=== PATIENT | female | born 1955 | race Caucasian/White ===

== ENCOUNTER 2016-08-25 10:47 | Emergency (ER) | payer BC ==
[~2016-08-25] VITALS: Ht 165.1 cm; Wt 76.9 kg
[~2016-08-25 10:47] MED LIST: /IPRA3SP NEB; /PANT40TA OR; /WARF25TA PO; ALBU17IN2 INH; ALBU2TA NEB; AMBI10TA OR; ASPI325T PO; ATEN25TA OR; AZIT500T2 PO; B COCAP5 OR; BACIDCA PO; BISA10SU PR; BISAC5TA PO; BUSP10TA PO; BUSP15TA PO; BYST10TA2 PO; BYST2.5T PO; CALC600T31 PO; CEFD1CAP8 PO; CELE40TA OR; COUM2.5T17 PO; CRAN400T3 PO; CYCL10TA3 PO; CYCL5TA PO; ESTR0.5T PO; F; FEMHRT; FIBE625T27 PO; FLEXERIL OR; FLUC10TA PO; HYDR-3713 PO; IRON TABS OR; LEVO50TA4 PO; LEVO50TA45 PO; MAGN1TAB25 PO; MAGNESIUM HYDROXIDE; MAGNESIUM HYDROXIDE PO; MOM30SS PO; MULTCAP PO; MULTIVIT OR; MULTLIQ PO; PERCOCET PO; POLYETHYLENE GLYCOL PO; PRED20TAB PO; PROT1TAB2 PO; RANI150C OR; SENN8.6T21 PO; TRAM50TA2 OR; TRAV04OPD OU; TRAZ-136 PO; TRAZ100T PO; TUMS500C PO; TYLE325T5 PO; VICO5TAB PO; VIT D 2000 OR; VITA500046 PO; VITAD1000T PO; VITMTA PO; XANA0.5T OR; ZOLO100T OR; ZOLO100T PO; ZYRT10CA PO; ZYRT10TA2 PO; ZYRT10TA6 OR; [UNRECOGNIZED DRUG - OTHER]; femhrt OR
[2016-08-25] MEDS ORDERED: BUSP10TA PO (11:07)
[2016-08-25] MEDS ORDERED: GABA-279 PO (11:10)
[2016-08-25] MEDS ORDERED: METO1TAB7 PO (11:10)
[2016-08-25] MEDS ORDERED: LATA5OPD OU (11:10)
--- NOTE | 2016-08-25 12:42 | REP ---
Clinical: Trauma. Technique: AP, lateral, bilateral oblique and sunrise views of the right knee. Findings: Osteopenia and moderate tricompartmental osteoarthritic degenerative changes are appreciated. No obvious acute fracture dislocation. Prepatellar soft tissue swelling noted. No definite effusion. Impression: Osteopenia and moderate tricompartmental degenerative changes. Prepatellar swelling. No obvious acute fracture or dislocation. Signed by Yovanny Riojas MD 08/25/2016 12:33 P
--- NOTE | 2016-08-25 12:43 | REP ---
Clinical: Trauma. Technique: Frontal view of the chest with multiple views of the right hemithorax. Findings: Frontal view of the chest demonstrates no acute cardiopulmonary process. Multiple views of the right hemithorax demonstrates no obvious acute rib fracture or pathology. Impression: No definite acute right rib fracture or pathology noted. Signed by Yovanny Riojas MD 08/25/2016 12:34 P
--- NOTE | 2016-08-25 12:44 | REP ---
Clinical: Trauma. Technique: AP and lateral views of the right tibia / fibula. Findings: Age-related osteopenia and degenerative changes at the knee and ankle joint noted. No obvious acute fracture or dislocation. No subcutaneous emphysema or radiodense foreign body. Impression: Osteopenia and degenerative changes. No obvious acute fracture or dislocation. Signed by Yovanny Riojas MD 08/25/2016 12:35 P
[2016-08-25 13:31] VITALS: BP 169/78
== END 2016-08-25 13:33 | disposition home or self-care (01) ==
LOC: M ED 10:47
DX: R29.6 Repeated falls (principal); M25.561 Pain in right knee; M17.11 Unilateral primary osteoarthritis, right knee; M85.861 Other specified disorders of bone density and structure, right lower leg; M25.461 Effusion, right knee; R07.89 Other chest pain; I48.91 Unspecified atrial fibrillation; I10 Essential (primary) hypertension; E03.9 Hypothyroidism, unspecified; M54.9 Dorsalgia, unspecified; F41.9 Anxiety disorder, unspecified; F32.9 Major depressive disorder, single episode, unspecified; Z79.899 Other long term (current) drug therapy; Z91.013 Allergy to seafood; Z88.8 Allergy status to other drugs, medicaments and biological substances

== ENCOUNTER → 2016-09-09 | Outpatient (CLI) | payer BC ==
[~2016-09-09] MED LIST changes: +CALCTAB68 PO; +GABA-279 PO; +K-TA10TA2 PO; +LATA5OPD OU; +METO1TAB7 PO; +METO50TA7 PO; +NORE1TAB13 PO; +VITA200016 PO; +XARE20TA PO
[2016-09-15 14:15] LABS: BENZODIAZEPINES, URINE SCREEN Negative ng/mL (Cutoff=200); METHADONE, URINE SCREEN Negative ng/mL (Cutoff=300); OPIATES, URINE Positive ng/mL (Cutoff=300); pH, URINE 5.5 (4.5-8.9)
== END ==
LOC: M WUC 15:31
PROVIDERS: ATTEND Physical Medicine & Rehabilitation
DX: M47.816 Spondylosis without myelopathy or radiculopathy, lumbar region (principal)

== ENCOUNTER → 2016-11-15 | Outpatient (REF) | payer BC ==
[2016-11-15 16:21] LABS: ANION GAP 9 MEQ/L (8-16); BLOOD UREA NITROGEN 7 MG/DL (7-18); CALCIUM LEVEL 9.1 MG/DL (8.8-10.2); CARBON DIOXIDE LEVEL 28 MEQ/L (21-32); CHLORIDE LEVEL 94 MEQ/L (98-107); CREATININE FOR GFR 0.67 MG/DL (0.55-1.02); GLOMERULAR FILTRATION RATE > 60.0 (>45); GLUCOSE, FASTING 85 MG/DL (80-110); POTASSIUM SERUM 4.7 MEQ/L (3.5-5.1); SODIUM LEVEL 131 MEQ/L (136-145)
[2016-11-15 16:47] LABS: BASO # 0.1 K/mm3 (0.0-0.2); BASO % 1.2 % (0.0-1.0); EOS # 0.2 K/mm3 (0.0-0.50); EOS % 3.2 % (0.0-3.0); MEAN CORPUSCULAR HEMOGLOBIN 33.9 pg (27.0-33.0); MEAN CORPUSCULAR HGB CONC 33.3 g/dl (32.0-36.5); MEAN CORPUSCULAR VOLUME 101.9 fl (80.0-96.0); MONO # 0.4 K/mm3 (0.0-0.8); MONO % 7.2 % (0.0-5.0); NEUTROPHILS # 2.4 K/mm3 (1.8-7.7); NEUTROPHILS % 48.6 % (36.0-66.0); RED CELL DISTRIBUTION WIDTH 12.9 % (11.5-14.5)
== END ==
LOC: M LABDRAW1 14:24
PROVIDERS: ATTEND Internal Medicine Cardiovascular Disease
DX: I48.91 Unspecified atrial fibrillation (principal)

== ENCOUNTER 2016-12-12 09:20 | Inpatient (IN) | payer BC ==
[~2016-12-12] VITALS: Ht 170.2 cm; Wt 77.8 kg
[~2016-12-12 09:20] MED LIST changes: -CALCTAB68 PO; -K-TA10TA2 PO; -METO50TA7 PO; -NORE1TAB13 PO; -VITA200016 PO; -XARE20TA PO
[2016-12-12] MEDS ORDERED: XARE20TA PO (09:40)
[2016-12-12] MEDS ORDERED: NORE1TAB13 PO (09:40)
[2016-12-12] MEDS ORDERED: VITA200016 PO (09:40)
[2016-12-12] MEDS ORDERED: ONDANSETRON 4MG/2ML VIAL (J2405) IV ONE ×2 (10:45→14:00)
[2016-12-12] MEDS ORDERED: NS 1,000 ML IV ONE (11:15)
[2016-12-12 11:48] LABS: BASO % 0.3 % (0.0-1.0); IMMATURE GRANULOCYTE % 0.3 % (0-0); LYMPH % 14.6 % (24.0-44.0); MEAN CORPUSCULAR HEMOGLOBIN 33.4 pg (27.0-33.0); MEAN CORPUSCULAR HGB CONC 35.5 g/dl (32.0-36.5); MONO # 0.5 10^3/uL (0.0-0.8); MONO % 7.4 % (0.0-5.0); NEUTROPHILS # 5.3 10^3/uL (1.8-7.7); NEUTROPHILS % 77.4 % (36.0-66.0); PLATELET COUNT, AUTOMATED 361 10^3/uL (150-450); RED CELL DISTRIBUTION WIDTH 11.3 % (11.5-14.5); WHITE BLOOD COUNT 6.8 10^3/uL (4.0-10.0)
[2016-12-12 11:59] LABS: ANION GAP 8 MEQ/L (8-16); BLOOD UREA NITROGEN 8 MG/DL (7-18); CALCIUM LEVEL 9.7 MG/DL (8.8-10.2); CARBON DIOXIDE LEVEL 30 MEQ/L (21-32); CHLORIDE LEVEL 85 MEQ/L (98-107); CREATININE FOR GFR 0.86 MG/DL (0.55-1.02); GLOMERULAR FILTRATION RATE > 60.0 (>45); GLUCOSE, FASTING 115 MG/DL (80-110); POTASSIUM SERUM 2.9 MEQ/L (3.5-5.1); SODIUM LEVEL 123 MEQ/L (136-145)
[2016-12-12] MEDS ORDERED: METOPROLOL SUCC (TopROL XL) 50MG **XL** TAB PO ONE (12:45)
[2016-12-12 12:58] LABS: FREE T4 1.54 NG/DL (0.76-1.46); MAGNESIUM LEVEL 1.5 MG/DL (1.8-2.4)
[2016-12-12] MEDS ORDERED: POTASSIUM CHLORIDE 10 MEQ SR TABLET PO ONE (13:45)
[2016-12-12] MEDS ORDERED: CALCTAB68 PO (14:49)
[2016-12-12] MEDS ORDERED: METO50TA7 PO (14:49)
[2016-12-12] MEDS ORDERED: ACETAMINOPHEN TAB 650MG DOSE (2X325MG) PO PRN (15:00)
[2016-12-12] MEDS ORDERED: ONDANSETRON 4MG/2ML VIAL (J2405) IV PRN (15:00)
[2016-12-12] MEDS ORDERED: MAG SULF 1GM/100ML (MAG RUN) 1 GM in APPROPRIATE DILUENT 1 EA IV ONE (15:00)
[2016-12-12] MEDS ORDERED: METOCLOPRAMIDE INJ 10MG/2ML VIAL (J2765) IV PRN (15:00)
--- NOTE | 2016-12-12 15:23 | HPEPDOC ---
General Date of Admission Dec 12, 2016 at 14:57 Chief Complaint The patient is a 60-year-old female Presented to the ER with complaints of nausea and vomiting since Monday. History of Present Illness Patient is a 60 year old female with a PMHx of Atrial fibrillation (s/ p Ablation 10/2016, on Xarelto), HTN, Hypothyroidism, Chronic hyponatremia (133s) , Seasonal allergies, Depression and GERD who presented to the ER with complaints of nausea and vomiting since Monday. She noted that on Monday she began to experience N&V associated with diarrhea. She described the diarrhea as watery without any blood and had about 3 episodes. She had taken Imodium on Monday and had resolution of her diarrhea. He nausea and vomiting failed to resolve and she has had 2 episodes of vomiting , described as yellowish without any blood. She denies any fevers or chills at home. She does report epigastric discomfort initially, and described it as a burning sensation. She has taken Protonix for this at home and has full resolution of her pain. She denies any chest pain, shortness of breath, palpitations, or dysuria. She denies any sick contacts or people with similar symptoms. She denies any recent antibiotic use. Home Medications Scheduled (Norethindrone Acetate/Eth 1-5 mg-Mcg) 1 Tab Tab, 1 TAB PO DAILY, (Reported) Buspirone HCl (Buspirone HCl) 10 Mg Tab, 10 MG PO BID, (Reported) Calcium/Vitamin D (Calcium 600 + D 600-400 mg-Unit) 1 Tab Tab, 1 TAB PO DAILY, ( Reported) Cetirizine HCl (Zyrtec Allergy) 10 Mg Tab, 10 MG PO DAILY, (Reported) Latanoprost (Latanoprost) 50 Drop/2.5 Ml Soln, 1 DROP OU QHS, (Reported) Levothyroxine Sodium (Levoxyl) 50 Mcg Tab, 50 MCG PO DAILY, (Reported) Metoprolol Tartrate (Metoprolol Tartrate) 50 Mg Tab, 50 MG PO BID, (Reported) Pantoprazole Sodium Sesquihydr (Protonix) 40 Mg Tab, 40 MG PO DAILY, (Reported) Rivaroxaban (Xarelto) 20 Mg Tab, 20 MG PO DAILY, (Reported) Sertraline Hcl (Zoloft) 100 Mg Tab, 100 MG PO DAILY, (Reported) Trazodone HCl (Trazodone HCl) 100 Mg Tab, 100 MG PO QHS, (Reported) Scheduled PRN Acetaminophen/Hydrocodone (Hydrocodone/Acetaminophen 5-325 mg) 1 Tab Tab, 1 TAB PO DAILY PRN for PAIN, (Reported) Allergies Coded Allergies: Iodine (Verified Allergy, Unknown, 05/29/12) Povidone (Verified Allergy, Unknown, 05/29/12) SEAFOOD (Verified Allergy, Unknown, 01/15/10) Past Medical History Medical History Atrial fibrillation (s/p Ablation 10/2016, on Xarelto), HTN, Hypothyroidism, Chronic hyponatremia (133s), Seasonal allergies, Depression and GERD Surgical History Cystoscopy (10- years prior) Gastric bypass (1995) Tonsillectomy (age 4) Left hip replacement (2013) Cataract removal (2012) Family History - Non-contributory given advanced age Social History - Denies the use of tobacco or illicit drugs; Social alcohol luse - Denies recent travel or sick contacts - Lives alone - Occupation; Retired from guy Review of Symptoms Other systems Negative otherwise stated in HPI Vital Signs - Vitals: BP 185/108, HR 84, RR 18, Sat 92%RA, Temp 97.7F - General: Lying in bed, No acute distress, Speaking in full sentences, AAOx3 - HEENT: NC, AT, PERRLA, EOMI - CVS: Irregularly irregular, +S1S2, - Lungs: Fair air entry bilaterally, No appreciable wheezing / rales / rhonchi - Abdomen: Soft, Non-distended, Non-tender - Extremities: No lower extremity edema, No calf tenderness - Neuro: No focal motor or sensory deficit - Skin: No visible rashes Laboratory Data Labs 24H Laboratory Tests 2 12/12/16 11:20: Immature Granulocyte % (Auto) 0.3H, White Blood Count 6.8, Red Blood Count 4.82 , Hemoglobin 16.1H, Hematocrit 45.3, Mean Corpuscular Volume 94.0, Mean Corpuscular Hemoglobin 33.4H, Mean Corpuscular Hemoglobin Concent 35.5, Red Cell Distribution Width 11.3L, Platelet Count 361, Neutrophils (%) (Auto) 77.4H , Lymphocytes (%) (Auto) 14.6L, Monocytes (%) (Auto) 7.4H, Eosinophils (%) (Auto ) 0.0, Basophils (%) (Auto) 0.3, Neutrophils # (Auto) 5.3, Lymphocytes # (Auto) 1.0L, Monocytes # (Auto) 0.5, Eosinophils # (Auto) 0.0, Basophils # (Auto) 0.0, Immature Granulocyte # (Auto) 0.0, Nucleated Red Blood Cells % (auto) 0.0, Anion Gap 8, Glomerular Filtration Rate > 60.0, Osmolality 259L, Blood Urea Nitrogen 8, Creatinine 0.86, Sodium Level 123L, Potassium Level 2.9*L, Chloride Level 85L, Carbon Dioxide Level 30, Calcium Level 9.7, Magnesium Level 1.5L, Thyroid Stimulating Hormone (TSH) 2.620, Free Thyroxine 1.54H 12/12/16 13:09: Urine Random Osmolality 360L, Urine Random Creatinine 149.0, Urine Random Sodium 43 CBC/BMP Laboratory Tests 12/12/16 11:20 Red Blood Count 4.82, Mean Corpuscular Volume 94.0, Mean Corpuscular Hemoglobin 33.4 H, Mean Corpuscular Hemoglobin Concent 35.5, Red Cell Distribution Width 11.3 L, Neutrophils (%) (Auto) 77.4 H, Lymphocytes (%) (Auto) 14.6 L, Monocytes (%) (Auto) 7.4 H, Eosinophils (%) (Auto) 0.0, Basophils (%) (Auto) 0.3, Neutrophils # (Auto) 5.3, Lymphocytes # (Auto) 1.0 L, Monocytes # (Auto) 0.5, Eosinophils # (Auto) 0.0, Basophils # (Auto) 0.0, Calcium Level 9.7 Plan / VTE VTE Prophylaxis Ordered?: Yes Plan Plan Intractable nausea and vomiting with electrolyte changes - possibly 2/2 acute gastroenteritis (viral) - Symptoms started Monday; associated with diarrhea that has resolved - Physical unrevealing, remains afebrile - Labs indicate several electrolyte abnormalities - Will c/w symptomatic control with Zofran and Metoclopramide (QTc of 431; f/u with AM EKG) Acute on chronic hyponatremia - likely 2/2 hypovolemic hypotonic etiology - currently at 123; prior record of 133s in past - FENa of 0.2% - s/p 1 liter of NS in ER - Will repeat lab work at 6PM - Will adjust fluids based on that Hypokalemia - s/p supplementation Hypomagnesemia - s/p supplementation Atrial fibrillation - s/p Ablation 10/2016, on Xarelto - EKG with atrial fbirllation at 116 - c/w Metoprolol and Xarelto HTN - BP moderately elevated - c/w metoprolol tartrate - If remains elevated will add additional agents Hypothyroidism - c/w Levothyroxine Seasonal allergies - hold anti-histamine Depression - c/w home medications GERD - c/w Protonix (will change to IV) DVT prophylaxis - on full anticoagulation with Xarelto LAURENT BURROWS MD Dec 12, 2016 15:23
[2016-12-12] MEDS: SERTRALINE 100 MG TAB PO SCH (16:02)
[2016-12-12] MEDS: NORCO, ANEXSIA 5/325MG TABLET (HYDROcodone/ACETAMINOPHEN) PO PRN ×2 (16:05→23:05)
[2016-12-12] MEDS: RIVAROXABAN 20 MG TAB (XARELTO) PO SCH (17:50)
[2016-12-12 18:00] VITALS: BP 158/89
[2016-12-12 18:37] LABS: ANION GAP 5 MEQ/L (8-16); BLOOD UREA NITROGEN 8 MG/DL (7-18); CALCIUM LEVEL 9.2 MG/DL (8.8-10.2); CARBON DIOXIDE LEVEL 31 MEQ/L (21-32); CHLORIDE LEVEL 89 MEQ/L (98-107); CREATININE FOR GFR 0.88 MG/DL (0.55-1.02); GLOMERULAR FILTRATION RATE > 60.0 (>45); GLUCOSE, FASTING 124 MG/DL (80-110); MAGNESIUM LEVEL 1.9 MG/DL (1.8-2.4); PHOSPHORUS LEVEL 3.2 MG/DL (2.5-4.9); SODIUM LEVEL 125 MEQ/L (136-145)
--- NOTE | 2016-12-12 18:54 | ECGEPIP ---
Stationary ECG Study [facility] - ED Test Date: 2016-12-12 Pat Name: PRO REY Department: Room: - Gender: F Rewards Consultant: reese : 1955 Requested By: Savannah Cardenas PA-C Order Number: [id number] Reading MD: Ravi Chowdhury Measurements Intervals [place] Rate: 116 P: 66 [place]: 151 QRS: -2 QRSD: 102 T: 27 QT: 362 QTc: 504 Interpretive Statements SINUS TACHYCARDIA WITH OCCASIONAL SUPRAVENTRICULAR PREMATURE COMPLEXES NONSPECIFIC T-WAVE ABNORMALITY SIMILAR TO 05/02/15 Electronically Signed On 12-12-2016 18:54:22 EDT by Ravi Chowdhury
[2016-12-12 19:07] LABS: POTASSIUM SERUM 4.4 MEQ/L (3.5-5.1)
[2016-12-12] MEDS: LEVOTHYROXINE 50MCG TABLET (0.05MG) PO SCH (19:44)
[2016-12-12 20:00] VITALS: BP 149/82
[2016-12-12] MEDS ORDERED: NS 1,000 ML IV SCH (20:15)
[2016-12-12] MEDS: LATANOPROST 0.005% OPHTH SOLN 2.5 ML OU SCH (20:18)
[2016-12-12] MEDS: busPIRone 10 MG TAB PO SCH (20:19)
[2016-12-12] MEDS: METOPROLOL TART 50 MG TAB PO SCH (20:19)
[2016-12-12] MEDS: traZODone 100 MG TAB PO SCH (20:19)
[2016-12-13] VITALS (7 sets, daily range): BP systolic 121–144; BP diastolic 71–88
[2016-12-13 04:34] LABS: BASO # 0.1 10^3/uL (0.0-0.2); BASO % 0.9 % (0.0-1.0); EOS # 0.2 10^3/uL (0.0-0.50); EOS % 2.8 % (0.0-3.0); IMMATURE GRANULOCYTE % 0.3 % (0-0); LYMPH # 2.6 10^3/uL (1.5-4.5); LYMPH % 45.2 % (24.0-44.0); MEAN CORPUSCULAR HEMOGLOBIN 33.9 pg (27.0-33.0); MEAN CORPUSCULAR HGB CONC 35.7 g/dl (32.0-36.5); MEAN CORPUSCULAR VOLUME 95.1 fl (80.0-96.0); MONO # 0.6 10^3/uL (0.0-0.8); NEUTROPHILS # 2.4 10^3/uL (1.8-7.7); NEUTROPHILS % 40.8 % (36.0-66.0); RED CELL DISTRIBUTION WIDTH 11.1 % (11.5-14.5); WHITE BLOOD COUNT 5.8 10^3/uL (4.0-10.0)
[2016-12-13 04:41] LABS: PLATELET COUNT, AUTOMATED 260 10^3/uL (150-450)
[2016-12-13 04:55] LABS: ALBUMIN 2.9 GM/DL (3.2-5.2); ALKALINE PHOSPHATASE 51 U/L (45-117); ALT/SGPT 19 U/L (12-78); ANION GAP 6 MEQ/L (8-16); AST/SGOT 27 U/L (15-37); BILIRUBIN,TOTAL 1.1 MG/DL (0.2-1.0); BLOOD UREA NITROGEN 6 MG/DL (7-18); CALCIUM LEVEL 7.8 MG/DL (8.8-10.2); CARBON DIOXIDE LEVEL 28 MEQ/L (21-32); CHLORIDE LEVEL 90 MEQ/L (98-107); CREATININE FOR GFR 0.74 MG/DL (0.55-1.02); GLOMERULAR FILTRATION RATE > 60.0 (>45); GLUCOSE, FASTING 87 MG/DL (80-110); MAGNESIUM LEVEL 1.6 MG/DL (1.8-2.4); POTASSIUM SERUM 3.4 MEQ/L (3.5-5.1); SODIUM LEVEL 124 MEQ/L (136-145); TOTAL PROTEIN 5.8 GM/DL (6.4-8.2)
[2016-12-13] MEDS: LEVOTHYROXINE 50MCG TABLET (0.05MG) PO SCH (06:10)
[2016-12-13] MEDS: NORCO, ANEXSIA 5/325MG TABLET (HYDROcodone/ACETAMINOPHEN) PO PRN ×3 (06:13→20:03)
[2016-12-13] MEDS: MAG SULF 1GM/100ML (MAG RUN) 1 GM in APPROPRIATE DILUENT 1 EA IV SCH ×2 (06:51→08:07)
[2016-12-13] MEDS: METOPROLOL TART 50 MG TAB PO SCH ×2 (08:08→20:02)
[2016-12-13] MEDS: busPIRone 10 MG TAB PO SCH ×2 (08:08→20:02)
[2016-12-13] MEDS: SERTRALINE 100 MG TAB PO SCH (08:08)
[2016-12-13] MEDS: POTASSIUM CHLORIDE 10 MEQ SR TABLET PO SCH ×2 (08:09→20:01)
[2016-12-13] MEDS ORDERED: PANTOPRAZOLE 40MG INJ (PROTONIX) (C9113) IV SCH (09:00)
--- NOTE | 2016-12-13 16:08 | IPNPDOC ---
Text Note Date of Service The patient was seen on 12/13/16. NOTE Subjective: Patient denies any nausea or vomiting today. feeling hungry . No fever or chills, no abdominal pain , or diarrhea. no chest pain or sob , no cough or phlegm. Physical Exam:- General: Lying in bed, No acute distress, Speaking in full sentences, AAOx3 HEENT: NC, AT, PERRLA, EOMI CVS: Irregularly irregular, +S1S2, Lungs: Fair air entry bilaterally, No appreciable wheezing / rales / rhonchi Abdomen: Soft, Non-distended, Non-tender Extremities: No lower extremity edema, No calf tenderness Neuro: No focal motor or sensory deficit Skin: No visible rashes Labs and radiology : As below. Assessment and Plan: 60 year old female with a PMHx of Atrial fibrillation (s/p Ablation 10/2016, on Xarelto), HTN, Hypothyroidism, Chronic hyponatremia (133s), Seasonal allergies, Depression and GERD who presented to the ER with complaints of nausea and vomiting since Monday and admitted for viral gastroenteritis and multiple electrolyte abnormalities. Intractable nausea and vomiting with electrolyte changes - possibly 2/2 acute gastroenteritis (viral) - Symptoms started Monday; associated with diarrhea that has resolved - Physical unrevealing, remains afebrile - Labs indicate several electrolyte abnormalities - Will c/w symptomatic control with Zofran and Metoclopramide (QTc of 431; f/u with AM EKG) Acute on chronic hyponatremia -Patient has a history of psychogenic polydipsia now more hyponatremic possibly due to excessive SIADH from intractable nausea and being on SSRI.. At this point does not look hypovolemic and nausea has resolved. -will dc ivf and start fluid restriction. Hypokalemia - s/p supplementation Hypomagnesemia - s/p supplementation Atrial fibrillation - s/p Ablation 10/2016, on Xarelto - EKG with atrial fbirllation at 116 - c/w Metoprolol and Xarelto HTN - BP moderately elevated - c/w metoprolol tartrate - If remains elevated will add additional agents Hypothyroidism - c/w Levothyroxine Seasonal allergies - hold anti-histamine Depression - c/w home medications GERD - c/w Protonix DVT prophylaxis - on full anticoagulation with Xarelto VS,Fishbone, I+O VS, Fishbone, I+O Laboratory Tests 12/12/16 17:55 Calcium Level 9.2 12/13/16 04:08 Calcium Level 7.8 #L, Red Blood Count 3.86 L, Mean Corpuscular Volume 95.1, Mean Corpuscular Hemoglobin 33.9 H, Mean Corpuscular Hemoglobin Concent 35.7, Red Cell Distribution Width 11.1 L, Neutrophils (%) (Auto) 40.8, Lymphocytes (% ) (Auto) 45.2 H, Monocytes (%) (Auto) 10.0 H, Eosinophils (%) (Auto) 2.8, Basophils (%) (Auto) 0.9, Neutrophils # (Auto) 2.4, Lymphocytes # (Auto) 2.6, Monocytes # (Auto) 0.6, Eosinophils # (Auto) 0.2, Basophils # (Auto) 0.1, Aspartate Amino Transf (AST/SGOT) 27, Alanine Aminotransferase (ALT/SGPT) 19, Alkaline Phosphatase 51, Total Bilirubin 1.1 H, Total Protein 5.8 L, Albumin 2.9 L Vital Signs Date Time Temp Pulse Resp B/P (MAP) Pulse Ox O2 Delivery O2 Flow Rate FiO2 12/13/16 14:00 98.5 85 18 139/76 (97) 98 Room Air I&O- Last 24 Hours up to 6 AM 12/14/16 06:00 Intake Total 1180 ml Output Total 425 ml Balance 755 ml SANGITA GONZALEZ MD Dec 13, 2016 16:08
[2016-12-13] MEDS: RIVAROXABAN 20 MG TAB (XARELTO) PO SCH (17:47)
[2016-12-13 18:42] LABS: ANION GAP 6 MEQ/L (8-16); BLOOD UREA NITROGEN 12 MG/DL (7-18); CALCIUM LEVEL 8.8 MG/DL (8.8-10.2); CARBON DIOXIDE LEVEL 28 MEQ/L (21-32); CHLORIDE LEVEL 91 MEQ/L (98-107); CREATININE FOR GFR 0.78 MG/DL (0.55-1.02); GLOMERULAR FILTRATION RATE > 60.0 (>45); GLUCOSE, FASTING 82 MG/DL (80-110); MAGNESIUM LEVEL 2.2 MG/DL (1.8-2.4); POTASSIUM SERUM 4.6 MEQ/L (3.5-5.1); SODIUM LEVEL 125 MEQ/L (136-145)
[2016-12-13] MEDS: LATANOPROST 0.005% OPHTH SOLN 2.5 ML OU SCH (20:01)
[2016-12-13] MEDS: traZODone 100 MG TAB PO SCH (20:02)
[2016-12-14] VITALS: BP 145/88
[2016-12-14 04:00] VITALS: BP 152/94
[2016-12-14] MEDS: NORCO, ANEXSIA 5/325MG TABLET (HYDROcodone/ACETAMINOPHEN) PO PRN ×2 (04:19→11:36)
[2016-12-14] MEDS: LEVOTHYROXINE 50MCG TABLET (0.05MG) PO SCH (06:02)
[2016-12-14 07:16] LABS: BASO # 0.1 10^3/uL (0.0-0.2); BASO % 1.9 % (0.0-1.0); EOS # 0.2 10^3/uL (0.0-0.50); EOS % 3.5 % (0.0-3.0); IMMATURE GRANULOCYTE % 0.4 % (0-0); LYMPH # 1.7 10^3/uL (1.5-4.5); LYMPH % 35.5 % (24.0-44.0); MEAN CORPUSCULAR HEMOGLOBIN 33.3 pg (27.0-33.0); MEAN CORPUSCULAR HGB CONC 34.5 g/dl (32.0-36.5); MEAN CORPUSCULAR VOLUME 96.7 fl (80.0-96.0); MONO # 0.5 10^3/uL (0.0-0.8); MONO % 10.1 % (0.0-5.0); NEUTROPHILS # 2.4 10^3/uL (1.8-7.7); NEUTROPHILS % 48.6 % (36.0-66.0); PLATELET COUNT, AUTOMATED 255 10^3/uL (150-450); RED CELL DISTRIBUTION WIDTH 11.1 % (11.5-14.5); WHITE BLOOD COUNT 4.9 10^3/uL (4.0-10.0)
[2016-12-14 07:35] LABS: ALBUMIN 3.2 GM/DL (3.2-5.2); ALBUMIN/GLOBULIN RATIO 1.14 (1.00-1.93); ALKALINE PHOSPHATASE 56 U/L (45-117); ALT/SGPT 17 U/L (12-78); ANION GAP 5 MEQ/L (8-16); AST/SGOT 17 U/L (15-37); BILIRUBIN,TOTAL 0.8 MG/DL (0.2-1.0); BLOOD UREA NITROGEN 13 MG/DL (7-18); CALCIUM LEVEL 8.6 MG/DL (8.8-10.2); CARBON DIOXIDE LEVEL 29 MEQ/L (21-32); CHLORIDE LEVEL 96 MEQ/L (98-107); CREATININE FOR GFR 0.77 MG/DL (0.55-1.02); GLOMERULAR FILTRATION RATE > 60.0 (>45); GLUCOSE, FASTING 78 MG/DL (80-110); POTASSIUM SERUM 4.5 MEQ/L (3.5-5.1); SODIUM LEVEL 130 MEQ/L (136-145)
[2016-12-14 08:00] VITALS: BP 155/83
[2016-12-14] MEDS ORDERED: PANTOPRAZOLE 40MG TAB (PROTONIX) PO SCH (09:00)
[2016-12-14 09:18] VITALS: BP 155/83
[2016-12-14] MEDS: SERTRALINE 100 MG TAB PO SCH (09:18)
[2016-12-14] MEDS: busPIRone 10 MG TAB PO SCH (09:18)
[2016-12-14] MEDS: METOPROLOL TART 50 MG TAB PO SCH (09:18)
[2016-12-14] MEDS: POTASSIUM CHLORIDE 10 MEQ SR TABLET PO SCH (09:18)
[2016-12-14 12:00] VITALS: BP 145/85
[2016-12-14] MEDS ORDERED: K-TA10TA2 PO (12:14)
--- NOTE | 2016-12-14 16:07 | ECGEPIP ---
Stationary ECG Study [facility] Test Date: 2016-12-13 Pat Name: PRO REY Department: Room: [place] [address] Gender: F Regional Manager: PAM : 1955 Requested By: LAURENT BURROWS Order Number: [id number] Reading MD: Zach Coyle Measurements Intervals [place] Rate: 80 P: -3 HI: 181 QRS: 2 QRSD: 101 T: 24 QT: 386 QTc: 447 Interpretive Statements SINUS RHYTHM, Within normal limits. Decreased heart rate and no PVCs and improved repolarization compared with 12/12/2016. Electronically Signed On 12-14-2016 16:07:00 EDT by Zach Coyle
--- NOTE | 2016-12-16 21:49 | DSES ---
DATE OF ADMISSION: 12/12/2016 DATE OF DISCHARGE: 12/14/2016 PRIMARY CARE PROVIDER: Zhang Ruiz DO DISCHARGE DIAGNOSES: 1. Acute gastroenteritis causing intractable nausea and vomiting. 2. Multiple electrolyte abnormalities including acute on chronic hyponatremia. 3. Hypokalemia. 4. Hypomagnesemia. 5. Possible history of psychogenic polydipsia. 6. Atrial fibrillation, status post ablation and on Xarelto. 7. Hypertension. 8. Hypothyroidism. 9. Depression. 10. Gastroesophageal reflux disease (GERD). 11. Seasonal allergies. DISCHARGE MEDICATIONS: - potassium chloride 10 mEq by mouth daily - acetaminophen/hydrocodone one tablet by mouth daily as needed for pain - buspirone 10 mg by mouth twice a day - calcium with vitamin D one tablet by mouth daily - cetirizine 10 mg by mouth daily - latanoprost one drop both eyes at bedtime - Synthroid 50 mcg by mouth daily - metoprolol 50 mg by mouth twice a day - pantoprazole 40 mg by mouth daily - Xarelto 20 mg by mouth daily - sertraline 100 mg by mouth daily - trazodone 100 mg by mouth at bedtime HOSPITAL COURSE: This is a 60-year-old female who presented to the hospital with three days history of intractable nausea and vomiting and inability to keep anything down by mouth. Patient was found to have severe electrolyte abnormalities with hyponatremia, hypomagnesemia, and hypokalemia. Patient's nausea and vomiting resolved with bowel rest, IV fluids, and antiemetic medications. Her nausea and vomiting was felt to be related to acute gastroenteritis. Patient's electrolytes were replaced. Her hyponatremia was previously worked up. At that time it was felt that she may have a component of psychogenic polydipsia as well as inappropriately high levels of antidiuretic hormone (ADH). During this admission, she does have normal morning cortisol level and TSH level, from before this admission, was shown that her uric acid level was low during prior admissions. During this admission, we repeated her urine sodium and osmolality, however that was done after patient received IV fluid. Her osmolality was 360 and a urine sodium of 43 suggestive of more of syndrome of inappropriate secretion of antidiuretic hormone (SIADH). At this point, patient has not been able to tolerate anything by mouth so had not been drinking for 2-3 days. Patient's electrolytes were corrected and patient was subsequently started on fluid restriction with improvement in her sodium level. On the day of discharge, patient did not have any complaints. Patient had already taken normal diet for more than 24 hours without any issues. Patient's vital signs were stable and she was functioning at her baseline. PHYSICAL EXAMINATION: VITAL SIGNS: Temperature 97.6, pulse 79, respiratory rate 18, blood pressure 145/85, pulse oximetry 99% in room air. GENERAL: Patient awake, alert, oriented times three, sitting up in bed in no acute distress. HEENT: Normocephalic, atraumatic. Moist mucous membranes. Anicteric eyes. CHEST: Clear to auscultation. CARDIOVASCULAR: S1, S2, regular. No rub, murmur, or gallop. ABDOMEN: Soft, nontender. Bowel sounds present. EXTREMITIES: No edema. LABORATORY DATA: WBC 4.9, hemoglobin 13.1, platelets 255. Sodium 130, potassium 4.5, chloride 96, bicarbonate 29, BUN 13, creatinine 0.7, glucose 78, calcium 8.6, magnesium 2, liver function tests are normal. DISPOSITION: Patient is discharged home in a stable condition. DISCHARGE INSTRUCTIONS: Patient to followup with primary care provider in 1-2 weeks. Diet as tolerated. Activity as tolerated.
== END 2016-12-14 13:47 | disposition home or self-care (01) | DRG 249 ==
LOC: M ED 09:20 → M ED INP 14:57 → M ICU 17:20 → M MS4PR 12-13 08:52
PROVIDERS: ADMIT Internal Medicine; ATTEND Internal Medicine Nephrology
DX: A08.4 Viral intestinal infection, unspecified (principal); E87.1 Hypo-osmolality and hyponatremia; I10 Essential (primary) hypertension; I48.91 Unspecified atrial fibrillation; E83.42 Hypomagnesemia; R11.2 Nausea with vomiting, unspecified; E03.9 Hypothyroidism, unspecified; E87.6 Hypokalemia; J30.2 Other seasonal allergic rhinitis; F32.9 Major depressive disorder, single episode, unspecified; K21.9 Gastro-esophageal reflux disease without esophagitis; Z79.01 Long term (current) use of anticoagulants; Z79.899 Other long term (current) drug therapy; Z88.8 Allergy status to other drugs, medicaments and biological substances; Z91.013 Allergy to seafood; Z91.048 Other nonmedicinal substance allergy status; Z98.84 Bariatric surgery status; Z96.642 Presence of left artificial hip joint; Z98.49 Cataract extraction status, unspecified eye

== ENCOUNTER → 2017-01-30 | Outpatient (CLI) | payer BC ==
[~2017-01-30] MED LIST changes: +CALCTAB68 PO; +K-TA10TA2 PO; +METO50TA7 PO; +NORE1TAB13 PO; +VITA200016 PO; +XARE20TA PO
== END ==
LOC: M PAIN 11:00
PROVIDERS: ATTEND Nurse Practitioner Family
DX: M54.17 Radiculopathy, lumbosacral region (principal); G89.29 Other chronic pain; I10 Essential (primary) hypertension; E03.9 Hypothyroidism, unspecified; F32.9 Major depressive disorder, single episode, unspecified; F41.9 Anxiety disorder, unspecified; I48.91 Unspecified atrial fibrillation; K21.9 Gastro-esophageal reflux disease without esophagitis; Z79.891 Long term (current) use of opiate analgesic; Z79.899 Other long term (current) drug therapy; Z88.8 Allergy status to other drugs, medicaments and biological substances; Z98.84 Bariatric surgery status; Z95.818 Presence of other cardiac implants and grafts

== ENCOUNTER → 2017-03-07 | Outpatient (REF) | LOC: M SMT 11:10 | DX: M54.5 Low back pain (principal) ==

== ENCOUNTER → 2017-03-24 | Outpatient (CLI) | payer BC | LOC: M PAIN 11:15 | DX: G89.29 Other chronic pain (principal); M54.17 Radiculopathy, lumbosacral region; I10 Essential (primary) hypertension; E03.9 Hypothyroidism, unspecified; M19.90 Unspecified osteoarthritis, unspecified site; F41.9 Anxiety disorder, unspecified; F32.9 Major depressive disorder, single episode, unspecified; K21.9 Gastro-esophageal reflux disease without esophagitis; I48.91 Unspecified atrial fibrillation; Z88.1 Allergy status to other antibiotic agents; Z88.8 Allergy status to other drugs, medicaments and biological substances; Z91.013 Allergy to seafood; Z91.041 Radiographic dye allergy status; Z79.01 Long term (current) use of anticoagulants; Z79.899 Other long term (current) drug therapy; Z95.818 Presence of other cardiac implants and grafts | CPT/HCPCS: G0463 ==

== ENCOUNTER → 2017-04-21 | Outpatient (CLI) | payer BC | LOC: M PAIN 13:00 | DX: M54.5 Low back pain (principal); I10 Essential (primary) hypertension; E03.9 Hypothyroidism, unspecified; F41.9 Anxiety disorder, unspecified; K21.9 Gastro-esophageal reflux disease without esophagitis; I48.91 Unspecified atrial fibrillation; F32.9 Major depressive disorder, single episode, unspecified; Z79.891 Long term (current) use of opiate analgesic; Z79.899 Other long term (current) drug therapy; Z79.01 Long term (current) use of anticoagulants; Z88.8 Allergy status to other drugs, medicaments and biological substances | CPT/HCPCS: G0463 ==

== ENCOUNTER → 2017-10-09 | Outpatient (CLI) | payer BC | LOC: M PAIN 13:30 | DX: M54.5 Low back pain (principal); M54.2 Cervicalgia; I10 Essential (primary) hypertension; E03.9 Hypothyroidism, unspecified; F41.9 Anxiety disorder, unspecified; F32.9 Major depressive disorder, single episode, unspecified; K21.9 Gastro-esophageal reflux disease without esophagitis; I48.91 Unspecified atrial fibrillation; Z96.642 Presence of left artificial hip joint; Z98.84 Bariatric surgery status; Z79.01 Long term (current) use of anticoagulants; Z79.891 Long term (current) use of opiate analgesic; Z79.899 Other long term (current) drug therapy; Z88.8 Allergy status to other drugs, medicaments and biological substances | CPT/HCPCS: G0463 ==

== ENCOUNTER 2017-11-22 13:58 | Emergency (ER) | payer BC ==
[2017-11-22] MEDS: ONDANSETRON 4MG/2ML VIAL (J2405) IV ×2 (15:39→20:13)
[2017-11-22] MEDS: METOPROLOL TART 50 MG TAB PO (15:39)
[2017-11-22 15:46] LABS: BEDSIDE GLUCOSE 118 MG/DL (80-115)
[2017-11-22 15:47] LABS: BASO % 0.5 % (0.0-1.0); EOS % 0.2 % (0.0-3.0); HEMATOCRIT 41.3 % (36.0-47.0); HEMOGLOBIN 14.3 g/dl (12.0-15.5); IMMATURE GRANULOCYTE % 0.3 % (0-3.0); LYMPH # 0.7 10^3/uL (1.5-4.5); LYMPH % 11.3 % (24.0-44.0); MEAN CORPUSCULAR HEMOGLOBIN 33.6 pg (27.0-33.0); MEAN CORPUSCULAR HGB CONC 34.6 g/dl (32.0-36.5); MEAN CORPUSCULAR VOLUME 97.2 fl (80.0-96.0); MONO # 0.2 10^3/uL (0.0-0.8); MONO % 3.5 % (0.0-5.0); NEUTROPHILS # 5.5 10^3/uL (1.8-7.7); NEUTROPHILS % 84.2 % (36.0-66.0); PLATELET COUNT, AUTOMATED 407 10^3/uL (150-450); RED BLOOD COUNT 4.25 10^6/uL (4.00-5.40); RED CELL DISTRIBUTION WIDTH 11.8 % (11.5-14.5); WHITE BLOOD COUNT 6.6 10^3/uL (4.0-10.0)
[2017-11-22] MEDS: METOCLOPRAMIDE INJ 10MG/2ML VIAL (J2765) IV (16:02)
[2017-11-22 16:03] LABS: ALBUMIN 4.2 GM/DL (3.2-5.2); ALBUMIN/GLOBULIN RATIO 1.24 (1.00-1.93); ALKALINE PHOSPHATASE 57 U/L (45-117); ALT/SGPT 12 U/L (12-78); ANION GAP 14 MEQ/L (8-16); AST/SGOT 14 U/L (7-37); BILIRUBIN,DIRECT 0.2 MG/DL (0.0-0.2); BILIRUBIN,TOTAL 0.5 MG/DL (0.2-1.0); BLOOD UREA NITROGEN 5 MG/DL (7-18); CARBON DIOXIDE LEVEL 22 MEQ/L (21-32); CHLORIDE LEVEL 93 MEQ/L (98-107); CPK CREATINE PHOSPHOKINASE 165 U/L (26-192); CREATININE FOR GFR 0.69 MG/DL (0.55-1.30); GLOMERULAR FILTRATION RATE > 60.0 (>45); GLUCOSE, FASTING 123 MG/DL (70-100); LIPASE 57 U/L (73-393); MB/CK RELATIVE INDEX 3.64 (< OR =4); POTASSIUM SERUM 3.7 MEQ/L (3.5-5.1); SODIUM LEVEL 129 MEQ/L (136-145); TOTAL PROTEIN 7.6 GM/DL (6.4-8.2); TROPONIN I 0.02 NG/ML (< 0.10)
[2017-11-22] MEDS: NS 1,000 ML IV (17:08)
[2017-11-22] MEDS ORDERED: PROMETHAZINE INJ 25 MG/ML VIAL (J2550) IM (17:30)
[2017-11-22] MEDS: PROMETHAZINE INJ 25 MG/ML VIAL (J2550) IV (17:32)
[2017-11-22] MEDS: MORPHINE 2 MG/ML 1ML SYRINGE (J2270) IV ×2 (17:59→22:12)
[2017-11-22 18:13] LABS: CPK CREATINE PHOSPHOKINASE 154 U/L (26-192); MB/CK RELATIVE INDEX 3.31 (< OR =4); TROPONIN I 0.02 NG/ML (< 0.10)
[2017-11-22] MEDS: READI-CAT 2 PO (20:12)
[2017-11-22] MEDS ORDERED: MORPHINE 2 MG/ML 1ML SYRINGE (J2270) IV (22:15)
[2017-11-22] MEDS: ONDANSETRON 4 MG ORAL DISINTEGRATING TAB (Q0162 PER 1MG) PO (23:03)
== END 2017-11-22 23:25 | disposition home or self-care (01) ==
LOC: M ED 13:58
DX: R10.9 Unspecified abdominal pain (principal); K21.9 Gastro-esophageal reflux disease without esophagitis; F32.9 Major depressive disorder, single episode, unspecified; G89.29 Other chronic pain; I48.91 Unspecified atrial fibrillation; Z98.84 Bariatric surgery status; Z98.890 Other specified postprocedural states; Z88.8 Allergy status to other drugs, medicaments and biological substances; Z91.013 Allergy to seafood; Z88.3 Allergy status to other anti-infective agents; Z79.899 Other long term (current) drug therapy; Z79.891 Long term (current) use of opiate analgesic
CPT/HCPCS: J2405

== ENCOUNTER → 2017-12-19 | Outpatient (CLI) | payer BC | LOC: M PAIN 14:30 | DX: M54.5 Low back pain (principal); I10 Essential (primary) hypertension; E03.9 Hypothyroidism, unspecified; M19.90 Unspecified osteoarthritis, unspecified site; F41.9 Anxiety disorder, unspecified; F32.9 Major depressive disorder, single episode, unspecified; K21.9 Gastro-esophageal reflux disease without esophagitis; Z79.899 Other long term (current) drug therapy; Z88.1 Allergy status to other antibiotic agents; Z88.8 Allergy status to other drugs, medicaments and biological substances; Z96.642 Presence of left artificial hip joint; Z98.84 Bariatric surgery status; Z86.79 Personal history of other diseases of the circulatory system | CPT/HCPCS: G0463 ==

== ENCOUNTER → 2017-12-25 | Outpatient (CLI) | payer BC | LOC: M RAD 06:54 | DX: R10.11 Right upper quadrant pain (principal) | CPT/HCPCS: 76705 ==

== ENCOUNTER → 2018-06-20 | Outpatient (CLI) | payer BC ==
[~2018-06-20] MED LIST changes: -/IPRA3SP NEB; -/PANT40TA OR; -/WARF25TA PO; +ATRO1SOL13 NEB; +COUM1TAB18 PO; -CYCL5TA PO; +CYCL5TAB5 PO; +GABA-1171 PO; -GABA-279 PO; +LATA0.0013 OU; -LATA5OPD OU; -MAGN1TAB25 PO; +MAGN1TAB26 PO; +OXYC-141 PO; +OXYC1TAB23 PO; -PERCOCET PO; +PROT1TAB2 OR; -TRAZ-136 PO; +TRAZ-163 PO; +ZYRT10CA5 PO; -ZYRT10TA2 PO
--- NOTE | 2018-07-06 00:42 | ECWPNPC ---
PATIENT NAME: PRO REY : 1955 GENDER: FEMALE VISIT DATE: 06/20/2018 DISCHARGE DATE: 06/20/18 1537 VISIT LOCKED DATE TIME: PHYSICIAN: VIRGIL BURCIAGA RESOURCE: VIRGIL BURCIAGA REASON FOR APPOINTMENT 1. BACK HISTORY OF PRESENT ILLNESS HISTORY OF PRESENT ILLNESS: HERE FOR F/U OF CHRONIC LOW BACK PAIN.RATING PAIN VAS 6/10.DESCRIBES PAIN CONTINUOUS AND ACHING.FINDS BUTRANS PATCH STARTED AT LAST VISIT IS HELPFUL.DISCUSSED TREATMENT OPTIONS.RATING PAIN VAS 6/10. PAIN THE PATIENT DESCRIBES THE PAIN... FALL RISK SCREENING: SCREENING :NO FALLS REPORTED IN THE LAST YEAR CURRENT MEDICATIONS TAKING CALCIUM 600/VITAMIN D 600-400 MG-UNIT TABLET 1 TABLET WITH A MEAL ORALLY ONCE A DAY TAKING LEVOTHYROXINE SODIUM 50 MCG TABLET 1 TABLET ORALLY ONCE A DAY TAKING BUSPIRONE HCL 10 MG TABLET 1 TABLET ORALLY TWICE A DAY TAKING ZYRTEC 10 MG TABLET 1 TABLET NEEDED ORALLY ONCE A DAY, NOTES: TAKES DAILY TAKING ZOLOFT 100 MG TABLET 1 TABLET ORALLY ONCE A DAY TAKING TRAZODONE HCL 100 MG TABLET 1 TABLET AT BEDTIME ORALLY ONCE A DAY TAKING POTASSIUM CHLORIDE CR 10 MEQ TABLET ORALLY DAILY TAKING FEMHRT 1/5 1-5 MG - MCG TABS ORALLY DAILY TAKING PROTONIX 40 MG TABLET DELAYED RELEASE 1 TAB ORALLY ONCE A DAY TAKING METOPROLOL SUCCINATE ER 200 MG TABLET EXTENDED RELEASE 24 HOUR 1 TABLET ORALLY ONCE A DAY TAKING ROBAXIN-750 750 MG TABLET 1/2 TABLET ORALLY AT NIGHT NEEDED TAKING OXYCODONE HCL 5 MG TABLET 1 TABLET NEEDED ORALLY EVERY 6 HRS PRN MDD4 TAKING BUTRANS 10 MCG/HR PATCH WEEKLY 1 PATCH TO SKIN TRANSDERMAL 1 PATCH Q7DAYS =MDD NOT-TAKING VICODIN 5/325 TABLET 1 TABLET NEEDED ORALLY EVERY 4 HRS NOT-TAKING BYSTOLIC 10 MG TABLET 1 TABLET ORALLY ONCE A DAY NOT-TAKING CYCLOBENZAPRINE HCL 5 MG TABLET 1 TABLET ORALLY THREE TIMES A DAY NOT-TAKING NITROFURANTOIN MONOHYD MACRO 100 MG CAPSULE 1 CAPSULE WITH FOOD ORALLY EVERY 12 HRS NOT-TAKING BACTRIM DS 800-160 MG TABLET 1 TABLET ORALLY ONCE A DAY MEDICATION LIST REVIEWED AND RECONCILED WITH THE PATIENT PAST MEDICAL HISTORY HTN HYPOTHYROIDISM ARTHRITIS CHRONIC NECK AND BACK PAIN ANXIETY/DEPRESSION HEART LOOP MONITER TO LEFT CHEST GERD A FIB ALLERGIES IODINE: HIVES - ALLERGY TIZANIDINE HCL: CONFUSION - SIDE EFFECTS SURGICAL HISTORY LEFT HIP REPLACEMENT 04/2014 REMOVE JOSE ENRIQUE AND PINS 11/2013 BROKEN LEFT LEG REPAIR 10/2012 GASTRIC BYPASS 2004 CATARACT REMOVED 2012 ABLATION FOR AFIB 2016 HEART LOOP MONITER PLACED 2016 HEART ABLATION NOV 13, 2017 CYST REMOVED FROM BACK OF HEAD 05/2018 FAMILY HISTORY PT. ADOPTED NO KNOWN FAMILY HISTORY. SOCIAL HISTORY GENERAL: TOBACCO USE ARE YOU A:NONSMOKER LATEX QUESTIONNAIRE LATEX ALLERGY : HAVE YOU EVER DEVELOPED ANY TYPE OF REACTION AFTER HANDLING LATEX PRODUCTS SUCH RUBBER GLOVES, CONDOMS, DIAPHRAGMS, BALLOONS, SOCKS, OR UNDERWEAR?NO LATEX ALLERGY : HAVE YOU EVER DEVELOPED ANY TYPE OF REACTION DURING OR AFTER DENTAL APPOINTMENT, VAGINAL/RECTAL EXAMINATION, SURGICAL PROCEDURE, OR ANY OTHER EXPOSURE?NO LATEX RISK : HAVE YOU EVER HAD ANY DIFFICULTY BREATHING OR HIVES AFTER EATING OR HANDLING ANY FRUITS, OR VEGETABLES; SUCH KIWI, BANANAS, STONE FRUITS, OR CHESTNUTSNO LATEX RISK : DO YOU HAVE A PREVIOUS PERSONAL HISTORY OF MORE THAN NINE SURGERIES, SPINA BIFIDA, OR REPEATED CATHERTIZATIONS? NO LATEX RISK : ARE YOU FREQUENTLY EXPOSED TO LATEX PRODUCTS IN YOUR OCCUPATION?NO DATE ASKED : 06/20/2018 ALCOHOL SCREENING DID YOU HAVE A DRINK CONTAINING ALCOHOL IN THE PAST YEAR?YES HOW OFTEN DID YOU HAVE A DRINK CONTAINING ALCOHOL IN THE PAST YEAR?MONTHLY OR LESS (1 POINT) POINTS1 INTERPRETATIONNEGATIVE CAFFEINE CAFFEINE USE?YES HOW OFTEN AND HOW MUCH? 1 CUP COFFEE PER DAY IN THE AM HOLINESS [id number] BUDDHIST NO ZOROASTRIAN BELIEFS THAT WOULD IMPACT HEALTH CARE. LANGUAGE LANGUAGES SPOKEN:ROMANIAN LEARNING BARRIERS / SPECIAL NEEDS BARRIERS TO LEARNING?NO VISION IMPAIRED?YES :CORRECTIVE LENSES READING GLASSES ONLY READINESS TO LEARN?YES LEARNING PREFERENCES?NO LEARNING CAPABILITIES PRESENT?YES EMOTIONAL BARRIERS?NO SPECIAL DEVICES?NO DIET: GASTRIC BYPASS DIET SEVERAL SMALL MEALS (5-6 TIMES) PER DAY. PAIN CLINIC PFS, CLERGY, PUBLIC HEALTH REFERRALS PFS REFERRAL NEEDED?NO CLERGY REFERRAL NEEDED?NO PUBLIC HEALTH REFERRAL NEEDED?NO WAS THE PROVIDER NOTIFIED OF ANY PERTINENT INFO?YES HAS THE PATIENT BEEN EDUCATED REGARDING HIS/HER PLAN OF CARE?YES HAS THE PATIENT BEEN EDUCATED REGARDING PAIN, THE RISK FOR PAIN, THE IMPORTANCE OF EFFECTIVE PAIN MANAGEMENT, AND THE PAIN ASSESSMENT PROCESS?YES ADVANCE DIRECTIVE ADVANCE DIRECTIVE DISCUSSED WITH PATIENT:YES HCP REVIEWED WITH PT 12/19/17 5057 BV. HOSPITALIZATION/MAJOR DIAGNOSTIC PROCEDURE SURGICALY RELATED REVIEW OF SYSTEMS REVIEWED BY: PROVIDER: VIRGIL ESCOBAR . CONSTITUTIONAL: ANY CHANGE IN YOUR MEDICAL CONDITION? NO . CHILLS NO . FEVER NO . INFECTION: DO YOU HAVE NEW INFECTIONS? NO . DO YOU HAVE HISTORY OF MRSA? NO . MUSCULOSKELETAL: ANY NEW PATTERNS OF PAIN OR NUMBNESS? NO . GASTROENTEROLOGY: ANY NEW CHANGE IN BOWEL CONTROL? NO . GENITOURINARY: ANY NEW CHANGE IN BLADDER CONTROL? NO . IS THERE A CHANCE YOU COULD BE ? NO . HEMATOLOGY/LYMPH: DO YOU TAKE ANY BLOOD THINNERS? (FOR EXAMPLE- COUMADIN, PLAVIX, AGGRENOX, PLATEL, PRADAXA, OR XARELTO) XARELTO . WHEN WAS YOUR LAST DOSE? DATE: TIME: . NEUROLOGY: HAVE YOU FALLEN IN THE PAST 12 MONTHS? NO . ANY NEW EXTREMITY NUMBNESS OR WEAKNESS? YES, METHOCARBIMOL . CARDIOLOGY: DO YOU HAVE A PACEMAKER OR DEFIBRILLATOR? NO . RESPIRATORY: HAVE YOU BEEN SICK IN THE PAST WEEK? NO . FEVER NO . FLU LIKE SYMPTOMS? NO . COUGH NO . INTEGUMENTARY: DO YOU HAVE ANY RASHES OR OPEN SORES? NO . ALLERGIC/IMMUNO: ARE YOU ALLERGIC TO IV DYE? YES, IODINE . ANY NEW ALLERGIES? NO . PSYCHIATRIC: DO YOU HAVE THOUGHTS OF HURTING YOURSELF OR SOMEONE ELSE? NO . ARE YOU ABUSED, NEGLECTED, OR IN AN UNSAFE ENVIRONMENT? NO . ENDOCRINOLOGY: ARE YOU DIABETIC? NO . OTHER: DO YOU NEED ANY PRESCRIPTIONS? YES, METHOCARBIMOL . IF YES, PLEASE LIST: ____ . ANY NEW PROBLEMS WITH YOUR MEDICATIONS? NO . WHEN DID YOU LAST EAT? ____ . WHEN DID YOU LAST DRINK? ____ . WHAT DID YOU LAST DRINK? ____ . NAME OF PERSON DRIVING YOU HOME? ____ . DO YOU HAVE ANY OTHER QUESTIONS OR CONCERNS NO . VITAL SIGNS WT 149.2 LBS, HT 66 IN, BMI 24.08 INDEX, BP 128/81 MM HG, HR 97 /MIN, RR 16 /MIN, TEMP 98.1 F, OXYGEN SAT % 97%, SAFE IN ENV? (Y/N) Y, NA INITIALS AW 1456, REVIEWED BY: ZACH. EXAMINATION GENERAL EXAMINATION: GENERAL APPEARANCE:AWAKE,ALERT ,PLEAASANT . PSYCHAFFECT NORMAL . LUNGS:LUNG BLOOM ARE CLEAR TO AUSCULTATION BILATERALLY. GOOD MOVEMENT OF AIR . HEART:S1, S2 IN A REGULAR RATE AND RHYTHM. NO SIGNIFICANT MURMURS, RUBS OR GALLOPS NOTED . ASSESSMENTS LOW BACK PAIN AT MULTIPLE SITES - M54.5 (PRIMARY) TREATMENT LOW BACK PAIN AT MULTIPLE SITES DECREASE OXYCODONE HCL TABLET, 5 MG, 1 TABLET NEEDED, ORALLY, Q6-8H PRN MDD2, 30 DAY(S), 60, REFILLS 0 INCREASE BUTRANS PATCH WEEKLY, 20 MCG/HR, 1 PATCH TO SKIN, TRANSDERMAL, 1 PATCH Q7DAYS =MDD, 30 DAY(S), 4, REFILLS 2 REFILL ROBAXIN-750 TABLET, 750 MG, 1/2 TABLET, ORALLY, AT NIGHT NEEDED, 30 DAYS, 30, REFILLS 2 NOTES: ISTOP REGISTRY REVIEWED AND DEMONSTRATES COMPLLIANCE. BRINGS IN MEDICATIONS WHICH IS APPROPRIATE FOR WHAT WAS DISPENSED. RECENT URINE TOXICOLOGY REVIEWED. NO UNAUTHORIZED MEDICATIONS. NO ILLICIT SUBSTANCES AND PRESCRIBED MEDICATIONS WERE PRESENT. , RISKS AND BENEFITS OF NARCOTIC/OPIOD MEDICATIONS WERE REVIEWED WITH PATIENT - THIS INCLUDES BUT IS NOT LIMITED TO RISK OF DEPENDANCE/DEVELOPMENT OF ADDICTION, MOOD DISTURBANCE AND DEPRESSION, OSTEOPOROSIS, HORMONAL AND LABIDAL CHANGES, RESPIRATORY DEPRESSION AND . PATIENT IS ADVISED NOT TO DRIVE OR DRINK ALCOHOL WHILE ON THESE MEDICATIONS. PROCEDURE CODES FA211 ESTABILISHED PATIENT [facility] CHARGE DISPOSITION & COMMUNICATION FOLLOW UP 2 MONTHS ELECTRONICALLY SIGNED BY LUZ ARANDA ON 07/04/2018 AT 04:35 PM EDT DISCLAIMER : THIS IS A VISIT SUMMARY EXTRACTED FROM THE [employer] CHART. IT IS NOT A COPY OF THE [employer] PROGRESS NOTE. L[place]
== END ==
LOC: M PAIN 14:45
PROVIDERS: ATTEND Nurse Practitioner Family
DX: M54.5 Low back pain (principal); G89.29 Other chronic pain; I10 Essential (primary) hypertension; E03.9 Hypothyroidism, unspecified; M19.90 Unspecified osteoarthritis, unspecified site; Z86.59 Personal history of other mental and behavioral disorders; K21.9 Gastro-esophageal reflux disease without esophagitis; I48.91 Unspecified atrial fibrillation; Z95.818 Presence of other cardiac implants and grafts; Z98.84 Bariatric surgery status; Z88.4 Allergy status to anesthetic agent; Z88.8 Allergy status to other drugs, medicaments and biological substances; Z79.899 Other long term (current) drug therapy

== ENCOUNTER → 2018-08-20 | Outpatient (CLI) | payer BC ==
--- NOTE | 2018-08-21 01:28 | ECWPNPC ---
PATIENT NAME: PRO REY : 1955 GENDER: FEMALE VISIT DATE: 08/20/2018 DISCHARGE DATE: 08/20/18 1447 VISIT LOCKED DATE TIME: PHYSICIAN: VIRGIL BURCIAGA RESOURCE: VIRGIL BURCIAGA REASON FOR APPOINTMENT 1. BACK HISTORY OF PRESENT ILLNESS HISTORY OF PRESENT ILLNESS: HERE FOR F/U OF CHRONIC LOW BACK PAIN.RATING PAIN VAS 6.5/10.DESCRIBES PAIN CONTINUOUS AND ACHING.FEELS BUTRANS PATCH INCREASE AT LAST VISIT IS CAUSING ISSUES WITH NAUSEA.RECENTLY HAD FULL GI WORKUP FOR NAUSEA AND WEIGHT LOSS AND NO PATHOLOGY FOUND.DISCUSSED TREATMENT OPTIONS. PAIN THE PATIENT DESCRIBES THE PAIN... THE PATIENT DESCRIBES THE PAIN... FALL RISK SCREENING: SCREENING :NO FALLS REPORTED IN THE LAST YEAR CURRENT MEDICATIONS TAKING CALCIUM 600/VITAMIN D 600-400 MG-UNIT TABLET 1 TABLET WITH A MEAL ORALLY ONCE A DAY TAKING LEVOTHYROXINE SODIUM 50 MCG TABLET 1 TABLET ORALLY ONCE A DAY TAKING BUSPIRONE HCL 10 MG TABLET 1 TABLET ORALLY TWICE A DAY TAKING ZYRTEC 10 MG TABLET 1 TABLET NEEDED ORALLY ONCE A DAY, NOTES: TAKES DAILY TAKING ZOLOFT 100 MG TABLET 1 TABLET ORALLY ONCE A DAY TAKING TRAZODONE HCL 100 MG TABLET 1 TABLET AT BEDTIME ORALLY ONCE A DAY TAKING FEMHRT 1/5 1-5 MG - MCG TABS ORALLY DAILY TAKING PROTONIX 40 MG TABLET DELAYED RELEASE 1 TAB ORALLY ONCE A DAY TAKING METOPROLOL SUCCINATE ER 200 MG TABLET EXTENDED RELEASE 24 HOUR 1 TABLET ORALLY ONCE A DAY TAKING BUTRANS 20 MCG/HR PATCH WEEKLY 1 PATCH TO SKIN TRANSDERMAL 1 PATCH Q7DAYS =MDD TAKING ROBAXIN-750 750 MG TABLET 1/2 TABLET ORALLY AT NIGHT NEEDED TAKING OXYCODONE HCL 5 MG TABLET 1 TABLET NEEDED ORALLY Q6-8H PRN MDD2 TAKING XARELTO 20 MG TABLET 1 TABLET WITH FOOD ORALLY ONCE A DAY NOT-TAKING POTASSIUM CHLORIDE CR 10 MEQ TABLET ORALLY DAILY NOT-TAKING VICODIN 5/325 TABLET 1 TABLET NEEDED ORALLY EVERY 4 HRS NOT-TAKING BYSTOLIC 10 MG TABLET 1 TABLET ORALLY ONCE A DAY NOT-TAKING CYCLOBENZAPRINE HCL 5 MG TABLET 1 TABLET ORALLY THREE TIMES A DAY NOT-TAKING NITROFURANTOIN MONOHYD MACRO 100 MG CAPSULE 1 CAPSULE WITH FOOD ORALLY EVERY 12 HRS NOT-TAKING BACTRIM DS 800-160 MG TABLET 1 TABLET ORALLY ONCE A DAY MEDICATION LIST REVIEWED AND RECONCILED WITH THE PATIENT PAST MEDICAL HISTORY HTN HYPOTHYROIDISM ARTHRITIS CHRONIC NECK AND BACK PAIN ANXIETY/DEPRESSION HEART LOOP MONITER TO LEFT CHEST GERD A FIB RECURRENT UTI ALLERGIES IODINE: HIVES - ALLERGY TIZANIDINE HCL: CONFUSION - SIDE EFFECTS SURGICAL HISTORY LEFT HIP REPLACEMENT 04/2014 REMOVE JOSE ENRIQUE AND PINS 11/2013 BROKEN LEFT LEG REPAIR 10/2012 GASTRIC BYPASS 2004 CATARACT REMOVED 2012 ABLATION FOR AFIB 2016 HEART LOOP MONITER PLACED 2016 HEART ABLATION NOV 13, 2017 CYST REMOVED FROM BACK OF HEAD 05/2018 EGD 2018 FAMILY HISTORY PT. ADOPTED NO KNOWN FAMILY HISTORY. SOCIAL HISTORY GENERAL: TOBACCO USE ARE YOU A:NONSMOKER PAIN CLINIC PFS, CLERGY, PUBLIC HEALTH REFERRALS PFS REFERRAL NEEDED?NO CLERGY REFERRAL NEEDED?NO PUBLIC HEALTH REFERRAL NEEDED?NO WAS THE PROVIDER NOTIFIED OF ANY PERTINENT INFO?YES HAS THE PATIENT BEEN EDUCATED REGARDING HIS/HER PLAN OF CARE?YES HAS THE PATIENT BEEN EDUCATED REGARDING PAIN, THE RISK FOR PAIN, THE IMPORTANCE OF EFFECTIVE PAIN MANAGEMENT, AND THE PAIN ASSESSMENT PROCESS?YES LATEX QUESTIONNAIRE LATEX ALLERGY : HAVE YOU EVER DEVELOPED ANY TYPE OF REACTION AFTER HANDLING LATEX PRODUCTS SUCH RUBBER GLOVES, CONDOMS, DIAPHRAGMS, BALLOONS, SOCKS, OR UNDERWEAR?NO LATEX ALLERGY : HAVE YOU EVER DEVELOPED ANY TYPE OF REACTION DURING OR AFTER DENTAL APPOINTMENT, VAGINAL/RECTAL EXAMINATION, SURGICAL PROCEDURE, OR ANY OTHER EXPOSURE?NO LATEX RISK : HAVE YOU EVER HAD ANY DIFFICULTY BREATHING OR HIVES AFTER EATING OR HANDLING ANY FRUITS, OR VEGETABLES; SUCH KIWI, BANANAS, STONE FRUITS, OR CHESTNUTSNO LATEX RISK : DO YOU HAVE A PREVIOUS PERSONAL HISTORY OF MORE THAN NINE SURGERIES, SPINA BIFIDA, OR REPEATED CATHERTIZATIONS? NO LATEX RISK : ARE YOU FREQUENTLY EXPOSED TO LATEX PRODUCTS IN YOUR OCCUPATION?NO DATE ASKED : 06/20/2018 CAFFEINE CAFFEINE USE?YES HOW OFTEN AND HOW MUCH? 1 CUP COFFEE PER DAY IN THE AM ADVANCE DIRECTIVE ADVANCE DIRECTIVE DISCUSSED WITH PATIENT:YES HCP - SAM KAUR [phone] DIET: GASTRIC BYPASS DIET SEVERAL SMALL MEALS (5-6 TIMES) PER DAY. TEMPLE [id number] RESTORATION NO CHEONDOISM BELIEFS THAT WOULD IMPACT HEALTH CARE. LANGUAGE LANGUAGES SPOKEN:MARSHALL[place] ALCOHOL SCREENING DID YOU HAVE A DRINK CONTAINING ALCOHOL IN THE PAST YEAR?YES HOW OFTEN DID YOU HAVE A DRINK CONTAINING ALCOHOL IN THE PAST YEAR?MONTHLY OR LESS (1 POINT) POINTS1 INTERPRETATIONNEGATIVE RECREATIONAL DRUG USE DRUG USE?NO LEARNING BARRIERS / SPECIAL NEEDS BARRIERS TO LEARNING?NO VISION IMPAIRED?YES :CORRECTIVE LENSES READING GLASSES ONLY READINESS TO LEARN?YES LEARNING PREFERENCES?NO LEARNING CAPABILITIES PRESENT?YES EMOTIONAL BARRIERS?NO SPECIAL DEVICES?NO REVIEWED WITH PT 12/19/17 1450 BVREVIEWED WITH PATIENT 08/20/18 1403 JS. HOSPITALIZATION/MAJOR DIAGNOSTIC PROCEDURE SURGICALY RELATED REVIEW OF SYSTEMS REVIEWED BY: PROVIDER: VIRGIL ESCOBAR . CONSTITUTIONAL: ANY CHANGE IN YOUR MEDICAL CONDITION? NO . CHILLS NO . FEVER NO . INFECTION: DO YOU HAVE NEW INFECTIONS? NO . DO YOU HAVE HISTORY OF MRSA? NO . MUSCULOSKELETAL: ANY NEW PATTERNS OF PAIN OR NUMBNESS? YES, STATES INCREASED PAIN SINCE MEDICATIONS ADJUSTED LAST VISIT . GASTROENTEROLOGY: ANY NEW CHANGE IN BOWEL CONTROL? NO . GENITOURINARY: ANY NEW CHANGE IN BLADDER CONTROL? NO . IS THERE A CHANCE YOU COULD BE ? NO . HEMATOLOGY/LYMPH: DO YOU TAKE ANY BLOOD THINNERS? (FOR EXAMPLE- COUMADIN, PLAVIX, AGGRENOX, PLATEL, PRADAXA, OR XARELTO) YES, XARELTO . WHEN WAS YOUR LAST DOSE? DATE: 08/19/18TIME: 1400 . NEUROLOGY: HAVE YOU FALLEN IN THE PAST 12 MONTHS? NO . ANY NEW EXTREMITY NUMBNESS OR WEAKNESS? NO . CARDIOLOGY: DO YOU HAVE A PACEMAKER OR DEFIBRILLATOR? NO . RESPIRATORY: HAVE YOU BEEN SICK IN THE PAST WEEK? NO . FEVER NO . FLU LIKE SYMPTOMS? NO . COUGH NO . INTEGUMENTARY: DO YOU HAVE ANY RASHES OR OPEN SORES? NO . ALLERGIC/IMMUNO: ARE YOU ALLERGIC TO IV DYE? NO . ANY NEW ALLERGIES? NO . PSYCHIATRIC: DO YOU HAVE THOUGHTS OF HURTING YOURSELF OR SOMEONE ELSE? NO . ARE YOU ABUSED, NEGLECTED, OR IN AN UNSAFE ENVIRONMENT? NO . ENDOCRINOLOGY: ARE YOU DIABETIC? NO . OTHER: DO YOU NEED ANY PRESCRIPTIONS? YES . IF YES, PLEASE LIST: ____OXYCODONE . ANY NEW PROBLEMS WITH YOUR MEDICATIONS? YES, STATES GI PROBLEMS SINCE MEDICATIONS ADJUSTED. ALSO STATES INCREASED PAIN SINCE THEN . WHEN DID YOU LAST EAT? ____ . WHEN DID YOU LAST DRINK? ____ . WHAT DID YOU LAST DRINK? ____ . NAME OF PERSON DRIVING YOU HOME? ____ . DO YOU HAVE ANY OTHER QUESTIONS OR CONCERNS YES - GI ISSUES: NAUSEA, WEIGHT LOSS . VITAL SIGNS WT 148.2 LBS, HT 66 IN, BMI 23.92 INDEX, BP 139/69 MM HG, HR 81 /MIN, RR 16 /MIN, TEMP 98.6 F, OXYGEN SAT % 99%, SAFE IN ENV? (Y/N) YES, NA INITIALS [place] 13:54, REVIEWED BY: ARMANI. EXAMINATION GENERAL EXAMINATION: GENERAL APPEARANCE:AWAKE,ALERT ,PLEAASANT . PSYCHAFFECT NORMAL . LUNGS:LUNG BLOOM ARE CLEAR TO AUSCULTATION BILATERALLY. GOOD MOVEMENT OF AIR . HEART:S1, S2 IN A REGULAR RATE AND RHYTHM. NO SIGNIFICANT MURMURS, RUBS OR GALLOPS NOTED . ASSESSMENTS LOW BACK PAIN AT MULTIPLE SITES - M54.5 (PRIMARY) TREATMENT LOW BACK PAIN AT MULTIPLE SITES DECREASE BUTRANS PATCH WEEKLY, 10 MCG/HR, 1 PATCH TO SKIN, TRANSDERMAL, 1 PATCH Q7DAYS =MDD, 30 DAYS, 4, REFILLS 2 INCREASE OXYCODONE HCL TABLET, 5 MG, 1 TABLET NEEDED, ORALLY, Q6-8H PRN MDD4, 30 DAY(S), 120, REFILLS 0 NOTES: ISTOP REGISTRY REVIEWED AND DEMONSTRATES COMPLLIANCE. (REF # [id number] ) BRINGS IN MEDICATIONS WHICH IS APPROPRIATE FOR WHAT WAS DISPENSED. RECENT URINE TOXICOLOGY REVIEWED. NO UNAUTHORIZED MEDICATIONS. NO ILLICIT SUBSTANCES AND PRESCRIBED MEDICATIONS WERE PRESENT. , RISKS AND BENEFITS OF NARCOTIC/OPIOD MEDICATIONS WERE REVIEWED WITH PATIENT - THIS INCLUDES BUT IS NOT LIMITED TO RISK OF DEPENDANCE/DEVELOPMENT OF ADDICTION, MOOD DISTURBANCE AND DEPRESSION, OSTEOPOROSIS, HORMONAL AND LABIDAL CHANGES, RESPIRATORY DEPRESSION AND . PATIENT IS ADVISED NOT TO DRIVE OR DRINK ALCOHOL WHILE ON THESE MEDICATIONS. PROCEDURE CODES FA211 ESTABILISHED PATIENT [facility] CHARGE DISPOSITION & COMMUNICATION FOLLOW UP 2 MONTHS ELECTRONICALLY SIGNED BY LUZ ARANDA ON 08/20/2018 AT 02:57 PM EDT DISCLAIMER : THIS IS A VISIT SUMMARY EXTRACTED FROM THE [employer] CHART. IT IS NOT A COPY OF THE [employer] PROGRESS NOTE. LUDWIN
== END ==
LOC: M PAIN 13:45
PROVIDERS: ATTEND Nurse Practitioner Family
DX: M54.5 Low back pain (principal); I10 Essential (primary) hypertension; E03.9 Hypothyroidism, unspecified; F32.9 Major depressive disorder, single episode, unspecified; F41.9 Anxiety disorder, unspecified; K21.9 Gastro-esophageal reflux disease without esophagitis; I48.91 Unspecified atrial fibrillation; Z87.440 Personal history of urinary (tract) infections; M19.90 Unspecified osteoarthritis, unspecified site; Z96.653 Presence of artificial knee joint, bilateral; Z79.891 Long term (current) use of opiate analgesic; Z79.899 Other long term (current) drug therapy; Z88.8 Allergy status to other drugs, medicaments and biological substances

== ENCOUNTER 2018-10-29 23:43 | Emergency (ER) | payer BC ==
[~2018-10-29] VITALS: Ht 162.6 cm; Wt 65.9 kg
[2018-10-30 00:32] LABS: BASO # 0.1 10^3/uL (0.0-0.2); BASO % 1.1 % (0.0-1.0); EOS # 0.2 10^3/uL (0.0-0.5); EOS % 3.2 % (0.0-3.0); HEMATOCRIT 36.4 % (36.0-47.0); HEMOGLOBIN 12.7 g/dl (12.0-15.5); LYMPH # 3.2 10^3/uL (1.5-5.0); LYMPH % 41.8 % (24.0-44.0); MEAN CORPUSCULAR HEMOGLOBIN 33.4 pg (27.0-33.0); MEAN CORPUSCULAR HGB CONC 34.9 g/dl (32.0-36.5); MEAN CORPUSCULAR VOLUME 95.8 fl (80.0-96.0); MONO # 0.6 10^3/uL (0.0-0.8); MONO % 8.3 % (0.0-5.0); NEUTROPHILS # 3.5 10^3/uL (1.5-8.5); NEUTROPHILS % 45.3 % (36.0-66.0); PLATELET COUNT, AUTOMATED 273 10^3/uL (150-450); WHITE BLOOD COUNT 7.6 10^3/uL (4.0-10.0)
[2018-10-30] MEDS ORDERED: DEXTROSE 50% 50 ML SYRINGE IV STA (00:43)
[2018-10-30 00:50] LABS: BLOOD UREA NITROGEN 13 MG/DL (7-18); CALCIUM LEVEL 9.4 MG/DL (8.8-10.2); CARBON DIOXIDE LEVEL 24 MEQ/L (21-32); CHLORIDE LEVEL 95 MEQ/L (98-107); CK-MB VALUE MASS 8.3 NG/ML (<3.6); CPK CREATINE PHOSPHOKINASE 214 U/L (26-192); CREATININE FOR GFR 0.84 MG/DL (0.55-1.30); GLOMERULAR FILTRATION RATE > 60.0 (>45); GLUCOSE, FASTING 73 MG/DL (70-100); MB/CK RELATIVE INDEX 3.88 (< OR =4); POTASSIUM SERUM 3.5 MEQ/L (3.5-5.1); SODIUM LEVEL 129 MEQ/L (136-145); TROPONIN I < 0.02 NG/ML (< 0.10)
--- NOTE | 2018-10-30 01:04 | ECGEPIP ---
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
--- NOTE | 2018-10-30 01:15 | REPVR ---
EXAM: CT Head Without Contrast EXAM DATE/TIME: 10/30/2018 12:43 AM CLINICAL HISTORY: 62 years old, female; Injury or trauma; Injury history: Seizure; Initial encounter; Concussion / head injury; Additional info: Seizure, on xarelto TECHNIQUE: Imaging protocol: Computed tomography of the head without contrast. Radiation optimization: All CT scans at this facility use at least one of these dose optimization techniques: automated exposure control; mA and/or kV adjustment per patient size (includes targeted exams where dose is matched to clinical indication); or iterative reconstruction. COMPARISON: No relevant prior studies available. FINDINGS: Brain: There is no acute intracranial abnormality. Mild prominence of ventricles and sulci representing volume loss. Mild small vessel ischemic changes are seen. There is no mass, midline shift, or mass effect. Kaplan-white matter differentiation is preserved. There is no evidence of hemorrhage. There is no extra-axial fluid collection. Basal cisterns are patent. Ventricles: See Brain Finding. Bones/joints: The visualized osseous structures are unremarkable. Sinuses: Visualized sinuses are clear. Mastoid air cells: Mastoid air cells are clear. Soft tissues: Unremarkable. IMPRESSION: 1. Mild volume loss and small vessel ischemic changes. . 2. No acute intracranial abnormality. Electronically signed by: Jamaica Kay On 10/30/2018 01:15:19 AM
[2018-10-30] MEDS ORDERED: D5W/0.45% SODIUM CHLORIDE 1,000 ML IV SCH (02:00)
[2018-10-30 05:30] VITALS: BP 156/85
--- NOTE | 2018-10-30 07:48 | REP ---
Clinical: Seizures. Comparison: 11/22/2017. Findings: Chronic elevation to the left hemidiaphragm is stable. Lung carmichael demonstrate chronic changes without obvious acute consolidation, effusion, or pneumothorax. Visualized portions of the mediastinum and cardiac silhouette are within normal limits. Skeletal structures grossly intact. Impression: Chronic stable changes. No acute cardiopulmonary process appreciated. Electronically Signed by Yovanny Riojas MD 10/30/2018 07:39 A
== END 2018-10-30 05:38 | disposition home or self-care (01) ==
LOC: M ED 23:43
DX: E16.2 Hypoglycemia, unspecified (principal); I48.91 Unspecified atrial fibrillation; Z72.89 Other problems related to lifestyle; Z88.8 Allergy status to other drugs, medicaments and biological substances; Z91.013 Allergy to seafood; Z79.899 Other long term (current) drug therapy; Z79.890 Hormone replacement therapy; Z79.01 Long term (current) use of anticoagulants; Z79.891 Long term (current) use of opiate analgesic
CPT/HCPCS: 70450; 71045; 80048; 81001; 82550; 82553; 83036; 84484; 85025; 93005; 93041; 94760; 96360; 96361; 99285; G0480

== ENCOUNTER → 2018-11-02 | Outpatient (CLI) | payer BC ==
[~2018-11-02] MED LIST changes: -AZIT500T2 PO; +AZIT500T5 PO; +BUPR10DI3; +METH750T2 PO; -TRAZ-163 PO; +TRAZ-257 PO
--- NOTE | 2018-11-08 01:25 | ECWPNPC ---
PATIENT NAME: PRO REY : 1955 GENDER: FEMALE VISIT DATE: 11/02/2018 DISCHARGE DATE: 11/02/18 1504 VISIT LOCKED DATE TIME: PHYSICIAN: CARSON GARAY RESOURCE: CARSON GARAY REASON FOR APPOINTMENT 1. BACK HISTORY OF PRESENT ILLNESS HISTORY OF PRESENT ILLNESS: PAIN THE PATIENT DESCRIBES THE PAIN... 62-YEAR-OLD FEMALE IN FOR CHRONIC PAIN FOLLOW-UP. SHE RATES HER PAIN AT A 5 OUT OF 10 CURRENTLY AND DESCRIBES IT SHARP, STABBING, AND THROBBING. SHE DOES ADMIT TO SOME NEW ONSET RIGHT BUTTOCK PAIN THAT RADIATES DOWN HER LEG. FALL RISK SCREENING: SCREENING :NO FALLS REPORTED IN THE LAST YEAR CURRENT MEDICATIONS TAKING CALCIUM 600/VITAMIN D 600-400 MG-UNIT TABLET 1 TABLET WITH A MEAL ORALLY ONCE A DAY TAKING LEVOTHYROXINE SODIUM 50 MCG TABLET 1 TABLET ORALLY ONCE A DAY TAKING BUSPIRONE HCL 10 MG TABLET 1 TABLET ORALLY TWICE A DAY TAKING ZYRTEC 10 MG TABLET 1 TABLET NEEDED ORALLY ONCE A DAY, NOTES: TAKES DAILY TAKING ZOLOFT 100 MG TABLET 1 TABLET ORALLY ONCE A DAY TAKING TRAZODONE HCL 100 MG TABLET 1 TABLET AT BEDTIME ORALLY ONCE A DAY TAKING FEMHRT 1/5 1-5 MG - MCG TABS ORALLY DAILY TAKING PROTONIX 40 MG TABLET DELAYED RELEASE 1 TAB ORALLY ONCE A DAY TAKING METOPROLOL SUCCINATE ER 200 MG TABLET EXTENDED RELEASE 24 HOUR 1 TABLET ORALLY ONCE A DAY TAKING ROBAXIN-750 750 MG TABLET 1/2 TABLET ORALLY AT NIGHT NEEDED TAKING XARELTO 20 MG TABLET 1 TABLET WITH FOOD ORALLY ONCE A DAY TAKING BUTRANS 10 MCG/HR PATCH WEEKLY 1 PATCH TO SKIN TRANSDERMAL 1 PATCH Q7DAYS =MDD TAKING ONDANSETRON 4 MG TABLET DISINTEGRATING 1 TABLET ON THE TONGUE AND ALLOW TO DISSOLVE ORALLY DAILY NEEDED FOR NAUSEA TAKING OXYCODONE HCL 5 MG TABLET 1 TABLET NEEDED ORALLY Q6-8H PRN MDD4 NOT-TAKING POTASSIUM CHLORIDE CR 10 MEQ TABLET ORALLY DAILY NOT-TAKING VICODIN 5/325 TABLET 1 TABLET NEEDED ORALLY EVERY 4 HRS NOT-TAKING BYSTOLIC 10 MG TABLET 1 TABLET ORALLY ONCE A DAY NOT-TAKING CYCLOBENZAPRINE HCL 5 MG TABLET 1 TABLET ORALLY THREE TIMES A DAY NOT-TAKING NITROFURANTOIN MONOHYD MACRO 100 MG CAPSULE 1 CAPSULE WITH FOOD ORALLY EVERY 12 HRS NOT-TAKING BACTRIM DS 800-160 MG TABLET 1 TABLET ORALLY ONCE A DAY MEDICATION LIST REVIEWED AND RECONCILED WITH THE PATIENT PAST MEDICAL HISTORY HTN HYPOTHYROIDISM ARTHRITIS CHRONIC NECK AND BACK PAIN ANXIETY/DEPRESSION HEART LOOP MONITER TO LEFT CHEST GERD A FIB RECURRENT UTI ALLERGIES IODINE: HIVES - ALLERGY TIZANIDINE HCL: CONFUSION - SIDE EFFECTS SURGICAL HISTORY LEFT HIP REPLACEMENT 04/2014 REMOVE JOSE ENRIQUE AND PINS 11/2013 BROKEN LEFT LEG REPAIR 10/2012 GASTRIC BYPASS 2004 CATARACT REMOVED 2012 ABLATION FOR AFIB 2016 HEART LOOP MONITER PLACED 2016 HEART ABLATION NOV 13, 2017 CYST REMOVED FROM BACK OF HEAD 05/2018 EGD 2018 FAMILY HISTORY PT. ADOPTED NO KNOWN FAMILY HISTORY. SOCIAL HISTORY GENERAL: TOBACCO USE ARE YOU A:NONSMOKER PAIN CLINIC PFS, CLERGY, PUBLIC HEALTH REFERRALS PFS REFERRAL NEEDED?NO CLERGY REFERRAL NEEDED?NO PUBLIC HEALTH REFERRAL NEEDED?NO WAS THE PROVIDER NOTIFIED OF ANY PERTINENT INFO?YES HAS THE PATIENT BEEN EDUCATED REGARDING HIS/HER PLAN OF CARE?YES HAS THE PATIENT BEEN EDUCATED REGARDING PAIN, THE RISK FOR PAIN, THE IMPORTANCE OF EFFECTIVE PAIN MANAGEMENT, AND THE PAIN ASSESSMENT PROCESS?YES LATEX QUESTIONNAIRE LATEX ALLERGY : HAVE YOU EVER DEVELOPED ANY TYPE OF REACTION AFTER HANDLING LATEX PRODUCTS SUCH RUBBER GLOVES, CONDOMS, DIAPHRAGMS, BALLOONS, SOCKS, OR UNDERWEAR?NO LATEX ALLERGY : HAVE YOU EVER DEVELOPED ANY TYPE OF REACTION DURING OR AFTER DENTAL APPOINTMENT, VAGINAL/RECTAL EXAMINATION, SURGICAL PROCEDURE, OR ANY OTHER EXPOSURE?NO DATE ASKED : 06/20/2018 LATEX RISK : HAVE YOU EVER HAD ANY DIFFICULTY BREATHING OR HIVES AFTER EATING OR HANDLING ANY FRUITS, OR VEGETABLES; SUCH KIWI, BANANAS, STONE FRUITS, OR CHESTNUTSNO LATEX RISK : DO YOU HAVE A PREVIOUS PERSONAL HISTORY OF MORE THAN NINE SURGERIES, SPINA BIFIDA, OR REPEATED CATHERIZATIONS? NO LATEX RISK : ARE YOU FREQUENTLY EXPOSED TO LATEX PRODUCTS IN YOUR OCCUPATION?NO CAFFEINE CAFFEINE USE?YES HOW OFTEN AND HOW MUCH? 1 CUP COFFEE PER DAY IN THE AM ADVANCE DIRECTIVE ADVANCE DIRECTIVE DISCUSSED WITH PATIENT:YES HCP - SAM KAUR [phone] DIET: GASTRIC BYPASS DIET SEVERAL SMALL MEALS (5-6 TIMES) PER DAY. SCIENTOLOGIST [id number] ORTHODOXY NO SABIANISM BELIEFS THAT WOULD IMPACT HEALTH CARE. LANGUAGE LANGUAGES SPOKEN:[place] ALCOHOL SCREENING DID YOU HAVE A DRINK CONTAINING ALCOHOL IN THE PAST YEAR?YES HOW OFTEN DID YOU HAVE A DRINK CONTAINING ALCOHOL IN THE PAST YEAR?MONTHLY OR LESS (1 POINT) POINTS1 INTERPRETATIONNEGATIVE RECREATIONAL DRUG USE DRUG USE?NO LEARNING BARRIERS / SPECIAL NEEDS BARRIERS TO LEARNING?NO VISION IMPAIRED?YES :CORRECTIVE LENSES READING GLASSES ONLY READINESS TO LEARN?YES LEARNING PREFERENCES?NO LEARNING CAPABILITIES PRESENT?YES EMOTIONAL BARRIERS?NO SPECIAL DEVICES?NO REVIEWED WITH PT 12/19/17 1450 BVREVIEWED WITH PATIENT 08/20/18 1403 JSREVIEWED WITH PATIENT 11/02/18 1404 BV. HOSPITALIZATION/MAJOR DIAGNOSTIC PROCEDURE SURGICALY RELATED REVIEW OF SYSTEMS REVIEWED BY: PROVIDER: EREN GARAY QA SOFTWARE TESTER-C . CONSTITUTIONAL: ANY CHANGE IN YOUR MEDICAL CONDITION? NO . CHILLS NO . FEVER NO . INFECTION: DO YOU HAVE NEW INFECTIONS? NO . DO YOU HAVE HISTORY OF MRSA? NO . MUSCULOSKELETAL: ANY NEW PATTERNS OF PAIN OR NUMBNESS? YES, PT HAS NEW INTERMITTENT PAIN IN RIGHT GLUTEUS THAT HAS BEEN GOING ON FOR ABOUT 3 WEEKS. STATES THIS PAIN FEELS LIKE "AN ELECTRIC JABBING PAIN", . GASTROENTEROLOGY: ANY NEW CHANGE IN BOWEL CONTROL? NO . GENITOURINARY: ANY NEW CHANGE IN BLADDER CONTROL? NO . IS THERE A CHANCE YOU COULD BE ? NO . HEMATOLOGY/LYMPH: DO YOU TAKE ANY BLOOD THINNERS? (FOR EXAMPLE- COUMADIN, PLAVIX, AGGRENOX, PLATEL, PRADAXA, OR XARELTO) NO . WHEN WAS YOUR LAST DOSE? DATE: TIME: . NEUROLOGY: HAVE YOU FALLEN IN THE PAST 12 MONTHS? NO . ANY NEW EXTREMITY NUMBNESS OR WEAKNESS? NO . CARDIOLOGY: DO YOU HAVE A PACEMAKER OR DEFIBRILLATOR? NO . RESPIRATORY: HAVE YOU BEEN SICK IN THE PAST WEEK? NO . FEVER NO . FLU LIKE SYMPTOMS? NO . COUGH NO . INTEGUMENTARY: DO YOU HAVE ANY RASHES OR OPEN SORES? NO . ALLERGIC/IMMUNO: ARE YOU ALLERGIC TO IV DYE? YES, ON IODINE . ANY NEW ALLERGIES? NO . PSYCHIATRIC: DO YOU HAVE THOUGHTS OF HURTING YOURSELF OR SOMEONE ELSE? NO . ARE YOU ABUSED, NEGLECTED, OR IN AN UNSAFE ENVIRONMENT? NO . ENDOCRINOLOGY: ARE YOU DIABETIC? NO . OTHER: DO YOU NEED ANY PRESCRIPTIONS? NO . IF YES, PLEASE LIST: ____ . ANY NEW PROBLEMS WITH YOUR MEDICATIONS? NO . WHEN DID YOU LAST EAT? ____ . WHEN DID YOU LAST DRINK? ____ . WHAT DID YOU LAST DRINK? ____ . NAME OF PERSON DRIVING YOU HOME? ____ . DO YOU HAVE ANY OTHER QUESTIONS OR CONCERNS NO . VITAL SIGNS WT 150.2 LBS, HT 66 IN, BMI 24.24 INDEX, BP 139/63 MM HG, HR 70 /MIN, RR 16 /MIN, TEMP 96.0 F, OXYGEN SAT % 99%, NA INITIALS AW 1353, REVIEWED BY: BV. EXAMINATION GENERAL EXAMINATION: GENERALNO ACUTE DISTRESS, WELL NOURISHED AND HYDRATED. PSYCHAPPROPRIATE MOOD AND AFFECT . LUNGS:CLEAR TO AUSCULTATION BILATERALLY, NO WHEEZES, RHONCHI, RALES. HEART:NO MURMURS, REGULAR RATE AND RHYTHM. MUSCULOSKELETAL:POINT TENDER OVER RIGHT SIJ . ASSESSMENTS SACROILIITIS - M46.1 (PRIMARY) TREATMENT SACROILIITIS NOTES: RIGHT SIJ. CLINICAL NOTES: 62-YEAR-OLD FEMALE IN FOR CHRONIC PAIN FOLLOW-UP. GIVEN PRESENTING SYMPTOMS AND RESULTS OF PHYSICAL EXAMINATION RECOMMENDED RIGHT-SIDED SIJ WITH POSTPROCEDURAL FOLLOW-UP. PATIENT HAS EXPRESSED UNDERSTANDING OF AND WAS IN AGREEMENT WITH TREATMENT PLAN. GIVEN TIME TO ASK QUESTIONS AND EXPECT CONCERNS., ISTOP REGISTRY REVIEWED AND DEMONSTRATES COMPLLIANCE. (REF # [id number] ) BRINGS IN MEDICATIONS WHICH IS APPROPRIATE FOR WHAT WAS DISPENSED. RECENT URINE TOXICOLOGY REVIEWED. NO UNAUTHORIZED MEDICATIONS. NO ILLICIT SUBSTANCES AND PRESCRIBED MEDICATIONS WERE PRESENT. PREVENTIVE MEDICINE PAIN CLINIC TEACHING: PROCEDURE TEACHING PT GIVEN WRITTEN AND VERBAL PRE PROCEDURE INSTRUCTIONS. PT VERBALIZES UNDERSTANDING OF ALL INSTRUCTION. PT UNDERSTANDS WE ARE WAITING FOR CLEARANCE FROM CARDIOLOGY TO HOLD THE XARELTO PRIOR TO PROCEDURE. MARKEL CEDILLO 11/02/2018 3:00:38 PM > . PROCEDURE CODES FA211 ESTABILISHED PATIENT [facility] CHARGE DISPOSITION & COMMUNICATION FOLLOW UP POSTPROCEDURE (REASON: RIGHT SIJ) ELECTRONICALLY SIGNED BY LUZ LOVELL ON 11/05/2018 AT 02:31 PM EDT DISCLAIMER : THIS IS A VISIT SUMMARY EXTRACTED FROM THE [employer] CHART. IT IS NOT A COPY OF THE [employer] PROGRESS NOTE. LUDWIN
== END ==
LOC: M PAIN 13:45
PROVIDERS: ATTEND Family Medicine
DX: M46.1 Sacroiliitis, not elsewhere classified (principal); G89.29 Other chronic pain; I10 Essential (primary) hypertension; E03.9 Hypothyroidism, unspecified; M19.90 Unspecified osteoarthritis, unspecified site; Z86.59 Personal history of other mental and behavioral disorders; K21.9 Gastro-esophageal reflux disease without esophagitis; Z96.642 Presence of left artificial hip joint; Z98.84 Bariatric surgery status; Z88.3 Allergy status to other anti-infective agents; Z88.8 Allergy status to other drugs, medicaments and biological substances; Z79.899 Other long term (current) drug therapy

== ENCOUNTER → 2018-12-06 | Outpatient (CLI) | payer BC ==
[~2018-12-06] MED LIST changes: +BUPIVACAINE HCL 0.25% 30 ML VIAL As Ordered ONE; -BUPR10DI3; +ISOVUE-M 300 61% 15ML VIAL (Q9967) As Ordered ONE; +LIDOCAINE 1% SDV INJ 30 ML VIAL As Ordered ONE; -METH750T2 PO; +TRAZ-163 PO; -TRAZ-257 PO; +TRIAMCINOLONE ACETONIDE SUSP 40 MG/ML VIAL (J3301) As Ordered ONE; +diphenhydrAMINE 25 MG CAP As Ordered ONE; +diphenhydrAMINE INJ 50MG/ML VIAL (J1200) As Ordered ONE
--- NOTE | 2018-12-06 16:44 | REP ---
SI joint: Limited study three views. History: Right-sided SI joint block for pain. 31 seconds of fluoroscopy time is reported. Findings: A sequence of three last image hold fluoroscopically obtained spot radiographs of the right SI joint document needle position and contrast injection associated with injection procedure. Electronically Signed by Tom Childs MD 12/06/2018 04:49 P
--- NOTE | 2018-12-20 01:11 | ECWPNPC ---
PATIENT NAME: PRO REY : 1955 GENDER: FEMALE VISIT DATE: 12/06/2018 DISCHARGE DATE: 12/06/18 1633 VISIT LOCKED DATE TIME: PHYSICIAN: BRYCE TALAVERA MD RESOURCE: BRYCE TALAVERA MD REASON FOR APPOINTMENT 1. RIGHT SIJ HISTORY OF PRESENT ILLNESS HISTORY OF PRESENT ILLNESS: PAIN THE PATIENT DESCRIBES THE PAIN... FALL RISK SCREENING: SCREENING :NO FALLS REPORTED IN THE LAST YEAR CURRENT MEDICATIONS TAKING CALCIUM 600/VITAMIN D 600-400 MG-UNIT TABLET 1 TABLET WITH A MEAL ORALLY ONCE A DAY TAKING LEVOTHYROXINE SODIUM 50 MCG TABLET 1 TABLET ORALLY ONCE A DAY TAKING BUSPIRONE HCL 10 MG TABLET 1 TABLET ORALLY TWICE A DAY TAKING ZYRTEC 10 MG TABLET 1 TABLET NEEDED ORALLY ONCE A DAY, NOTES: TAKES DAILY TAKING ZOLOFT 100 MG TABLET 1 TABLET ORALLY ONCE A DAY TAKING TRAZODONE HCL 100 MG TABLET 1 TABLET AT BEDTIME ORALLY ONCE A DAY TAKING FEMHRT 1/5 1-5 MG - MCG TABS ORALLY DAILY TAKING PROTONIX 40 MG TABLET DELAYED RELEASE 1 TAB ORALLY ONCE A DAY TAKING METOPROLOL SUCCINATE ER 200 MG TABLET EXTENDED RELEASE 24 HOUR 1 TABLET ORALLY ONCE A DAY TAKING XARELTO 20 MG TABLET 1 TABLET WITH FOOD ORALLY ONCE A DAY, NOTES: LAST 12/02/18 1300 TAKING ONDANSETRON 4 MG TABLET DISINTEGRATING 1 TABLET ON THE TONGUE AND ALLOW TO DISSOLVE ORALLY DAILY NEEDED FOR NAUSEA TAKING OXYCODONE HCL 5 MG TABLET 1 TABLET NEEDED ORALLY Q6-8H PRN MDD4, NOTES: 12/06/18 1100 TAKING ROBAXIN-750 750 MG TABLET 1/2 TABLET ORALLY AT NIGHT NEEDED TAKING BUTRANS 10 MCG/HR PATCH WEEKLY 1 PATCH TO SKIN TRANSDERMAL 1 PATCH Q7DAYS =MDD NOT-TAKING POTASSIUM CHLORIDE CR 10 MEQ TABLET ORALLY DAILY NOT-TAKING VICODIN 5/325 TABLET 1 TABLET NEEDED ORALLY EVERY 4 HRS NOT-TAKING BYSTOLIC 10 MG TABLET 1 TABLET ORALLY ONCE A DAY NOT-TAKING CYCLOBENZAPRINE HCL 5 MG TABLET 1 TABLET ORALLY THREE TIMES A DAY NOT-TAKING NITROFURANTOIN MONOHYD MACRO 100 MG CAPSULE 1 CAPSULE WITH FOOD ORALLY EVERY 12 HRS NOT-TAKING BACTRIM DS 800-160 MG TABLET 1 TABLET ORALLY ONCE A DAY MEDICATION LIST REVIEWED AND RECONCILED WITH THE PATIENT PAST MEDICAL HISTORY HTN HYPOTHYROIDISM ARTHRITIS CHRONIC NECK AND BACK PAIN ANXIETY/DEPRESSION HEART LOOP MONITER TO LEFT CHEST GERD A FIB RECURRENT UTI ALLERGIES IODINE: HIVES - ALLERGY TIZANIDINE HCL: CONFUSION - SIDE EFFECTS SURGICAL HISTORY LEFT HIP REPLACEMENT 04/2014 REMOVE JOSE ENRIQUE AND PINS 11/2013 BROKEN LEFT LEG REPAIR 10/2012 GASTRIC BYPASS 2004 CATARACT REMOVED 2012 ABLATION FOR AFIB 2016 HEART LOOP MONITER PLACED 2016 HEART ABLATION NOV 13, 2017 CYST REMOVED FROM BACK OF HEAD 05/2018 EGD 2018 FAMILY HISTORY PT. ADOPTED NO KNOWN FAMILY HISTORY. SOCIAL HISTORY GENERAL: TOBACCO USE ARE YOU A:NONSMOKER PAIN CLINIC PFS, CLERGY, PUBLIC HEALTH REFERRALS PFS REFERRAL NEEDED?NO CLERGY REFERRAL NEEDED?NO PUBLIC HEALTH REFERRAL NEEDED?NO WAS THE PROVIDER NOTIFIED OF ANY PERTINENT INFO?YES HAS THE PATIENT BEEN EDUCATED REGARDING HIS/HER PLAN OF CARE?YES HAS THE PATIENT BEEN EDUCATED REGARDING PAIN, THE RISK FOR PAIN, THE IMPORTANCE OF EFFECTIVE PAIN MANAGEMENT, AND THE PAIN ASSESSMENT PROCESS?YES LATEX QUESTIONNAIRE LATEX ALLERGY : HAVE YOU EVER DEVELOPED ANY TYPE OF REACTION AFTER HANDLING LATEX PRODUCTS SUCH RUBBER GLOVES, CONDOMS, DIAPHRAGMS, BALLOONS, SOCKS, OR UNDERWEAR?NO LATEX ALLERGY : HAVE YOU EVER DEVELOPED ANY TYPE OF REACTION DURING OR AFTER DENTAL APPOINTMENT, VAGINAL/RECTAL EXAMINATION, SURGICAL PROCEDURE, OR ANY OTHER EXPOSURE?NO DATE ASKED : 06/20/2018 LATEX RISK : HAVE YOU EVER HAD ANY DIFFICULTY BREATHING OR HIVES AFTER EATING OR HANDLING ANY FRUITS, OR VEGETABLES; SUCH KIWI, BANANAS, STONE FRUITS, OR CHESTNUTSNO LATEX RISK : DO YOU HAVE A PREVIOUS PERSONAL HISTORY OF MORE THAN NINE SURGERIES, SPINA BIFIDA, OR REPEATED CATHERIZATIONS? NO LATEX RISK : ARE YOU FREQUENTLY EXPOSED TO LATEX PRODUCTS IN YOUR OCCUPATION?NO CAFFEINE CAFFEINE USE?YES HOW OFTEN AND HOW MUCH? 1 CUP COFFEE PER DAY IN THE AM ADVANCE DIRECTIVE ADVANCE DIRECTIVE DISCUSSED WITH PATIENT:YES HCP - SAM KAUR [phone] DIET: GASTRIC BYPASS DIET SEVERAL SMALL MEALS (5-6 TIMES) PER DAY. QUAKER [id number] ORTHODOXY NO ROMAN CATHOLIC BELIEFS THAT WOULD IMPACT HEALTH CARE. LANGUAGE LANGUAGES SPOKEN:MONEGASQUE ALCOHOL SCREENING DID YOU HAVE A DRINK CONTAINING ALCOHOL IN THE PAST YEAR?YES HOW OFTEN DID YOU HAVE A DRINK CONTAINING ALCOHOL IN THE PAST YEAR?MONTHLY OR LESS (1 POINT) POINTS1 INTERPRETATIONNEGATIVE RECREATIONAL DRUG USE DRUG USE?NO LEARNING BARRIERS / SPECIAL NEEDS BARRIERS TO LEARNING?NO VISION IMPAIRED?YES :CORRECTIVE LENSES READING GLASSES ONLY READINESS TO LEARN?YES LEARNING PREFERENCES?NO LEARNING CAPABILITIES PRESENT?YES EMOTIONAL BARRIERS?NO SPECIAL DEVICES?NO REVIEWED WITH PT 12/19/17 1450 BVREVIEWED WITH PATIENT 08/20/18 1403 JSREVIEWED WITH PATIENT 11/02/18 1404 BVREVIEWED WITH PATIENT 12/06/18 1457 BV. HOSPITALIZATION/MAJOR DIAGNOSTIC PROCEDURE SURGICALY RELATED REVIEW OF SYSTEMS REVIEWED BY: PROVIDER: . CONSTITUTIONAL: ANY CHANGE IN YOUR MEDICAL CONDITION? NO . CHILLS NO . FEVER NO . INFECTION: DO YOU HAVE NEW INFECTIONS? NO . DO YOU HAVE HISTORY OF MRSA? NO . MUSCULOSKELETAL: ANY NEW PATTERNS OF PAIN OR NUMBNESS? NO . GASTROENTEROLOGY: ANY NEW CHANGE IN BOWEL CONTROL? NO . GENITOURINARY: ANY NEW CHANGE IN BLADDER CONTROL? NO . IS THERE A CHANCE YOU COULD BE ? NO . HEMATOLOGY/LYMPH: DO YOU TAKE ANY BLOOD THINNERS? (FOR EXAMPLE- COUMADIN, PLAVIX, AGGRENOX, PLATEL, PRADAXA, OR XARELTO) YES, XARELTO LAST DEC 02, 2018 1300 . WHEN WAS YOUR LAST DOSE? DATE: TIME: . NEUROLOGY: HAVE YOU FALLEN IN THE PAST 12 MONTHS? NO . ANY NEW EXTREMITY NUMBNESS OR WEAKNESS? NO . CARDIOLOGY: DO YOU HAVE A PACEMAKER OR DEFIBRILLATOR? NO . RESPIRATORY: HAVE YOU BEEN SICK IN THE PAST WEEK? NO . FEVER NO . FLU LIKE SYMPTOMS? NO . COUGH NO . INTEGUMENTARY: DO YOU HAVE ANY RASHES OR OPEN SORES? NO . ALLERGIC/IMMUNO: ARE YOU ALLERGIC TO IV DYE? NO . ANY NEW ALLERGIES? NO . PSYCHIATRIC: DO YOU HAVE THOUGHTS OF HURTING YOURSELF OR SOMEONE ELSE? NO . ARE YOU ABUSED, NEGLECTED, OR IN AN UNSAFE ENVIRONMENT? NO . ENDOCRINOLOGY: ARE YOU DIABETIC? NO . OTHER: DO YOU NEED ANY PRESCRIPTIONS? NO . IF YES, PLEASE LIST: ____ . ANY NEW PROBLEMS WITH YOUR MEDICATIONS? NO . WHEN DID YOU LAST EAT? ____12/06/18 0900 . WHEN DID YOU LAST DRINK? ____12/06/18 1100 . WHAT DID YOU LAST DRINK? ____WATER . NAME OF PERSON DRIVING YOU HOME? ____JIM WELLS . DO YOU HAVE ANY OTHER QUESTIONS OR CONCERNS NO . VITAL SIGNS WT 146.8 LBS, HT 66 IN, BMI 23.69 INDEX, BP 168/78 MM HG, HR 76 /MIN, RR 16 /MIN, TEMP 97.5 F, OXYGEN SAT % 94%, NA INITIALS 14:27 SC, REVIEWED BY: BV. ASSESSMENTS SACROILIITIS - M46.1 (PRIMARY) TREATMENT SACROILIITIS [facility] FLUORO GUIDANCE (PAIN)[id number] PROCEDURES PN SI PRE PROCEDURE DIAGNOSIS SACROILIITIS, SACROILIAC JOINT DYSFUNCTION POST PROCEDURE DIAGNOSIS SACROILIITIS, SACROILIAC JOINT DYSFUNCTION PROCEDURE RIGHT SACROILIAC JOINT BLOCK SURGEON DR. BRYCE TALAVERA MARKETING AUTOMATION SPECIALIST NONE ANESTHESIA LOCAL PRE PROCEDURE NOTE PATIENT WITH HISTORY OF CHRONIC LOW BACK PAIN. I EVALUATED THE PATIENT AND REVIEWED THE CHART. I WENT OVER THE RISKS, ALTERNATIVES, AND BENEFITS ASSOCIATED WITH THIS PROCEDURE. THE PATIENT WOULD LIKE TO PROCEED AND GAVE CONSENT TO PERFORM THE PROCEDURE. THE PATIENT DENIES UNEXPLAINABLE WEIGHT LOSS, FEVER, CHILLS, OR NEW CHANGES IN URINARY OR BOWEL CONTROL DESCRIPTION OF PROCEDURE THE PATIENT WAS BROUGHT TO THE PROCEDURE ROOM AND PLACED IN THE PRONE POSITION. THE LUMBOSACRAL AREA WAS CLEANED WITH CHLORAPREP SOLUTION AND DRAPED ASEPTICALLY. THE PROCEDURE WAS DONE UNDER STERILE CONDITIONS. I CHECKED LATERALITY AND THE LEVEL WHERE THE PROCEDURE WAS GOING TO BE PERFORMED WITH THE PATIENT AND THE SUPPORTING STAFF AT THE MOMENT OF THE TIME OUT IN THE PROCEDURE ROOM. UNDER FLUOROSCOPIC GUIDANCE, TARGET POINT WAS SELECTED AT THE LOWER BORDER OF THE RIGHT SACROILIAC JOINT. TARGET POINT WAS SELECTED AFTER MEDIAL ROTATION AND TILT OF THE MAGNIFIER OF THE C-ARM. LIDOCAINE WAS USED TO NUMB THE SKIN AND SUBCUTANEOUS TISSUE BELOW IT. A SPINAL NEEDLE, 22-GAUGE, WAS ADVANCED UNDER FLUOROSCOPIC GUIDANCE AND FOLLOWING PATIENT FEEDBACK UNTIL THE TARGET AREA WAS TOUCHED. THE POSITION OF THE NEEDLE WAS VERIFIED WITH AP AND LATERAL VIEWS. AFTER PROPER POSITION OF THE NEEDLE WAS ACHIEVED, ISOVUE M DYE 30%, 0.25 ML, WAS INJECTED SHOWING SPREAD OF THE DYE. THEN, A SOLUTION OF 20 MG OF KENALOG WAS INJECTED IN RIGHT JOINT WITH 3 ML OF BUPIVACAINE 0.125%. THERE WAS NO EVIDENCE OF BLOOD, PARESTHESIA OR CEREBROSPINAL FLUID DURING THE PROCEDURE. THE PATIENT WAS SENT TO THE RECOVERY ROOM. THE PATIENT WAS MOVING THE EXTREMITIES AND DOING WELL. THERE WAS NO COMPLICATION DURING THE PROCEDURE. FLUOROSCOPY TIME WAS 31 SECONDS POST PROCEDURE NOTE THE PATIENT WILL BE SEEN IN A FOLLOW UP IN THE NEXT FEW WEEKS. INSTRUCTIONS WERE GIVEN, QUESTIONS WERE ANSWERED, AND THE PATIENT EXPRESSED UNDERSTANDING AND AGREED WITH THE PLAN. I, ELLE RUSS, DOCUMENTED THE ABOVE INFORMATION ACTING A SCRIBE FOR DR. TALAVERA. I HAVE REVIEWED THE ABOVE DOCUMENT, WRITTEN BY ELLE RUSS SCRIBMally AND I VERIFY THAT IT IS ACCURATE. PROCEDURE CODES 00669 INJECT SACROILIAC JOINT, MODIFIERS: RT 6045F RADXPS IN END [id number] PXD DISPOSITION & COMMUNICATION FOLLOW UP 3 WEEKS ELECTRONICALLY SIGNED BY BRYCE TALAVERA MD, MD ON 12/19/2018 AT 03:07 PM EDT DISCLAIMER : THIS IS A VISIT SUMMARY EXTRACTED FROM THE [facility] CHART. IT IS NOT A COPY OF THE [facility] PROGRESS NOTE. MTDD
== END ==
LOC: M PAIN 13:45
PROVIDERS: ATTEND Anesthesiology
DX: M46.1 Sacroiliitis, not elsewhere classified (principal); I10 Essential (primary) hypertension; E03.9 Hypothyroidism, unspecified; F41.9 Anxiety disorder, unspecified; F32.9 Major depressive disorder, single episode, unspecified; K21.9 Gastro-esophageal reflux disease without esophagitis; I48.91 Unspecified atrial fibrillation; Z87.440 Personal history of urinary (tract) infections; M19.90 Unspecified osteoarthritis, unspecified site; Z79.01 Long term (current) use of anticoagulants; Z79.891 Long term (current) use of opiate analgesic; Z79.899 Other long term (current) drug therapy; Z96.642 Presence of left artificial hip joint; Z98.84 Bariatric surgery status; Z98.49 Cataract extraction status, unspecified eye; Z88.8 Allergy status to other drugs, medicaments and biological substances
CPT/HCPCS: G0260; J1200; J3301; Q9967

== ENCOUNTER → 2018-12-25 | Outpatient (CLI) | payer BC ==
[~2018-12-25] MED LIST changes: -BUPIVACAINE HCL 0.25% 30 ML VIAL As Ordered ONE; -ISOVUE-M 300 61% 15ML VIAL (Q9967) As Ordered ONE; -LIDOCAINE 1% SDV INJ 30 ML VIAL As Ordered ONE; -TRIAMCINOLONE ACETONIDE SUSP 40 MG/ML VIAL (J3301) As Ordered ONE; -diphenhydrAMINE 25 MG CAP As Ordered ONE; -diphenhydrAMINE INJ 50MG/ML VIAL (J1200) As Ordered ONE
--- NOTE | 2018-12-27 01:53 | ECWPNPC ---
PATIENT NAME: PRO REY : 1955 GENDER: FEMALE VISIT DATE: 12/25/2018 DISCHARGE DATE: 12/25/18 1232 VISIT LOCKED DATE TIME: PHYSICIAN: CARSON GARAY RESOURCE: CARSON GARAY REASON FOR APPOINTMENT 1. POST PROC HISTORY OF PRESENT ILLNESS HISTORY OF PRESENT ILLNESS: PAIN THE PATIENT DESCRIBES THE PAIN... 63-YEAR-OLD FEMALE IN FOR POST SIJ FOLLOW-UP. SHE FEELS THE PROCEDURE HELP SUPPORT ONLY FOR 3 DAYS. SHE RATES HER PAIN PREPROCEDURE AT A 5 OUT OF 10 AND POSTPROCEDURE AT A 0 OUT OF 10X3 DAYS. SHE RATES HER PAIN CURRENTLY AT A 6+ OUT OF 10 AND DESCRIBES IT SHARP, STABBING, AND SHOOTING. FALL RISK SCREENING: SCREENING :NO FALLS REPORTED IN THE LAST YEAR CURRENT MEDICATIONS TAKING CALCIUM 600/VITAMIN D 600-400 MG-UNIT TABLET 1 TABLET WITH A MEAL ORALLY ONCE A DAY TAKING LEVOTHYROXINE SODIUM 50 MCG TABLET 1 TABLET ORALLY ONCE A DAY TAKING BUSPIRONE HCL 10 MG TABLET 1 TABLET ORALLY TWICE A DAY TAKING ZYRTEC 10 MG TABLET 1 TABLET NEEDED ORALLY ONCE A DAY, NOTES: TAKES DAILY TAKING ZOLOFT 100 MG TABLET 1 TABLET ORALLY ONCE A DAY TAKING TRAZODONE HCL 100 MG TABLET 1 TABLET AT BEDTIME ORALLY ONCE A DAY TAKING FEMHRT 1/5 1-5 MG - MCG TABS ORALLY DAILY TAKING PROTONIX 40 MG TABLET DELAYED RELEASE 1 TAB ORALLY ONCE A DAY TAKING METOPROLOL SUCCINATE ER 200 MG TABLET EXTENDED RELEASE 24 HOUR 1 TABLET ORALLY ONCE A DAY TAKING XARELTO 20 MG TABLET 1 TABLET WITH FOOD ORALLY ONCE A DAY TAKING ROBAXIN-750 750 MG TABLET 1/2 TABLET ORALLY AT NIGHT NEEDED TAKING BUTRANS 10 MCG/HR PATCH WEEKLY 1 PATCH TO SKIN TRANSDERMAL 1 PATCH Q7DAYS =MDD TAKING OXYCODONE HCL 5 MG TABLET 1 TABLET NEEDED ORALLY Q6-8H PRN MDD4 TAKING ONDANSETRON 4 MG TABLET DISINTEGRATING 1 TABLET ON THE TONGUE AND ALLOW TO DISSOLVE ORALLY DAILY NEEDED FOR NAUSEA TAKING LOSARTAN POTASSIUM 50 MG TABLET 1 TABLET ORALLY ONCE A DAY NOT-TAKING POTASSIUM CHLORIDE CR 10 MEQ TABLET ORALLY DAILY NOT-TAKING VICODIN 5/325 TABLET 1 TABLET NEEDED ORALLY EVERY 4 HRS NOT-TAKING BYSTOLIC 10 MG TABLET 1 TABLET ORALLY ONCE A DAY NOT-TAKING CYCLOBENZAPRINE HCL 5 MG TABLET 1 TABLET ORALLY THREE TIMES A DAY NOT-TAKING NITROFURANTOIN MONOHYD MACRO 100 MG CAPSULE 1 CAPSULE WITH FOOD ORALLY EVERY 12 HRS NOT-TAKING BACTRIM DS 800-160 MG TABLET 1 TABLET ORALLY ONCE A DAY MEDICATION LIST REVIEWED AND RECONCILED WITH THE PATIENT PAST MEDICAL HISTORY HTN HYPOTHYROIDISM ARTHRITIS CHRONIC NECK AND BACK PAIN ANXIETY/DEPRESSION HEART LOOP MONITER TO LEFT CHEST GERD A FIB RECURRENT UTI ALLERGIES IODINE: HIVES - ALLERGY TIZANIDINE HCL: CONFUSION - SIDE EFFECTS SURGICAL HISTORY LEFT HIP REPLACEMENT 04/2014 REMOVE JOSE ENRIQUE AND PINS 11/2013 BROKEN LEFT LEG REPAIR 10/2012 GASTRIC BYPASS 2003 CATARACT REMOVED 2012 ABLATION FOR AFIB 2016 HEART LOOP MONITER PLACED 2016 HEART ABLATION NOV 13, 2017 CYST REMOVED FROM BACK OF HEAD 05/2018 EGD 2018 RIGHT CATARACT 10/2018 FAMILY HISTORY PT. ADOPTED NO KNOWN FAMILY HISTORY. SOCIAL HISTORY GENERAL: TOBACCO USE ARE YOU A:NONSMOKER PAIN CLINIC PFS, CLERGY, PUBLIC HEALTH REFERRALS PFS REFERRAL NEEDED?NO CLERGY REFERRAL NEEDED?NO PUBLIC HEALTH REFERRAL NEEDED?NO WAS THE PROVIDER NOTIFIED OF ANY PERTINENT INFO?YES HAS THE PATIENT BEEN EDUCATED REGARDING HIS/HER PLAN OF CARE?YES HAS THE PATIENT BEEN EDUCATED REGARDING PAIN, THE RISK FOR PAIN, THE IMPORTANCE OF EFFECTIVE PAIN MANAGEMENT, AND THE PAIN ASSESSMENT PROCESS?YES LATEX QUESTIONNAIRE LATEX ALLERGY : HAVE YOU EVER DEVELOPED ANY TYPE OF REACTION AFTER HANDLING LATEX PRODUCTS SUCH RUBBER GLOVES, CONDOMS, DIAPHRAGMS, BALLOONS, SOCKS, OR UNDERWEAR?NO LATEX ALLERGY : HAVE YOU EVER DEVELOPED ANY TYPE OF REACTION DURING OR AFTER DENTAL APPOINTMENT, VAGINAL/RECTAL EXAMINATION, SURGICAL PROCEDURE, OR ANY OTHER EXPOSURE?NO LATEX RISK : HAVE YOU EVER HAD ANY DIFFICULTY BREATHING OR HIVES AFTER EATING OR HANDLING ANY FRUITS, OR VEGETABLES; SUCH KIWI, BANANAS, STONE FRUITS, OR CHESTNUTSNO LATEX RISK : DO YOU HAVE A PREVIOUS PERSONAL HISTORY OF MORE THAN NINE SURGERIES, SPINA BIFIDA, OR REPEATED CATHERIZATIONS? NO LATEX RISK : ARE YOU FREQUENTLY EXPOSED TO LATEX PRODUCTS IN YOUR OCCUPATION?NO DATE ASKED : 06/20/2018 CAFFEINE CAFFEINE USE?YES HOW OFTEN AND HOW MUCH? 1 CUP COFFEE PER DAY IN THE AM ADVANCE DIRECTIVE ADVANCE DIRECTIVE DISCUSSED WITH PATIENT:YES HCP - SAM KAUR [phone] DIET: GASTRIC BYPASS DIET SEVERAL SMALL MEALS (5-6 TIMES) PER DAY. CONFUCIANISM [id number] ADVENT NO ADVENTISM BELIEFS THAT WOULD IMPACT HEALTH CARE. LANGUAGE LANGUAGES SPOKEN:PANAMANIAN ALCOHOL SCREENING DID YOU HAVE A DRINK CONTAINING ALCOHOL IN THE PAST YEAR?YES HOW OFTEN DID YOU HAVE A DRINK CONTAINING ALCOHOL IN THE PAST YEAR?MONTHLY OR LESS (1 POINT) POINTS1 INTERPRETATIONNEGATIVE RECREATIONAL DRUG USE DRUG USE?NO LEARNING BARRIERS / SPECIAL NEEDS BARRIERS TO LEARNING?NO VISION IMPAIRED?YES :CORRECTIVE LENSES READING GLASSES ONLY READINESS TO LEARN?YES LEARNING PREFERENCES?NO LEARNING CAPABILITIES PRESENT?YES EMOTIONAL BARRIERS?NO SPECIAL DEVICES?NO REVIEWED WITH PT 12/19/17 1450 BVREVIEWED WITH PATIENT 08/20/18 1403 JSREVIEWED WITH PATIENT 11/02/18 1404 BVREVIEWED WITH PATIENT 12/06/18 1457 BVREVIEWED WITH PATIENT 12/25/18 1146 JS. HOSPITALIZATION/MAJOR DIAGNOSTIC PROCEDURE SURGICALY RELATED REVIEW OF SYSTEMS REVIEWED BY: PROVIDER: EREN ESCOBAR-Martha . CONSTITUTIONAL: ANY CHANGE IN YOUR MEDICAL CONDITION? NO . CHILLS NO . FEVER NO . INFECTION: DO YOU HAVE NEW INFECTIONS? NO . DO YOU HAVE HISTORY OF MRSA? NO . MUSCULOSKELETAL: ANY NEW PATTERNS OF PAIN OR NUMBNESS? YES, STATES PAIN RETURNED ONLY A FEW DAYS AFTER THE PROCEDURE . GASTROENTEROLOGY: ANY NEW CHANGE IN BOWEL CONTROL? NO . GENITOURINARY: ANY NEW CHANGE IN BLADDER CONTROL? NO . IS THERE A CHANCE YOU COULD BE ? NO . HEMATOLOGY/LYMPH: DO YOU TAKE ANY BLOOD THINNERS? (FOR EXAMPLE- COUMADIN, PLAVIX, AGGRENOX, PLATEL, PRADAXA, OR XARELTO) YES, XARELTO . WHEN WAS YOUR LAST DOSE? DATE: 12/24/18TIME: 1300 . NEUROLOGY: HAVE YOU FALLEN IN THE PAST 12 MONTHS? NO . ANY NEW EXTREMITY NUMBNESS OR WEAKNESS? NO . CARDIOLOGY: DO YOU HAVE A PACEMAKER OR DEFIBRILLATOR? NO . RESPIRATORY: HAVE YOU BEEN SICK IN THE PAST WEEK? NO . FEVER NO . FLU LIKE SYMPTOMS? NO . COUGH NO . INTEGUMENTARY: DO YOU HAVE ANY RASHES OR OPEN SORES? NO . ALLERGIC/IMMUNO: ARE YOU ALLERGIC TO IV DYE? YES . ANY NEW ALLERGIES? NO . PSYCHIATRIC: DO YOU HAVE THOUGHTS OF HURTING YOURSELF OR SOMEONE ELSE? NO . ARE YOU ABUSED, NEGLECTED, OR IN AN UNSAFE ENVIRONMENT? NO . ENDOCRINOLOGY: ARE YOU DIABETIC? NO . OTHER: DO YOU NEED ANY PRESCRIPTIONS? NO . IF YES, PLEASE LIST: ____ . ANY NEW PROBLEMS WITH YOUR MEDICATIONS? NO . WHEN DID YOU LAST EAT? ____ . WHEN DID YOU LAST DRINK? ____ . WHAT DID YOU LAST DRINK? ____ . NAME OF PERSON DRIVING YOU HOME? ____ . DO YOU HAVE ANY OTHER QUESTIONS OR CONCERNS NO . VITAL SIGNS WT 151.4 LBS, HT 66 IN, BMI 24.43 INDEX, BP 161/70 MM HG, HR 77 /MIN, RR 16 /MIN, TEMP 97.0 F, OXYGEN SAT % 99%, SAFE IN ENV? (Y/N) YES, NA INITIALS AW 1130, REVIEWED BY: ARMANI. EXAMINATION GENERAL EXAMINATION: GENERALNO ACUTE DISTRESS, WELL NOURISHED AND HYDRATED. PSYCHAPPROPRIATE MOOD AND AFFECT . LUNGS:CLEAR TO AUSCULTATION BILATERALLY, NO WHEEZES, RHONCHI, RALES. HEART:NO MURMURS, REGULAR RATE AND RHYTHM. BACK:POINT TENDER RIGHT LOW BACK . ASSESSMENTS MYALGIA, OTHER SITE - M79.18 (PRIMARY) CHRONIC USE OF OPIATE FOR THERAPEUTIC PURPOSE - Z79.891 TREATMENT MYALGIA, OTHER SITE NOTES: TPI RIGHT LOW BACK. CLINICAL NOTES: 63-YEAR-OLD FEMALE IN FOR POST RIGHT SIJ FOLLOW-UP. GIVEN PRESENTING SYMPTOMS AND RESULTS OF PHYSICAL EXAMINATION RECOMMENDED TPI OF THE LOW BACK. PATIENT HAS EXPRESSED UNDERSTANDING OF AND WAS IN AGREEMENT WITH TREATMENT PLAN. GIVEN TIME TO ASK QUESTIONS AND EXPRESS CONCERNS., ISTOP REGISTRY REVIEWED AND DEMONSTRATES COMPLLIANCE. (REF # [id number] ) BRINGS IN MEDICATIONS WHICH IS APPROPRIATE FOR WHAT WAS DISPENSED. RECENT URINE TOXICOLOGY REVIEWED. NO UNAUTHORIZED MEDICATIONS. NO ILLICIT SUBSTANCES AND PRESCRIBED MEDICATIONS WERE PRESENT. PREVENTIVE MEDICINE PAIN CLINIC TEACHING: PROCEDURE TEACHING PRINTED AND REVIEWED INFORMATION ON TRIGGER POINT INJECTIONS WITH PATIENT. ALSO REVIEWED PRE-PROCEDURE INSTRUCTIONS. PATIENT VERBALIZED AN UNDERSTANDING. RAQUEL TANG 12/25/2018 2:26:17 PM > . PROCEDURE CODES FA211 ESTABILISHED PATIENT [facility] FACILITY CHARGE DISPOSITION & COMMUNICATION FOLLOW UP POST PROCEDURE (REASON: TPI RIGHT LOW BACK) ELECTRONICALLY SIGNED BY LUZ LOVELL ON 12/26/2018 AT 08:46 AM EDT DISCLAIMER : THIS IS A VISIT SUMMARY EXTRACTED FROM THE [facility] CHART. IT IS NOT A COPY OF THE [facility] PROGRESS NOTE. MTDD
== END ==
LOC: M PAIN 11:15
PROVIDERS: ATTEND Family Medicine
DX: M79.18 Myalgia, other site (principal); I10 Essential (primary) hypertension; E03.9 Hypothyroidism, unspecified; M19.90 Unspecified osteoarthritis, unspecified site; F41.9 Anxiety disorder, unspecified; F32.9 Major depressive disorder, single episode, unspecified; M54.2 Cervicalgia; K21.9 Gastro-esophageal reflux disease without esophagitis; I48.91 Unspecified atrial fibrillation; Z87.440 Personal history of urinary (tract) infections; Z96.642 Presence of left artificial hip joint; Z98.41 Cataract extraction status, right eye; Z79.891 Long term (current) use of opiate analgesic; Z98.84 Bariatric surgery status; Z79.899 Other long term (current) drug therapy; Z79.01 Long term (current) use of anticoagulants; Z88.8 Allergy status to other drugs, medicaments and biological substances

== ENCOUNTER 2019-02-03 00:40 | Emergency (ER) | payer BC ==
[~2019-02-03] VITALS: Ht 162.6 cm; Wt 65.9 kg
[2019-02-03] MEDS ORDERED: BUPR10DI3 (00:57)
[2019-02-03] MEDS ORDERED: METH750T2 PO (00:57)
[2019-02-03 03:27] VITALS: BP 164/77
== END 2019-02-03 03:31 | disposition home or self-care (01) ==
LOC: M ED 00:40
DX: E16.2 Hypoglycemia, unspecified (principal); I48.91 Unspecified atrial fibrillation; G89.29 Other chronic pain; Z98.84 Bariatric surgery status; Z88.1 Allergy status to other antibiotic agents; Z91.013 Allergy to seafood; Z91.09 Other allergy status, other than to drugs and biological substances; Z79.83 Long term (current) use of bisphosphonates; Z79.891 Long term (current) use of opiate analgesic; Z79.899 Other long term (current) drug therapy

== ENCOUNTER → 2019-02-11 | Outpatient (CLI) | payer BC ==
[~2019-02-11] MED LIST changes: +BUPIVACAINE HCL 0.25% 10 ML VIAL As Ordered ONE; +BUPIVACAINE HCL 0.25% 30 ML VIAL As Ordered ONE; +BUPR10DI3; +METH750T2 PO; +TRIAMCINOLONE ACETONIDE SUSP 40 MG/ML VIAL (J3301) As Ordered ONE
--- NOTE | 2019-02-13 02:30 | ECWPNPC ---
PATIENT NAME: PRO REY : 1955 GENDER: FEMALE VISIT DATE: 02/11/2019 DISCHARGE DATE: 02/11/19 1231 VISIT LOCKED DATE TIME: PHYSICIAN: BRYCE TALAVERA MD RESOURCE: BRYCE TALAVERA MD REASON FOR APPOINTMENT 1. TPI HISTORY OF PRESENT ILLNESS HISTORY OF PRESENT ILLNESS: PAIN THE PATIENT DESCRIBES THE PAIN... FALL RISK SCREENING: SCREENING :NO FALLS REPORTED IN THE LAST YEAR CURRENT MEDICATIONS TAKING CALCIUM 600/VITAMIN D 600-400 MG-UNIT TABLET 1 TABLET WITH A MEAL ORALLY ONCE A DAY, NOTES: 02/10 1400 TAKING LEVOTHYROXINE SODIUM 50 MCG TABLET 1 TABLET ORALLY ONCE A DAY, NOTES: 02/10 1400 TAKING BUSPIRONE HCL 10 MG TABLET 1 TABLET ORALLY TWICE A DAY, NOTES: ONLY TAKES ONCE A DAY02/10 1400 TAKING ZYRTEC 10 MG TABLET 1 TABLET NEEDED ORALLY ONCE A DAY, NOTES: TAKES DAILY 02/10 1400 TAKING ZOLOFT 100 MG TABLET 1 TABLET ORALLY ONCE A DAY, NOTES: 02/10 1400 TAKING TRAZODONE HCL 100 MG TABLET 1 TABLET AT BEDTIME ORALLY ONCE A DAY, NOTES: 02/10 2230 TAKING FEMHRT 1/5 1-5 MG - MCG TABS ORALLY DAILY, NOTES: 02/10 1400 TAKING PROTONIX 40 MG TABLET DELAYED RELEASE 1 TAB ORALLY ONCE A DAY, NOTES: 02/10 1400 TAKING METOPROLOL SUCCINATE ER 200 MG TABLET EXTENDED RELEASE 24 HOUR 1 TABLET ORALLY ONCE A DAY, NOTES: 02/12 800 TAKING XARELTO 20 MG TABLET 1 TABLET WITH FOOD ORALLY ONCE A DAY, NOTES: 02/09 TAKING ROBAXIN-750 750 MG TABLET 1/2 TABLET ORALLY AT NIGHT NEEDED, NOTES: 02/10 1800 TAKING BUTRANS 10 MCG/HR PATCH WEEKLY 1 PATCH TO SKIN TRANSDERMAL 1 PATCH Q7DAYS =MDD, NOTES: 02/07 TAKING ONDANSETRON 4 MG TABLET DISINTEGRATING 1 TABLET ON THE TONGUE AND ALLOW TO DISSOLVE ORALLY DAILY NEEDED FOR NAUSEA, NOTES: NONE RECENT TAKING LOSARTAN POTASSIUM 50 MG TABLET 1 TABLET ORALLY ONCE A DAY, NOTES: 02/12 800 TAKING OXYCODONE HCL 5 MG TABLET 1 TABLET NEEDED ORALLY Q6-8H PRN MDD4, NOTES: 02/12 800 NOT-TAKING POTASSIUM CHLORIDE CR 10 MEQ TABLET ORALLY DAILY NOT-TAKING VICODIN 5/325 TABLET 1 TABLET NEEDED ORALLY EVERY 4 HRS NOT-TAKING BYSTOLIC 10 MG TABLET 1 TABLET ORALLY ONCE A DAY NOT-TAKING CYCLOBENZAPRINE HCL 5 MG TABLET 1 TABLET ORALLY THREE TIMES A DAY NOT-TAKING NITROFURANTOIN MONOHYD MACRO 100 MG CAPSULE 1 CAPSULE WITH FOOD ORALLY EVERY 12 HRS NOT-TAKING BACTRIM DS 800-160 MG TABLET 1 TABLET ORALLY ONCE A DAY MEDICATION LIST REVIEWED AND RECONCILED WITH THE PATIENT PAST MEDICAL HISTORY HTN HYPOTHYROIDISM ARTHRITIS CHRONIC NECK AND BACK PAIN ANXIETY/DEPRESSION HEART LOOP MONITER TO LEFT CHEST GERD A FIB RECURRENT UTI ALLERGIES IODINE: HIVES - ALLERGY TIZANIDINE HCL: CONFUSION - SIDE EFFECTS SURGICAL HISTORY LEFT HIP REPLACEMENT 04/2014 REMOVE JOSE ENRIQUE AND PINS 11/2013 BROKEN LEFT LEG REPAIR 10/2012 GASTRIC BYPASS 2003 CATARACT REMOVED 2012 ABLATION FOR AFIB 2016 HEART LOOP MONITER PLACED 2016 HEART ABLATION NOV 13, 2017 CYST REMOVED FROM BACK OF HEAD 05/2018 EGD 2018 RIGHT CATARACT 10/2018 FAMILY HISTORY PT. ADOPTED NO KNOWN FAMILY HISTORY. SOCIAL HISTORY GENERAL: TOBACCO USE ARE YOU A:NONSMOKER PAIN CLINIC PFS, CLERGY, PUBLIC HEALTH REFERRALS PFS REFERRAL NEEDED?NO CLERGY REFERRAL NEEDED?NO PUBLIC HEALTH REFERRAL NEEDED?NO HAS THE PATIENT BEEN EDUCATED REGARDING HIS/HER PLAN OF CARE?YES HAS THE PATIENT BEEN EDUCATED REGARDING PAIN, THE RISK FOR PAIN, THE IMPORTANCE OF EFFECTIVE PAIN MANAGEMENT, AND THE PAIN ASSESSMENT PROCESS?YES LATEX QUESTIONNAIRE LATEX ALLERGY : HAVE YOU EVER DEVELOPED ANY TYPE OF REACTION AFTER HANDLING LATEX PRODUCTS SUCH RUBBER GLOVES, CONDOMS, DIAPHRAGMS, BALLOONS, SOCKS, OR UNDERWEAR?NO LATEX ALLERGY : HAVE YOU EVER DEVELOPED ANY TYPE OF REACTION DURING OR AFTER DENTAL APPOINTMENT, VAGINAL/RECTAL EXAMINATION, SURGICAL PROCEDURE, OR ANY OTHER EXPOSURE?NO LATEX RISK : HAVE YOU EVER HAD ANY DIFFICULTY BREATHING OR HIVES AFTER EATING OR HANDLING ANY FRUITS, OR VEGETABLES; SUCH KIWI, BANANAS, STONE FRUITS, OR CHESTNUTSNO LATEX RISK : DO YOU HAVE A PREVIOUS PERSONAL HISTORY OF MORE THAN NINE SURGERIES, SPINA BIFIDA, OR REPEATED CATHERIZATIONS? NO LATEX RISK : ARE YOU FREQUENTLY EXPOSED TO LATEX PRODUCTS IN YOUR OCCUPATION?NO DATE ASKED : 02/01/2019 CAFFEINE CAFFEINE USE?YES HOW OFTEN AND HOW MUCH? 1 CUP COFFEE PER DAY IN THE AM ADVANCE DIRECTIVE ADVANCE DIRECTIVE DISCUSSED WITH PATIENT:YES HCP - SAM KAUR [phone] DIET: GASTRIC BYPASS DIET SEVERAL SMALL MEALS (5-6 TIMES) PER DAY. TEMPLE [id number] SIKH NO [employer] BELIEFS THAT WOULD IMPACT HEALTH CARE. LANGUAGE LANGUAGES SPOKEN:TUNISIAN ALCOHOL SCREENING DID YOU HAVE A DRINK CONTAINING ALCOHOL IN THE PAST YEAR?YES HOW OFTEN DID YOU HAVE A DRINK CONTAINING ALCOHOL IN THE PAST YEAR?MONTHLY OR LESS (1 POINT) POINTS1 INTERPRETATIONNEGATIVE RECREATIONAL DRUG USE DRUG USE?NO LEARNING BARRIERS / SPECIAL NEEDS BARRIERS TO LEARNING?NO VISION IMPAIRED?YES :CORRECTIVE LENSES READING GLASSES ONLY READINESS TO LEARN?YES LEARNING PREFERENCES?NO LEARNING CAPABILITIES PRESENT?YES EMOTIONAL BARRIERS?NO SPECIAL DEVICES?NO REVIEWED WITH PT 12/19/17 1450 BVREVIEWED WITH PATIENT 08/20/18 1403 JSREVIEWED WITH PATIENT 11/02/18 1404 BVREVIEWED WITH PATIENT 12/06/18 1457 BVREVIEWED WITH PATIENT 12/25/18 1146 JSPRE PROCEDURE SCREENING DONE. 02/01/19 EM02/11/19 1118 REVIEWED WITH PT. AD. HOSPITALIZATION/MAJOR DIAGNOSTIC PROCEDURE SURGICALY RELATED REVIEW OF SYSTEMS REVIEWED BY: PROVIDER: . CONSTITUTIONAL: ANY CHANGE IN YOUR MEDICAL CONDITION? NO . CHILLS NO . FEVER NO . INFECTION: DO YOU HAVE NEW INFECTIONS? NO . DO YOU HAVE HISTORY OF MRSA? NO . MUSCULOSKELETAL: ANY NEW PATTERNS OF PAIN OR NUMBNESS? NO . GASTROENTEROLOGY: ANY NEW CHANGE IN BOWEL CONTROL? NO . GENITOURINARY: ANY NEW CHANGE IN BLADDER CONTROL? NO . IS THERE A CHANCE YOU COULD BE ? NO . HEMATOLOGY/LYMPH: DO YOU TAKE ANY BLOOD THINNERS? (FOR EXAMPLE- COUMADIN, PLAVIX, AGGRENOX, PLATEL, PRADAXA, OR XARELTO) YES, XARELTO . WHEN WAS YOUR LAST DOSE? DATE: TIME:02/09 1400 . NEUROLOGY: HAVE YOU FALLEN IN THE PAST 12 MONTHS? NO . ANY NEW EXTREMITY NUMBNESS OR WEAKNESS? NO . CARDIOLOGY: DO YOU HAVE A PACEMAKER OR DEFIBRILLATOR? NO . RESPIRATORY: HAVE YOU BEEN SICK IN THE PAST WEEK? NO . FEVER NO . FLU LIKE SYMPTOMS? NO . COUGH NO . INTEGUMENTARY: DO YOU HAVE ANY RASHES OR OPEN SORES? NO . ALLERGIC/IMMUNO: ARE YOU ALLERGIC TO IV DYE? NO IODINE . ANY NEW ALLERGIES? NO . PSYCHIATRIC: DO YOU HAVE THOUGHTS OF HURTING YOURSELF OR SOMEONE ELSE? NO . ARE YOU ABUSED, NEGLECTED, OR IN AN UNSAFE ENVIRONMENT? NO . ENDOCRINOLOGY: ARE YOU DIABETIC? NO . OTHER: DO YOU NEED ANY PRESCRIPTIONS? NO . IF YES, PLEASE LIST: ____ . ANY NEW PROBLEMS WITH YOUR MEDICATIONS? NO . WHEN DID YOU LAST EAT? 02/10 1900 . WHEN DID YOU LAST DRINK? 02/11 0800 . WHAT DID YOU LAST DRINK? WATER . NAME OF PERSON DRIVING YOU HOME? UBALDO LAM . DO YOU HAVE ANY OTHER QUESTIONS OR CONCERNS NO HAD FLU SHOT 01/11 . VITAL SIGNS WT 149.6 LBS, HT 66 IN, BMI 24.14 INDEX, BP 161/74 MM HG, HR 73 /MIN, RR 18 /MIN, TEMP 96.7 F, OXYGEN SAT % 100%, SAFE IN ENV? (Y/N) Y, NA INITIALS DE 11:03, REVIEWED BY: JAMIE. ASSESSMENTS MYALGIA, OTHER SITE - M79.18 (PRIMARY) PROCEDURES PN TRIGGER POINT INJECTION WITH STEROIDS PRE PROCEDURE DIAGNOSIS 1. MYALGIA 2. PAIN AT RIGHT LUMBAR AREA. POST PROCEDURE DIAGNOSIS 1. MYALGIA 2. PAIN AT RIGHT LUMBAR AREA. PROCEDURE TRIGGER POINT INJECTION AT RIGHT LOW BACK AREA. SURGEON DR. BRYCE TALAVERA CONTINUOUS DRYOUT OPERATOR HELPER NONE ANESTHESIA LOCAL PRE PROCEDURE NOTE THE PATIENT HAS A HISTORY OF CHRONIC PAIN AT THE RIGHT LOW BACK AREA. I EVALUATED THE PATIENT AND REVIEWED THE CHART. THERE IS EVIDENCE OF BANDS OF TISSUE WITH RESTRICTION OF MOVEMENT AND PRESENCE OF TRIGGER POINT AT THE AFFECTED AREA. I WENT OVER THE RISKS, ALTERNATIVES, AND BENEFITS ASSOCIATED WITH THIS PROCEDURE. THE PATIENT WOULD LIKE TO PROCEED AND GIVES CONSENT TO PERFORM THE PROCEDURE. THE PATIENT DENIES UNEXPLAINABLE WEIGHT LOSS, FEVER, CHILLS, OR NEW CHANGES IN URINARY OR BOWEL CONTROL DESCRIPTION OF PROCEDURE THE PATIENT WAS BROUGHT TO THE PROCEDURE ROOM AND PLACED IN THE SITTING POSITION. THE AREA WAS CLEANED WITH ALCOHOL. THE PROCEDURE WAS DONE USING ASEPTIC STERILE TECHNIQUE. I CHECKED LATERALITY AND THE LEVEL WHERE THE PROCEDURE WAS GOING TO BE PERFORMED WITH THE PATIENT AND THE SUPPORTING STAFF AT THE MOMENT OF THE TIME OUT IN THE PROCEDURE ROOM. USING A 25-GAUGE NEEDLE, TRIGGER POINTS WERE INJECTED AT THE RIGHT LOW BACK AREA WITH A TOTAL OF 40 ML OF BUPIVACAINE 0.25% AND KENALOG 40 MG. THERE WAS NO EVIDENCE OF BLOOD, PARESTHESIA OR CEREBROSPINAL FLUID DURING THE PROCEDURE. THE PATIENT WAS SENT TO THE RECOVERY ROOM. THE PATIENT WAS MOVING THE EXTREMITIES AND DOING WELL. THERE WAS NO COMPLICATION DURING THE PROCEDURE POST PROCEDURE NOTE I AM LOOKING FOR LONG LASTING PAIN RELIEF WITH THIS INJECTION. THE PATIENT WILL BE SEEN IN A FOLLOW UP IN THE NEXT FEW WEEKS. INSTRUCTIONS WERE GIVEN, QUESTIONS WERE ANSWERED, AND THE PATIENT EXPRESSED UNDERSTANDING AND AGREES WITH THE PLAN. I, ELLE RUSS, DOCUMENTED THE ABOVE INFORMATION ACTING A SCRIBE FOR DR. TALAVERA. I HAVE REVIEWED THE ABOVE DOCUMENT, WRITTEN BY ELLE RUSS SCRIBE AND I VERIFY THAT IT IS ACCURATE. PROCEDURE CODES 07594 INJ TRIGGER POINT 02/28 [facility] [place] FOLLOW UP 3 WEEKS ELECTRONICALLY SIGNED BY BRYCE TALAVERA MD, MD ON 02/12/2019 AT 05:21 PM EST DISCLAIMER : THIS IS A VISIT SUMMARY EXTRACTED FROM THE [employer] CHART. IT IS NOT A COPY OF THE [employer] PROGRESS NOTE. LUDWIN
== END ==
LOC: M PAIN 10:45
PROVIDERS: ATTEND Anesthesiology
DX: M79.18 Myalgia, other site (principal); I10 Essential (primary) hypertension; E03.9 Hypothyroidism, unspecified; Z86.59 Personal history of other mental and behavioral disorders; K21.9 Gastro-esophageal reflux disease without esophagitis; Z98.84 Bariatric surgery status; Z96.642 Presence of left artificial hip joint; Z88.3 Allergy status to other anti-infective agents; Z88.8 Allergy status to other drugs, medicaments and biological substances; Z79.01 Long term (current) use of anticoagulants; Z79.899 Other long term (current) drug therapy
CPT/HCPCS: 20552; J3301

== ENCOUNTER → 2019-03-19 | Outpatient (CLI) | payer BC ==
[~2019-03-19] MED LIST changes: -BUPIVACAINE HCL 0.25% 10 ML VIAL As Ordered ONE; -BUPIVACAINE HCL 0.25% 30 ML VIAL As Ordered ONE; -TRAZ-163 PO; +TRAZ-257 PO; -TRIAMCINOLONE ACETONIDE SUSP 40 MG/ML VIAL (J3301) As Ordered ONE
--- NOTE | 2019-03-21 05:17 | ECWPNPC ---
PATIENT NAME: POR REY : 1955 GENDER: FEMALE VISIT DATE: 03/19/2019 DISCHARGE DATE: 03/19/19 1337 VISIT LOCKED DATE TIME: PHYSICIAN: CARSON GARAY RESOURCE: CARSON GARAY REASON FOR APPOINTMENT 1. POST TPI HISTORY OF PRESENT ILLNESS HISTORY OF PRESENT ILLNESS: PAIN THE PATIENT DESCRIBES THE PAIN... 63-YEAR-OLD FEMALE IN FOR TRIGGER POINT INJECTION FOLLOW-UP. SHE RATES HER PAIN PREPROCEDURE AT A 5 OUT OF 10 AND POSTPROCEDURE AT A 0-2 OUT OF 10 BUT STATES THIS LASTED FOR APPROXIMATELY 3 DAYS. SHE RATES HER PAIN CURRENTLY AT A 6 OUT OF 10 AND DESCRIBES IT ACHING, SHARP, STABBING, AND TENDER. FALL RISK SCREENING: SCREENING :NO FALLS REPORTED IN THE LAST YEAR CURRENT MEDICATIONS TAKING CALCIUM 600/VITAMIN D 600-400 MG-UNIT TABLET 1 TABLET WITH A MEAL ORALLY ONCE A DAY TAKING LEVOTHYROXINE SODIUM 50 MCG TABLET 1 TABLET ORALLY ONCE A DAY TAKING BUSPIRONE HCL 10 MG TABLET 1 TABLET ORALLY TWICE A DAY TAKING ZYRTEC 10 MG TABLET 1 TABLET NEEDED ORALLY ONCE A DAY TAKING ZOLOFT 100 MG TABLET 1 TABLET ORALLY ONCE A DAY TAKING TRAZODONE HCL 100 MG TABLET 1 TABLET AT BEDTIME ORALLY ONCE A DAY TAKING FEMHRT 1/5 1-5 MG - MCG TABS ORALLY DAILY TAKING PROTONIX 40 MG TABLET DELAYED RELEASE 1 TAB ORALLY ONCE A DAY TAKING METOPROLOL SUCCINATE ER 200 MG TABLET EXTENDED RELEASE 24 HOUR 1 TABLET ORALLY ONCE A DAY TAKING XARELTO 20 MG TABLET 1 TABLET WITH FOOD ORALLY ONCE A DAY TAKING ROBAXIN-750 750 MG TABLET 1/2 TABLET ORALLY AT NIGHT NEEDED TAKING LOSARTAN POTASSIUM 50 MG TABLET 1 TABLET ORALLY ONCE A DAY TAKING BUTRANS 10 MCG/HR PATCH WEEKLY 1 PATCH TO SKIN TRANSDERMAL 1 PATCH Q7DAYS =MDD TAKING ONDANSETRON 4 MG TABLET DISINTEGRATING 1 TABLET ON THE TONGUE AND ALLOW TO DISSOLVE ORALLY DAILY NEEDED FOR NAUSEA TAKING OXYCODONE HCL 5 MG TABLET 1 TABLET NEEDED ORALLY Q6-8H PRN MDD4 NOT-TAKING POTASSIUM CHLORIDE CR 10 MEQ TABLET ORALLY DAILY NOT-TAKING VICODIN 5/325 TABLET 1 TABLET NEEDED ORALLY EVERY 4 HRS NOT-TAKING BYSTOLIC 10 MG TABLET 1 TABLET ORALLY ONCE A DAY NOT-TAKING CYCLOBENZAPRINE HCL 5 MG TABLET 1 TABLET ORALLY THREE TIMES A DAY NOT-TAKING NITROFURANTOIN MONOHYD MACRO 100 MG CAPSULE 1 CAPSULE WITH FOOD ORALLY EVERY 12 HRS NOT-TAKING BACTRIM DS 800-160 MG TABLET 1 TABLET ORALLY ONCE A DAY MEDICATION LIST REVIEWED AND RECONCILED WITH THE PATIENT PAST MEDICAL HISTORY HTN HYPOTHYROIDISM ARTHRITIS CHRONIC NECK AND BACK PAIN ANXIETY/DEPRESSION HEART LOOP MONITER TO LEFT CHEST GERD A FIB RECURRENT UTI ALLERGIES IODINE: HIVES - ALLERGY TIZANIDINE HCL: CONFUSION - SIDE EFFECTS SURGICAL HISTORY LEFT HIP REPLACEMENT 04/2014 REMOVE JOSE ENRIQUE AND PINS 11/2013 BROKEN LEFT LEG REPAIR 10/2012 GASTRIC BYPASS 2004 CATARACT REMOVED 2012 ABLATION FOR AFIB 2016 HEART LOOP MONITER PLACED 2016 HEART ABLATION NOV 13, 2017 CYST REMOVED FROM BACK OF HEAD 05/2018 EGD 2018 RIGHT CATARACT 10/2018 FAMILY HISTORY PT. ADOPTED NO KNOWN FAMILY HISTORY. SOCIAL HISTORY GENERAL: TOBACCO USE ARE YOU A:NONSMOKER PAIN CLINIC PFS, CLERGY, PUBLIC HEALTH REFERRALS PFS REFERRAL NEEDED?NO CLERGY REFERRAL NEEDED?NO PUBLIC HEALTH REFERRAL NEEDED?NO HAS THE PATIENT BEEN EDUCATED REGARDING HIS/HER PLAN OF CARE?YES HAS THE PATIENT BEEN EDUCATED REGARDING PAIN, THE RISK FOR PAIN, THE IMPORTANCE OF EFFECTIVE PAIN MANAGEMENT, AND THE PAIN ASSESSMENT PROCESS?YES LATEX QUESTIONNAIRE LATEX ALLERGY : HAVE YOU EVER DEVELOPED ANY TYPE OF REACTION AFTER HANDLING LATEX PRODUCTS SUCH RUBBER GLOVES, CONDOMS, DIAPHRAGMS, BALLOONS, SOCKS, OR UNDERWEAR?NO LATEX ALLERGY : HAVE YOU EVER DEVELOPED ANY TYPE OF REACTION DURING OR AFTER DENTAL APPOINTMENT, VAGINAL/RECTAL EXAMINATION, SURGICAL PROCEDURE, OR ANY OTHER EXPOSURE?NO DATE ASKED : 02/01/2019 LATEX RISK : HAVE YOU EVER HAD ANY DIFFICULTY BREATHING OR HIVES AFTER EATING OR HANDLING ANY FRUITS, OR VEGETABLES; SUCH KIWI, BANANAS, STONE FRUITS, OR CHESTNUTSNO LATEX RISK : DO YOU HAVE A PREVIOUS PERSONAL HISTORY OF MORE THAN NINE SURGERIES, SPINA BIFIDA, OR REPEATED CATHERIZATIONS? NO LATEX RISK : ARE YOU FREQUENTLY EXPOSED TO LATEX PRODUCTS IN YOUR OCCUPATION?NO CAFFEINE CAFFEINE USE?YES HOW OFTEN AND HOW MUCH? 1 CUP COFFEE PER DAY IN THE AM ADVANCE DIRECTIVE ADVANCE DIRECTIVE DISCUSSED WITH PATIENT:YES HCP - SAM KAUR [phone] DIET: GASTRIC BYPASS DIET SEVERAL SMALL MEALS (5-6 TIMES) PER DAY. TEMPLE [id number] FAITH NO ORTHODOXY BELIEFS THAT WOULD IMPACT HEALTH CARE. LANGUAGE LANGUAGES SPOKEN:SPANISH ALCOHOL SCREENING DID YOU HAVE A DRINK CONTAINING ALCOHOL IN THE PAST YEAR?YES HOW OFTEN DID YOU HAVE A DRINK CONTAINING ALCOHOL IN THE PAST YEAR?MONTHLY OR LESS (1 POINT) POINTS1 INTERPRETATIONNEGATIVE RECREATIONAL DRUG USE DRUG USE?NO LEARNING BARRIERS / SPECIAL NEEDS BARRIERS TO LEARNING?NO VISION IMPAIRED?YES :CORRECTIVE LENSES READING GLASSES ONLY READINESS TO LEARN?YES LEARNING PREFERENCES?NO LEARNING CAPABILITIES PRESENT?YES EMOTIONAL BARRIERS?NO SPECIAL DEVICES?NO REVIEWED WITH PT 12/19/17 1450 BVREVIEWED WITH PATIENT 08/20/18 1403 JSREVIEWED WITH PATIENT 11/02/18 1404 BVREVIEWED WITH PATIENT 12/06/18 1457 BVREVIEWED WITH PATIENT 12/25/18 1146 JSPRE PROCEDURE SCREENING DONE. 02/01/19 EM02/11/19 1118 REVIEWED WITH PT. AD. HOSPITALIZATION/MAJOR DIAGNOSTIC PROCEDURE SURGICALY RELATED REVIEW OF SYSTEMS REVIEWED BY: PROVIDER: EREN RODRIGUEZ . CONSTITUTIONAL: ANY CHANGE IN YOUR MEDICAL CONDITION? NO . CHILLS NO . FEVER NO . INFECTION: DO YOU HAVE NEW INFECTIONS? NO . DO YOU HAVE HISTORY OF MRSA? NO . MUSCULOSKELETAL: ANY NEW PATTERNS OF PAIN OR NUMBNESS? NO . GASTROENTEROLOGY: ANY NEW CHANGE IN BOWEL CONTROL? NO . GENITOURINARY: ANY NEW CHANGE IN BLADDER CONTROL? NO . IS THERE A CHANCE YOU COULD BE ? NO . HEMATOLOGY/LYMPH: DO YOU TAKE ANY BLOOD THINNERS? (FOR EXAMPLE- COUMADIN, PLAVIX, AGGRENOX, PLATEL, PRADAXA, OR XARELTO) YES, XARELTO . WHEN WAS YOUR LAST DOSE? DATE: TIME: . NEUROLOGY: HAVE YOU FALLEN IN THE PAST 12 MONTHS? NO . ANY NEW EXTREMITY NUMBNESS OR WEAKNESS? NO . CARDIOLOGY: DO YOU HAVE A PACEMAKER OR DEFIBRILLATOR? NO . RESPIRATORY: HAVE YOU BEEN SICK IN THE PAST WEEK? NO . FEVER NO . FLU LIKE SYMPTOMS? NO . COUGH NO . INTEGUMENTARY: DO YOU HAVE ANY RASHES OR OPEN SORES? NO . ALLERGIC/IMMUNO: ARE YOU ALLERGIC TO IV DYE? NO . ANY NEW ALLERGIES? NO . PSYCHIATRIC: DO YOU HAVE THOUGHTS OF HURTING YOURSELF OR SOMEONE ELSE? NO . ARE YOU ABUSED, NEGLECTED, OR IN AN UNSAFE ENVIRONMENT? NO . ENDOCRINOLOGY: ARE YOU DIABETIC? NO . OTHER: DO YOU NEED ANY PRESCRIPTIONS? NO . IF YES, PLEASE LIST: ____ . ANY NEW PROBLEMS WITH YOUR MEDICATIONS? NO . WHEN DID YOU LAST EAT? ____ . WHEN DID YOU LAST DRINK? ____ . WHAT DID YOU LAST DRINK? ____ . NAME OF PERSON DRIVING YOU HOME? ____ . DO YOU HAVE ANY OTHER QUESTIONS OR CONCERNS RIGHT WRIST PAIN . VITAL SIGNS WT 148.8 LBS, HT 66 IN, BMI 24.01 INDEX, BP 161/70 MM HG, HR 66 /MIN, RR 18 /MIN, TEMP 97.0 F, OXYGEN SAT % 100%, NA INITIALS [id number], REVIEWED BY: EM. EXAMINATION GENERAL EXAMINATION: GENERALNO ACUTE DISTRESS, WELL NOURISHED AND HYDRATED. PSYCHAPPROPRIATE MOOD AND AFFECT . LUNGS:CLEAR TO AUSCULTATION BILATERALLY, NO WHEEZES, RHONCHI, RALES. HEART:NO MURMURS, REGULAR RATE AND RHYTHM. ASSESSMENTS LOW BACK PAIN AT MULTIPLE SITES - M54.5 (PRIMARY) TREATMENT LOW BACK PAIN AT MULTIPLE SITES [facility] MRI LUMBAR W/O CONTRAST (CPT [id number] CLINICAL NOTES: 63-YEAR-OLD FEMALE IN FOR POST TPI FOLLOW-UP. GIVEN PRESENTING SYMPTOMS RECOMMEND UPDATED MRI WITH FOLLOW-UP AFTER DIAGNOSTIC IMAGING. PATIENT HAS EXPRESSED UNDERSTANDING OF AND WAS IN AGREEMENT WITH TREATMENT PLAN. GIVEN TIME TO ASK QUESTIONS AND EXPRESS CONCERNS., ISTOP REGISTRY REVIEWED AND DEMONSTRATES COMPLLIANCE. (REF # [id number] ) BRINGS IN MEDICATIONS WHICH IS APPROPRIATE FOR WHAT WAS DISPENSED. RECENT URINE TOXICOLOGY REVIEWED. NO UNAUTHORIZED MEDICATIONS. NO ILLICIT SUBSTANCES AND PRESCRIBED MEDICATIONS WERE PRESENT. PROCEDURE CODES [id number] ESTABILISHED PATIENT [facility] CHARGE DISPOSITION & COMMUNICATION FOLLOW UP AFTER DIAGNOSTIC IMAGING (REASON: LUMBAR MRI) ELECTRONICALLY SIGNED BY LUZ LOVELL ON 03/20/2019 AT 08:48 AM EST DISCLAIMER : THIS IS A VISIT SUMMARY EXTRACTED FROM THE [employer] CHART. IT IS NOT A COPY OF THE [employer] PROGRESS NOTE. LUDWIN
== END ==
LOC: M PAIN 13:00
PROVIDERS: ATTEND Family Medicine
DX: M54.5 Low back pain (principal); I10 Essential (primary) hypertension; E03.9 Hypothyroidism, unspecified; Z86.59 Personal history of other mental and behavioral disorders; K21.9 Gastro-esophageal reflux disease without esophagitis; Z98.84 Bariatric surgery status; Z96.642 Presence of left artificial hip joint; Z88.3 Allergy status to other anti-infective agents; Z88.8 Allergy status to other drugs, medicaments and biological substances; Z79.01 Long term (current) use of anticoagulants; Z79.899 Other long term (current) drug therapy

== ENCOUNTER → 2019-05-13 | Outpatient (CLI) | payer BC ==
--- NOTE | 2019-05-15 02:24 | ECWPNPC ---
PATIENT NAME: PRO REY : 1955 GENDER: FEMALE VISIT DATE: 05/13/2019 DISCHARGE DATE: 05/13/19 1238 VISIT LOCKED DATE TIME: PHYSICIAN: CARSON GARAY RESOURCE: CARSON GARAY REASON FOR APPOINTMENT 1. REVIEW MRI HISTORY OF PRESENT ILLNESS HISTORY OF PRESENT ILLNESS: PAIN THE PATIENT DESCRIBES THE PAINDURING THE LAST MONTH SEVERITY - PAIN SCORE OF5/10 LOCATIONSLOWER BACK, LUMBAR, LEFT HIP QUALITYSHARP, STABBING DURATIONMAINLY DURING THE DAY PAIN IS INCREASED BY:PROLONGED STANDING, OTHERS WALKING 63-YEAR-OLD FEMALE IN FOR CHRONIC PAIN FOLLOW-UP. PATIENT HAD AN MRI PERFORMED RECENTLY WHICH WILL BE REVIEWED WITH PATIENT TODAY. SHE RATES HER PAIN CURRENTLY AT A 5 OUT OF 10 AND DESCRIBES IT SHARP, AND STABBING. SHE WOULD LIKE DISCUSSED POTENTIAL REFERRAL TO PHYSICAL THERAPY. FALL RISK SCREENING: SCREENING :NO FALLS REPORTED IN THE LAST YEAR CURRENT MEDICATIONS TAKING CALCIUM 600/VITAMIN D 600-400 MG-UNIT TABLET 1 TABLET WITH A MEAL ORALLY ONCE A DAY TAKING LEVOTHYROXINE SODIUM 50 MCG TABLET 1 TABLET ORALLY ONCE A DAY TAKING BUSPIRONE HCL 10 MG TABLET 1 TABLET ORALLY TWICE A DAY TAKING ZYRTEC 10 MG TABLET 1 TABLET NEEDED ORALLY ONCE A DAY TAKING ZOLOFT 100 MG TABLET 1 TABLET ORALLY ONCE A DAY TAKING TRAZODONE HCL 100 MG TABLET 1 TABLET AT BEDTIME ORALLY ONCE A DAY TAKING FEMHRT 1/5 1-5 MG - MCG TABS ORALLY DAILY TAKING PROTONIX 40 MG TABLET DELAYED RELEASE 1 TAB ORALLY ONCE A DAY TAKING METOPROLOL SUCCINATE ER 200 MG TABLET EXTENDED RELEASE 24 HOUR 1 TABLET ORALLY ONCE A DAY TAKING XARELTO 20 MG TABLET 1 TABLET WITH FOOD ORALLY ONCE A DAY TAKING ROBAXIN-750 750 MG TABLET 1/2 TABLET ORALLY AT NIGHT NEEDED TAKING LOSARTAN POTASSIUM 50 MG TABLET 1 TABLET ORALLY ONCE A DAY TAKING BUTRANS 10 MCG/HR PATCH WEEKLY 1 PATCH TO SKIN TRANSDERMAL 1 PATCH Q7DAYS =MDD TAKING ONDANSETRON 4 MG TABLET DISINTEGRATING 1 TABLET ON THE TONGUE AND ALLOW TO DISSOLVE ORALLY DAILY NEEDED FOR NAUSEA TAKING OXYCODONE HCL 5 MG TABLET 1 TABLET NEEDED ORALLY Q6-8H PRN MDD4 NOT-TAKING POTASSIUM CHLORIDE CR 10 MEQ TABLET ORALLY DAILY NOT-TAKING VICODIN 5/325 TABLET 1 TABLET NEEDED ORALLY EVERY 4 HRS NOT-TAKING BYSTOLIC 10 MG TABLET 1 TABLET ORALLY ONCE A DAY NOT-TAKING CYCLOBENZAPRINE HCL 5 MG TABLET 1 TABLET ORALLY THREE TIMES A DAY NOT-TAKING NITROFURANTOIN MONOHYD MACRO 100 MG CAPSULE 1 CAPSULE WITH FOOD ORALLY EVERY 12 HRS NOT-TAKING BACTRIM DS 800-160 MG TABLET 1 TABLET ORALLY ONCE A DAY MEDICATION LIST REVIEWED AND RECONCILED WITH THE PATIENT PAST MEDICAL HISTORY HTN HYPOTHYROIDISM ARTHRITIS CHRONIC NECK AND BACK PAIN ANXIETY/DEPRESSION HEART LOOP MONITER TO LEFT CHEST GERD A FIB RECURRENT UTI ALLERGIES IODINE: HIVES - ALLERGY TIZANIDINE HCL: CONFUSION - SIDE EFFECTS SURGICAL HISTORY LEFT HIP REPLACEMENT 04/2014 REMOVE JOSE ENRIQUE AND PINS 11/2013 BROKEN LEFT LEG REPAIR 10/2012 GASTRIC BYPASS 2004 CATARACT REMOVED 2012 ABLATION FOR AFIB 2016 HEART LOOP MONITER PLACED 2016 HEART ABLATION NOV 13, 2017 CYST REMOVED FROM BACK OF HEAD 05/2018 EGD 2018 RIGHT CATARACT 10/2018 FAMILY HISTORY PT. ADOPTED NO KNOWN FAMILY HISTORY. SOCIAL HISTORY GENERAL: TOBACCO USE ARE YOU A:NONSMOKER PAIN CLINIC PFS, CLERGY, PUBLIC HEALTH REFERRALS PFS REFERRAL NEEDED?NO CLERGY REFERRAL NEEDED?NO PUBLIC HEALTH REFERRAL NEEDED?NO HAS THE PATIENT BEEN EDUCATED REGARDING HIS/HER PLAN OF CARE?YES HAS THE PATIENT BEEN EDUCATED REGARDING PAIN, THE RISK FOR PAIN, THE IMPORTANCE OF EFFECTIVE PAIN MANAGEMENT, AND THE PAIN ASSESSMENT PROCESS?YES LATEX QUESTIONNAIRE LATEX ALLERGY : HAVE YOU EVER DEVELOPED ANY TYPE OF REACTION AFTER HANDLING LATEX PRODUCTS SUCH RUBBER GLOVES, CONDOMS, DIAPHRAGMS, BALLOONS, SOCKS, OR UNDERWEAR?NO LATEX ALLERGY : HAVE YOU EVER DEVELOPED ANY TYPE OF REACTION DURING OR AFTER DENTAL APPOINTMENT, VAGINAL/RECTAL EXAMINATION, SURGICAL PROCEDURE, OR ANY OTHER EXPOSURE?NO DATE ASKED : 02/01/2019 LATEX RISK : HAVE YOU EVER HAD ANY DIFFICULTY BREATHING OR HIVES AFTER EATING OR HANDLING ANY FRUITS, OR VEGETABLES; SUCH KIWI, BANANAS, STONE FRUITS, OR CHESTNUTSNO LATEX RISK : DO YOU HAVE A PREVIOUS PERSONAL HISTORY OF MORE THAN NINE SURGERIES, SPINA BIFIDA, OR REPEATED CATHERIZATIONS? NO LATEX RISK : ARE YOU FREQUENTLY EXPOSED TO LATEX PRODUCTS IN YOUR OCCUPATION?NO CAFFEINE CAFFEINE USE?YES HOW OFTEN AND HOW MUCH? 1 CUP COFFEE PER DAY IN THE AM ADVANCE DIRECTIVE ADVANCE DIRECTIVE DISCUSSED WITH PATIENT:YES HCP - SAM KAUR [phone] DIET: GASTRIC BYPASS DIET SEVERAL SMALL MEALS (5-6 TIMES) PER DAY. MU-ISM [id number] ORTHODOX NO TAOIST BELIEFS THAT WOULD IMPACT HEALTH CARE. LANGUAGE LANGUAGES SPOKEN:CONGOLESE ALCOHOL SCREENING DID YOU HAVE A DRINK CONTAINING ALCOHOL IN THE PAST YEAR?YES HOW OFTEN DID YOU HAVE A DRINK CONTAINING ALCOHOL IN THE PAST YEAR?MONTHLY OR LESS (1 POINT) POINTS1 INTERPRETATIONNEGATIVE RECREATIONAL DRUG USE DRUG USE?NO LEARNING BARRIERS / SPECIAL NEEDS BARRIERS TO LEARNING?NO VISION IMPAIRED?YES :CORRECTIVE LENSES READING GLASSES ONLY READINESS TO LEARN?YES LEARNING PREFERENCES?NO LEARNING CAPABILITIES PRESENT?YES EMOTIONAL BARRIERS?NO SPECIAL DEVICES?NO HOSPITALIZATION/MAJOR DIAGNOSTIC PROCEDURE SURGICALY RELATED REVIEW OF SYSTEMS REVIEWED BY: PROVIDER: EREN GARAY CLEANER FURNITURE-C . CONSTITUTIONAL: ANY CHANGE IN YOUR MEDICAL CONDITION? NO . CHILLS NO . FEVER NO . INFECTION: DO YOU HAVE NEW INFECTIONS? NO . DO YOU HAVE HISTORY OF MRSA? NO . MUSCULOSKELETAL: ANY NEW PATTERNS OF PAIN OR NUMBNESS? NO . GASTROENTEROLOGY: ANY NEW CHANGE IN BOWEL CONTROL? NO . GENITOURINARY: ANY NEW CHANGE IN BLADDER CONTROL? NO . IS THERE A CHANCE YOU COULD BE ? NO . HEMATOLOGY/LYMPH: DO YOU TAKE ANY BLOOD THINNERS? (FOR EXAMPLE- COUMADIN, PLAVIX, AGGRENOX, PLATEL, PRADAXA, OR XARELTO) YES, XARELTO . WHEN WAS YOUR LAST DOSE? DATE: 05/12/19 TIME: 1PM . NEUROLOGY: HAVE YOU FALLEN IN THE PAST 12 MONTHS? NO . ANY NEW EXTREMITY NUMBNESS OR WEAKNESS? NO . CARDIOLOGY: DO YOU HAVE A PACEMAKER OR DEFIBRILLATOR? NO . RESPIRATORY: HAVE YOU BEEN SICK IN THE PAST WEEK? NO . FEVER NO . FLU LIKE SYMPTOMS? NO . COUGH NO . INTEGUMENTARY: DO YOU HAVE ANY RASHES OR OPEN SORES? NO . ALLERGIC/IMMUNO: ARE YOU ALLERGIC TO IV DYE? YES . ANY NEW ALLERGIES? NO . PSYCHIATRIC: DO YOU HAVE THOUGHTS OF HURTING YOURSELF OR SOMEONE ELSE? NO . ARE YOU ABUSED, NEGLECTED, OR IN AN UNSAFE ENVIRONMENT? NO . ENDOCRINOLOGY: ARE YOU DIABETIC? NO, LOW BLOOD SUGAR LATELY. PCP(DR. ORDONEZ) LOOKING INTO IT. . OTHER: DO YOU NEED ANY PRESCRIPTIONS? YES, METHACARBAMOL AND BUPRENORPHINE PATCH . IF YES, PLEASE LIST: ____ . ANY NEW PROBLEMS WITH YOUR MEDICATIONS? NO . WHEN DID YOU LAST EAT? ____ . WHEN DID YOU LAST DRINK? ____ . WHAT DID YOU LAST DRINK? ____ . NAME OF PERSON DRIVING YOU HOME? ____ . DO YOU HAVE ANY OTHER QUESTIONS OR CONCERNS YES, POSSIBLE PT . VITAL SIGNS WT 148.2 LBS, HT 66 IN, BMI 23.92 INDEX, BP 160/74 MM HG, HR 67 /MIN, RR 18 /MIN, TEMP 98.3 F, OXYGEN SAT % 99, SAFE IN ENV? (Y/N) YES, REVIEWED BY: SELWYN JUAREZ LPN. EXAMINATION GENERAL EXAMINATION: GENERALNO ACUTE DISTRESS, WELL NOURISHED AND HYDRATED. PSYCHAPPROPRIATE MOOD AND AFFECT . LUNGS:CLEAR TO AUSCULTATION BILATERALLY, NO WHEEZES, RHONCHI, RALES. HEART:NO MURMURS, REGULAR RATE AND RHYTHM. ASSESSMENTS LUMBOSACRAL RADICULOPATHY - M54.17 (PRIMARY) TREATMENT LUMBOSACRAL RADICULOPATHY REFILL ROBAXIN-750 TABLET, 750 MG, 1/2 TABLET, ORALLY, AT NIGHT NEEDED, 30 DAYS, 30, REFILLS 2 REFILL BUTRANS PATCH WEEKLY, 10 MCG/HR, 1 PATCH TO SKIN, TRANSDERMAL, 1 PATCH Q7DAYS =MDD, 30 DAYS, 4, REFILLS 2 CLINICAL NOTES: 63-YEAR-OLD FEMALE IN FOR CHRONIC PAIN FOLLOW-UP. GIVEN PRESENTING SYMPTOMS AND RESULTS OF PHYSICAL EXAMINATION RECOMMENDED CONTINUATION OF CURRENT MEDICATION REGIMEN WITH FOLLOW-UP IN 3 MONTHS. FURTHER RECOMMENDED REFERRAL TO PHYSICAL THERAPY FOR FURTHER EVALUATION. PATIENT HAS EXPRESSED UNDERSTANDING OF AND WAS IN AGREEMENT WITH TREATMENT PLAN. GIVEN TIME TO ASK QUESTIONS AND EXPRESS CONCERNS., ISTOP REGISTRY REVIEWED AND DEMONSTRATES COMPLLIANCE. (REF # [id number] ) BRINGS IN MEDICATIONS WHICH IS APPROPRIATE FOR WHAT WAS DISPENSED. RECENT URINE TOXICOLOGY REVIEWED. NO UNAUTHORIZED MEDICATIONS. NO ILLICIT SUBSTANCES AND PRESCRIBED MEDICATIONS WERE PRESENT. REFERRAL TO:THERAPY FYZICALPHYSICAL THERAPIST REASON:STRENGTHENING AND STRETCHING PROCEDURE CODES FA211 ESTABILISHED PATIENT [facility] CHARGE DISPOSITION & COMMUNICATION FOLLOW UP 3 MONTHS (REASON: BACK PAIN) ELECTRONICALLY SIGNED BY LUZ LOVELL ON 05/14/2019 AT 09:31 AM EDT DISCLAIMER : THIS IS A VISIT SUMMARY EXTRACTED FROM THE [employer] CHART. IT IS NOT A COPY OF THE [employer] PROGRESS NOTE. LUDWIN
== END ==
LOC: M PAIN 11:30
PROVIDERS: ATTEND Family Medicine
DX: M54.17 Radiculopathy, lumbosacral region (principal); G89.29 Other chronic pain; I10 Essential (primary) hypertension; E03.9 Hypothyroidism, unspecified; Z86.59 Personal history of other mental and behavioral disorders; K21.9 Gastro-esophageal reflux disease without esophagitis; Z98.84 Bariatric surgery status; Z88.3 Allergy status to other anti-infective agents; Z88.8 Allergy status to other drugs, medicaments and biological substances; Z79.01 Long term (current) use of anticoagulants; Z91.041 Radiographic dye allergy status; Z79.899 Other long term (current) drug therapy

== ENCOUNTER → 2019-08-06 | Outpatient (CLI) | payer BC ==
--- NOTE | 2019-08-08 03:46 | ECWPNPC ---
PATIENT NAME: PRO REY : 1955 GENDER: FEMALE VISIT DATE: 08/06/2019 DISCHARGE DATE: 08/06/19 1151 VISIT LOCKED DATE TIME: PHYSICIAN: CARSON GARAY RESOURCE: CARSON GARAY REASON FOR APPOINTMENT 1. 3 MONTHS; [phone] PAT DONE HISTORY OF PRESENT ILLNESS GENERAL: -PERMISSION REQUESTED AND RECEIVED FROM PATIENT PERFORMED TELEHEALTH VISIT. 63-YEAR-OLD FEMALE IN FOR CHRONIC PAIN FOLLOW-UP. SHE RATES HER PAIN CURRENTLY AT A 5 OUT OF 10 AND DESCRIBES IT A CONSTANT ACHE AND THROBBING. PATIENT FEELS HER MEDICATIONS ARE HELPFUL AND DENIES MED SIDE EFFECTS AT THIS TIME. PAIN SCREENING: PATIENT HAS A COMPLAINT OF ACUTE OR CHRONIC PAIN :YES LOCATION OF PAIN:LOW BACK RIGHT SIDE INTENSITY OF PAIN (SCALE OF 1 TO 10):6 WHAT DOES YOUR PAIN FEEL LIKE:ACHING, CONTINOUS, THROBBING DURATION:CONTINOUS, CONSTANT, ALL DAY PAIN IS INCREASED BY:ACTIVITIES, PROLONGED STANDING PAIN IS DECREASED BY:USE OF PAIN MEDICATIONS, SITTING PAIN HAS INTERFERED WITH THE FOLLOWING:MOOD, HOUSEWORK, RELATIONSHIP WITH OTHERS, ENJOYMENT OF LIFE PLAN/GOALS/TREATMENT/INTERVENTION/FOLLOW UP:SEE PLAN FALL RISK SCREENING: SCREENING :NO FALLS REPORTED IN THE LAST YEAR NURSING NOTE: -. PAIN CENTER INTAKE QUESTIONS: DO YOU HAVE A HISTORY OF MRSA? :NO DO YOU TAKE A BLOOD THINNERS? :YES MAGGY 08/05/19, 2PM DO YOU HAVE ANY BLEEDING DISORDERS? :NO ANY NEW NUMBNESS OR WEAKNESS IN YOUR LEGS OR ARMS? :NO ANY PACEMAKER,DEFIBRILLATOR, OR DORSAL COLUMN STIMULATOR? :NO DO YOU HAVE ANY RASHES OR OPEN SORES? :NO ARE YOU ALLERGIC TO IV DYE? :NO ARE YOU DIABETIC? :NO ANY NEW PROBLEMS WITH YOUR MEDICATIONS? :NO HAVE YOU RECEIVED A VACCINE IN THE PAST 30 DAYS? :NO DO YOU PLAN TO RECEIVE A VACCINE IN THE NEXT 21 DAYS? :NO DO YOU NEED ANY PRESCRIPTION? :YES OXYCODONE DO YOU TAKE ANY IMMUNOSUPPRESSIVE MEDICATIONS? :NO IS THERE A CHANCE YOU COULD BE ? :NO ARE YOU BREAST FEEDING? :NO CURRENT MEDICATIONS TAKING CALCIUM 600/VITAMIN D 600-400 MG-UNIT TABLET 1 TABLET WITH A MEAL ORALLY ONCE A DAY TAKING LEVOTHYROXINE SODIUM 50 MCG TABLET 1 TABLET ORALLY ONCE A DAY TAKING BUSPIRONE HCL 10 MG TABLET 1 TABLET ORALLY TWICE A DAY TAKING ZYRTEC 10 MG TABLET 1 TABLET NEEDED ORALLY ONCE A DAY TAKING ZOLOFT 100 MG TABLET 1 TABLET ORALLY ONCE A DAY TAKING TRAZODONE HCL 100 MG TABLET 1 TABLET AT BEDTIME ORALLY ONCE A DAY TAKING FEMHRT 1/5 1-5 MG - MCG TABS ORALLY DAILY TAKING PROTONIX 40 MG TABLET DELAYED RELEASE 1 TAB ORALLY ONCE A DAY TAKING METOPROLOL SUCCINATE ER 200 MG TABLET EXTENDED RELEASE 24 HOUR 1 TABLET ORALLY ONCE A DAY TAKING XARELTO 20 MG TABLET 1 TABLET WITH FOOD ORALLY ONCE A DAY TAKING LOSARTAN POTASSIUM 50 MG TABLET 1 TABLET ORALLY ONCE A DAY TAKING ROBAXIN-750 750 MG TABLET 1/2 TABLET ORALLY AT NIGHT NEEDED TAKING BUTRANS 10 MCG/HR PATCH WEEKLY 1 PATCH TO SKIN TRANSDERMAL 1 PATCH Q7DAYS =MDD TAKING OXYCODONE HCL 5 MG TABLET 1 TABLET NEEDED ORALLY Q6-8H PRN MDD4 TAKING ONDANSETRON 4 MG TABLET DISINTEGRATING 1 TABLET ON THE TONGUE AND ALLOW TO DISSOLVE ORALLY DAILY NEEDED FOR NAUSEA TAKING POTASSIUM CHLORIDE CR 10 MEQ TABLET ORALLY DAILY TAKING VICODIN 5/325 TABLET 1 TABLET NEEDED ORALLY EVERY 4 HRS TAKING BYSTOLIC 10 MG TABLET 1 TABLET ORALLY ONCE A DAY TAKING CYCLOBENZAPRINE HCL 5 MG TABLET 1 TABLET ORALLY THREE TIMES A DAY TAKING NITROFURANTOIN MONOHYD MACRO 100 MG CAPSULE 1 CAPSULE WITH FOOD ORALLY EVERY 12 HRS TAKING BACTRIM DS 800-160 MG TABLET 1 TABLET ORALLY ONCE A DAY MEDICATION LIST REVIEWED AND RECONCILED WITH THE PATIENT PAST MEDICAL HISTORY HTN HYPOTHYROIDISM ARTHRITIS CHRONIC NECK AND BACK PAIN ANXIETY/DEPRESSION HEART LOOP MONITER TO LEFT CHEST GERD A FIB RECURRENT UTI ALLERGIES IODINE: HIVES - ALLERGY TIZANIDINE HCL: CONFUSION - SIDE EFFECTS SURGICAL HISTORY LEFT HIP REPLACEMENT 04/2014 REMOVE JOSE ENRIQUE AND PINS 11/2013 BROKEN LEFT LEG REPAIR 10/2012 GASTRIC BYPASS 2004 CATARACT REMOVED 2012 ABLATION FOR AFIB 2016 HEART LOOP MONITER PLACED 2016 HEART ABLATION NOV 13, 2017 CYST REMOVED FROM BACK OF HEAD 05/2018 EGD 2018 RIGHT CATARACT 10/2018 FAMILY HISTORY PT. ADOPTED NO KNOWN FAMILY HISTORY. SOCIAL HISTORY GENERAL: TOBACCO USE ARE YOU A:NONSMOKER LATEX QUESTIONNAIRE LATEX ALLERGY : HAVE YOU EVER DEVELOPED ANY TYPE OF REACTION AFTER HANDLING LATEX PRODUCTS SUCH RUBBER GLOVES, CONDOMS, DIAPHRAGMS, BALLOONS, SOCKS, OR UNDERWEAR?NO LATEX ALLERGY : HAVE YOU EVER DEVELOPED ANY TYPE OF REACTION DURING OR AFTER DENTAL APPOINTMENT, VAGINAL/RECTAL EXAMINATION, SURGICAL PROCEDURE, OR ANY OTHER EXPOSURE?NO LATEX RISK : HAVE YOU EVER HAD ANY DIFFICULTY BREATHING OR HIVES AFTER EATING OR HANDLING ANY FRUITS, OR VEGETABLES; SUCH KIWI, BANANAS, STONE FRUITS, OR CHESTNUTSNO LATEX RISK : DO YOU HAVE A PREVIOUS PERSONAL HISTORY OF MORE THAN NINE SURGERIES, SPINA BIFIDA, OR REPEATED CATHERIZATIONS? NO LATEX RISK : ARE YOU FREQUENTLY EXPOSED TO LATEX PRODUCTS IN YOUR OCCUPATION?NO DATE ASKED : 08/05/2019 ALCOHOL SCREENING DID YOU HAVE A DRINK CONTAINING ALCOHOL IN THE PAST YEAR?YES HOW OFTEN DID YOU HAVE A DRINK CONTAINING ALCOHOL IN THE PAST YEAR?MONTHLY OR LESS (1 POINT) POINTS1 INTERPRETATIONNEGATIVE RECREATIONAL DRUG USE DRUG USE?NO CAFFEINE CAFFEINE USE?YES HOW OFTEN AND HOW MUCH? 1 CUP COFFEE PER DAY IN THE AM ZOROASTRIANISM [id number] ANGLICAN NO MANDAEISM BELIEFS THAT WOULD IMPACT HEALTH CARE. LANGUAGE LANGUAGES SPOKEN:[place] LEARNING BARRIERS / SPECIAL NEEDS BARRIERS TO LEARNING?NO VISION IMPAIRED?YES :CORRECTIVE LENSES READING GLASSES ONLY READINESS TO LEARN?YES LEARNING PREFERENCES?NO LEARNING CAPABILITIES PRESENT?YES EMOTIONAL BARRIERS?NO SPECIAL DEVICES?NO DIET: GASTRIC BYPASS DIET SEVERAL SMALL MEALS (5-6 TIMES) PER DAY. PAIN CLINIC PFS, CLERGY, PUBLIC HEALTH REFERRALS PFS REFERRAL NEEDED?NO CLERGY REFERRAL NEEDED?NO PUBLIC HEALTH REFERRAL NEEDED?NO HAS THE PATIENT BEEN EDUCATED REGARDING HIS/HER PLAN OF CARE?YES HAS THE PATIENT BEEN EDUCATED REGARDING PAIN, THE RISK FOR PAIN, THE IMPORTANCE OF EFFECTIVE PAIN MANAGEMENT, AND THE PAIN ASSESSMENT PROCESS?YES ADVANCE DIRECTIVE ADVANCE DIRECTIVE DISCUSSED WITH PATIENT:YES HCP - SAM KAUR [phone] HOSPITALIZATION/MAJOR DIAGNOSTIC PROCEDURE SURGICALY RELATED REVIEW OF SYSTEMS CONSTITUTIONAL: ANY RECENT FEVER OR ILLNESS NO . CHILLS NO . GASTROENTEROLOGY: BOWEL INCONTINENCE NO . ANY NEW CHANGE IN BOWEL CONTROL? NO . ABDOMINAL PAIN NO . CONSTIPATION NO . GENITOURINARY: ANY NEW CHANGE IN BLADDER CONTROL? NO . URINARY INCONTINENCE NO . CARDIOLOGY: CHEST PRESSURE NO . CHEST PAIN NO . RESPIRATORY: COUGH NO . SHORTNESS OF BREATH NO . EXAMINATION GENERAL EXAMINATION: GENERALNO ACUTE DISTRESS, WELL NOURISHED AND HYDRATED. PSYCHAPPROPRIATE MOOD AND AFFECT , ORIENTED X 3. ASSESSMENTS LOW BACK PAIN AT MULTIPLE SITES - M54.5 (PRIMARY) TREATMENT LOW BACK PAIN AT MULTIPLE SITES REFILL OXYCODONE HCL TABLET, 5 MG, 1 TABLET NEEDED, ORALLY, Q6-8H PRN MDD4, 30 DAYS, 120 CLINICAL NOTES: 63-YEAR-OLD FEMALE IN FOR CHRONIC PAIN FOLLOW-UP. GIVEN PRESENTING SYMPTOMS RECOMMENDED CONTINUATION OF CURRENT MEDICATION REGIMEN WITH FOLLOW-UP IN 3 MONTHS. PATIENT HAS EXPRESSED UNDERSTANDING OF AND WAS IN AGREEMENT WITH TREATMENT PLAN. GIVEN TIME TO ASK QUESTIONS AND EXPRESS CONCERNS. , ISTOP REGISTRY REVIEWED AND DEMONSTRATES COMPLLIANCE. (REF # [id number] ) BRINGS IN MEDICATIONS WHICH IS APPROPRIATE FOR WHAT WAS DISPENSED. RECENT URINE TOXICOLOGY REVIEWED. NO UNAUTHORIZED MEDICATIONS. NO ILLICIT SUBSTANCES AND PRESCRIBED MEDICATIONS WERE PRESENT. TELEHEALTH VISIT CONDUCTED VIA ZOOM. TIME SPENT WITH PATIENT 5 MINUTES. OTHERS NOTES: VITALS NOT OBTAINED DUE TO VIRTUAL VISIT, PRE-SCREENING COMPLETED, 08/05/19,NA. DISPOSITION & COMMUNICATION FOLLOW UP 3 MONTHS (REASON: BACK PAIN) ELECTRONICALLY SIGNED BY LUZ LOVELL ON 08/07/2019 AT 02:17 PM EDT DISCLAIMER : THIS IS A VISIT SUMMARY EXTRACTED FROM THE [employer] CHART. IT IS NOT A COPY OF THE [employer] PROGRESS NOTE. LUDWIN
== END ==
LOC: M PAIN 11:30
PROVIDERS: ATTEND Family Medicine
DX: M54.5 Low back pain (principal)

== ENCOUNTER → 2019-12-12 | Outpatient (CLI) | payer MEDICARE, BC ==
--- NOTE | 2019-12-16 09:20 | ECWPNPC ---
PATIENT NAME: PRO REY : 1955 GENDER: FEMALE VISIT DATE: 12/12/2019 DISCHARGE DATE: 12/12/19 1108 VISIT LOCKED DATE TIME: PHYSICIAN: CARSON GARAY RESOURCE: CARSON GARAY REASON FOR APPOINTMENT 1. DISCUSS MEDICATION DISCUSS MILD HISTORY OF PRESENT ILLNESS GENERAL: - 63-YEAR-OLD FEMALE IN FOR CHRONIC PAIN FOLLOW-UP. SHE RATES HER PAIN CURRENTLY AT A 4 OUT OF 10 AND DESCRIBES IT ACHING, SHARP, STABBING, THROBBING, AND SHOOTING. PATIENT ADMITS THAT SHE HAS CHANGED INSURANCE RECENTLY AND HER BUTRANS PATCH HAS INCREASED TO $95 A MONTH. FALL RISK SCREENING: SCREENING :NO FALLS REPORTED IN THE LAST YEAR PAIN SCREENING: PATIENT HAS A COMPLAINT OF ACUTE OR CHRONIC PAIN :YES LOCATION OF PAIN:LOW BACK INTENSITY OF PAIN (SCALE OF 1 TO 10):4 WHAT DOES YOUR PAIN FEEL LIKE:ACHING, SHARP, STABBING, THROBBING, SHOOTING DURATION:CONTINOUS, CONSTANT PAIN IS INCREASED BY:ACTIVITIES PAIN IS DECREASED BY:SITTING TREATMENT/MEDICATIONS USED TO MANAGE PAIN:OTC PAIN RELIEVERS, NSAIDS, OPIOIDS LEVEL OF RELIEF FROM PAIN TREATMENTS IN THE PAST:25% PAIN HAS INTERFERED WITH THE FOLLOWING:BATHING/DRESSING, WALKING ABILITY, HOUSEWORK, ENJOYMENT OF LIFE NURSING NOTE: -. PAIN CENTER INTAKE QUESTIONS: DO YOU HAVE A HISTORY OF MRSA? :NO DO YOU TAKE A BLOOD THINNERS? :YES XARELTO FOR A-FIB DO YOU HAVE ANY BLEEDING DISORDERS? :NO ANY NEW NUMBNESS OR WEAKNESS IN YOUR LEGS OR ARMS? :YES CARPAL TUNNEL BILAT ANY PACEMAKER,DEFIBRILLATOR, OR DORSAL COLUMN STIMULATOR? :NO DO YOU HAVE ANY RASHES OR OPEN SORES? :NO ARE YOU ALLERGIC TO IV DYE? :YES IODINE ARE YOU DIABETIC? :NO ANY NEW PROBLEMS WITH YOUR MEDICATIONS? :NO HAVE YOU RECEIVED A VACCINE IN THE PAST 30 DAYS? :YES IF SO WHAT VACCINE AND WHEN? FLU VACCINE LAST MONDAY DO YOU PLAN TO RECEIVE A VACCINE IN THE NEXT 21 DAYS? :NO DO YOU NEED ANY PRESCRIPTION? :YES BUPRINORPHINE REFILL, RECENT CHANGE IN INSURANCE TO DISCUSS COST DO YOU TAKE ANY IMMUNOSUPPRESSIVE MEDICATIONS? :NO IS THERE A CHANCE YOU COULD BE ? :NO ARE YOU BREAST FEEDING? :NO CURRENT MEDICATIONS TAKING CALCIUM 600/VITAMIN D 600-400 MG-UNIT TABLET 1 TABLET WITH A MEAL ORALLY ONCE A DAY TAKING LEVOTHYROXINE SODIUM 50 MCG TABLET 1 TABLET ORALLY ONCE A DAY TAKING BUSPIRONE HCL 10 MG TABLET 1 TABLET ORALLY TWICE A DAY TAKING ZYRTEC 10 MG TABLET 1 TABLET NEEDED ORALLY ONCE A DAY TAKING ZOLOFT 100 MG TABLET 1 TABLET ORALLY ONCE A DAY TAKING TRAZODONE HCL 100 MG TABLET 1 TABLET AT BEDTIME ORALLY ONCE A DAY TAKING FEMHRT 1/5 1-5 MG - MCG TABS ORALLY DAILY TAKING PROTONIX 40 MG TABLET DELAYED RELEASE 1 TAB ORALLY ONCE A DAY TAKING METOPROLOL SUCCINATE ER 200 MG TABLET EXTENDED RELEASE 24 HOUR 1 TABLET ORALLY ONCE A DAY TAKING XARELTO 20 MG TABLET 1 TABLET WITH FOOD ORALLY ONCE A DAY TAKING LOSARTAN POTASSIUM 50 MG TABLET 1 TABLET ORALLY ONCE A DAY TAKING ROBAXIN-750 750 MG TABLET 1/2 TABLET ORALLY AT NIGHT NEEDED TAKING BYSTOLIC 10 MG TABLET 1 TABLET ORALLY ONCE A DAY TAKING BUTRANS 10 MCG/HR PATCH WEEKLY 1 PATCH TO SKIN TRANSDERMAL 1 PATCH Q7DAYS =MDD TAKING ONDANSETRON 4 MG TABLET DISINTEGRATING 1 TABLET ON THE TONGUE AND ALLOW TO DISSOLVE ORALLY DAILY NEEDED FOR NAUSEA TAKING OXYCODONE HCL 5 MG TABLET 1 TABLET NEEDED ORALLY Q6-8H PRN MDD4 NOT-TAKING POTASSIUM CHLORIDE CR 10 MEQ TABLET ORALLY DAILY NOT-TAKING VICODIN 5/325 TABLET 1 TABLET NEEDED ORALLY EVERY 4 HRS NOT-TAKING CYCLOBENZAPRINE HCL 5 MG TABLET 1 TABLET ORALLY THREE TIMES A DAY NOT-TAKING NITROFURANTOIN MONOHYD MACRO 100 MG CAPSULE 1 CAPSULE WITH FOOD ORALLY EVERY 12 HRS NOT-TAKING BACTRIM DS 800-160 MG TABLET 1 TABLET ORALLY ONCE A DAY MEDICATION LIST REVIEWED AND RECONCILED WITH THE PATIENT PAST MEDICAL HISTORY HTN HYPOTHYROIDISM ARTHRITIS CHRONIC NECK AND BACK PAIN ANXIETY/DEPRESSION HEART LOOP MONITER TO LEFT CHEST GERD A FIB RECURRENT UTI ALLERGIES IODINE: HIVES - ALLERGY TIZANIDINE HCL: CONFUSION - SIDE EFFECTS SURGICAL HISTORY LEFT HIP REPLACEMENT 04/2014 REMOVE JOSE ENRIQUE AND PINS 11/2013 BROKEN LEFT LEG REPAIR 10/2012 GASTRIC BYPASS 2004 CATARACT REMOVED 2012 ABLATION FOR AFIB 2016 HEART LOOP MONITER PLACED 2016 HEART ABLATION NOV 13, 2017 CYST REMOVED FROM BACK OF HEAD 05/2018 EGD 2019 RIGHT CATARACT 10/2018 FAMILY HISTORY PT. ADOPTED NO KNOWN FAMILY HISTORY. SOCIAL HISTORY GENERAL: TOBACCO USE ARE YOU A:NONSMOKER LATEX QUESTIONNAIRE LATEX ALLERGY : HAVE YOU EVER DEVELOPED ANY TYPE OF REACTION AFTER HANDLING LATEX PRODUCTS SUCH RUBBER GLOVES, CONDOMS, DIAPHRAGMS, BALLOONS, SOCKS, OR UNDERWEAR?NO LATEX ALLERGY : HAVE YOU EVER DEVELOPED ANY TYPE OF REACTION DURING OR AFTER DENTAL APPOINTMENT, VAGINAL/RECTAL EXAMINATION, SURGICAL PROCEDURE, OR ANY OTHER EXPOSURE?NO LATEX RISK : HAVE YOU EVER HAD ANY DIFFICULTY BREATHING OR HIVES AFTER EATING OR HANDLING ANY FRUITS, OR VEGETABLES; SUCH KIWI, BANANAS, STONE FRUITS, OR CHESTNUTSNO LATEX RISK : DO YOU HAVE A PREVIOUS PERSONAL HISTORY OF MORE THAN NINE SURGERIES, SPINA BIFIDA, OR REPEATED CATHERIZATIONS? NO LATEX RISK : ARE YOU FREQUENTLY EXPOSED TO LATEX PRODUCTS IN YOUR OCCUPATION?NO DATE ASKED : 08/05/2019 ALCOHOL SCREENING DID YOU HAVE A DRINK CONTAINING ALCOHOL IN THE PAST YEAR?YES HOW OFTEN DID YOU HAVE A DRINK CONTAINING ALCOHOL IN THE PAST YEAR?MONTHLY OR LESS (1 POINT) HOW MANY DRINKS DID YOU HAVE ON A TYPICAL DAY WHEN YOU WERE DRINKING IN THE PAST YEAR?3 OR 4 (1 POINT) POINTS2 INTERPRETATIONNEGATIVE RECREATIONAL DRUG USE DRUG USE?NO CAFFEINE CAFFEINE USE?YES HOW OFTEN AND HOW MUCH? 1 CUP COFFEE PER DAY IN THE AM [facility] [id number] [employer] NO CATHOLIC BELIEFS THAT WOULD IMPACT HEALTH CARE. LANGUAGE LANGUAGES SPOKEN:CHINESE LEARNING BARRIERS / SPECIAL NEEDS BARRIERS TO LEARNING?NO VISION IMPAIRED?YES :CORRECTIVE LENSES READING GLASSES ONLY READINESS TO LEARN?YES LEARNING PREFERENCES?NO LEARNING CAPABILITIES PRESENT?YES EMOTIONAL BARRIERS?NO SPECIAL DEVICES?NO DIET: GASTRIC BYPASS DIET SEVERAL SMALL MEALS (5-6 TIMES) PER DAY. PAIN CLINIC PFS, CLERGY, PUBLIC HEALTH REFERRALS PFS REFERRAL NEEDED?NO CLERGY REFERRAL NEEDED?NO PUBLIC HEALTH REFERRAL NEEDED?NO HAS THE PATIENT BEEN EDUCATED REGARDING HIS/HER PLAN OF CARE?YES HAS THE PATIENT BEEN EDUCATED REGARDING PAIN, THE RISK FOR PAIN, THE IMPORTANCE OF EFFECTIVE PAIN MANAGEMENT, AND THE PAIN ASSESSMENT PROCESS?YES ADVANCE DIRECTIVE ADVANCE DIRECTIVE DISCUSSED WITH PATIENT:YES HCP - SAM KAUR [phone] HOSPITALIZATION/MAJOR DIAGNOSTIC PROCEDURE SURGICALY RELATED REVIEW OF SYSTEMS CONSTITUTIONAL: ANY RECENT FEVER NO . CHILLS NO . WEIGHT CHANGE OF UNKNOWN REASONS NO . GASTROENTEROLOGY: NEW UNEXPLAINABLE CHANGES IN BOWEL CONTROL NO . CONSTIPATION NO . GENITOURINARY: ANY NEW CHANGE IN BLADDER CONTROL? NO . NEUROLOGY: NEW ONSET DIZZINESS OR NEUROLOGICAL CHANGES NOT MENTIONED NO . NEW NUMBNESS OR PAIN PATTERNS NOT MENTIONED AND PERTINENT TO TODAY'S VISIT NO . CARDIOLOGY: NEW CHEST PRESSURE NO . NEW CHEST PAIN NO . RESPIRATORY: UNEXPLAINABLE COUGH NO . NEW SHORTNESS OF BREATH NO . VITAL SIGNS WT 152 LBS, HT 66 IN, BMI 24.53 INDEX, BP 134/65 MM HG, HR 69 /MIN, RR 18 /MIN, TEMP 97.3 F, OXYGEN SAT % 99%, NA INITIALS SC 10:05, REVIEWED BY: EM. EXAMINATION GENERAL EXAMINATION: GENERALNO ACUTE DISTRESS, WELL NOURISHED AND HYDRATED. PSYCHAPPROPRIATE MOOD AND AFFECT . LUNGS:CLEAR TO AUSCULTATION BILATERALLY, NO WHEEZES, RHONCHI, RALES. HEART:NO MURMURS, REGULAR RATE AND RHYTHM. ASSESSMENTS LUMBOSACRAL RADICULOPATHY - M54.17 (PRIMARY) TREATMENT LUMBOSACRAL RADICULOPATHY STOP BUTRANS PATCH WEEKLY, 10 MCG/HR, 1 PATCH TO SKIN, TRANSDERMAL, 1 PATCH Q7DAYS =MDD INCREASE OXYCODONE HCL TABLET, 10 MG, 1 TABLET NEEDED, ORALLY, EVERY 8 HRS NEEDED MDD 3, 30 DAYS, 90 CLINICAL NOTES: 63-YEAR-OLD FEMALE IN FOR CHRONIC PAIN FOLLOW-UP. GIVEN PRESENTING SYMPTOMS RECOMMEND STOPPING BUTRANS PATCH AND INCREASING OXYCODONE TO 10 MG 3 TIMES A DAY WITH FOLLOW-UP IN ONE MONTH TO DETERMINE EFFICACY OF TREATMENT. REFERRAL TO BE SENT TO OR [facility] FOR POTENTIAL MILD PROCEDURE. PATIENT HAS EXPRESSED UNDERSTANDING OF AND WAS IN AGREEMENT WITH TREATMENT PLAN. GIVEN TIME TO ASK QUESTIONS AND EXPRESS CONCERNS. [id number] RE[facility]ON:MILD PROCEDURE PROCEDURE CODES FA211 ESTABILISHED PATIENT [facility] FACILITY CHARGE DISPOSITION & COMMUNICATION FOLLOW UP 4 WEEKS (REASON: BACK PAIN, MEDICATION INCREASE) ELECTRONICALLY SIGNED BY LUZ LOVELL ON 12/16/2019 AT 08:51 AM EDT DISCLAIMER : THIS IS A VISIT SUMMARY EXTRACTED FROM THE [facility] [employer] CHART. IT IS NOT A COPY OF THE [employer] PROGRESS NOTE. LUDWIN
== END ==
LOC: M PAIN 09:30
PROVIDERS: ATTEND Family Medicine
DX: M54.17 Radiculopathy, lumbosacral region (principal); G89.29 Other chronic pain; I10 Essential (primary) hypertension; E03.9 Hypothyroidism, unspecified; K21.9 Gastro-esophageal reflux disease without esophagitis; Z86.59 Personal history of other mental and behavioral disorders; Z98.84 Bariatric surgery status; Z96.642 Presence of left artificial hip joint; Z88.3 Allergy status to other anti-infective agents; Z88.8 Allergy status to other drugs, medicaments and biological substances; Z79.01 Long term (current) use of anticoagulants; Z79.891 Long term (current) use of opiate analgesic; Z79.899 Other long term (current) drug therapy

== ENCOUNTER → 2020-01-14 | Outpatient (CLI) | payer MEDICARE, BC ==
--- NOTE | 2020-01-17 03:49 | ECWPNPC ---
PATIENT NAME: PRO REY : 1955 GENDER: FEMALE VISIT DATE: 01/14/2020 DISCHARGE DATE: 01/14/20 1353 VISIT LOCKED DATE TIME: PHYSICIAN: CARSON GARAY RESOURCE: CARSON GARAY REASON FOR APPOINTMENT 1. BACK PAIN, MEDICATION INCREASE HISTORY OF PRESENT ILLNESS DEPRESSION SCREENING: PHQ-2 (2015 EDITION) LITTLE INTEREST OR PLEASURE IN DOING THINGS?NOT AT ALL FEELING DOWN, DEPRESSED, OR HOPELESS?NOT AT ALL TOTAL SCORE0 64-YEAR-OLD FEMALE IN FOR CHRONIC PAIN FOLLOW-UP. SHE RATES HER PAIN CURRENTLY AT A 4 OUT OF 10 AND DESCRIBES IT ACHING, AND THROBBING. SHE FEELS HER MEDICATIONS ARE HELPFUL AND DENIES MED SIDE EFFECTS AT THIS TIME. GENERAL: -. FALL RISK SCREENING: SCREENING :NO FALLS REPORTED IN THE LAST YEAR PAIN SCREENING: PATIENT HAS A COMPLAINT OF ACUTE OR CHRONIC PAIN :YES LOCATION OF PAIN:LOW BACK INTENSITY OF PAIN (SCALE OF 1 TO 10):4 WHAT DOES YOUR PAIN FEEL LIKE:ACHING, THROBBING DURATION:CONSTANT, STEADY PAIN IS INCREASED BY:ACTIVITIES, PROLONGED STANDING PAIN IS DECREASED BY:USE OF PAIN MEDICATIONS, SITTING TREATMENT/MEDICATIONS USED TO MANAGE PAIN:OPIOIDS NURSING NOTE: -. PAIN CENTER INTAKE QUESTIONS: DO YOU HAVE A HISTORY OF MRSA? :NO DO YOU TAKE A BLOOD THINNERS? :NO DO YOU HAVE ANY BLEEDING DISORDERS? :NO ANY NEW NUMBNESS OR WEAKNESS IN YOUR LEGS OR ARMS? :NO ANY PACEMAKER,DEFIBRILLATOR, OR DORSAL COLUMN STIMULATOR? :NO DO YOU HAVE ANY RASHES OR OPEN SORES? :NO ARE YOU ALLERGIC TO IV DYE? :NO ARE YOU DIABETIC? :NO ANY NEW PROBLEMS WITH YOUR MEDICATIONS? :NO HAVE YOU RECEIVED A VACCINE IN THE PAST 30 DAYS? :NO DO YOU PLAN TO RECEIVE A VACCINE IN THE NEXT 21 DAYS? :NO DO YOU NEED ANY PRESCRIPTION? :NO DO YOU TAKE ANY IMMUNOSUPPRESSIVE MEDICATIONS? :NO IS THERE A CHANCE YOU COULD BE ? :NO ARE YOU BREAST FEEDING? :NO CURRENT MEDICATIONS TAKING CALCIUM 600/VITAMIN D 600-400 MG-UNIT TABLET 1 TABLET WITH A MEAL ORALLY ONCE A DAY TAKING LEVOTHYROXINE SODIUM 50 MCG TABLET 1 TABLET ORALLY ONCE A DAY TAKING BUSPIRONE HCL 10 MG TABLET 1 TABLET ORALLY TWICE A DAY TAKING ZYRTEC 10 MG TABLET 1 TABLET NEEDED ORALLY ONCE A DAY TAKING ZOLOFT 100 MG TABLET 1 TABLET ORALLY ONCE A DAY TAKING TRAZODONE HCL 100 MG TABLET 1 TABLET AT BEDTIME ORALLY ONCE A DAY TAKING FEMHRT 1/5 1-5 MG - MCG TABS ORALLY DAILY TAKING PROTONIX 40 MG TABLET DELAYED RELEASE 1 TAB ORALLY ONCE A DAY TAKING METOPROLOL SUCCINATE ER 200 MG TABLET EXTENDED RELEASE 24 HOUR 1 TABLET ORALLY ONCE A DAY TAKING XARELTO 20 MG TABLET 1 TABLET WITH FOOD ORALLY ONCE A DAY TAKING LOSARTAN POTASSIUM 50 MG TABLET 1 TABLET ORALLY ONCE A DAY TAKING ONDANSETRON 4 MG TABLET DISINTEGRATING 1 TABLET ON THE TONGUE AND ALLOW TO DISSOLVE ORALLY DAILY NEEDED FOR NAUSEA TAKING OXYCODONE HCL 10 MG TABLET 1 TABLET NEEDED ORALLY EVERY 8 HRS NEEDED MDD 3 TAKING ROBAXIN-750 750 MG TABLET 1/2 TABLET ORALLY AT NIGHT NEEDED NOT-TAKING BYSTOLIC 10 MG TABLET 1 TABLET ORALLY ONCE A DAY NOT-TAKING POTASSIUM CHLORIDE CR 10 MEQ TABLET ORALLY DAILY NOT-TAKING VICODIN 5/325 TABLET 1 TABLET NEEDED ORALLY EVERY 4 HRS NOT-TAKING CYCLOBENZAPRINE HCL 5 MG TABLET 1 TABLET ORALLY THREE TIMES A DAY NOT-TAKING NITROFURANTOIN MONOHYD MACRO 100 MG CAPSULE 1 CAPSULE WITH FOOD ORALLY EVERY 12 HRS NOT-TAKING BACTRIM DS 800-160 MG TABLET 1 TABLET ORALLY ONCE A DAY MEDICATION LIST REVIEWED AND RECONCILED WITH THE PATIENT PAST MEDICAL HISTORY HTN HYPOTHYROIDISM ARTHRITIS CHRONIC NECK AND BACK PAIN ANXIETY/DEPRESSION HEART LOOP MONITER TO LEFT CHEST GERD A FIB RECURRENT UTI ALLERGIES IODINE: HIVES - ALLERGY TIZANIDINE HCL: CONFUSION - SIDE EFFECTS SURGICAL HISTORY LEFT HIP REPLACEMENT 04/2014 REMOVE JOSE ENRIQUE AND PINS 11/2013 BROKEN LEFT LEG REPAIR 10/2012 GASTRIC BYPASS 2004 CATARACT REMOVED 2012 ABLATION FOR AFIB 2016 HEART LOOP MONITER PLACED 2016 HEART ABLATION NOV 13, 2017 CYST REMOVED FROM BACK OF HEAD 05/2018 EGD 2019 RIGHT CATARACT 10/2018 FAMILY HISTORY PT. ADOPTED NO KNOWN FAMILY HISTORY. SOCIAL HISTORY GENERAL: TOBACCO USE ARE YOU A:NONSMOKER LATEX QUESTIONNAIRE LATEX ALLERGY : HAVE YOU EVER DEVELOPED ANY TYPE OF REACTION AFTER HANDLING LATEX PRODUCTS SUCH RUBBER GLOVES, CONDOMS, DIAPHRAGMS, BALLOONS, SOCKS, OR UNDERWEAR?NO LATEX ALLERGY : HAVE YOU EVER DEVELOPED ANY TYPE OF REACTION DURING OR AFTER DENTAL APPOINTMENT, VAGINAL/RECTAL EXAMINATION, SURGICAL PROCEDURE, OR ANY OTHER EXPOSURE?NO DATE ASKED : 08/05/2019 LATEX RISK : HAVE YOU EVER HAD ANY DIFFICULTY BREATHING OR HIVES AFTER EATING OR HANDLING ANY FRUITS, OR VEGETABLES; SUCH KIWI, BANANAS, STONE FRUITS, OR CHESTNUTSNO LATEX RISK : DO YOU HAVE A PREVIOUS PERSONAL HISTORY OF MORE THAN NINE SURGERIES, SPINA BIFIDA, OR REPEATED CATHERIZATIONS? NO LATEX RISK : ARE YOU FREQUENTLY EXPOSED TO LATEX PRODUCTS IN YOUR OCCUPATION?NO ALCOHOL SCREENING DID YOU HAVE A DRINK CONTAINING ALCOHOL IN THE PAST YEAR?YES HOW MANY DRINKS DID YOU HAVE ON A TYPICAL DAY WHEN YOU WERE DRINKING IN THE PAST YEAR?3 OR 4 (1 POINT) HOW OFTEN DID YOU HAVE A DRINK CONTAINING ALCOHOL IN THE PAST YEAR?MONTHLY OR LESS (1 POINT) POINTS2 INTERPRETATIONNEGATIVE RECREATIONAL DRUG USE DRUG USE?NO CAFFEINE CAFFEINE USE?YES HOW OFTEN AND HOW MUCH? 1 CUP COFFEE PER DAY IN THE AM [facility] [id number] MANDAEN NO CAODAISM BELIEFS THAT WOULD IMPACT HEALTH CARE. LANGUAGE LANGUAGES SPOKEN:NEPALI LEARNING BARRIERS / SPECIAL NEEDS BARRIERS TO LEARNING?NO VISION IMPAIRED?YES :CORRECTIVE LENSES READING GLASSES ONLY READINESS TO LEARN?YES LEARNING PREFERENCES?NO LEARNING CAPABILITIES PRESENT?YES EMOTIONAL BARRIERS?NO SPECIAL DEVICES?NO DIET: GASTRIC BYPASS DIET SEVERAL SMALL MEALS (5-6 TIMES) PER DAY. PAIN CLINIC PFS, CLERGY, PUBLIC HEALTH REFERRALS PFS REFERRAL NEEDED?NO CLERGY REFERRAL NEEDED?NO PUBLIC HEALTH REFERRAL NEEDED?NO HAS THE PATIENT BEEN EDUCATED REGARDING HIS/HER PLAN OF CARE?YES HAS THE PATIENT BEEN EDUCATED REGARDING PAIN, THE RISK FOR PAIN, THE IMPORTANCE OF EFFECTIVE PAIN MANAGEMENT, AND THE PAIN ASSESSMENT PROCESS?YES ADVANCE DIRECTIVE ADVANCE DIRECTIVE DISCUSSED WITH PATIENT:YES HCP - SAM KAUR [phone] HOSPITALIZATION/MAJOR DIAGNOSTIC PROCEDURE SURGICALY RELATED REVIEW OF SYSTEMS CONSTITUTIONAL: ANY RECENT FEVER NO . CHILLS NO . WEIGHT CHANGE OF UNKNOWN REASONS NO . GASTROENTEROLOGY: NEW UNEXPLAINABLE CHANGES IN BOWEL CONTROL NO . CONSTIPATION NO . GENITOURINARY: ANY NEW CHANGE IN BLADDER CONTROL? NO . NEUROLOGY: NEW ONSET DIZZINESS OR NEUROLOGICAL CHANGES NOT MENTIONED NO . NEW NUMBNESS OR PAIN PATTERNS NOT MENTIONED AND PERTINENT TO TODAY'S VISIT NO . CARDIOLOGY: NEW CHEST PRESSURE NO . NEW CHEST PAIN NO . RESPIRATORY: UNEXPLAINABLE COUGH NO . NEW SHORTNESS OF BREATH NO . VITAL SIGNS WT 150.0 LBS, HT 66 IN, BMI 24.21 INDEX, BP 139/70 MM HG, HR 78 /MIN, RR 18 /MIN, TEMP 98.0 F, OXYGEN SAT % 100%, NA INITIALS AW 1328. EXAMINATION GENERAL EXAMINATION: GENERALNO ACUTE DISTRESS, WELL NOURISHED AND HYDRATED. PSYCHAPPROPRIATE MOOD AND AFFECT . LUNGS:CLEAR TO AUSCULTATION BILATERALLY, NO WHEEZES, RHONCHI, RALES. HEART:NO MURMURS, REGULAR RATE AND RHYTHM. ASSESSMENTS LUMBOSACRAL RADICULOPATHY - M54.17 (PRIMARY) TREATMENT LUMBOSACRAL RADICULOPATHY NOTES: 64-YEAR-OLD FEMALE IN FOR CHRONIC PAIN FOLLOW-UP. GIVEN PRESENTING SYMPTOMS RECOMMENDED CONTINUATION OF CURRENT MEDICATION REGIMEN WITH FOLLOW-UP IN 3 MONTHS. PATIENT DOES ADMIT THAT SHE [facility] AND WILL BE GOING FORWARD WITH THE PROCESS TO SEE IF THE MILD PROCEDURE IS APPROPRIATE FOR HER. PATIENT HAS EXPRESSED UNDERSTANDING OF AND WAS IN AGREEMENT WITH TREATMENT PLAN. GIVEN TIME TO ASK QUESTIONS AND EXPRESS CONCERNS. , ISTOP REGISTRY REVIEWED AND DEMONSTRATES COMPLLIANCE. (REF # [id number] ) BRINGS IN MEDICATIONS WHICH IS APPROPRIATE FOR WHAT WAS DISPENSED. RECENT URINE TOXICOLOGY REVIEWED. NO UNAUTHORIZED MEDICATIONS. NO ILLICIT SUBSTANCES AND PRESCRIBED MEDICATIONS WERE PRESENT. PROCEDURE CODES FA211 ESTABILISHED PATIENT [facility] FACILITY CHARGE DISPOSITION & COMMUNICATION FOLLOW UP 3 MONTHS (REASON: BACK PAIN) ELECTRONICALLY SIGNED BY LUZ LOVELL ON 01/16/2020 AT 08:41 AM EST DISCLAIMER : THIS IS A VISIT SUMMARY EXTRACTED FROM THE [facility] CHART. IT IS NOT A COPY OF THE [employer] PROGRESS NOTE. LUDWIN
== END ==
LOC: M PAIN 13:30
PROVIDERS: ATTEND Family Medicine
DX: M54.17 Radiculopathy, lumbosacral region (principal); I10 Essential (primary) hypertension; E03.9 Hypothyroidism, unspecified; F41.9 Anxiety disorder, unspecified; F32.9 Major depressive disorder, single episode, unspecified; K21.9 Gastro-esophageal reflux disease without esophagitis; I48.91 Unspecified atrial fibrillation; Z79.01 Long term (current) use of anticoagulants; Z79.891 Long term (current) use of opiate analgesic; Z79.899 Other long term (current) drug therapy; Z88.8 Allergy status to other drugs, medicaments and biological substances

== ENCOUNTER → 2020-03-20 | Outpatient (CLI) | payer MEDICARE, BC ==
[~2020-03-20] MED LIST changes: +METH-1165 PO; -METH750T2 PO
--- NOTE | 2020-03-24 03:42 | ECWPNPC ---
PATIENT NAME: PRO REY : 1955 GENDER: FEMALE VISIT DATE: 03/20/2020 DISCHARGE DATE: 03/20/20 1516 VISIT LOCKED DATE TIME: PHYSICIAN: CARSON GARAY RESOURCE: CARSON GARAY REASON FOR APPOINTMENT 1. BACK PAIN HISTORY OF PRESENT ILLNESS GENERAL: - 64-YEAR-OLD FEMALE IN FOR CHRONIC PAIN FOLLOW-UP. SHE RATES HER PAIN CURRENTLY AT A 6 OUT OF 10 AND DESCRIBES IT THROBBING. PATIENT FEELS HER MEDICATIONS ARE HELPFUL AND DENIES MED SIDE EFFECTS AT THIS TIME. FALL RISK SCREENING: SCREENING :NO FALLS REPORTED IN THE LAST YEAR PAIN SCREENING: PATIENT HAS A COMPLAINT OF ACUTE OR CHRONIC PAIN :YES LOCATION OF PAIN:LOW BACK INTENSITY OF PAIN (SCALE OF 1 TO 10):6 WHAT DOES YOUR PAIN FEEL LIKE:THROBBING DURATION:CONTINOUS, CONSTANT PAIN IS INCREASED BY:ACTIVITIES PAIN IS DECREASED BY:USE OF PAIN MEDICATIONS, SITTING TREATMENT/MEDICATIONS USED TO MANAGE PAIN:OPIOIDS LEVEL OF RELIEF FROM PAIN TREATMENTS IN THE PAST:75% PAIN HAS INTERFERED WITH THE FOLLOWING:BATHING/DRESSING, WALKING ABILITY, HOUSEWORK, TRANSPORTATION, TOILETING NURSING NOTE: -. PAIN CENTER INTAKE QUESTIONS: DO YOU HAVE A HISTORY OF MRSA? :NO DO YOU TAKE A BLOOD THINNERS? :YES XARALTO FOR A-FIB DO YOU HAVE ANY BLEEDING DISORDERS? :NO ANY NEW NUMBNESS OR WEAKNESS IN YOUR LEGS OR ARMS? :NO ANY PACEMAKER,DEFIBRILLATOR, OR DORSAL COLUMN STIMULATOR? :NO DO YOU HAVE ANY RASHES OR OPEN SORES? :NO ARE YOU ALLERGIC TO IV DYE? :NO ARE YOU DIABETIC? :NO ANY NEW PROBLEMS WITH YOUR MEDICATIONS? :NO HAVE YOU RECEIVED A VACCINE IN THE PAST 30 DAYS? :NO DO YOU PLAN TO RECEIVE A VACCINE IN THE NEXT 21 DAYS? :NO DO YOU NEED ANY PRESCRIPTION? :YES RADHAFRAN DO YOU TAKE ANY IMMUNOSUPPRESSIVE MEDICATIONS? :NO IS THERE A CHANCE YOU COULD BE ? :NO ARE YOU BREAST FEEDING? :NO CURRENT MEDICATIONS TAKING CALCIUM 600/VITAMIN D 600-400 MG-UNIT TABLET 1 TABLET WITH A MEAL ORALLY ONCE A DAY TAKING LEVOTHYROXINE SODIUM 50 MCG TABLET 1 TABLET ORALLY ONCE A DAY TAKING BUSPIRONE HCL 10 MG TABLET 1 TABLET ORALLY TWICE A DAY TAKING ZYRTEC 10 MG TABLET 1 TABLET NEEDED ORALLY ONCE A DAY TAKING ZOLOFT 100 MG TABLET 1 TABLET ORALLY ONCE A DAY TAKING TRAZODONE HCL 100 MG TABLET 1 TABLET AT BEDTIME ORALLY ONCE A DAY TAKING FEMHRT 1/5 1-5 MG - MCG TABS ORALLY DAILY TAKING PROTONIX 40 MG TABLET DELAYED RELEASE 1 TAB ORALLY ONCE A DAY TAKING METOPROLOL SUCCINATE ER 200 MG TABLET EXTENDED RELEASE 24 HOUR 1 TABLET ORALLY ONCE A DAY TAKING XARELTO 20 MG TABLET 1 TABLET WITH FOOD ORALLY ONCE A DAY TAKING LOSARTAN POTASSIUM 50 MG TABLET 1 TABLET ORALLY ONCE A DAY TAKING ONDANSETRON 4 MG TABLET DISINTEGRATING 1 TABLET ON THE TONGUE AND ALLOW TO DISSOLVE ORALLY DAILY NEEDED FOR NAUSEA TAKING ROBAXIN-750 750 MG TABLET 1/2 TABLET ORALLY AT NIGHT NEEDED TAKING OXYCODONE HCL 10 MG TABLET 1 TABLET NEEDED ORALLY EVERY 8 HRS NEEDED MDD 3 NOT-TAKING BYSTOLIC 10 MG TABLET 1 TABLET ORALLY ONCE A DAY NOT-TAKING POTASSIUM CHLORIDE CR 10 MEQ TABLET ORALLY DAILY NOT-TAKING VICODIN 5/325 TABLET 1 TABLET NEEDED ORALLY EVERY 4 HRS NOT-TAKING CYCLOBENZAPRINE HCL 5 MG TABLET 1 TABLET ORALLY THREE TIMES A DAY NOT-TAKING NITROFURANTOIN MONOHYD MACRO 100 MG CAPSULE 1 CAPSULE WITH FOOD ORALLY EVERY 12 HRS NOT-TAKING BACTRIM DS 800-160 MG TABLET 1 TABLET ORALLY ONCE A DAY MEDICATION LIST REVIEWED AND RECONCILED WITH THE PATIENT PAST MEDICAL HISTORY HTN HYPOTHYROIDISM ARTHRITIS CHRONIC NECK AND BACK PAIN ANXIETY/DEPRESSION HEART LOOP MONITER TO LEFT CHEST GERD A FIB RECURRENT UTI ALLERGIES IODINE: HIVES - ALLERGY TIZANIDINE HCL: CONFUSION - SIDE EFFECTS SOCIAL HISTORY GENERAL: TOBACCO USE ARE YOU A:NONSMOKER LATEX QUESTIONNAIRE LATEX ALLERGY : HAVE YOU EVER DEVELOPED ANY TYPE OF REACTION AFTER HANDLING LATEX PRODUCTS SUCH RUBBER GLOVES, CONDOMS, DIAPHRAGMS, BALLOONS, SOCKS, OR UNDERWEAR?NO LATEX ALLERGY : HAVE YOU EVER DEVELOPED ANY TYPE OF REACTION DURING OR AFTER DENTAL APPOINTMENT, VAGINAL/RECTAL EXAMINATION, SURGICAL PROCEDURE, OR ANY OTHER EXPOSURE?NO LATEX RISK : HAVE YOU EVER HAD ANY DIFFICULTY BREATHING OR HIVES AFTER EATING OR HANDLING ANY FRUITS, OR VEGETABLES; SUCH KIWI, BANANAS, STONE FRUITS, OR CHESTNUTSNO LATEX RISK : DO YOU HAVE A PREVIOUS PERSONAL HISTORY OF MORE THAN NINE SURGERIES, SPINA BIFIDA, OR REPEATED CATHERIZATIONS? NO LATEX RISK : ARE YOU FREQUENTLY EXPOSED TO LATEX PRODUCTS IN YOUR OCCUPATION?NO DATE ASKED : 03/20/2020 ALCOHOL SCREENING DID YOU HAVE A DRINK CONTAINING ALCOHOL IN THE PAST YEAR?YES HOW MANY DRINKS DID YOU HAVE ON A TYPICAL DAY WHEN YOU WERE DRINKING IN THE PAST YEAR?3 OR 4 (1 POINT) HOW OFTEN DID YOU HAVE A DRINK CONTAINING ALCOHOL IN THE PAST YEAR?MONTHLY OR LESS (1 POINT) POINTS2 INTERPRETATIONNEGATIVE RECREATIONAL DRUG USE DRUG USE?NO CAFFEINE CAFFEINE USE?YES HOW OFTEN AND HOW MUCH? 1 CUP COFFEE PER DAY IN THE AM [facility] [id number] MANDAEISM NO ANGLICAN BELIEFS THAT WOULD IMPACT HEALTH CARE. LANGUAGE LANGUAGES SPOKEN:[place] LEARNING BARRIERS / SPECIAL NEEDS BARRIERS TO LEARNING?NO VISION IMPAIRED?YES :CORRECTIVE LENSES READING GLASSES ONLY READINESS TO LEARN?YES LEARNING PREFERENCES?NO LEARNING CAPABILITIES PRESENT?YES EMOTIONAL BARRIERS?NO SPECIAL DEVICES?NO DIET: GASTRIC BYPASS DIET SEVERAL SMALL MEALS (5-6 TIMES) PER DAY. - PFS REFERRAL NEEDED?NO CLERGY REFERRAL NEEDED?NO PUBLIC HEALTH REFERRAL NEEDED?NO HAS THE PATIENT BEEN EDUCATED REGARDING HIS/HER PLAN OF CARE?YES HAS THE PATIENT BEEN EDUCATED REGARDING PAIN, THE RISK FOR PAIN, THE IMPORTANCE OF EFFECTIVE PAIN MANAGEMENT, AND THE PAIN ASSESSMENT PROCESS?YES ADVANCE DIRECTIVE ADVANCE DIRECTIVE DISCUSSED WITH PATIENT:YES HCP - SAM KAUR [phone] REVIEW OF SYSTEMS CONSTITUTIONAL: ANY RECENT FEVER NO . CHILLS NO . WEIGHT CHANGE OF UNKNOWN REASONS NO . GASTROENTEROLOGY: NEW UNEXPLAINABLE CHANGES IN BOWEL CONTROL NO . CONSTIPATION NO . GENITOURINARY: ANY NEW CHANGE IN BLADDER CONTROL? NO . NEUROLOGY: NEW ONSET DIZZINESS OR NEUROLOGICAL CHANGES NOT MENTIONED NO . NEW NUMBNESS OR PAIN PATTERNS NOT MENTIONED AND PERTINENT TO TODAY'S VISIT NO . CARDIOLOGY: NEW CHEST PRESSURE NO . NEW CHEST PAIN NO . RESPIRATORY: UNEXPLAINABLE COUGH NO . NEW SHORTNESS OF BREATH NO . VITAL SIGNS WT 155.2 LBS, HT 66 IN, BMI 25.05 INDEX, BP 146/67 MM HG, HR 75 /MIN, RR 16 /MIN, TEMP 96.8 F, OXYGEN SAT % 99%, SAFE IN ENV? (Y/N) Y, NA INITIALS SD 14:50, REVIEWED BY: AVRIL. EXAMINATION GENERAL EXAMINATION: GENERALNO ACUTE DISTRESS, WELL NOURISHED AND HYDRATED. PSYCHAPPROPRIATE MOOD AND AFFECT . LUNGS:CLEAR TO AUSCULTATION BILATERALLY, NO WHEEZES, RHONCHI, RALES. HEART:NO MURMURS, REGULAR RATE AND RHYTHM. ASSESSMENTS LUMBOSACRAL RADICULOPATHY - M54.17 (PRIMARY), RISK: (NULL) TREATMENT LUMBOSACRAL RADICULOPATHY CONTINUE OXYCODONE HCL TABLET, 10 MG, 1 TABLET NEEDED, ORALLY, EVERY 8 HRS NEEDED MDD 3, 30 DAYS, 90, REFILLS 0 REFILL ROBAXIN-750 TABLET, 750 MG, 1/2 TABLET, ORALLY, AT NIGHT NEEDED, 30 DAYS, 30, REFILLS 2 NOTES: 64-YEAR-OLD FEMALE IN FOR CHRONIC PAIN FOLLOW-UP. GIVEN PRESENTING SYMPTOMS RECOMMENDED CONTINUATION OF CURRENT MEDICATION REGIMEN WITH FOLLOW-UP IN 3 MONTHS. PATIENT HAS EXPRESSED UNDERSTANDING OF AND WAS IN AGREEMENT WITH TREATMENT PLAN. GIVEN TIME TO ASK QUESTIONS AND EXPRESS CONCERNS. , ISTOP REGISTRY REVIEWED AND DEMONSTRATES COMPLLIANCE. (REF # [id number] ) BRINGS IN MEDICATIONS WHICH IS APPROPRIATE FOR WHAT WAS DISPENSED. RECENT URINE TOXICOLOGY REVIEWED. NO UNAUTHORIZED MEDICATIONS. NO ILLICIT SUBSTANCES AND PRESCRIBED MEDICATIONS WERE PRESENT. PROCEDURE CODES FA211 ESTABILISHED PATIENT [facility] CHARGE DISPOSITION & COMMUNICATION FOLLOW UP 3 MONTHS (REASON: BACK PAIN ) ELECTRONICALLY SIGNED BY LUZ LOVELL ON 03/23/2020 AT 12:56 PM EST DISCLAIMER : THIS IS A VISIT SUMMARY EXTRACTED FROM THE [employer] CHART. IT IS NOT A COPY OF THE [employer] PROGRESS NOTE. LUDWIN
== END ==
LOC: M PAIN 13:45
PROVIDERS: ATTEND Family Medicine
DX: M54.17 Radiculopathy, lumbosacral region (principal); I10 Essential (primary) hypertension; E03.9 Hypothyroidism, unspecified; F41.9 Anxiety disorder, unspecified; F32.9 Major depressive disorder, single episode, unspecified; K21.9 Gastro-esophageal reflux disease without esophagitis; I48.91 Unspecified atrial fibrillation; M54.2 Cervicalgia; Z79.891 Long term (current) use of opiate analgesic; Z79.899 Other long term (current) drug therapy; Z79.01 Long term (current) use of anticoagulants; Z88.8 Allergy status to other drugs, medicaments and biological substances

== ENCOUNTER → 2020-03-27 | Outpatient (CLI) | payer MEDICARE ==
[~2020-03-27] MED LIST changes: -METH-1165 PO; +METH750T2 PO
== END ==
LOC: M LABSMTC 10:04
PROVIDERS: ATTEND Anesthesiology Pain Medicine
DX: Z20.822 Contact with and (suspected) exposure to COVID-19 (principal)

== ENCOUNTER → 2020-04-09 | Outpatient (CLI) | payer MEDICARE ==
[~2020-04-09] MED LIST changes: +METH-1165 PO; -METH750T2 PO
== END ==
LOC: M LABSMTC 11:01
PROVIDERS: ATTEND Physical Medicine & Rehabilitation
DX: Z20.822 Contact with and (suspected) exposure to COVID-19 (principal)

== ENCOUNTER 2020-04-20 15:08 | Emergency (ER) | payer BC, MEDICARE ==
[~2020-04-20] VITALS: Ht 165.1 cm; Wt 71.3 kg
--- OUTSIDE RECORDS SUMMARY | 2020-04-20 15:13 | CCD | Continuity of Care Document ---
Author Author Daljit [place] Renetta Barrientos Organization Unknown Address [address] [facility] [address] [place] [address] Phone [phone] Problems Active Problems Provider Date Menopausal and postmenopausal disorders Morena Robb, FAAFP Onset: 04/02/2008 Anxiety state Zhang Ruiz D.O. FAAFP Onset: 05/2008 Depressive disorder Zhang Ruiz D.O., FAAFP Onset: 04/27 Diverticular disease of colon Zhang Ruiz D.O. FAAFP O nset: 08/27/2008 Hypo-osmolality and or hyponatremia Zhang Ruiz D.O., F AAFP Onset: 12/17/2009 Hematuria syndrome Zahng Ruiz D.O. FAAFP Onset: 08/28 Idiopathic osteoporosis Zhang Ruiz D.O., FAAFP Onset: 09/23/2010 Female climacteric state Zhang Ruiz D.O., FAAFP Onset: 08/03/2012 Benign essential hypertension Zhang Ruiz D.O. FAAFP O nset: 06/27/2013 Paroxysmal atrial fibrillation Zhang Ruiz D.O. FAAFP Onset: 06/13/2017 Chronic back pain Zhang Ruiz D.O., FAAFP Onset: 10/2019 Note: FOLLOWED BY OUTSIDE PRACTICE Social History Type Date Description Comments Sex Unknown ETOH Use Currently consumes alcohol drink s wine Tobacco Use Start: Unknown Patient has never smoked Recreational Drug Use Never Used Drugs Smoking Status Reviewed: 03/12/20 Patient has never smoked Allergies, Adverse Reactions, Alerts Active Allergies Reaction Severity Comments Date Iodine 02/17/2000 Medications Active Medications SIG Qnty Indications Ordering Provide r Date Blood Glucose Monitoring System W/Device Kit use twice a day and as needed 1units E16.2 Zhang Ruiz D.O., [facility] 05/09/2019 Blood Glucose Test Strips Premium Strips test blood sugar twice daily and as needed for low blood sugar 100units E16.2 Zhang Ruiz D.O., [facility] 05/09/2019 Lancets 28G 28G Misc use twice daily and as needed to test blood sugars. 100units E16.2 [facility] 05/09/2019 Levothyroxine Sodium 50mcg Tablets take 1 tablet by mouth every day. maximum daily dose is 1. maximum daily dose is 1 90tabs Zhang Ruiz D.O., [facility] 11/09/2018 Sertraline HCL 100mg Tablets take 1 and 1/2 tablet by mouth every day 135tabs Bernadette Robb., [facility] 04/23/2018 Pantoprazole Sodium 40mg Tablets D R take 1 tablet by mouth every day. 90tabs Zhang Ruiz D.O. , [facility] 12/05/2017 Clobetasol Propionate 0.05% Soluti on apply topically twice a day x 7 days for scalp 50ml Zhang Ruiz D.O., [facility] 06/13/2017 Prevnar 13 Suspension as dir ected qs Zhang Ruiz D.O., [facility] 02/16/2017 Ondansetron 4mg Tablets Dispers dissolve 1 tablet on the tongue every 8 hours as needed for nausea 15tabs Zhang Ruiz D.O., [facility] 01/06/2017 Buspirone HCL 10mg Tablets take 1 tablet by mouth tid 180tabs [facility] Trazodone HCL 100mg Tablets Take 1 Tablet By Mouth Every Day AT Bedtime 30tabs Bernadette Robb, FAAFP 12/15/2011 Oscal Vit D 600 Tablets 1 po bid Zhang Ruiz D.O., [facility] 06/24/2010 Vit D 5000 Capsules 1 po Suzanna ly Zhang Ruiz D.O., [facility] 06/24/2010 Femhrt 1/5 1-5mg-mcg Tablets Unknown Xarelto 20mg Tablets 1 by mouth every day 56tabs Zhang Ruiz D.O., [facility] Cetirizine HCL 10mg Tablets 1 by mouth every day Unknown Metoprolol Succinate ER 200mg Tablets ER 24HR 1 by mouth every day Unknown 000 Oxycodone HCL 5mg Tablets 1 tab by mouth four times a day as needed pain Unknown Fiber Complete Tablets daily as directed Unknown Buprenorphine 10mcg/HR Patches Weekly Unknown Raloxifene HCL 60mg Tablets 1 by mouth every day (Evista) Unknown Medications Administered in Office Medication SIG Qnty Indications Ordering Provider Date Injection (SC)/(Im) Injection Zhang Ruiz D.O., [facility] 11/22/2012 Injection (SC)/(Im) Injection Zhang Ruiz D.O., [facility] 11/10/2011 Immunizations CPT Code Status Date Vaccine Lot # [id number] Given 12/05/2019 Influenza Virus Vaccine, Quadrivalent, Slit Virus, Im Use 3Y & Up [id number] 63744 Given 01/17/2019 Influenza Virus Vaccine, Quadrivalent, Slit Virus, Im Use 3Y & Up [id number] 34068 Given 12/28/2017 Influenza Virus Vaccine, Quadrivalent, Slit Virus, Im Use 3Y & Up [id number] 68646 Given 11/17/2016 Influenza Virus Vaccine, Quadrivalent, Slit Virus, Im Use 3Y & Up [id number] Given 03/30/2016 Pneumococcal Immunization M0 [id number] 67262 Given 12/24/2015 Influenza Virus Vaccine, Quadrivalent, Slit Virus, Im Use 3Y & Up [id number] 97848 Given 12/17/2014 Influenza Virus Vac. Split Virus Individuals 3 Years And Above [id number] 06894 Given 01/14/2014 Influenza Virus Vac. Split Virus Individuals 3 Years And Above [id number] 97584 Given 11/22/2012 Influenza Virus Vac. Split Virus Individuals 3 Years And Above [id number] 08469 Given 11/10/2011 Influenza Virus Vac. Split Virus Individuals 3 Years And Above [id number] Vital Signs Date Vital Result Comment 03/12/2020 2:44pm BP Systolic 126 mmHg BP Diastolic 70 mmHg Body Temperature 98.3 F Heart Rate 82 /min Respiratory Rate 16 /min Height 64 inches 5'4" Weight 152.00 lb Elsa Body Weight 120 lb BMI (Body Mass Index) 26.1 kg/m2 O2 % BldC Oximetry 98 % 12/05/2019 1:03pm BP Systolic 128 mmHg BP Diastolic 76 mmHg Body Temperature 97.2 F Heart Rate 72 /min Respiratory Rate 16 /min Height 64 inches 5'4" Weight 148.00 lb Elsa Body Weight 120 lb BMI (Body Mass Index) 25.4 kg/m2 O2 % BldC Oximetry 97 % Results Test Acquired Date Facility Test Result H/L Range Note Laboratory test finding 03/23/2020 [facility] Hemoglobin A1c 5.3 % 4.50-6.20 U/A DIP FPA 03/12/2020 [facility] Color Urine YELLOW Yellow Appearance CLEAR Clear Specific [place] 1.025 1.00-1.03 PH Urine 6.0 5.0-8.0 Glucose Urine NEG Negative Bilirubin Urine 1+ High Negative Ketones TRACE Negative Blood Urine 2+ High Negative Protein Urine 1+ High Negative Urobilinogen .2 EU/dl 0.2-1.0 Nitrite NEG Negative Leukocytes NEG Negative CBC 03/12/2020 [facility] WBC 5.8 10E3/uL 4.1 - 10.9 1 RBC 3.80 10E6/uL Low 4.20 - 6.30 HGB 12.0 g/dL 12.0 - 18.0 HCT 36.1 % Low 37.0 - 51.0 MCV 95.0 fL 80.0 - 97.0 MCH 31.6 pg 26.0 - 32.0 MCHC 33.2 g/dL 31.0 - 36.0 PLT 351 10E3/uL 140 - 440 RDW-CV 12.7 % 11.5 - 14.5 Lym% 30.8 % 10.0 - 58.5 Neut% 58.7 % 37.0 - 92.0 MXD% 10.5 % 0.1 - 24.0 Lym# 1.8 10E3/uL 0.6 - 4.1 Neut# 3.4 % 2.0 - 7.8 MXD# 0.6 10E3/uL 0.0 - 1.8 MPV 9.3 fL 9.0 - 13.0 Laboratory test finding 03/12/2020 [facility] CK 92 U/L 26 - 192 CMP 03/12/2020 [facility] Glu 144 mg/dL High 70 - 110 BUN 13 mg/dL 8 - 23 Creat 0.8 mg/dL 0.5 - 1.0 BUN/Creatinine Ratio 16.7 CALC Na 130 mmol/L Low 136 - 145 K 4.1 mmol/L 3.5 - 5.1 CL 94.5 mmol/L Low 98.0 - 107.0 Co2 23.9 mmol/L 22.0 - 29.0 CA 9.7 mg/dL 8.6 - 10.2 TP 6.3 g/dL Low 6.6 - 8.7 Alb 4.4 g/dL 3.4 - 4.8 A/G Ratio 2.3 CALC Globulin 1.9 CALC Alp 50.8 U/L 35 - 129 Alt (SGPT) 9 U/L 0 - 41 Ast (Sgot) 18 U/L 0 - 40 Tbili 0.25 mg/dL 0.0 - 1.2 Osmolality-Calculated 262.6 CALC Anion Gap 15 mmol/L eGFR 89 # Calc 2 eGFR Non-Afr. Citizen Of [place] 77 # Calc 3 Lipid Panel 03/12/2020 [facility] Chol 160 mg/dL 0 - 200 Trig 42 mg/dL 40 - 200 HDL 93 mg/dL High 45 - 65 LDL_C 58 Calc Low 75 - 129 Cho/HDL Ratio 1.7 CALC Laboratory test finding 03/12/2020 [facility] TSH 2.057 ulU/mL 0.60 - 4.8 CBC 12/05/2019 [facility] WBC 3.6 10E3/uL Low 4.1 - 10.9 4 RBC 3.71 10E6/uL Low 4.20 - 6.30 HGB 11.9 g/dL Low 12.0 - 18.0 HCT 35.1 % Low 37.0 - 51.0 MCV 94.6 fL 80.0 - 97.0 MCH 32.1 pg High 26.0 - 32.0 MCHC 33.9 g/dL 31.0 - 36.0 PLT 336 10E3/uL 140 - 440 RDW-CV 12.7 % 11.5 - 14.5 Lym% 33.2 % 10.0 - 58.5 Neut% 53.6 % 37.0 - 92.0 MXD% 13.2 % 0.1 - 24.0 Lym# 1.2 10E3/uL 0.6 - 4.1 Neut# 1.9 % Low 2.0 - 7.8 MXD# 0.5 10E3/uL 0.0 - 1.8 MPV 9.2 fL 9.0 - 13.0 Laboratory test finding 12/05/2019 [facility] CK 176 U/L 26 - 192 CMP 12/05/2019 [facility] Glu 92 mg/dL 70 - 110 BUN 11 mg/dL 8 - 23 Creat 0.7 mg/dL 0.5 - 1.0 BUN/Creatinine Ratio 14.9 Calc Na 129 mmol/L Low 136 - 145 K 4.5 mmol/L 3.5 - 5.1 CL 95.1 mmol/L Low 98.0 - 107.0 Co2 23.3 mmol/L 22.0 - 29.0 CA 9.6 mg/dL 8.6 - 10.2 TP 6.2 g/dL Low 6.6 - 8.7 Alb 4.3 g/dL 3.4 - 4.8 A/G Ratio 2.3 Calc Globulin 1.9 Calc Alp 59.3 U/L 35 - 129 Alt (SGPT) 10 U/L 0 - 41 Ast (Sgot) 22 U/L 0 - 40 Tbili 0.41 mg/dL 0.0 - 1.2 Osmolality-Calculated 257.9 Calc Anion Gap 15 mmol/L eGFR 105 # Calc 5 eGFR Non-Afr. Citizen Of [place] 91 # Calc 6 Laboratory test finding 12/05/2019 [facility] TSH 1.918 ulU/mL 0.60 - 4.8 1 NORMAL RANGES Age WBC RBC HGB HCT MCV PLT Adult M 4.1-10.9 4.20-6.30 12.0-18.0 37.0-51.0 80-97 140-440 Adult F 4.1-10.9 4.04-5.48 12.0-18.0 37.0-51.0 80-97 140-440 0 -1 Yr 5.0-20.0 3.9-5.9 15-18 MV: 44 MV: 91 MV: 277 2-9 Yr. 6.0-17.0 3.8-5.4 11-13 MV: 37 MV: 78 MV: 300 10 Yrs. 5.0-13.0 3.8-5.4 12-15 MV: 39 MV: 80 MV: 250 NOTE: * FOR ADULT BLACK MALES AND FEMALES, NORMAL WBC IS 2.9-7.7 K/ML * FOR ADULT BLACK MALES AND FEMALES, NORMAL RBC,HGB, AND HCT IS 5% LESS SOURCE FOR DATA: mymission2 1800 OPERATION MANUAL( AUTOMATED BLOOD COUNTS AND DIFF.) APPENDIX B-3 CHRONIC KIDNEY DISEASE STAGING PER NKF: MALE GFR INTERPRETATION: 20-49 YRS: >60 mL/min Normal 50-59 YRS: >56 mL/min Normal 60-69 YRS: >49 mL/min Normal 70-79 YRS: >42 mL/min Normal 80 and above >35 mL/min Normal FEMALE GRF INTERPRETATION: 20-39 YRS: >60 mL/min Normal 40-49 YRS: >58 mL/min Normal 50-59 YRS: >51 mL/min Normal 60-69 YRS: >45 mL/min Normal 70-79 YRS: >39 mL/min Normal 80 and above >32 mL/min NormalCLASSIFICATION CHOLESTEROL FOR ADULTS CHILDREN/ADOLESCENTS* DESIRABLE: <200 MG/DL <170 MG/DL BORDER-LINE HIGH RISK: 200-239 MG/DL 170-199 MG/DL HIGH RISK: >240 MG/DL >200 MG/DL CLASS. FOR PRIMARY LDL CHOL PREVENTION: LDL CHOL-CHILD/ADOLESCENTS* DESIRABLE: <130 MG/DL <110 MG/DL BORDERLINE-HIGH RISK: 130-159 MG/DL 110-129 MG/DL HIGH RISK: >160 MG/DL >130 MG/DL *CHILDREN AND ADOLESCENTS REPRESENTS INDIVIDUALA AGED 2-19 YEARS EXCLUSIVE. 2 CKD-EPI 3 CKD-EPI 4 NORMAL RANGES Age WBC RBC HGB HCT MCV PLT Adult M 4.1-10.9 4.20-6.30 12.0-18.0 37.0-51.0 80-97 140-440 Adult F 4.1-10.9 4.04-5.48 12.0-18.0 37.0-51.0 80-97 140-440 0 -1 Yr 5.0-20.0 3.9-5.9 15-18 MV: 44 MV: 91 MV: 277 2-9 Yr. 6.0-17.0 3.8-5.4 11-13 MV: 37 MV: 78 MV: 300 10 Yrs. 5.0-13.0 3.8-5.4 12-15 MV: 39 MV: 80 MV: 250 NOTE: * FOR ADULT BLACK MALES AND FEMALES, NORMAL WBC IS 2.9-7.7 K/ML * FOR ADULT BLACK MALES AND FEMALES, NORMAL RBC,HGB, AND HCT IS 5% LESS SOURCE FOR DATA: mymission2 1800 OPERATION MANUAL( AUTOMATED BLOOD COUNTS AND DIFF.) APPENDIX B-3CLASSIFICATION CHOLESTEROL FOR ADULTS CHILDREN/ADOLESCENTS* DESIRABLE: <200 MG/DL <170 MG/DL BORDER-LINE HIGH RISK: 200-239 MG/DL 170-199 MG/DL HIGH RISK: >240 MG/DL >200 MG/DL CLASS. FOR PRIMARY LDL CHOL PREVENTION: LDL CHOL-CHILD/ADOLESCENTS* DESIRABLE: <130 MG/DL <110 MG/DL BORDERLINE-HIGH RISK: 130-159 MG/DL 110-129 MG/DL HIGH RISK: >160 MG/DL >130 MG/DL *CHILDREN AND ADOLESCENTS REPRESENTS INDIVIDUALA AGED 2-19 YEARS EXCLUSIVE. 5 CKD-EPI 6 CKD-EPI Procedures Date Code Description Status 03/23/2020 63351 Capillary Blood Collection Finge r, Heel, Ear Stick Completed Medical Devices Description No Information Available Encounters Type Date Location Provider Dx Diagnosis Office Visit 03/12/2020 2:30p [facility] Keyshawn Robb, FAAFP I10 Essential (primary) hypertension I48.20 Chronic atrial fibrillation, unspecified E87.1 Hypo-osmolality and hyponatr emia K21.9 Gastro-esophageal reflux dis ease without esophagitis F32.89 Other specified depressive e pisodes F41.9 Anxiety disorder, unspecifie d E03.9 Hypothyroidism, unspecified Office Visit 12/05/2019 1:00p [facility] eKyshawn Robb, FAAFP I10 Essential (primary) hypertension I48.20 Chronic atrial fibrillation, unspecified E87.1 Hypo-osmolality and hyponatr emia K21.9 Gastro-esophageal reflux dis ease without esophagitis Z23 Encounter for immunization Assessments Date Code Description Provider 03/23/2020 R73.01 Impaired fasting glucose Benson Stuart M.D. 03/23/2020 R73.01 Impaired fasting glucose [facility] Schedule 03/12/2020 I10 Essential (primary) hypertension Zhang Ruiz D.O., FAAFP 03/12/2020 I48.20 Chronic atrial fibrillation, uns pecified Zhang Ruiz D.O., FAAFP 03/12/2020 E87.1 Hypo-osmolality and hyponatremia Zhang Ruiz D.O., FAAFP 03/12/2020 K21.9 Gastro-esophageal reflux disease without esophagitis Zhang Ruiz D.O., FAAFP 03/12/2020 F32.89 Other specified depressive episo benny Zhang Ruiz D.O., FAAFP 03/12/2020 F41.9 Anxiety disorder, unspecified Braulio Ruiz D.O., FAAFP 03/12/2020 E03.9 Hypothyroidism, unspecified Jayden Ruiz D.O., FAAFP 12/05/2019 I10 Essential (primary) hypertension Zhang Ruiz D.O., FAAFP 12/05/2019 I48.20 Chronic atrial fibrillation, uns pecified Zhang Ruiz D.O., FAAFP 12/05/2019 E87.1 Hypo-osmolality and hyponatremia Zhang Ruiz D.O., FAAFP 12/05/2019 K21.9 Gastro-esophageal reflux disease without esophagitis Zhang Ruiz D.O., FAAFP 12/05/2019 Z23 Encounter for immunization Fahad Ruiz D.O., FAAFP Plan of Treatment Future Appointment(s):* 06/25/2020 1:15 pm - Zhang Ruiz D.O., FAAFP at [facility] Functional Status Description No Information Available Mental Status Description No Information Available Referrals Refer to Reason for Referral Status Appt Date Lauro Sandoval M.D. PLEASE EVAL CHRONIC BACK PA IN FOLOWED BY PAIN CLINIC PT HAS BEEN EVALUATED BY OUTSIDE PRACTICE WANTS TO DISCUSS MILD PROCEDURE SHE WILL BRING HER MRI OF BACK TO VISIT Created [facility] [address] [place] [phone]
--- OUTSIDE RECORDS SUMMARY | 2020-04-20 15:13 | CCD ---
Author Author [facility] Organization [facility] Address Unknown Phone Unavailable Care Team Providers Care Fighting Vehicle Infantryman Name Role Phone Junior Jennings Unavailable PROBLEMS Type Condition ICD9-CM Code [id number] Code Onset Dates Condition S tatus SNOMED Code Notes Problem Sacroiliitis M46.1 Active 63329085 Problem Myalgia, other site M79.18 Active 68232622 Problem Active Problem Recurrent UTI (urinary tract infection) N39.0 Active 59050740 Problem Lumbosacral radiculopathy M54.17 Active 980415 7 Problem Low back pain at multiple sites M54.5 Active 067937560 ALLERGIES Allergen (clinical drug ingredient) Drug/Non Drug Allergy do cumented on EMR Reaction Allergy Type Onset Date Status Iodine([facility] Code:98326-71053) Hives Drug Allergy Active tizanidine Tizanidine HCl([facility] Code:[address]-26) Confusion Drug All ergy Active ENCOUNTERS from 1955 to 2020-03-23 Encounter Location Date Provider Diagnosis [facility] [address] [place] [address] Feb, Junior Jennings Lumbosacral radiculopathy M54.17 IMMUNIZATIONS Vaccine Route Administration Date Status Influenza (6mo & up) Fluzone Unknown Dec 30, 2014 Ref used Influenza (6mo & up) Fluzone Unknown Dec 16, 2014 Ref used SOCIAL HISTORY Tobacco Use: Social History Observation Description Date Details (start date - stop date) Never Smoker Sex Assigned At : Social History Observation Description Sex Assigned At Unknown Language: Question Answer Notes Languages spoken: Swedish Methodist: Question Answer Notes Methodist 21 Adventist No mormonism beliefs that would impact health care. Alcohol Screening: Question Answer Notes Did you have a drink containing alcohol in the past year? Ye s Points 2 Interpretation Negative How many drinks did you have on a typica l day when you were drinking in the past year? 3 or 4 (1 point) How often did you have a drink containing alcohol in t he past year? Monthly or less (1 point) Tobacco Use: Question Answer Notes Are you a: never smoker REASON FOR REFERRAL No Information VITAL SIGNS Weight 155.2 lbs Feb, Height 66 in Feb, BMI 25.05 kg/m2 Feb, Heart Rate 75 /min Feb, Respiratory Rate 16 /min Feb, Temperature 96.8 degrees Fahrenheit Feb, Oximetry 99% Feb, Blood pressure systolic 146 mm Hg Feb, Blood pressure diastolic 67 mm Hg Feb, MEDICATIONS Medication SIG (Take, Route, Frequency, Duration) Notes Start Da te End Date Status Levothyroxine Sodium 50 MCG 1 tablet Orally Once a day Active Vicodin 5/325 1 tablet as needed Orally every 4 hrs Not-Taking Ondansetron 4 MG 1 tablet on the tongue and a llow to dissolve Orally daily as needed for nausea for 30 days Aug, Ac tive Bactrim DS 800-160 MG 1 tablet Orally Once a day Not-Taking Calcium 600/Vitamin D 600-400 MG-UNIT 1 tablet with a meal Orall y Once a day Active Zoloft 100 MG 1 tablet Orally Once a day Active Losartan Potassium 50 MG 1 tablet Orally Once a day for 30 day(s) Active Oxycodone HCl 10 MG 1 tablet as needed Orally ev cory 8 hrs as needed MDD 3 for 30 days Feb, Active Robaxin-750 750 MG 1/2 tablet Orally at night as needed for 30 d ays Mar, Active BusPIRone HCl 10 mg 1 tablet Orally Twice a day Active Nitrofurantoin Monohyd Macro 100 MG 1 capsule with alex d Orally every 12 hrs for 7 day(s) Dec, Not-Taking Protonix 40 MG 1 tab Orally Once a day Active Potassium Chloride CR 10 meq orally Daily Not-Taking Cyclobenzaprine HCl 5 MG 1 tablet Orally Three times a day Not-Taking Metoprolol Succinate ER 200 MG 1 tablet Orally Once a day Active Femhrt 1/5 1-5 mg - mcg orally Daily Active Xarelto 20 MG 1 tablet with food Orally Once a day for 30 day(s) Active ZyrTEC 10 MG 1 tablet as needed Orally Once a day Active Bystolic 10 MG 1 tablet Orally Once a day Not-Taking TraZODone HCl 100 MG 1 tablet at bedtime Orally Once a day Active PROCEDURES No Information RESULTS No Results REASON FOR VISIT back pain MEDICAL (GENERAL) HISTORY Type Description Date Medical History HTN Medical History Hypothyroidism Medical History Arthritis Medical History chronic neck and back pain Medical History Anxiety/Depression Medical History heart loop moniter to left chest Medical History gerd Medical History a fib Medical History Recurrent UTI Surgical History Left hip replacement 04/2014 Surgical History remove romero and pins 11/2013 Surgical History broken left leg repair 10/2012 Surgical History Gastric Bypass 2003 Surgical History cataract removed 2012 Surgical History ablation for Afib 2016 Surgical History heart loop moniter placed 2016 Surgical History heart ablation nov 13, 2017 Surgical History CYST REMOVED FROM BACK OF HEAD 05/2018 Surgical History EGD 2018 Surgical History Right Cataract 10/2018 Hospitalization History surgicaly related Goals Section No Information Health Concerns No Information MEDICAL EQUIPMENT No Information MENTAL STATUS No Information FUNCTIONAL STATUS No Information ASSESSMENTS No Information PLAN OF TREATMENT Medication Medication Name Sig Start Date Stop Date Robaxin-750 750 MG 1/2 tablet Orally at night as needed for 30 days Mar, Oxycodone HCl 10 MG 1 tablet as needed Orally ev cory 8 hrs as needed MDD 3 for 30 days Feb, Next Appt Details 3 Months Reason:Back pain Provider Name:Junior Jennings, 2020-06-18 01:45:00 PM, [address] [place] [address], [phone], Follow Up:3 MonthsBack pain Insurance Providers Payer Name Payer Address Payer Phone Insured Name Patient Relati onship to Insured Coverage Start Date Coverage End Date [employer] PPO 306 [facility] 12 [facility] [id number] PRO REY MEDICARE Part A and B [address] [place] [phone] PRO REY
--- OUTSIDE RECORDS SUMMARY | 2020-04-20 15:13 | CCD | Continuity of Care Document ---
Author Author Renetta ORDONEZ D.O. Organization Unknown Address [address] [place] [phone] Phone [phone] Problems Active Problems Provider Date Menopausal and postmenopausal disorders Morena Robb, FAAALINA Onset: 04/02/2008 Anxiety state Zhang Ordonez D.O. FAAFP Onset: 05/2008 Depressive disorder Zhang Ordonez D.O., FAAFP Onset: 04/27 Diverticular disease of colon Zhang Ordonez D.O. FAAFP O nset: 08/27/2008 Hypo-osmolality and or hyponatremia Zhang Ordonez D.O., F AAFP Onset: 12/17/2009 Hematuria syndrome Zhang Ordonez D.O., FAAFP Onset: 08/28 Idiopathic osteoporosis Zhang Ordonez D.O., FAAFP Onset: 09/23/2010 Female climacteric state Zhang Ordonez D.O., FAAFP Onset: 08/03/2012 Benign essential hypertension Zhang Ordonez D.O. FAAFP O nset: 06/27/2013 Paroxysmal atrial fibrillation Zhang Ordonez D.O., FAAFP Onset: 06/13/2017 Chronic back pain Zhang Odronez D.O., FAAFP Onset: 10/2019 Note: FOLLOWED BY OUTSIDE PRACTICE Social History Type Date Description Comments Sex Unknown ETOH Use Currently consumes alcohol drink s wine Tobacco Use Start: Unknown Patient has never smoked Recreational Drug Use Never Used Drugs Smoking Status Reviewed: 10/31/19 Patient has never smoked Allergies, Adverse Reactions, Alerts Active Allergies Reaction Severity Comments Date Iodine 02/17/2000 Medications Active Medications SIG Qnty Indications Ordering Provide r Date Blood Glucose Monitoring System W/Device Kit use twice a day and as needed 1units E16.2 Zhang Ordonez D.O., [facility] 05/09/2019 Blood Glucose Test Strips Premium Strips test blood sugar twice daily and as needed for low blood sugar 100units E16.2 Zhang Ordonez D.O., [facility] 05/09/2019 Lancets 28G 28G Misc use twice daily and as needed to test blood sugars. 100units E16.2 Zhang [facility] D.O., [facility] 05/09/2019 Levothyroxine Sodium 50mcg Tablets take 1 tablet by mouth every day. maximum daily dose is 1. maximum daily dose is 1 90tabs Zhang Ordonez D.O., [facility] 11/09/2018 Sertraline HCL 100mg Tablets take 1 and 1/2 tablet by mouth every day 135tabs Bernadette Robb., [facility] 04/23/2018 Pantoprazole Sodium 40mg Tablets D R take 1 tablet by mouth every day. 90tabs Zhang Ordonez D.O. , [facility] 12/05/2017 Clobetasol Propionate 0.05% Soluti on apply topically twice a day x 7 days for scalp 50ml Zhang Ordonez D.O., FAAFP 06/13/2017 Prevnar 13 Suspension as dir ected qs Zhang Ordonez D.O., FAAFP 02/16/2017 Ondansetron 4mg Tablets Dispers dissolve 1 tablet on the tongue every 8 hours as needed for nausea 15tabs Zhang Ordonez D.O., FAAFP 01/06/2017 Buspirone HCL 10mg Tablets take 1 tablet by mouth tid 180tabs Zhang Ordonez D.O., [facility] Trazodone HCL 100mg Tablets take 1 tablet by mouth every day at bedtime 30tabs Bernadette Robb, FAAFP 12/15/2011 Oscal Vit D 600 Tablets 1 po bid Zhang Ordonez D.O., FAAFP 06/24/2010 Vit D 5000 Capsules 1 po Suzanna ly Zhang Ordonez D.O., [facility] 06/24/2010 Femhrt 1/5 1-5mg-mcg Tablets Unknown Xarelto 20mg Tablets 1 by mouth every day 56tabs Zhang Ordonez D.O., [facility] Cetirizine HCL 10mg Tablets 1 [...] Ordering Provider Date Injection (SC)/(Im) Injection Zhang Ordonez D.O., [facility] 11/22/2012 Injection (SC)/(Im) Injection Zhang Ordonez D.O., [facility] 11/10/2011 Immunizations CPT Code Status Date Vaccine Lot # [id number] Given 12/05/2019 Influenza Virus Vaccine, Quadrivalent, Slit Virus, Im Use 3Y & Up [id number] 64388 Given 01/17/2019 Influenza Virus Vaccine, Quadrivalent, Slit Virus, Im Use 3Y & Up [id number] 11313 Given 12/28/2017 Influenza Virus Vaccine, Quadrivalent, Slit Virus, Im Use 3Y & Up [id number] 91674 Given 11/17/2016 Influenza Virus Vaccine, Quadrivalent, Slit Virus, Im Use 3Y & Up 51179 Given 03/30/2016 Pneumococcal Immunization M0 [id number] 48508 Given 12/24/2015 Influenza Virus Vaccine, Quadrivalent, Slit Virus, Im Use 3Y & Up [id number] 01452 Given 12/17/2014 Influenza Virus Vac. Split Virus Individuals 3 Years And Above [id number] 18826 Given 01/14/2014 Influenza Virus Vac. Split Virus Individuals 3 Years And Above [id number] 28825 Given 11/22/2012 Influenza Virus Vac. Split Virus Individuals 3 Years And Above [id number] 10886 Given 11/10/2011 Influenza Virus Vac. Split Virus Individuals 3 Years And Above [id number] Vital Signs Date Vital Result Comment 03/12/2020 2:44pm BP Systolic 126 mmHg BP Diastolic 70 mmHg Body Temperature 98.3 F Heart Rate 82 /min Respiratory Rate 16 /min Height 64 inches 5'4" Weight 152.00 lb [place] Body Weight 120 lb BMI (Body Mass Index) 26.1 kg/m2 O2 % BldC Oximetry 98 % 12/05/2019 1:03pm BP Systolic 128 mmHg BP Diastolic 76 mmHg Body Temperature 97.2 F Heart Rate 72 /min Respiratory Rate 16 /min Height 64 inches 5'4" Weight 148.00 lb [place] Body Weight 120 lb BMI (Body Mass Index) 25.4 kg/m2 O2 % BldC Oximetry 97 % Results Test Acquired Date Facility Test Result H/L Range Note U/A DIP FPA 03/12/2020 [facility] Practice Asso ciates Color Urine YELLOW Yellow Appearance CLEAR Clear Specific [place] 1.025 1.00-1.03 PH Urine 6.0 5.0-8.0 Glucose [...] eGFR 89 # Calc 2 eGFR Non-Afr. [place] 77 # Calc 3 Lipid Panel 03/12/2020 [...] eGFR 105 # Calc 5 eGFR Non-Afr. [place] 91 # Calc 6 Laboratory test finding [...] HCT IS 5% LESS SOURCE FOR DATA: Cyntellect 1800 OPERATION MANUAL( AUTOMATED BLOOD COUNTS AND [...] HCT IS 5% LESS SOURCE FOR DATA: [employer]tel[employer] 1800 OPERATION MANUAL( AUTOMATED BLOOD COUNTS AND [...] YEARS EXCLUSIVE. 5 CKD-EPI 6 CKD-EPI Procedures Description No Information Available Medical Devices Description No Information Available Encounters Type Date Location Provider Dx Diagnosis Office Visit 03/12/2020 2:30p [place] [facility] Keyshawn Robb, [facility] I10 Essential (primary) hypertension I48.20 Chronic atrial fibrillation, unspecified E87.1 Hypo-osmolality and hyponatr emia K21.9 Gastro-esophageal reflux dis ease without esophagitis F32.89 Other specified depressive e pisodes F41.9 Anxiety disorder, unspecifie d E03.9 Hypothyroidism, unspecified Office Visit 12/05/2019 1:00p [place] [facility] Keyshawn Robb, FAAFP I10 Essential (primary) hypertension I48.20 Chronic atrial fibrillation, unspecified E87.1 Hypo-osmolality and hyponatr emia K21.9 Gastro-esophageal reflux dis ease without esophagitis Z23 Encounter for immunization Assessments Date Code Description Provider 03/12/2020 I10 Essential (primary) hypertension Zhang Ordonez D.O., [facility] 03/12/2020 I48.20 Chronic atrial fibrillation, uns pecified Zhang Ordonez D.O., [facility] 03/12/2020 E87.1 Hypo-osmolality and hyponatremia Zhang Ordonez D.O., [facility] 03/12/2020 K21.9 Gastro-esophageal reflux disease without esophagitis Zhang Ordonez D.O., [facility] 03/12/2020 F32.89 Other specified depressive episo benny Zhang Ordonez D.O., [facility] 03/12/2020 F41.9 Anxiety disorder, unspecified Braulio Ordonez D.O., [facility] 03/12/2020 E03.9 Hypothyroidism, unspecified Jayden Ordonez D.O., [facility] 12/05/2019 I10 Essential (primary) hypertension Zhang Ordonez D.O., [facility] 12/05/2019 I48.20 Chronic atrial fibrillation, uns pecified Zhang Ordonez D.O., [facility]FP 12/05/2019 E87.1 Hypo-osmolality and hyponatremia Zhang Ordonez D.O., FAAFP 12/05/2019 K21.9 Gastro-esophageal reflux disease without esophagitis Zhang Ordonez D.O., [facility] 12/05/2019 Z23 Encounter for immunization Fahad Ordonez D.O., MAT[facility] Plan of Treatment Future Appointment(s):* 06/25/2020 1:15 pm - Zhang Ordonez D.O., FAAFP at [facility] Functional Status Description No Information Available Mental Status Description No Information Available Referrals Refer to Reason for Referral Status Appt Date Lauro Sandoval M.D. PLEASE EVAL CHRONIC BACK PA IN FOLOWED BY PAIN CLINIC PT HAS BEEN EVALUATED BY OUTSIDE PRACTICE WANTS TO DISCUSS MILD PROCEDURE SHE WILL BRING HER MRI OF BACK TO VISIT Created [facility] [address] [place] [id number] [phone]
--- OUTSIDE RECORDS SUMMARY | 2020-04-20 15:14 | CCD ---
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 Role Phone Junior Jennings Unavailable PROBLEMS Type Condition ICD9-CM Code KUC01-UQ Code Onset Dates Condition S tatus SNOMED Code Notes Problem Sacroiliitis M46.1 Active 09256825 Problem Myalgia, other site M79.18 Active 06413289 Problem Recurrent UTI (urinary tract infection) N39.0 Active 47391440 Problem Lumbosacral radiculopathy M54.17 Active 877775 7 Problem Low back pain at multiple sites M54.5 Active 556630147 ALLERGIES Allergen (clinical drug ingredient) Drug/Non Drug Allergy do cumented on EMR Reaction Allergy Type Onset Date Status Iodine([facility] Code:49673-44017) Hives Drug Allergy Active tizanidine Tizanidine HCl([facility] Code:[address]-08) Confusion Drug All ergy Active ENCOUNTERS from 1955 to 2020-01-20 Encounter Location Date Provider Diagnosis [facility] [address] [place] [phone] Nov, Junior Jennings IMMUNIZATIONS Vaccine Route Administration Date Status Influenza (6mo & up) Fluzone Unknown Dec 30, 2014 Ref used Influenza (6mo & up) Fluzone Unknown Dec 16, 2014 Ref used SOCIAL HISTORY Tobacco Use: Social History Observation Description Date Details (start date - stop date) Never Smoker Sex Assigned At : Social History Observation Description Sex Assigned At Unknown Language: Question Answer Notes Languages spoken: American Lutheran: Question Answer Notes Lutheran 21 Christianity No mandaen beliefs that would impact health care. Alcohol [...] REASON FOR REFERRAL No Information VITAL SIGNS No information MEDICATIONS Medication SIG (Take, Route, Frequency, Duration) Notes Start Da te End Date Status Bactrim DS 800-160 MG 1 tablet Orally Once a day Not-Taking Metoprolol Succinate ER 200 MG 1 tablet Orally Once a day Active Levothyroxine Sodium 50 MCG 1 tablet Orally Once a day Active Potassium Chloride CR 10 meq orally Daily Not-Taking Xarelto 20 MG 1 tablet with food Orally Once a day for 30 day(s) Active Cyclobenzaprine HCl 5 MG 1 tablet Orally Three times a day Not-Taking Ondansetron 4 MG 1 tablet on the tongue and a llow to dissolve Orally daily as needed for nausea for 30 days Aug, Ac tive Robaxin-750 750 MG 1/2 tablet Orally at night as needed for 30 d ays Mar, Active Femhrt 1/5 1-5 mg - mcg orally Daily Active ZyrTEC 10 MG 1 tablet as needed Orally Once a day Active Vicodin 5/325 1 tablet as needed Orally every 4 hrs Not-Taking TraZODone HCl 100 MG 1 tablet at bedtime Orally Once a day Active Protonix 40 MG 1 tab Orally Once a day Active Losartan Potassium 50 MG 1 tablet Orally Once a day for 30 day(s) Active Zoloft 100 MG 1 tablet Orally Once a day Active Calcium 600/Vitamin D 600-400 MG-UNIT 1 tablet with a meal Orall y Once a day Active BusPIRone HCl 10 mg 1 tablet Orally Twice a day Active Oxycodone HCl 10 MG 1 tablet as needed Orally ev cory 8 hrs as needed MDD 3 for 30 days Nov, Active Nitrofurantoin Monohyd Macro 100 MG 1 capsule with alex d Orally every 12 hrs for 7 day(s) Dec, Not-Taking Bystolic 10 MG 1 tablet Orally Once a day Not-Taking PROCEDURES No Information RESULTS No Results REASON FOR VISIT reminder MEDICAL (GENERAL) HISTORY Type Description Date Medical [...] Information ASSESSMENTS No Information PLAN OF TREATMENT Next Appt Details Provider Name:Junior Cardenas Dick, 2020-03-20 01:45:00 PM, [address] [place], [phone], Insurance Providers Payer Name Payer Address Payer Phone Insured Name Patient Relati onship to Insured Coverage Start Date Coverage End Date [employer] PPO [phone] [address] [employer] MEDICARE Part A and B [address] [facility] [phone] PRO REY
--- OUTSIDE RECORDS SUMMARY | 2020-04-20 15:14 | CCD ---
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 Role Phone Junior Jennings Unavailable PROBLEMS Type Condition ICD9-CM Code SCA20-WC Code Onset Dates Condition S tatus SNOMED Code Notes Problem Sacroiliitis M46.1 Active 32517077 Problem Myalgia, other site M79.18 Active 79346000 Problem Recurrent UTI (urinary tract infection) N39.0 Active 02428225 Problem Lumbosacral radiculopathy M54.17 Active 479122 7 Problem Low back pain at multiple sites M54.5 Active 617677651 ALLERGIES Allergen (clinical drug ingredient) Drug/Non Drug Allergy do cumented on EMR Reaction Allergy Type Onset Date Status Iodine([facility] Code:49709-56122) Hives Drug Allergy Active tizanidine Tizanidine HCl([facility] Code:[address]-33) Confusion Drug All ergy Active ENCOUNTERS from 1955 to 2020-02-19 Encounter Location Date Provider Diagnosis [facility] [address] [place] [phone] Jan, Junior Jennings Lumbosacral radiculopathy M54.17 IMMUNIZATIONS Vaccine [...] Unknown Language: Question Answer Notes Languages spoken: Andorran Latter-Day: Question Answer Notes Latter-Day 21 Presybeterian No moravian beliefs that would impact health care. Alcohol [...] 1 tablet Orally Once a day Active TraZODone HCl 100 MG 1 tablet at bedtime Orally Once a day Active Xarelto 20 MG 1 tablet with food Orally Once a day for 30 day(s) Active Protonix 40 MG 1 tab Orally Once a day Active Ondansetron 4 MG 1 tablet on the tongue and a llow to dissolve Orally daily as needed for nausea for 30 days Aug, Ac tive Femhrt 1/5 1-5 mg - mcg orally Daily Active Cyclobenzaprine HCl 5 MG 1 tablet Orally Three times a day Not-Taking Robaxin-750 750 MG 1/2 tablet Orally at night as needed for 30 d ays Mar, Active Oxycodone HCl 10 MG 1 tablet as needed Orally ev cory 8 hrs as needed MDD 3 for 30 days Jan, Active Vicodin 5/325 1 tablet as needed Orally every 4 hrs Not-Taking Nitrofurantoin Monohyd Macro 100 MG 1 capsule with alex d Orally every 12 hrs for 7 day(s) Dec, Not-Taking Losartan Potassium 50 MG 1 tablet Orally Once a day for 30 day(s) Active Potassium Chloride CR 10 meq orally Daily Not-Taking Calcium 600/Vitamin D 600-400 MG-UNIT 1 tablet with a meal Orall y Once a day Active BusPIRone HCl 10 mg 1 tablet Orally Twice a day Active ZyrTEC 10 MG 1 tablet as needed Orally Once a day Active Zoloft 100 MG 1 tablet Orally Once a day Active Bystolic 10 MG 1 tablet Orally Once a day Not-Taking PROCEDURES No Information RESULTS No Results REASON FOR VISIT refill Oxycodone MEDICAL (GENERAL) HISTORY Type Description Date Medical [...] No Information FUNCTIONAL STATUS No Information ASSESSMENTS Encounter Date Diagnosis Assessment Notes Treatment Notes Treatm ent Clinical Notes Jan, Lumbosacral radiculopathy (ICD-10 - M54.17) PLAN OF TREATMENT Medication Medication Name Sig Start Date Stop Date Oxycodone HCl 10 MG 1 tablet as needed Orally ev cory 8 hrs as needed MDD 3 for 30 days Jan, Next Appt Details Provider Name:Junior Cardenas Dick, 2020-03-20 01:45:00 PM, [address] [place], [phone], Insurance Providers Payer Name Payer Address Payer Phone Insured Name Patient Relati onship to Insured Coverage Start Date Coverage End Date MEDICARE Part A and B [facility] [address] [place] [phone] [employer] PPO [id number] [id number] [employer]
--- OUTSIDE RECORDS SUMMARY | 2020-04-20 15:14 | CCD ---
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 Role Phone Junior Jennings Unavailable PROBLEMS Type Condition ICD9-CM Code [id number] Code Onset Dates Condition S tatus SNOMED Code Notes Problem Sacroiliitis M46.1 Active 05915688 Problem Myalgia, other site M79.18 Active 33620316 Problem Recurrent UTI (urinary tract infection) N39.0 Active 20845055 Problem Lumbosacral radiculopathy M54.17 Active 976201 7 Problem Low back pain at multiple sites M54.5 Active 332771014 ALLERGIES Allergen (clinical drug ingredient) Drug/Non Drug Allergy do cumented on EMR Reaction Allergy Type Onset Date Status Iodine([facility] Code:56226-07321) Hives Drug Allergy Active tizanidine Tizanidine HCl([facility] Code:[address]-38) Confusion Drug All ergy Active ENCOUNTERS from 1955 to 2020-01-28 Encounter Location Date Provider Diagnosis [facility] [address] [place] [id number] Dec, Junior Jennings Lumbosacral radiculopathy M54.17 IMMUNIZATIONS Vaccine [...] Unknown Language: Question Answer Notes Languages spoken: Mexican Tenriism: Question Answer Notes Tenriism 21 Anglican No holiness beliefs that would impact health care. Alcohol [...] Notes Start Da te End Date Status Xarelto 20 MG 1 tablet with food Orally Once a day for 30 day(s) Active Bactrim DS 800-160 MG 1 tablet Orally Once a day Not-Taking Ondansetron 4 MG 1 tablet on the tongue and a llow to dissolve Orally daily as needed for nausea for 30 days Aug, Ac tive TraZODone HCl 100 MG 1 tablet at bedtime Orally Once a day Active Levothyroxine Sodium 50 MCG 1 tablet Orally Once a day Active Protonix 40 MG 1 tab Orally Once a day Active BusPIRone HCl 10 mg 1 tablet Orally Twice a day Active Femhrt 1/5 1-5 mg - mcg orally Daily Active Cyclobenzaprine HCl 5 MG 1 tablet Orally Three times a day Not-Taking Robaxin-750 750 MG 1/2 tablet Orally at night as needed for 30 d ays Mar, Active Calcium 600/Vitamin D 600-400 MG-UNIT 1 tablet with a meal Orall y Once a day Active Vicodin 5/325 1 tablet as needed Orally every 4 hrs Not-Taking Nitrofurantoin Monohyd Macro 100 MG 1 capsule with alex d Orally every 12 hrs for 7 day(s) Dec, Not-Taking Bystolic 10 MG 1 tablet Orally Once a day Not-Taking Potassium Chloride CR 10 meq orally Daily Not-Taking Losartan Potassium 50 MG 1 tablet Orally Once a day for 30 day(s) Active Oxycodone HCl 10 MG 1 tablet as needed Orally ev cory 8 hrs as needed MDD 3 for 30 days Dec, Active ZyrTEC 10 MG 1 tablet as needed Orally Once a day Active Zoloft 100 MG 1 tablet Orally Once a day Active Metoprolol Succinate ER 200 MG 1 tablet Orally Once a day Active PROCEDURES No Information RESULTS No Results REASON FOR VISIT refill Oxycodone IR MEDICAL (GENERAL) HISTORY Type Description Date Medical [...] BACK OF HEAD 05/2018 Surgical History EGD 2019 Surgical History Right Cataract 10/2018 Hospitalization History surgicaly related Goals Section No Information Health Concerns No Information MEDICAL EQUIPMENT No Information MENTAL STATUS No Information FUNCTIONAL STATUS No Information ASSESSMENTS Encounter Date Diagnosis Assessment Notes Treatment Notes Treatm ent Clinical Notes Dec, Lumbosacral radiculopathy (ICD-10 - M54.17) PLAN OF TREATMENT Medication Medication Name Sig Start Date Stop Date Oxycodone HCl 10 MG 1 tablet as needed Orally ev cory 8 hrs as needed MDD 3 for 30 days Dec, Next Appt Details Provider Name:Junior Cardenas Dick, 2020-03-20 01:45:00 PM, [address] [place], [address], Insurance Providers Payer Name Payer Address Payer Phone Insured Name Patient Relati onship to Insured Coverage Start Date Coverage End Date [employer] PPO [phone] [address] [employer] MEDICARE Part A and B [facility] [address] [place] [phone] [employer]
--- OUTSIDE RECORDS SUMMARY | 2020-04-20 15:14 | CCD | Continuity of Care Document ---
Author Author Renetta ORDONEZ D.O. Organization Unknown Address [address] [place] [id number] Phone [phone] Problems Active Problems Provider Date Menopausal and postmenopausal disorders Morena Robb, FAAALINA Onset: 04/02/2008 Anxiety state Zhang Ordonez D.O. FAAFP Onset: 05/2008 Depressive disorder Zhang Ordonez D.O., FAAFP Onset: 04/27 Diverticular disease of colon Zhang Ordonez D.O. FAAFP O nset: 08/27/2008 Hypo-osmolality and or hyponatremia Zhang Ordonez D.O., F AAFP Onset: 12/17/2009 Hematuria syndrome Zhang Ordonez D.O. FAAFP Onset: 08/28 Idiopathic osteoporosis Zhang Ordonez D.O., FAAFP Onset: 09/23/2010 Female climacteric state Zhang Ordonez D.O., FAAFP Onset: 08/03/2012 Benign essential hypertension Zhang Ordonez D.O. FAAFP O nset: 06/27/2013 Paroxysmal atrial fibrillation Zhang Ordonez D.O., FAAFP Onset: 06/13/2017 Chronic back pain Zhang Ordonez D.O., FAAFP Onset: 10/2019 Note: FOLLOWED BY [...] as needed 1units E16.2 Zhang Ordonez D.O., [facility] 05/09/2019 Blood Glucose Test Strips Premium Strips test blood sugar twice daily and as needed for low blood sugar 100units E16.2 Zhang Ordonez D.O., [facility] 05/09/2019 Lancets 28G 28G Misc use twice daily and as needed to test blood sugars. 100units E16.2 Zhang [facility]z D.O., [facility] 05/09/2019 Levothyroxine Sodium 50mcg Tablets take 1 tablet by mouth every day. maximum daily dose is 1. maximum daily dose is 1 90tabs Zhang Ordonez D.O., [facility] 11/09/2018 Sertraline HCL 100mg Tablets take 1 and 1/2 tablet by mouth every day 135tabs Bernadette Robb., [facility] 04/23/2018 Pantoprazole Sodium 40mg Tablets D R take 1 tablet by mouth every day. 90tabs Zhang Ordonez D.O. , [facility] 12/05/2017 Clobetasol Propionate 0.05% Soluti on apply topically twice a day x 7 days for scalp 50ml Zhang Ordonez D.O., [facility] 06/13/2017 Prevnar 13 Suspension as dir ected qs Zhang Ordonez D.O., [facility]FP 02/16/2017 Ondansetron 4mg Tablets Dispers dissolve 1 tablet on the tongue every 8 hours as needed for nausea 15tabs Zhnag Ordonez D.O., FAAFP 01/06/2017 Buspirone HCL 10mg Tablets take 1 tablet by mouth tid 180tabs Zhang Or[facility]z D.O., [facility] Trazodone HCL 100mg Tablets take 1 tablet by mouth every day at bedtime 30tabs Bernadette Robb, FAAFP 12/15/2011 Oscal Vit D 600 Tablets 1 po bid Zhang Ordonez D.O., [facility] 06/24/2010 Vit D 5000 Capsules 1 po Suzanna ly Zhang Ordonez D.O., [facility] 06/24/2010 Femhrt 1/5 1-5mg-mcg Tablets Unknown Xarelto 20mg Tablets 1 by mouth every day 56tabs Zhang Ordonez D.O., [facility] Cetirizine HCL 10mg Tablets 1 by mouth [...] Date Injection (SC)/(Im) Injection Zhang Ordonez D.O., [facility] 11/22/2012 Injection (SC)/(Im) Injection Zhang Ordonez D.O., [facility] 11/10/2011 Immunizations CPT Code Status Date Vaccine Lot # [id number] Given 12/05/2019 Influenza Virus Vaccine, Quadrivalent, Slit Virus, Im Use 3Y & Up [id number] 86892 Given 01/17/2019 Influenza Virus Vaccine, Quadrivalent, Slit Virus, Im Use 3Y & Up [id number] 40961 Given 12/28/2017 Influenza Virus Vaccine, Quadrivalent, Slit Virus, Im Use 3Y & Up [id number] 85859 Given 11/17/2016 Influenza Virus Vaccine, Quadrivalent, Slit Virus, Im Use 3Y & Up 81396 Given 03/30/2016 Pneumococcal Immunization M0 [id number] 42235 Given 12/24/2015 Influenza Virus Vaccine, Quadrivalent, Slit Virus, Im Use 3Y & Up [id number] 43338 Given 12/17/2014 Influenza Virus Vac. Split Virus Individuals 3 Years And Above [id number] 16998 Given 01/14/2014 Influenza Virus Vac. Split Virus Individuals 3 Years And Above [id number] 04813 Given 11/22/2012 Influenza Virus Vac. Split Virus Individuals 3 Years And Above [id number] 00158 Given 11/10/2011 Influenza Virus Vac. Split Virus Individuals 3 Years And Above [id number] Vital Signs Date Vital Result Comment 03/12/2020 2:44pm BP Systolic 126 mmHg BP Diastolic 70 mmHg Body Temperature 98.3 F Heart Rate 82 /min Respiratory Rate 16 /min Height 64 inches 5'4" Weight 152.00 lb [place] Body Weight 120 lb BMI (Body Mass Index) 26.1 kg/m2 O2 % BldC Oximetry 98 % 12/05/2019 1:03pm BP Systolic 128 mmHg BP Diastolic 76 mmHg Body Temperature 97.2 F Heart Rate 72 /min Respiratory Rate 16 /min Height 64 inches 5'4" Weight 148.00 lb [place] Body Weight 120 lb BMI (Body Mass Index) 25.4 kg/m2 O2 % BldC Oximetry 97 % Results Test Acquired Date Facility Test Result H/L Range Note U/A DIP FPA 03/12/2020 [facility] Asso ciates Color Urine YELLOW Yellow Appearance CLEAR Clear Specific Freedom 1.025 1.00-1.03 PH Urine 6.0 5.0-8.0 Glucose [...] eGFR 89 # Calc 2 eGFR Non-Afr. Romanian 77 # Calc 3 Lipid Panel 03/12/2020 [facility] Chol 160 mg/dL 0 - 200 Trig 42 mg/dL 40 - 200 HDL 93 mg/dL High 45 - 65 LDL_C 58 Calc Low 75 - 129 Cho/HDL Ratio 1.7 CALC Laboratory test finding 03/12/2020 [facility] TSH <pending> CBC 12/05/2019 [facility] WBC 3.6 10E3/uL Low [...] eGFR 105 # Calc 5 eGFR Non-Afr. Romanian 91 # Calc 6 Laboratory test finding [...] HCT IS 5% LESS SOURCE FOR DATA: [place] 1800 OPERATION MANUAL( AUTOMATED BLOOD COUNTS AND [...] HCT IS 5% LESS SOURCE FOR DATA: [place] 1800 OPERATION MANUAL( AUTOMATED BLOOD COUNTS AND [...] Provider Dx Diagnosis Office Visit 03/12/2020 2:30p [facility] Keyshawn Robb, FAAFP I10 Essential (primary) hypertension I48.20 Chronic atrial fibrillation, unspecified E87.1 Hypo-osmolality and hyponatr emia K21.9 Gastro-esophageal reflux dis ease without esophagitis F32.89 Other specified depressive e pisodes F41.9 Anxiety disorder, unspecifie d E03.9 Hypothyroidism, unspecified Office Visit 12/05/2019 1:00p [facility] Keyshawn Robb, FAAFP I10 Essential (primary) hypertension I48.20 Chronic atrial fibrillation, unspecified E87.1 Hypo-osmolality and hyponatr emia K21.9 Gastro-esophageal reflux dis ease without esophagitis Z23 Encounter for immunization Assessments Date Code Description Provider 03/12/2020 I10 Essential (primary) hypertension Zhang Ordonez D.O., [facility] 03/12/2020 I48.20 Chronic atrial fibrillation, uns pecified Zhang [facility]z D.O., [facility] 03/12/2020 E87.1 Hypo-osmolality and hyponatremia Zhang Ordonez D.O., [facility] 03/12/2020 K21.9 Gastro-esophageal reflux disease without esophagitis Zhang Ordonez D.O., [facility]FP 03/12/2020 F32.89 Other specified depressive episo benny Zhang Ordonez D.O., FAAFP 03/12/2020 F41.9 Anxiety disorder, unspecified Braulio Ordonez D.O., [facility] 03/12/2020 E03.9 Hypothyroidism, unspecified Jayden Ordonez D.O., FAAFP 12/05/2019 I10 Essential (primary) hypertension Zhang Ordonez D.O., FAAFP 12/05/2019 I48.20 Chronic atrial fibrillation, uns pecified Zhang Ordonez D.O., [facility] 12/05/2019 E87.1 Hypo-osmolality and hyponatremia Zhang Ordonez D.O., [facility] 12/05/2019 K21.9 Gastro-esophageal reflux disease without esophagitis Zhang Ordonez D.O., [facility] 12/05/2019 Z23 Encounter for immunization Fahad Ordonez D.O., [facility] Plan of Treatment Future Appointment(s):* 06/25/2020 1:15 pm - Zhang Ordonez D.O., FAAFP at [facility] Functional Status Description No Information Available Mental Status Description No Information Available Referrals Refer to Reason for Referral Status Appt Date Lauro Sandoval M.D. PLEASE EVAL CHRONIC BACK PA IN FOLOWED BY PAIN CLINIC PT HAS BEEN EVALUATED BY OUTSIDE PRACTICE WANTS TO DISCUSS MILD PROCEDURE SHE WILL BRING HER MRI OF BACK TO VISIT Created [facility] [address] [place] [id number] [phone]
--- OUTSIDE RECORDS SUMMARY | 2020-04-20 15:15 | CCD ---
Author Author [facility] Organization [facility] Address Unknown Phone Unavailable Care Team Providers Care Straightedge Worker Name Role Phone Lamin DANGELO MD Unavailable Unavailable Lamin DANGELO MD Unavailable Unavailable Lamin DANGELO MD Unavailable Unavailable Lamin DANGELO MD Unavailable Unavailable Lamin DANGELO MD Unavailable Unavailable Lamin DANGELO MD Unavailable Unavailable Lamin DANGELO MD Unavailable Unavailable Lamin DANGELO MD Unavailable Unavailable Lamin DANGELO MD Unavailable Unavailable Lamin DANGELO MD Unavailable Unavailable Lamin DANGELO MD Unavailable Unavailable DANGELOLamin MD Unavailable Unavailable DANGELOLamin MD Unavailable Unavailable ANTOLIN L VIELKA KAUR Unavailable Unavailable DANGELOLamin JARA MD Unavailable Unavailable Lamin DANGELO MD Unavailable Unavailable Lamin DANGELO MD Unavailable Unavailable Lamin DANGELO MD Unavailable Unavailable Lamin DANGELO MD Unavailable Unavailable Lamin DANGELO MD Unavailable Unavailable Lamin DANGELO MD Unavailable Unavailable Lamin DANGELO MD Unavailable Unavailable Lamin DANGELO MD Unavailable Unavailable Lamin DANGELO MD Unavailable Unavailable Lamin DANGELO MD Unavailable Unavailable Lamin DANGELO MD Unavailable Unavailable Lamin DANGELO MD Unavailable Unavailable Lamin DANGELO MD Unavailable Unavailable Lamin DANGELO MD Unavailable Unavailable Lamin DANGELO MD Unavailable Unavailable Lamin DANGELO MD Unavailable Unavailable Lamin DANGELO MD Unavailable Unavailable Lamin DANGELO MD Unavailable Unavailable Lamin DANGELO MD Unavailable Unavailable Lamin DANGELO MD Unavailable Unavailable Lamin DANGELO MD Unavailable Unavailable Lamin DANGELO MD Unavailable Unavailable Lamin DANGELO MD Unavailable Unavailable Lamin DANGELO MD Unavailable Unavailable Lamin DANGELO MD Unavailable Unavailable Lamin DANGELO MD Unavailable Unavailable Lamin DANGELO MD Unavailable Unavailable Lamin DANGELO MD Unavailable Unavailable BENNETT FARMER MD Unavailable Unavailable BENNETT FARMER MD Unavailable Unavailable BENNETT FARMER MD Unavailable Unavailable BENNETT FARMER MD Unavailable Unavailable BENNETT FARMER MD Unavailable Unavailable BENNETT FARMER MD Unavailable Unavailable BENNETT FARMER MD Unavailable Unavailable BENNETT FARMER MD Unavailable Unavailable BENNETT FARMER MD Unavailable Unavailable BENNETT FARMER MD Unavailable Unavailable BENNETT FARMER MD Unavailable Unavailable BENNETT FARMER MD Unavailable Unavailable BENNETT FARMER MD Unavailable Unavailable BENNETT FARMER MD Unavailable Unavailable BENNETT FARMER MD Unavailable Unavailable BENNETT FARMER MD Unavailable Unavailable BENNETT FARMER MD Unavailable Unavailable BENNETT FARMER MD Unavailable Unavailable BENNETT FARMER MD Unavailable Unavailable BENNETT FARMER MD Unavailable Unavailable BENNETT FARMER MD Unavailable Unavailable BENNETT FARMER MD Unavailable Unavailable BENNETT FARMER MD Unavailable Unavailable BENNETT FARMER MD Unavailable Unavailable BENNETT FARMER MD Unavailable Unavailable BENNETT FARMER MD Unavailable Unavailable BENNETT FARMER MD Unavailable Unavailable BENNETT FARMER MD Unavailable Unavailable BENNETT FARMER MD Unavailable Unavailable BENNETT FARMER MD Unavailable Unavailable BENNETT FARMER MD Unavailable Unavailable BENNETT FARMER MD Unavailable Unavailable BENNETT FARMER MD Unavailable Unavailable BENNETT FARMER MD Unavailable Unavailable BENNETT FARMER MD Unavailable Unavailable BENNETT FARMER MD Unavailable Unavailable BENNETT FARMER MD Unavailable Unavailable BENNETT FARMER MD Unavailable Unavailable BENNETT FARMER MD Unavailable Unavailable BENNETT FARMER MD Unavailable Unavailable BENNETT FARMER MD Unavailable Unavailable BENNETT FARMER MD Unavailable Unavailable BENNETT FARMER MD Unavailable Unavailable BENNETT FARMER MD Unavailable Unavailable BENNETT FARMER MD Unavailable Unavailable BENNETT FARMER MD Unavailable Unavailable BENNETT FARMER MD Unavailable Unavailable BENNETT FARMER MD Unavailable Unavailable BENNETT FARMER MD Unavailable Unavailable BENNETT FARMER MD Unavailable Unavailable BENNETT FARMER MD Unavailable Unavailable BENNETT FARMER MD Unavailable Unavailable BENNETT FARMER MD Unavailable Unavailable BENNETT FARMER MD Unavailable Unavailable BENNETT FARMER MD Unavailable Unavailable BENNETT FARMER MD Unavailable Unavailable BENNETT FARMER MD Unavailable Unavailable BENNETT FARMER MD Unavailable Unavailable BENNETT FARMER MD Unavailable Unavailable BENNETT FARMER MD Unavailable Unavailable BENNETT FARMER MD Unavailable Unavailable BENNETT FARMER MD Unavailable Unavailable BENNETT FARMER MD Unavailable Unavailable BENNETT FARMER MD Unavailable Unavailable BENNETT FARMER MD Unavailable Unavailable BENNETT FARMER MD Unavailable Unavailable BENNETT FARMER MD Unavailable Unavailable BENNETT FARMER MD Unavailable Unavailable BENNETT FARMER MD Unavailable Unavailable BENNETT FARMER MD Unavailable Unavailable BENNETT FARMER MD Unavailable Unavailable BENNETT FARMER MD Unavailable Unavailable BENNETT FARMER MD Unavailable Unavailable BENNETT FARMER MD Unavailable Unavailable Fish, J Zhang Unavailable Unavailable Fish, J Zhang Unavailable Unavailable Fish, J Zhang Unavailable Unavailable Fish, J Zhang Unavailable Unavailable Fish, J Zhang Unavailable Unavailable Fish, J Zhang Unavailable Unavailable Fish, J Zhang Unavailable Unavailable Fish, J Zhang Unavailable Unavailable Fish, J Zhang Unavailable Unavailable Fish, J Zhang Unavailable Unavailable Fish, J Zhang Unavailable Unavailable Fish, J Zhang Unavailable Unavailable Fish, J Zhang Unavailable Unavailable Fish, J Zhang Unavailable Unavailable Fish, J Zhang Unavailable Unavailable Fish, J Zhang Unavailable Unavailable Fish, J Zhang Unavailable Unavailable Fish, J Zhang Unavailable Unavailable Fish, J Zhang Unavailable Unavailable Fish, J Zhang Unavailable Unavailable Fish, J Zhang Unavailable Unavailable Fish, J Zhang Unavailable Unavailable Fish, J Zhang Unavailable Unavailable Fish, J Zhang Unavailable Unavailable Fish, J Zhang Unavailable Unavailable Fish, J Zhang Unavailable Unavailable Fish, J Zhang Unavailable Unavailable Fish, J Zhang Unavailable Unavailable Fish, J Zhang Unavailable Unavailable Fish, J Zhang Unavailable Unavailable Fish, J Zhang Unavailable Unavailable Fish, J Zhang Unavailable Unavailable Fish, J Zhang Unavailable Unavailable Fish, J Zhang Unavailable Unavailable Fish, J Zhang Unavailable Unavailable Fish, J Zhang Unavailable Unavailable Fish, J Zhang Unavailable Unavailable Fish, J Zhang Unavailable Unavailable Fish, J Zhang Unavailable Unavailable Fish, J Zhang Unavailable Unavailable Fish, J Zhang Unavailable Unavailable Fish, J Zhang Unavailable Unavailable Fish, J Zhang Unavailable Unavailable Fish, J Zhang Unavailable Unavailable Fish, J Zhang Unavailable Unavailable Fish, J Zhagn Unavailable Unavailable Fish, J Zhang Unavailable Unavailable Fish, J Zhang Unavailable Unavailable Fish, J Zhang Unavailable Unavailable Fish, J Zhang Unavailable Unavailable Fish, J Zhang Unavailable Unavailable Fish, J Zhang Unavailable Unavailable Fish, J Zhang Unavailable Unavailable Fish, J Zhang Unavailable Unavailable Fish, J Zhang Unavailable Unavailable Fish, J Zhang Unavailable Unavailable Fish, J Zhang Unavailable Unavailable Fish, J Zhang Unavailable Unavailable Fish, J Zhang Unavailable Unavailable Fish, J Zhang Unavailable Unavailable Fish, J Zhang Unavailable Unavailable Fish, J Zhang Unavailable Unavailable Fish, J Zhang Unavailable Unavailable Fish, J Zhang Unavailable Unavailable Fish, J Zhang Unavailable Unavailable Fish, J Zhang Unavailable Unavailable Fish, J Zhang Unavailable Unavailable Fish, J Zhang Unavailable Unavailable Fish, J Zhang Unavailable Unavailable Fish, J Zhang Unavailable Unavailable Fish, J Zhang Unavailable Unavailable Fish, J Zhang Unavailable Unavailable Fish, J Zhang Unavailable Unavailable Fish, J Zhang Unavailable Unavailable Fish, J Zhang Unavailable Unavailable Fish, J Zhang Unavailable Unavailable Fish, J Zhang Unavailable Unavailable Fish, J Zhang Unavailable Unavailable Fish, J Zhang Unavailable Unavailable Fish, J Zhang Unavailable Unavailable Fish, J Zhang Unavailable Unavailable Fish, J Zhang Unavailable Unavailable Fish, J Zhang Unavailable Unavailable Fish, J Zhang Unavailable Unavailable Fish, J Zhang Unavailable Unavailable DICK, LUZ DAVISER Unavailable Unavailable WILLIANMookie MD Unavailable Unavailable WILLIANMookie MD Unavailable Unavailable WILLIANMookie MD Unavailable Unavailable WILLIANMookie MD Unavailable Unavailable WILLIANMookie MD Unavailable Unavailable WILLIANMookie MD Unavailable Unavailable WILLIANMookie MD Unavailable Unavailable WILLIANMookie MD Unavailable Unavailable WILLIANMookie MD Unavailable Unavailable WILLIANMookie MD Unavailable Unavailable WILLIANMookie MD Unavailable Unavailable WILLIANMookie MD Unavailable Unavailable WILLIANMookie MD Unavailable Unavailable WILLIANMookie MD Unavailable Unavailable WILLIANMookie MD Unavailable Unavailable WILLIANMookie MD Unavailable Unavailable WILLIANMookie MD Unavailable Unavailable WILLIANMookie MD Unavailable Unavailable WILLIANMookie MD Unavailable Unavailable WILLIANMookie MD Unavailable Unavailable WILLIANMookie MD Unavailable Unavailable WILLIANMookie MD Unavailable Unavailable WILLIANMookie MD Unavailable Unavailable WILLIANMookie MD Unavailable Unavailable WILLIANMookie MD Unavailable Unavailable WILLIANMookie MD Unavailable Unavailable WILLIANMookie MD Unavailable Unavailable WILLIANMookie MD Unavailable Unavailable WILLIANMookie MD Unavailable Unavailable WILLIANMookie MD Unavailable Unavailable WILLIANMookie MD Unavailable Unavailable WILLIANMookie MD Unavailable Unavailable WILLIANMookie MD Unavailable Unavailable WILLIANMookie MD Unavailable Unavailable WILLIANMookie MD Unavailable Unavailable WILLIANMookie MD Unavailable Unavailable WILLIANMookie MD Unavailable Unavailable WILLIANMookie MD Unavailable Unavailable WILLIANMookie MD Unavailable Unavailable WILLIANMookie MD Unavailable Unavailable WILLIANMookie MD Unavailable Unavailable WILLIANMookie MD Unavailable Unavailable WILLIANMookie MD Unavailable Unavailable WILLIANMookie MD Unavailable Unavailable WILLIANMookie MD Unavailable Unavailable WILLIANMookie MD Unavailable Unavailable WILLIANMookie MD Unavailable Unavailable WILLIAN, Mookie YOU MD Unavailable Unavailable WILLIAN, Mookie YOU MD Unavailable Unavailable WILLIAN, Mookie YOU MD Unavailable Unavailable WILLIAN, Mookie YOU MD Unavailable Unavailable WILLIAN, Mookie YOU MD Unavailable Unavailable WILLIAN, Mookie YOU MD Unavailable Unavailable WILLIAN, Mookie YOU MD Unavailable Unavailable WILLIAN, Mookie YOU MD Unavailable Unavailable WILLIAN, Mookie YOU MD Unavailable Unavailable WILLIAN, Mookie YOU MD Unavailable Unavailable WILLIAN, Mookie YOU MD Unavailable Unavailable WILLIAN, Mookie YOU MD Unavailable Unavailable WILLIAN, Mookie YOU MD Unavailable Unavailable WILLIAN, Mookie YOU MD Unavailable Unavailable WILLIAN, Mookie YOU MD Unavailable Unavailable WILLIAN, Mookie YOU MD Unavailable Unavailable WILLIAN, Mookie YOU MD Unavailable Unavailable WILLIAN, Mookie YOU MD Unavailable Unavailable WILLIAN, Mookie YOU MD Unavailable Unavailable WILLIAN, Mookie YOU MD Unavailable Unavailable WILLIAN, Mooike YOU MD Unavailable Unavailable WILLIAN, Mookie YOU MD Unavailable Unavailable WILLIAN, Mookie YOU MD Unavailable Unavailable WILLIAN, Mookie YOU MD Unavailable Unavailable WILLIAN, Mookie YOU MD Unavailable Unavailable WILLIAN, Mookie YOU MD Unavailable Unavailable WILLIAN, Mookie YOU MD Unavailable Unavailable WILLIAN, Mookie YOU MD Unavailable Unavailable WILLIAN, Mookie YOU MD Unavailable Unavailable WILLIAN, Mookie YOU MD Unavailable Unavailable WILLIAN, Mookie YOU MD Unavailable Unavailable WILLIAN, Mookie YOU MD Unavailable Unavailable WILLIAN, Mookie YOU MD Unavailable Unavailable WILLIAN, Mookie YOU MD Unavailable Unavailable WILLIAN, Mookie YOU MD Unavailable Unavailable WILLIAN, Mookie YOU MD Unavailable Unavailable WILLIAN, Mookie YOU MD Unavailable Unavailable WILLIAN, Mookie YOU MD Unavailable Unavailable WILLIAN, Mookie YOU MD Unavailable Unavailable WILLIAN, Mookie YOU MD Unavailable Unavailable WILLIAN, Mookie YOU MD Unavailable Unavailable WILLIAN, Mookie YOU MD Unavailable Unavailable WILLIAN, Mookie YOU MD Unavailable Unavailable WILLIAN, Mookie YOU MD Unavailable Unavailable Lamin DANGELO MD Unavailable Unavailable Lamin DANGELO MD Unavailable Unavailable Lamin DANGELO MD Unavailable Unavailable Lamin DANGELO MD Unavailable Unavailable Lamin DANGELO MD Unavailable Unavailable Lamin DANGELO MD Unavailable Unavailable DANGELO, L VIELKA KAUR Unavailable Unavailable DANGELO, L VIELKA KAUR Unavailable Unavailable DANGELO, L VIELKA KAUR Unavailable Unavailable DANGELO, L VIELKA KAUR Unavailable Unavailable DANGELO, L VIELKA KAUR Unavailable Unavailable DANGELO, L VIELKA KAUR Unavailable Unavailable DANGELO, L VIELKA KAUR Unavailable Unavailable DANGELO, L VIELKA KAUR Unavailable Unavailable DANGELO, L VIELKA KAUR Unavailable Unavailable DANGELO, L VIELKA KAUR Unavailable Unavailable DANGELO, L VIELKA KAUR Unavailable Unavailable DANGELO, L VIELKA KAUR Unavailable Unavailable DANGELO, L VIELKA KAUR Unavailable Unavailable DANGELO, L VIELKA KAUR Unavailable Unavailable DANGELO, L VIELKA KAUR Unavailable Unavailable DANGELO, L VIELKA KAUR Unavailable Unavailable DANGELO, L VIELKA KAUR Unavailable Unavailable DANGELO, L VIELKA KAUR Unavailable Unavailable DANGELO, L VIELKA KAUR Unavailable Unavailable DANGELO, L VIELKA KAUR Unavailable Unavailable DANGLEO, L VIELKA KAUR Unavailable Unavailable DANGELO, L VIELKA KAUR Unavailable Unavailable DANGELO, L VIELKA KAUR Unavailable Unavailable DANGELO, L VIELKA KAUR Unavailable Unavailable DANGELO, L VIELKA KAUR Unavailable Unavailable DANGELO, L VIELKA KAUR Unavailable Unavailable DANGELO, L VIELKA KAUR Unavailable Unavailable DANGELO, L VIELKA KAUR Unavailable Unavailable DANGELO, L VIELKA KAUR Unavailable Unavailable DANGELO, L VIELKA KAUR Unavailable Unavailable DANGELO, L VIELKA KAUR Unavailable Unavailable DANGELO, L VIELKA KAUR Unavailable Unavailable DANGELO, L VIELKA KAUR Unavailable Unavailable DANGELO, L VIELKA KAUR Unavailable Unavailable DANGELO, L VIELKA KAUR Unavailable Unavailable DANGELO, L VIELKA KAUR Unavailable Unavailable DANGELO, L VIELKA KAUR Unavailable Unavailable Yonatan Hernandez MD Unavailable Unavailable Yonatan Hernandez MD Unavailable Unavailable Yonatan Hernandez MD Unavailable Unavailable Yonatan Hernandez MD Unavailable Unavailable Yonatan Hernandez MD Unavailable Unavailable Yonatan Hernandez MD Unavailable Unavailable Yonatan Hernandez MD Unavailable Unavailable Yonatan Hernandez MD Unavailable Unavailable Yonatan Hernandez MD Unavailable Unavailable Yonatan Hernandez MD Unavailable Unavailable Yonatan Hernandez MD Unavailable Unavailable Yonatan Hernandez MD Unavailable Unavailable Yonatan Hernandez MD Unavailable Unavailable Yonatan Hernandez MD Unavailable Unavailable Yonatan Hernandez MD Unavailable Unavailable Yonatan Hernandez MD Unavailable Unavailable Yonatan Hernandez MD Unavailable Unavailable Yonatan Hernandez MD Unavailable Unavailable Yonatan Hernandez MD Unavailable Unavailable Yonatan Hernandez MD Unavailable Unavailable David, Noaman MD Unavailable Unavailable David, Noaman MD Unavailable Unavailable David, Noaman MD Unavailable Unavailable David, Noaman MD Unavailable Unavailable David, Noaman MD Unavailable Unavailable David, Noaman MD Unavailable Unavailable David, Noaman MD Unavailable Unavailable David, Noaman MD Unavailable Unavailable David, Noaman MD Unavailable Unavailable David, Noaman MD Unavailable Unavailable Fish, J Zhang Unavailable Unavailable Fish, J Zhang Unavailable Unavailable Fish, J Zhang Unavailable Unavailable Fish, J Zhang Unavailable Unavailable Fish, J Zhang Unavailable Unavailable Fish, J Zhang Unavailable Unavailable Fish, J Zhang Unavailable Unavailable Fish, J Zhang Unavailable Unavailable Fish, J Zhang Unavailable Unavailable Fish, J Zhang Unavailable Unavailable Fish, J Zhang Unavailable Unavailable Fish, J Zhang Unavailable Unavailable Fish, J Zhang Unavailable Unavailable Fish, J Zhang Unavailable Unavailable Fish, J Zhang Unavailable Unavailable Fish, J Zhang Unavailable Unavailable Fish, J Zhang Unavailable Unavailable Fish, J Zhang Unavailable Unavailable Fish, J Zhang Unavailable Unavailable Fish, J Zhang Unavailable Unavailable Fish, J Zhang Unavailable Unavailable Fish, J Zhang Unavailable Unavailable Fish, J Zhang Unavailable Unavailable Fish, J Zhang Unavailable Unavailable Fish, J Zhang Unavailable Unavailable Fish, J Zhang Unavailable Unavailable Fish, J Zhang Unavailable Unavailable Fish, J Zhang Unavailable Unavailable Fish, J Zhang Unavailable Unavailable Fish, J Zhang Unavailable Unavailable Fish, J Zhang Unavailable Unavailable Fish, J Zhang Unavailable Unavailable Fish, J Zhang Unavailable Unavailable Fish, J Zhang Unavailable Unavailable Fish, J Zhang Unavailable Unavailable Fish, J Zhang Unavailable Unavailable Fish, J Zhang Unavailable Unavailable Fish, J Zhang Unavailable Unavailable Fish, J Zhang Unavailable Unavailable Fish, J Zhang Unavailable Unavailable Fish, J Zhang Unavailable Unavailable Fish, J Zhang Unavailable Unavailable Fish, J Zhang Unavailable Unavailable Fish, J Zhang Unavailable Unavailable Fish, J Zhang Unavailable Unavailable Fish, J Zhang Unavailable Unavailable Fish, J Zhang Unavailable Unavailable Fish, J Zhang Unavailable Unavailable Fish, J Zhang Unavailable Unavailable Fish, J Zhang Unavailable Unavailable Fish, J Zhang Unavailable Unavailable Fish, J Zhang Unavailable Unavailable Fish, J Zhang Unavailable Unavailable Fish, J Zhang Unavailable Unavailable Fish, J Zhang Unavailable Unavailable Fish, J Zhang Unavailable Unavailable Fish, J Zhang Unavailable Unavailable Fish, J Zhang Unavailable Unavailable Fish, J Zhang Unavailable Unavailable Fish, J Zhang Unavailable Unavailable Fish, J Zhang Unavailable Unavailable Fish, J Zhang Unavailable Unavailable Fish, J Zhang Unavailable Unavailable Fish, J Zhang Unavailable Unavailable Fish, J Zhang Unavailable Unavailable Fish, J Zhang Unavailable Unavailable Fish, J Zhang Unavailable Unavailable Fish, J Zhang Unavailable Unavailable Fish, J Zhang Unavailable Unavailable Fish, J Zhang Unavailable Unavailable Fish, J Zhang Unavailable Unavailable Fish, J Zhang Unavailable Unavailable Fish, J Zhang Unavailable Unavailable Fish, J Zhang Unavailable Unavailable Fish, J Zhang Unavailable Unavailable Fish, J Zhang Unavailable Unavailable Fish, J Zhang Unavailable Unavailable Fish, J Zhang Unavailable Unavailable Fish, J Zhang Unavailable Unavailable Fish, J Zhang Unavailable Unavailable Fish, J Zhang Unavailable Unavailable Fish, J Zhang Unavailable Unavailable Fish, J Zhang Unavailable Unavailable Fish, J Zhang Unavailable Unavailable Fish, J Zhang Unavailable Unavailable Fish, J Zhang Unavailable Unavailable Fish, J Zhang Unavailable Unavailable Fish, J Zhang Unavailable Unavailable Fish, J Zhang Unavailable Unavailable Fish, J Zhang Unavailable Unavailable Fish, J Zhang Unavailable Unavailable Fish, J Zhang Unavailable Unavailable Fish, J Zhang Unavailable Unavailable Fish, J Zhang Unavailable Unavailable Fish, J Zhang Unavailable Unavailable Fish, J Zhang Unavailable Unavailable Fish, J Zhang Unavailable Unavailable Fish, J Zhang Unavailable Unavailable Fish, J Zhang Unavailable Unavailable Fish, J Zhang Unavailable Unavailable Fish, J Zhang Unavailable Unavailable Fish, J Zhang Unavailable Unavailable Fish, J Zhang Unavailable Unavailable Fish, J Zhang Unavailable Unavailable Fish, J Zhang Unavailable Unavailable Fish, J Zhang Unavailable Unavailable Fish, J Zhang Unavailable Unavailable Fish, J Zhang Unavailable Unavailable Fish, J Zhang Unavailable Unavailable Fish, J Zhang Unavailable Unavailable Fish, J Zhang Unavailable Unavailable Fish, J Zhang Unavailable Unavailable Fish, J Zhang Unavailable Unavailable Fish, J Zhang Unavailable Unavailable Fish, J Zhang Unavailable Unavailable Fish, J Zhang Unavailable Unavailable Fish, J Zhang Unavailable Unavailable Fish, J Zhang Unavailable Unavailable Fish, J Zhang Unavailable Unavailable Fish, J Zhang Unavailable Unavailable Fish, J Zhang Unavailable Unavailable Fish, J Zhang Unavailable Unavailable Fish, J Zhang Unavailable Unavailable Fish, J Zhang Unavailable Unavailable Fish, J Zhang Unavailable Unavailable Fish, J Zhang Unavailable Unavailable Fish, J Zhang Unavailable Unavailable Fish, J Zhang Unavailable Unavailable Fish, J Zhang Unavailable Unavailable Fish, J Zhang Unavailable Unavailable Fish, J Zhang Unavailable Unavailable Fish, J Zhang Unavailable Unavailable Fish, J Zhang Unavailable Unavailable Fish, J Zhang Unavailable Unavailable Fish, J Zhang Unavailable Unavailable Fish, J Zhang Unavailable Unavailable Fish, J Zhang Unavailable Unavailable Fish, J Zhang Unavailable Unavailable Fish, J Zhang Unavailable Unavailable Fish, J Zhang Unavailable Unavailable Fish, J Zhang Unavailable Unavailable Fish, J Zhang Unavailable Unavailable Fish, J Zhang Unavailable Unavailable Fish, J Zhang Unavailable Unavailable Fish, J Zhang Unavailable Unavailable Fish, J Zhang Unavailable Unavailable Fish, J Zhang Unavailable Unavailable Fish, J Zhang Unavailable Unavailable Fish, J Zhang Unavailable Unavailable Fish, J Zhang Unavailable Unavailable Fish, J Zhang Unavailable Unavailable Fish, J Zhang Unavailable Unavailable Fish, J Zhang Unavailable Unavailable Fish, J Zhang Unavailable Unavailable Fish, J Zhang Unavailable Unavailable Fish, J Zhang Unavailable Unavailable Fish, J Zhnag Unavailable Unavailable Fish, J Zhang Unavailable Unavailable Fish, J Zhang Unavailable Unavailable Fish, J Zhang Unavailable Unavailable Fish, J Zhang Unavailable Unavailable Fish, J Zhang Unavailable Unavailable Fish, J Zhang Unavailable Unavailable Fish, J Zhang Unavailable Unavailable Fish, J Zhang Unavailable Unavailable Fish, J Zhang Unavailable Unavailable Fish, J Zhang Unavailable Unavailable Fish, J Zhang Unavailable Unavailable Fish, J Zhang Unavailable Unavailable Fish, J Zhang Unavailable Unavailable Hill, A Shasha ASSOCIATE PROFESSOR OF ART Unavailable Unavailable Hill, A Shasha ASSOCIATE PROFESSOR OF ART Unavailable Unavailable Hill, A Shasha ASSOCIATE PROFESSOR OF ART Unavailable Unavailable Hill, A Shasha ASSOCIATE PROFESSOR OF ART Unavailable Unavailable Hill, A Shasha ASSOCIATE PROFESSOR OF ART Unavailable Unavailable Hill, A Shasha ASSOCIATE PROFESSOR OF ART Unavailable Unavailable Hill, A Shasha ASSOCIATE PROFESSOR OF ART Unavailable Unavailable Hill, A Shasha ASSOCIATE PROFESSOR OF ART Unavailable Unavailable Hill, A Shasha ASSOCIATE PROFESSOR OF ART Unavailable Unavailable Hill, A Shasha ASSOCIATE PROFESSOR OF ART Unavailable Unavailable Hill, A Shasha ASSOCIATE PROFESSOR OF ART Unavailable Unavailable Hill, A Shasha ASSOCIATE PROFESSOR OF ART Unavailable Unavailable Hill, A Shasha ASSOCIATE PROFESSOR OF ART Unavailable Unavailable Hill, A Shasha ASSOCIATE PROFESSOR OF ART Unavailable Unavailable Hill, A Shasha ASSOCIATE PROFESSOR OF ART Unavailable Unavailable Hill, A Shasha ASSOCIATE PROFESSOR OF ART Unavailable Unavailable Hill, A Shasha ASSOCIATE PROFESSOR OF ART Unavailable Unavailable Hill, A Shasha ASSOCIATE PROFESSOR OF ART Unavailable Unavailable Hill, A Shasha ASSOCIATE PROFESSOR OF ART Unavailable Unavailable Hill, A Shasha ASSOCIATE PROFESSOR OF ART Unavailable Unavailable Hill, A Shasha ASSOCIATE PROFESSOR OF ART Unavailable Unavailable Hill, A Shasha ASSOCIATE PROFESSOR OF ART Unavailable Unavailable Hill, A Shasha ASSOCIATE PROFESSOR OF ART Unavailable Unavailable Hill, A Shasha ASSOCIATE PROFESSOR OF ART Unavailable Unavailable DARIAN, BENNETT SALAZAR MD Unavailable Unavailable DARIAN, BENNETT SALAZAR MD Unavailable Unavailable DARIAN, BENNETT SALAZAR MD Unavailable Unavailable DARIAN, BENNETT SALAZAR MD Unavailable Unavailable DARIAN, BENNETT SALAZAR MD Unavailable Unavailable DARIAN, BENNETT SALAZAR MD Unavailable Unavailable DARIAN, BENNETT SALAZAR MD Unavailable Unavailable DARIAN, BENNETT SALAZAR MD Unavailable Unavailable DARIAN, BENNETT SALAZAR MD Unavailable Unavailable DARIAN, BENNETT SALAZAR MD Unavailable Unavailable DARIAN, BENNETT SALAZAR MD Unavailable Unavailable DARIAN, BENNETT SALAZAR MD Unavailable Unavailable DARIAN, BENNETT SALAZAR MD Unavailable Unavailable DARIAN, BENNETT SALAZAR MD Unavailable Unavailable DARIAN, BENNETT SALAZAR MD Unavailable Unavailable DARIAN, BENNETT SALAZAR MD Unavailable Unavailable DARIAN, BENNETT SALAZAR MD Unavailable Unavailable DARIAN, BENNETT SALAZAR MD Unavailable Unavailable DARIAN, BENNETT SALAZAR MD Unavailable Unavailable DARIAN, BENNETT SALAZAR MD Unavailable Unavailable DARIAN, BENNETT SALAZAR MD Unavailable Unavailable DARIAN, BENNETT SALAZAR MD Unavailable Unavailable DARIAN, BENNETT SALAZAR MD Unavailable Unavailable DARIAN, BENNETT SALAZAR MD Unavailable Unavailable DARIAN, BENNETT SALAZAR MD Unavailable Unavailable DARIAN, BENNETT SALAZAR MD Unavailable Unavailable DARIAN, BENNETT SALAZAR MD Unavailable Unavailable DARIAN, BENNETT SALAZAR MD Unavailable Unavailable DARIAN, BENNETT SALAZAR MD Unavailable Unavailable DARIAN, BENNETT SALAZAR MD Unavailable Unavailable DARIAN, BENNETT SALAZAR MD Unavailable Unavailable DARIAN, BENNETT SALAZAR MD Unavailable Unavailable DARIAN, BENNETT SALAZAR MD Unavailable Unavailable DARIAN, BENNETT SALAZAR MD Unavailable Unavailable DARIAN, BENNETT SALAZAR MD Unavailable Unavailable DARIAN, BENNETT SALAZAR MD Unavailable Unavailable DARIAN, BENNETT SALAZAR MD Unavailable Unavailable DARIAN, BENNETT SALAZAR MD Unavailable Unavailable DARIAN, BENNETT SALAZAR MD Unavailable Unavailable DARIAN, BENNETT SALAZAR MD Unavailable Unavailable DAIRAN, BENNETT SALAZAR MD Unavailable Unavailable DARIAN, BENNETT SALAZAR MD Unavailable Unavailable DARIAN, BENNETT SALAZAR MD Unavailable Unavailable DARIAN, BENNETT SALAZAR MD Unavailable Unavailable DARIAN, BENNETT SALAZAR MD Unavailable Unavailable DARIAN, BENNETT SALAZAR MD Unavailable Unavailable DARIAN, BENNETT SALAZAR MD Unavailable Unavailable DARIAN, BENNETT SALAZAR MD Unavailable Unavailable DARIAN, BENNETT SALAZAR MD Unavailable Unavailable DARIAN, BENNETT SALAZAR MD Unavailable Unavailable DARIAN, BENNETT SALAZAR MD Unavailable Unavailable DARIAN, BENNETT SALAZAR MD Unavailable Unavailable DARIAN, BENNETT SALAZAR MD Unavailable Unavailable DARIAN, BENNETT SALAZAR MD Unavailable Unavailable DARIAN, BENNETT SALAZAR MD Unavailable Unavailable DARIAN, BENNETT SALAZAR MD Unavailable Unavailable DARIAN, BENNETT SALAZAR MD Unavailable Unavailable DARIAN, BENNETT SALAZAR MD Unavailable Unavailable DARIAN, BENNETT SALAZAR MD Unavailable Unavailable DARIAN, BENNETT SALAZAR MD Unavailable Unavailable DARIAN, BENNETT SALAZAR MD Unavailable Unavailable DARIAN, BENNETT SALAZAR MD Unavailable Unavailable DARIAN, BENNETT MARIE MD Unavailable Unavailable DARIAN, BENNETT SALAZAR MD Unavailable Unavailable DARIAN, BENNETT SALAZAR MD Unavailable Unavailable DARIAN, BENNETT SALAZAR MD Unavailable Unavailable DARIAN, BENNETT SALAZAR MD Unavailable Unavailable DARIAN, BENNETT SALAZAR MD Unavailable Unavailable DARIAN, BENNETT SALAZAR MD Unavailable Unavailable DARIAN, BENNETT SALAZAR MD Unavailable Unavailable DARIAN, BENNETT SALAZAR MD Unavailable Unavailable DARIAN, BENNETT SALAZAR MD Unavailable Unavailable DARIAN, BENNETT SALAZAR MD Unavailable Unavailable DARIAN, BENNETT SALAZAR MD Unavailable Unavailable Dick RN ORTHO, Christopher Unavailable Unavailable Re-disclosure Warning The records that you are about to access may contain information from federally-assisted alcohol or drug abuse programs. If such information is present, then the following federally mandated warning applies: This information has been disclosed to you from records protected by federal confidentiality rules (42 CFR part 2). The federal rules prohibit you from making any further disclosure of this information unless further disclosure is expressly permitted by the written consent of the person to whom it pertains or as otherwise permitted by 42 CFR part 2. A general authorization for the release of medical or other information is NOT sufficient for this purpose. The Federal rules restrict any use of the information to criminally investigate or prosecute any alcohol or drug abuse patient.The records that you are about to access may contain highly sensitive health information, the redisclosure of which is protected by Article 27-F of the [place] Public [facility] law. If you continue you may have access to information: Regarding HIV / AIDS; Provided by facilities licensed or operated by the [place] Office of Mental Health; or Provided by the [place] Office for People With Developmental Disabilities. If such information is present, then the following [facility] mandated warning applies: This information has been disclosed to you from confidential records which are protected by state law. State law prohibits you from making any further disclosure of this information without the specific written consent of the person to whom it pertains, or as otherwise permitted by law. Any unauthorized further disclosure in violation of state law may result in a fine or nursing home sentence or both. A general authorization for the release of medical or other information is NOT sufficient authorization for further disc losure. Allergies and Adverse Reactions Type Description Substance Reaction Status Data Source(s ) Food allergy SEAFOOD SEAFOOD [facility] Drug allergy IODINE IODINE [facility] ENVIRONMENTAL seasonal seasonal [facility] CLASS RADIOLOGICAL CONTRAST MEDIA, IODINE RELA KACY RADIOLOGICAL CONTRAST MEDIA, IODINE RELATED [facility] tizanidine Tizanidine HCl tizanidine Confusion Active eCW1 ([facility]) Drug allergy Iodine Drug allergy Hives Active eCW1 ([facility]) Family History Family Member Name Family Member Gender Family Member Status Date o f Status Description Data Source(s) Unknown Unknown Problem MEDENT (Jordin salazar SUPPORT TECHNICIAN) Unknown Unknown Problem MEDENT ([facility] Unknown Female Problem MEDENT ([facility] ) Encounters Encounter Providers Location Date Indications Data Source(s ) Outpatient [address] [facility] [address] 03/20/2020 12:00:00 AM EST eCW1 ([facility]) Outpatient Attender: Zhang Ruiz [place] [facility] 03/12/2020 01:30:0 0 PM EST MEDENT ([facility] Outpatient Attender: Shasha Brenner NPReferrer: Zhang Ruiz 03/09/2020 09:43:33 AM EST [facility] Unknown [address] [facility] [place] [address] 02/19/2020 12:00:00 AM EST eCW1 ([facility]) Unknown [address] [facility] [place] [address] 01/27/2020 12:00:00 AM EST eCW1 ([facility]) Outpatient [address] [facility] [place] [address] 01/14/2020 12:00:00 AM EST eCW1 ([facility]) Outpatient Attender: VIELKA DANGELO MD [facility] [employer] channel marketing program manager 09:45:00 AM EST MEDENT ([facility] SUPPORT TECHNICIAN) Outpatient Attender: Shasha Brenner NPReferrer: Zhang Ruiz 01/08/2020 11:54:02 AM EST [facility] [place] Recurring Patient Referrer: Ludin ESCOBAR 11/2019 03:12:29 PM EST [facility] Unknown [address] [facility] [place] [address] 01/01/2020 12:00:00 AM EST [facility] Unknown [address] [facility] [address] 12/31/2019 12:00:00 AM EST [facility]CW1 [facility] Unknown [address] [facility] [address] 12/26/2019 12:00:00 AM EDT eCW1 ([facility]) Unknown [address] [facility] [place] [address] 12/26/2019 12:00:00 AM EDT [facility]CW1 ([facility]) Unknown [address] [facility] [place] [address] 12/24/2019 12:00:00 AM EDT eCW1 ([facility]) Unknown [address] [facility] [place] [address] 12/24/2019 12:00:00 AM EDT eCW1 ([facility]) Unknown [address] [facility] [place] [address] 12/23/2019 12:00:00 AM EDT eCW1 ([facility]) Unknown [address] [facility] [place] [address] 12/23/2019 12:00:00 AM EDT eCW1 ([facility]) Outpatient Attender: MARIE FARMER MDReferrer: Zhagn Ruiz 12/22/2019 08:45:56 AM EDT [facility] Recurring Patient Referrer: Ludin ESCOBAR 08:09:42 AM EDT [facility] Unknown [address] [facility] [address] 12/18/2019 12:00:00 AM EDT eCW1 ([facility]) Recurring Patient Referrer: KENYATTA DORSEY MD 12/17/2019 01: 03:08 PM EDT [facility] Recurring Patient Referrer: KENYATTA DORSEY MD 12/17/2019 12: 55:14 PM EDT [facility] Outpatient [address] [facility] [address] 12/12/2019 12:00:00 AM EDT eCW1 ([facility]) Outpatient Attender: Zhang Ruiz [place] [facility] 12/05/2019 01:00:0 0 PM EDT MEDENT ([facility] Recurring Patient Referrer: MARIE FARMER MD 12/03/2019 02: 52:20 PM EDT [facility] Recurring Patient Referrer: MARIE FARMER MD 12/03/2019 02: 38:36 PM EDT [facility] Recurring Patient Referrer: MARIE FARMER MD 12/03/2019 02: 37:05 PM EDT [facility] Unknown [address] [facility] [address] 12/03/2019 12:00:00 AM EDT eCW1 ([facility]) Recurring Patient Referrer: MARIE FAMRER MD 11/11/2019 09: 33:18 AM EDT [facility] Outpatient Attender: MARIE FARMER MDReferrer: Zhang Ruiz 10/31/2019 04:57:50 PM EDT [facility] Recurring Patient Referrer: KENYATTA DORSEY MD 10/01/2019 11: 12:03 AM EDT [facility] Unknown [address] [facility] [address] 09/09/2019 12:00:00 AM EDT eCW1 ([facility]) Unknown [address] [facility] [place] [address] 08/20/2019 12:00:00 AM EDT eCW1 ([facility]) Outpatient Attender: Zhang Ruiz [place] [facility] 08/15/2019 01:30:0 0 PM EDT MEDENT ([facility] TeleMedicine Est. Pt. Level [address] [place] [address] 08/06/2019 12:00:00 AM EDT eCW1 ([facility]) Outpatient Attender: VIELKA DANGELO MD [facility] [employer] channel marketing program manager 03:00:00 PM EDT MEDENT ([facility] SUPPORT TECHNICIAN) [facility] [address] [place] [address] 07/16/2019 12:00:00 AM EDT eCW1 ([facility]) [facility] [address] [place] [address] 07/09/2019 12:00:00 AM EDT eCW1 ([facility]) [facility] [address] [place] [address] 06/06/2019 12:00:00 AM EDT eCW1 ([facility]) [facility] [address] [place] [address] 06/05/2019 12:00:00 AM EDT eCW1 ([facility]) [facility] [address] [place] [address] 06/03/2019 12:00:00 AM EDT eCW1 ([facility]) [facility] [address] [place] [address] 05/16/2019 12:00:00 AM EDT eCW1 ([facility]) [facility] [address] [place] [address] 05/13/2019 12:00:00 AM EDT eCW1 ([facility]) Outpatient Attender: Zhang Joseph [place] [facility] 05/09/2019 01:00:0 0 PM EDT MEDENT ([facility] [address] [place], [place] [id number] 05/09/2019 12:00:00 AM EDT [facility] [place]) Outpatient Referrer: VIELKA DANGELO MD 05/06/2019 03:21:00 PM EDT [facility] [address] [place] [address] 04/25/2019 12:00:00 AM EST [facility]CW1 [facility] Outpatient Referrer: VIELKA DANGELO MD 04/16/2019 02:48:00 PM EST [facility] Outpatient Referrer: VIELKA DANGELO MD 04/10/2019 04:13:00 PM EST [facility] [address] [place] [address] 04/09/2019 12:00:00 AM EST [facility]CW1 ([facility] [place] [address] [place] [address] 04/01/2019 12:00:00 AM EST [facility]CW1 [facility]) Outpatient Referrer: LUZ JENNINGS 03/28/2019 12: 49:00 PM EST [facility] Outpatient Referrer: LUZ JENNINGS 03/22/2019 11: 52:00 AM EST [facility] Outpatient Referrer: LUZ JENNINGS 03/21/2019 09: 04:00 AM EST [facility] Outpatient Referrer: LUZ JENNINGS 03/21/2019 08: 53:00 AM EST [facility] [address] [place] [address] 03/19/2019 12:00:00 AM EST [facility]CW1 ([facility]) [facility] [address] [place] [phone] 03/11/2019 12:00:00 AM EST eCW1 [facility]) Outpatient Attender: Yonatan Hernandez MDConsultant: Zhang atkinson 11/16/2018 09:30:52 AM EDT - 12/05/2019 11:55:00 AM EDT [facility] Patient discharged. Immunizations Vaccine Date Status Description Data Source(s) New in 2012. IIV4 12/05/2019 01:05:00 PM EDT completed MEDENT ([facility] Medications Medication Brand Name Start Date Product Form Dose Route Admi nistrative Instructions Pharmacy Instructions Status Indications Reaction Description Data Source(s) Oxycodone Hydrochloride 10 MG Oral Tablet Oxycodone HC l 10 MG Oxycodone HCl 10 MG 03/20/2020 12:00:00 AM EST 1.0 {tablet_as_needed} active Oxycodone HCl 10 MG eCW1 ([facility]) Oxycodone Hydrochloride 10 MG Oral Tablet Oxycodone HC l 10 MG Oxycodone HCl 10 MG 02/19/2020 12:00:00 AM EST 1.0 {tablet_as_needed} active Oxycodone HCl 10 MG eCW1 ([facility]) Oxycodone Hydrochloride 10 MG Oral Tablet Oxycodone HC l 10 MG Oxycodone HCl 10 MG 01/27/2020 12:00:00 AM EST 1.0 {tablet_as_needed} active Oxycodone HCl 10 MG eCW1 ([facility]) Metronidazole 500 MG Oral Tablet Metronidazole 01/10/2020 12:00:00 AM EST ORAL active MEDENT ([facility] SUPPORT TECHNICIAN) Oxycodone Hydrochloride 10 MG Oral Tablet Oxycodone HC l 10 MG Oxycodone HCl 10 MG 12/26/2019 12:00:00 AM EDT 1.0 {tablet_as_needed} active Oxycodone HCl 10 MG eCW1 ([facility]) Oxycodone Hydrochloride 10 MG Oral Tablet Oxycodone HC l 10 MG Oxycodone HCl 10 MG 12/26/2019 12:00:00 AM EDT 1.0 {tablet_as_needed} active Oxycodone HCl 10 MG eCW1 ([facility]) Oxycodone Hydrochloride 10 MG Oral Tablet Oxycodone HC l 10 MG Oxycodone HCl 10 MG 12/26/2019 12:00:00 AM EDT 1.0 {tablet_as_needed} active Oxycodone HCl 10 MG eCW1 ([facility]) Oxycodone Hydrochloride 10 MG Oral Tablet Oxycodone HC l 10 MG Oxycodone HCl 10 MG 12/26/2019 12:00:00 AM EDT 1.0 {tablet_as_needed} active Oxycodone HCl 10 MG eCW1 ([facility]) Oxycodone Hydrochloride 10 MG Oral Tablet Oxycodone HC l 10 MG Oxycodone HCl 10 MG 12/26/2019 12:00:00 AM EDT 1.0 {tablet_as_needed} active Oxycodone HCl 10 MG eCW1 ([facility]) Oxycodone Hydrochloride 10 MG Oral Tablet Oxycodone HC l 10 MG Oxycodone HCl 10 MG 12/26/2019 12:00:00 AM EDT 1.0 {tablet_as_needed} active Oxycodone HCl 10 MG eCW1 ([facility]) Oxycodone Hydrochloride 10 MG Oral Tablet Oxycodone HC l 10 MG Oxycodone HCl 10 MG 12/26/2019 12:00:00 AM EDT 1.0 {tablet_as_needed} active Oxycodone HCl 10 MG eCW1 ([facility]) Oxycodone Hydrochloride 10 MG Oral Tablet Oxycodone HC l 10 MG Oxycodone HCl 10 MG 12/23/2019 12:00:00 AM EDT 1.0 {tablet_as_needed} active Oxycodone HCl 10 MG eCW1 ([facility]) Oxycodone Hydrochloride 10 MG Oral Tablet Oxycodone HC l 10 MG Oxycodone HCl 10 MG 12/23/2019 12:00:00 AM EDT 1.0 {tablet_as_needed} active Oxycodone HCl 10 MG eCW1 ([facility]) Oxycodone Hydrochloride 10 MG Oral Tablet Oxycodone HC l 10 MG Oxycodone HCl 10 MG 12/23/2019 12:00:00 AM EDT 1.0 {tablet_as_needed} active Oxycodone HCl 10 MG eCW1 ([facility]) Oxycodone Hydrochloride 10 MG Oral Tablet Oxycodone HC l 10 MG Oxycodone HCl 10 MG 12/04/2019 12:00:00 AM EDT 1.0 {tablet_as_needed} active Oxycodone HCl 10 MG eCW1 ([facility]) Oxycodone Hydrochloride 5 MG Oral Tablet Oxycodone HCl 5 MG Oxycodone HCl 5 MG 12/04/2019 12:00:00 AM EDT 1.0 {tablet_as_needed} active Oxycodone HCl 5 MG eCW1 ([facility]) Estrogens, Conjugated (LONGTERM) 0.625 MG/ML Vaginal Cream [Kristina rin] Premarin 09/23/2019 12:00:00 AM EDT active MEDENT ([facility] SUPPORT TECHNICIAN) Oxycodone Hydrochloride 5 MG Oral Tablet Oxycodone HCl 5 MG Oxycodone HCl 5 MG 09/09/2019 12:00:00 AM EDT 1.0 {tablet_as_needed} active Oxycodone HCl 5 MG eCW1 ([facility]) Oxycodone Hydrochloride 5 MG Oral Tablet Oxycodone HCl 5 MG Oxycodone HCl 5 MG 09/09/2019 12:00:00 AM EDT 1.0 {tablet_as_needed} active Oxycodone HCl 5 MG eCW1 ([facility]) Oxycodone Hydrochloride 5 MG Oral Tablet Oxycodone HCl 5 MG Oxycodone HCl 5 MG 08/06/2019 12:00:00 AM EDT 1.0 {tablet_as_needed} active Oxycodone HCl 5 MG eCW1 ([facility]) Metronidazole 500 MG Oral Tablet Metronidazole 07/24/2019 12:00:00 AM EDT ORAL completed MEDENT ([facility] SUPPORT TECHNICIAN) Oxycodone Hydrochloride 5 MG Oral Tablet Oxycodone HCl 5 MG Oxycodone HCl 5 MG 07/10/2019 12:00:00 AM EDT active 1 tablet as needed eCW1 ([facility]) Raloxifene Hydrochloride 60 MG Oral Tablet [Evista] Evista 06/05/2019 12:00:00 AM EDT ORAL active MEDENT ([facility] SUPPORT TECHNICIAN) Oxycodone Hydrochloride 5 MG Oral Tablet Oxycodone HCl 5 MG Oxycodone HCl 5 MG 06/05/2019 12:00:00 AM EDT active 1 tablet as needed eCW1 ([facility]) Oxycodone Hydrochloride 5 MG Oral Tablet Oxycodone HCl 5 MG Oxycodone HCl 5 MG 05/10/2019 12:00:00 AM EDT active 1 tablet as needed eCW1 ([facility]) Oxycodone Hydrochloride 5 MG Oral Tablet Oxycodone HCl 5 MG Oxycodone HCl 5 MG 05/10/2019 12:00:00 AM EDT active 1 tablet as needed eCW1 ([facility]) Lancets 28G 05/09/2019 12:00:00 AM EDT active MEDENT ([facility] Blood Glucose Monitoring System 05/09/2019 12:00:00 AM EDT active MEDENT ([facility] Blood Glucose Test Strips Premium 05/09/2019 12:00:00 AM EDT active [facility] Oxycodone Hydrochloride 5 MG Oral Tablet Oxycodone HCl 5 MG Oxycodone HCl 5 MG 04/09/2019 12:00:00 AM EST active 1 tablet as needed eCW1 ([facility]) Oxycodone Hydrochloride 5 MG Oral Tablet Oxycodone HCl 5 MG Oxycodone HCl 5 MG 03/12/2019 12:00:00 AM EST active 1 tablet as needed eCW1 ([facility]) Oxycodone HCl 5 MG UNK 03/12/2019 12:00:00 AM EST active 1 tablet as needed eCW1 ([facility]) Insurance Providers Payer name Policy type / Coverage type Policy ID Covered constitution party ID Covered constitution party's relationship to sanches Policy Sanches Plan Information MEDICARE BLUE PPO [id number] SP [id number] [facility] PPO [id number] [id number] SP VYM [id number] MEDICARE [id number] SP [id number] MEDICARE BLUE PPO [id number] SP [id number] MEDICARE BLUE PPO 306 VYM [id number] SP VYM [id number] Blue Shield Medicare P [id number] SELF [id number] Blue Shield Medicare P [id number] SELF [id number] [facility] Employee Program J [id number] SELF [id number] Blue [facility] Employee Program J [id number] SELF [id number] [facility] FEDERAL EMPLOYEE PROGRAM [id number] SP [id number] BC BS [place] [facility] [facility] B [id number] S [id number] EXCELLUS C [id number] Self [id number] BLUE CROSS BLUE SHIELD FEDERAL -O/P [id number] 18 [id number] [facility] FEDERAL EMPLOYEE PROGRAM [id number] SP [id number] [facility] Part B [id number] Family Dependent [id number] General Accident Insur. Workers Compensation [id number] Vijaya f [id number] BCBS Commercial [id number] Self [id number] [facility] Commercial [id number] Self [id number] [facility] Part B [id number] Family Dependent [id number] General Accident Insur. Workers Compensation [id number] Vijaya f [id number] BCBS Commercial [id number] Self [id number] ANSI-Commercial [id number] ANSI-Commercial [id number] [facility] Part B [id number] Family Dependent [id number] General Accident Insur. Workers Compensation [id number] Vijaya f [id number] BCBS Commercial [id number] Self [id number] [employer] FEP BS [id number] 18 [id number] [employer] Fep Commercial [id number] Self [id number] BLUE CROSS BLUE SHIELD FEDERAL -CLINIC [id number] 18 [id number] BLUE CROSS BLUE SHIELD CO UNAVAILABLE 18 UNAVAILABLE BLUE CROSS BLUE SHIELD FEDERAL -PHYS [id number] 18 [id number] Blue Cross Blue Shield Commercial [id number] Self [id number] ANSI-Commercial [id number] ANSI-Commercial [id number] ANSI-Commercial [id number] ANSI-Commercial [id number] ANSI-Commercial [id number] ANSI-Commercial [id number] [facility] Part B [id number] Family Dependent [id number] General Accident Insur. Workers Compensation [id number] Vijaya f [id number] BCBS Commercial [id number] Self [id number] [facility] [id number] Self [id number] BS Fed Plan Commercial [id number] Self [id number] ANSI-Commercial [id number] EXCELLUS BCBS [id number] Vijaya [id number] Blue Cross Blue Shield P [id number] SELF [id number] EXCELLUS BCBS PI PI ANSI-Commercial [id number] ANSI-Commercial [id number] ANSI-Commercial [id number] [employer] Part B [id number] Family Dependent [id number] General Accident Insur. Workers Compensation [id number] Vijaya f [id number] BCBS Commercial [id number] Self [id number] [facility] O UNAVAILABLE S UNAVAILABLE [employer] Part B [id number] Family Dependent [id number] General Accident Insur. Workers Compensation [id number] Vijaya f [id number] BCBS Commercial [id number] Self [id number] [facility] FEDERAL [id number] SP [id number] [employer] Medigap Part B [id number] Family Dependent [phone] General Accident Insur. Workers Compensation [id number] Vijaya f [id number] BCBS Commercial [id number] Self [id number] [facility] [id number] SP [id number] [employer] Medigap Part B [id number] Family Dependent [id number] General Accident Insur. Workers Compensation [id number] Vijaya f [id number] BS Commercial [id number] Self [id number] [employer] Medigap Part B [id number] Family Dependent [id number] General Accident Insur. Workers Compensation [id number] Vijaya f [id number] BCBS Commercial [id number] Self [id number] BLUE CROSS BLUE SHIELD-O/P [id number] 18 [id number] BS [place] Medigap Part B Self BS Fed Plan Commercial Self Ghi[employer] Medigap Part B Family Dependent General Accident Insur. Workers Compensation Self BCBS [place] Commercial Self [place] BCBS FEDERAL [id number] SP [id number] BS [place] FEDERAL [id number] SP [id number] BS [place] P [id number] S [id number] Problems, Conditions, and Diagnoses Code Display Name Description Problem Type Effective Dates Data Source(s) [id number] Chronic back pain Chronic back pain Problem 12/05 12:00:00 AM EDT [facility] ([facility] ) Note: FOLLOWED BY OUTSIDE PRACTICE R99 Ill-defined and unknown cause of mortali ty Ill-defined and unknown cause of mortality Diagnosis 12/05/2019 11:55:00 AM EDT [facility] Surgeries/Procedures Procedure Description Date Indications Data Source(s) Capillary Blood Collection Finger, Heel, Ear Stick 03/23/2020 12:00:00 AM EST [facility] ([facility] ) ESTABILISHED PATIENT [facility] CHARGE 020 12:00:00 AM EDT eCW1 ([facility]) Mammogram 04/30/2019 12:00:00 AM EST M EDENT ([facility] SUPPORT TECHNICIAN) Results ID Date Data Source [id number] 04/09/2020 11:35:00 AM EST [facility] Name Value Range Interpretation Code Description Data Renetta rce(s) Supporting Document(s) SARS coronavirus 2 RNA Not Detected [facility] [place] This lab was ordered by [facility] and reported by [facility]. ID Date Data Source [id number] 03/27/2020 10:00:00 AM EST [facility] Name Value Range Interpretation Code Description Data Renetta rce(s) Supporting Document(s) SARS coronavirus 2 RNA Not Detected [facility] [place] This lab was ordered by [facility] and reported by [facility]. ID Date Data Source [id number] 03/23/2020 01:35:00 PM EST [facility] ([facility] Name Value Range Interpretation Code Description Data Renetta rce(s) Supporting Document(s) Hemoglobin A1c/Hemoglobin.total in Blood 5.3 % 4.50-6.20 [facility] ([facility] ID Date Data Source [id number] 03/12/2020 04:33:00 PM EST [facility] ([facility] Name Value Range Interpretation Code Description Data Renetta rce(s) Supporting Document(s) Color Urine Laboratory test result M EDENT ([facility] Appearance of Urine Laboratory test result [facility] ([facility] Specific [place] 1.025 1.00-1.03 [facility] ([facility] PH Urine 6.0 5.0-8.0 [facility] Glucose Urine Laboratory test result [facility] ([facility] Ketones Laboratory test result [facility] ([facility] Blood Urine Laboratory test result Above high normal [facility] ([facility] Bilirubin.total [Presence] in Urine by Test strip Laboratory katelynn t result Above high normal [facility] ([facility] ) Nitrite Laboratory test result [facility] ([facility] Protein Urine Laboratory test result Above high normal [facility] ([facility] Urobilinogen 0.2 EU/dl 0.2-1.0 [facility] ([facility] Leukocytes Laboratory test result ME DENT ([facility] ID Date Data Source [id number] 03/12/2020 04:32:00 PM EST [facility] ([facility] Name Value Range Interpretation Code Description Data Renetta rce(s) Supporting Document(s) Chol 160 mg/dL 0-200 [facility] NORMAL RANGES Age WBC RBC HGB HCT [...] HCT IS 5% LESS SOURCE FOR DATA: [facility] 1800 OPERATION MANUAL( AUTOMATED BLOOD COUNTS AND [...] DESIRABLE: <130 MG/DL <110 MG/DL BORDERLINE-HIGH RISK: 130- 159 MG/DL 110-129 MG/DL HIGH RISK: >160 MG/DL >130 MG/DL *CHILDREN AND ADOLESCENTS REPRESENTS INDIVIDUALA AGED 2-19 YEARS EXCLUSIVE. Trig 42 mg/dL 40-200 [facility] ([facility] NORMAL RANGES Age WBC RBC HGB HCT [...] HCT IS 5% LESS SOURCE FOR DATA: [facility] 1800 OPERATION MANUAL( AUTOMATED BLOOD COUNTS AND [...] DESIRABLE: <130 MG/DL <110 MG/DL BORDERLINE-HIGH RISK: 130- 159 MG/DL 110-129 MG/DL HIGH RISK: >160 MG/DL >130 MG/DL *CHILDREN AND ADOLESCENTS REPRESENTS INDIVIDUALA AGED 2-19 YEARS EXCLUSIVE. LDL_C 58 Calc 75-129 Below low normal [facility] ( [facility] NORMAL RANGES Age WBC RBC HGB HCT [...] HCT IS 5% LESS SOURCE FOR DATA: [facility] 1800 OPERATION MANUAL( AUTOMATED BLOOD COUNTS AND [...] DESIRABLE: <130 MG/DL <110 MG/DL BORDERLINE-HIGH RISK: 130- 159 MG/DL 110-129 MG/DL HIGH RISK: >160 MG/DL >130 MG/DL *CHILDREN AND ADOLESCENTS REPRESENTS INDIVIDUALA AGED 2-19 YEARS EXCLUSIVE. Cholesterol in HDL [Mass/volume] in Serum or Plasma 93 mg/dL 45-65 Above high normal [facility] ([facility] NORMAL RANGES Age WBC RBC HGB HCT [...] HCT IS 5% LESS SOURCE FOR DATA: [facility] 1800 OPERATION MANUAL( AUTOMATED BLOOD COUNTS AND [...] DESIRABLE: <130 MG/DL <110 MG/DL BORDERLINE-HIGH RISK: 130- 159 MG/DL 110-129 MG/DL HIGH RISK: >160 MG/DL >130 MG/DL *CHILDREN AND ADOLESCENTS REPRESENTS INDIVIDUALA AGED 2-19 YEARS EXCLUSIVE. Cho/HDL Ratio 1.7 CALC [facility] ([facility] NORMAL RANGES Age WBC RBC HGB HCT [...] HCT IS 5% LESS SOURCE FOR DATA: [facility] 1800 OPERATION MANUAL( AUTOMATED BLOOD COUNTS AND [...] DESIRABLE: <130 MG/DL <110 MG/DL BORDERLINE-HIGH RISK: 130- 159 MG/DL 110-129 MG/DL HIGH RISK: >160 MG/DL >130 MG/DL *CHILDREN AND ADOLESCENTS REPRESENTS INDIVIDUALA AGED 2-19 YEARS EXCLUSIVE. ID Date Data Source [id number] 03/12/2020 04:32:00 PM EST [facility] ([facility] Name Value Range Interpretation Code Description Data Renetta rce(s) Supporting Document(s) BUN 13 mg/dL 8-23 [facility] ([facility] NORMAL RANGES Age WBC RBC HGB HCT [...] HCT IS 5% LESS SOURCE FOR DATA: [facility] 1800 OPERATION MANUAL( AUTOMATED BLOOD COUNTS AND [...] DESIRABLE: <130 MG/DL <110 MG/DL BORDERLINE-HIGH RISK: 130- 159 MG/DL 110-129 MG/DL HIGH RISK: >160 MG/DL >130 MG/DL *CHILDREN AND ADOLESCENTS REPRESENTS INDIVIDUALA AGED 2-19 YEARS EXCLUSIVE. Glu 144 mg/dL 70-110 Above high normal [facility] ([facility] NORMAL RANGES Age WBC RBC HGB HCT [...] HCT IS 5% LESS SOURCE FOR DATA: [facility] 1800 OPERATION MANUAL( AUTOMATED BLOOD COUNTS AND [...] DESIRABLE: <130 MG/DL <110 MG/DL BORDERLINE-HIGH RISK: 130- 159 MG/DL 110-129 MG/DL HIGH RISK: >160 MG/DL >130 MG/DL *CHILDREN AND ADOLESCENTS REPRESENTS INDIVIDUALA AGED 2-19 YEARS EXCLUSIVE. Creat 0.8 mg/dL 0.5-1.0 [facility] ([facility] NORMAL RANGES Age WBC RBC HGB HCT [...] HCT IS 5% LESS SOURCE FOR DATA: [employer] [facility] 1800 OPERATION MANUAL( AUTOMATED BLOOD COUNTS AND [...] DESIRABLE: <130 MG/DL <110 MG/DL BORDERLINE-HIGH RISK: 130- 159 MG/DL 110-129 MG/DL HIGH RISK: >160 MG/DL >130 MG/DL *CHILDREN AND ADOLESCENTS REPRESENTS INDIVIDUALA AGED 2-19 YEARS EXCLUSIVE. BUN/Creatinine Ratio 16.7 CALC [facility] ([facility] NORMAL RANGES Age WBC RBC HGB HCT [...] HCT IS 5% LESS SOURCE FOR DATA: [facility] 1800 OPERATION MANUAL( AUTOMATED BLOOD COUNTS AND [...] DESIRABLE: <130 MG/DL <110 MG/DL BORDERLINE-HIGH RISK: 130- 159 MG/DL 110-129 MG/DL HIGH RISK: >160 MG/DL >130 MG/DL *CHILDREN AND ADOLESCENTS REPRESENTS INDIVIDUALA AGED 2-19 YEARS EXCLUSIVE. CL 94.5 mmol/L 98.0-107.0 Below low normal [facility] ([facility] NORMAL RANGES Age WBC RBC HGB HCT [...] HCT IS 5% LESS SOURCE FOR DATA: [employer] [facility] 1800 OPERATION MANUAL( AUTOMATED BLOOD COUNTS AND [...] DESIRABLE: <130 MG/DL <110 MG/DL BORDERLINE-HIGH RISK: 130- 159 MG/DL 110-129 MG/DL HIGH RISK: >160 MG/DL >130 MG/DL *CHILDREN AND ADOLESCENTS REPRESENTS INDIVIDUALA AGED 2-19 YEARS EXCLUSIVE. K 4.1 mmol/L 3.5-5.1 [facility] ([facility] NORMAL RANGES Age WBC RBC HGB HCT [...] HCT IS 5% LESS SOURCE FOR DATA: [employer] [facility] 1800 OPERATION MANUAL( AUTOMATED BLOOD COUNTS AND [...] DESIRABLE: <130 MG/DL <110 MG/DL BORDERLINE-HIGH RISK: 130- 159 MG/DL 110-129 MG/DL HIGH RISK: >160 MG/DL >130 MG/DL *CHILDREN AND ADOLESCENTS REPRESENTS INDIVIDUALA AGED 2-19 YEARS EXCLUSIVE. Na 130 mmol/L 136-145 Below low normal [facility] ( [facility] NORMAL RANGES Age WBC RBC HGB HCT [...] HCT IS 5% LESS SOURCE FOR DATA: [employer] [facility] 1800 OPERATION MANUAL( AUTOMATED BLOOD COUNTS AND [...] DESIRABLE: <130 MG/DL <110 MG/DL BORDERLINE-HIGH RISK: 130- 159 MG/DL 110-129 MG/DL HIGH RISK: >160 MG/DL >130 MG/DL *CHILDREN AND ADOLESCENTS REPRESENTS INDIVIDUALA AGED 2-19 YEARS EXCLUSIVE. Co2 23.9 mmol/L 22.0-29.0 [facility] ([facility] NORMAL RANGES Age WBC RBC HGB HCT [...] HCT IS 5% LESS SOURCE FOR DATA: [employer] [facility] 1800 OPERATION MANUAL( AUTOMATED BLOOD COUNTS AND [...] DESIRABLE: <130 MG/DL <110 MG/DL BORDERLINE-HIGH RISK: 130- 159 MG/DL 110-129 MG/DL HIGH RISK: >160 MG/DL >130 MG/DL *CHILDREN AND ADOLESCENTS REPRESENTS INDIVIDUALA AGED 2-19 YEARS EXCLUSIVE. CA 9.7 mg/dL 8.6-10.2 [facility] ([facility] NORMAL RANGES Age WBC RBC HGB HCT [...] HCT IS 5% LESS SOURCE FOR DATA: [facility] 1800 OPERATION MANUAL( AUTOMATED BLOOD COUNTS AND [...] DESIRABLE: <130 MG/DL <110 MG/DL BORDERLINE-HIGH RISK: 130- 159 MG/DL 110-129 MG/DL HIGH RISK: >160 MG/DL >130 MG/DL *CHILDREN AND ADOLESCENTS REPRESENTS INDIVIDUALA AGED 2-19 YEARS EXCLUSIVE. TP 6.3 g/dL 6.6-8.7 Below low normal [facility] ( [facility] NORMAL RANGES Age WBC RBC HGB HCT [...] HCT IS 5% LESS SOURCE FOR DATA: [employer] [facility] 1800 OPERATION MANUAL( AUTOMATED BLOOD COUNTS AND [...] DESIRABLE: <130 MG/DL <110 MG/DL BORDERLINE-HIGH RISK: 130- 159 MG/DL 110-129 MG/DL HIGH RISK: >160 MG/DL >130 MG/DL *CHILDREN AND ADOLESCENTS REPRESENTS INDIVIDUALA AGED 2-19 YEARS EXCLUSIVE. A/G Ratio 2.3 CALC [facility] ([facility] NORMAL RANGES Age WBC RBC HGB HCT [...] HCT IS 5% LESS SOURCE FOR DATA: [facility] 1800 OPERATION MANUAL( AUTOMATED BLOOD COUNTS AND [...] DESIRABLE: <130 MG/DL <110 MG/DL BORDERLINE-HIGH RISK: 130- 159 MG/DL 110-129 MG/DL HIGH RISK: >160 MG/DL >130 MG/DL *CHILDREN AND ADOLESCENTS REPRESENTS INDIVIDUALA AGED 2-19 YEARS EXCLUSIVE. Alb 4.4 g/dL 3.4-4.8 [facility] ([facility] NORMAL RANGES Age WBC RBC HGB HCT [...] HCT IS 5% LESS SOURCE FOR DATA: [employer] [facility] 1800 OPERATION MANUAL( AUTOMATED BLOOD COUNTS AND [...] DESIRABLE: <130 MG/DL <110 MG/DL BORDERLINE-HIGH RISK: 130- 159 MG/DL 110-129 MG/DL HIGH RISK: >160 MG/DL >130 MG/DL *CHILDREN AND ADOLESCENTS REPRESENTS INDIVIDUALA AGED 2-19 YEARS EXCLUSIVE. Alp 50.8 U/L 35-129 [facility] ([facility] NORMAL RANGES Age WBC RBC HGB HCT [...] HCT IS 5% LESS SOURCE FOR DATA: [facility] 1800 OPERATION MANUAL( AUTOMATED BLOOD COUNTS AND [...] DESIRABLE: <130 MG/DL <110 MG/DL BORDERLINE-HIGH RISK: 130- 159 MG/DL 110-129 MG/DL HIGH RISK: >160 MG/DL >130 MG/DL *CHILDREN AND ADOLESCENTS REPRESENTS INDIVIDUALA AGED 2-19 YEARS EXCLUSIVE. Globulin 1.9 CALC [facility] NORMAL RANGES Age WBC RBC HGB HCT [...] HCT IS 5% LESS SOURCE FOR DATA: [facility] 1800 OPERATION MANUAL( AUTOMATED BLOOD COUNTS AND [...] DESIRABLE: <130 MG/DL <110 MG/DL BORDERLINE-HIGH RISK: 130- 159 MG/DL 110-129 MG/DL HIGH RISK: >160 MG/DL >130 MG/DL *CHILDREN AND ADOLESCENTS REPRESENTS INDIVIDUALA AGED 2-19 YEARS EXCLUSIVE. Alt (SGPT) 9 U/L 0-41 [facility] ([facility] NORMAL RANGES Age WBC RBC HGB HCT [...] HCT IS 5% LESS SOURCE FOR DATA: [facility] 1800 OPERATION MANUAL( AUTOMATED BLOOD COUNTS AND [...] DESIRABLE: <130 MG/DL <110 MG/DL BORDERLINE-HIGH RISK: 130- 159 MG/DL 110-129 MG/DL HIGH RISK: >160 MG/DL >130 MG/DL *CHILDREN AND ADOLESCENTS REPRESENTS INDIVIDUALA AGED 2-19 YEARS EXCLUSIVE. Ast (Sgot) 18 U/L 0-40 [facility] ([facility] NORMAL RANGES Age WBC RBC HGB HCT [...] HCT IS 5% LESS SOURCE FOR DATA: [facility] 1800 OPERATION MANUAL( AUTOMATED BLOOD COUNTS AND [...] DESIRABLE: <130 MG/DL <110 MG/DL BORDERLINE-HIGH RISK: 130- 159 MG/DL 110-129 MG/DL HIGH RISK: >160 MG/DL >130 MG/DL *CHILDREN AND ADOLESCENTS REPRESENTS INDIVIDUALA AGED 2-19 YEARS EXCLUSIVE. Tbili 0.25 mg/dL 0.0-1.2 [facility] ([facility] NORMAL RANGES Age WBC RBC HGB HCT [...] HCT IS 5% LESS SOURCE FOR DATA: [facility] 1800 OPERATION MANUAL( AUTOMATED BLOOD COUNTS AND [...] DESIRABLE: <130 MG/DL <110 MG/DL BORDERLINE-HIGH RISK: 130- 159 MG/DL 110-129 MG/DL HIGH RISK: >160 MG/DL >130 MG/DL *CHILDREN AND ADOLESCENTS REPRESENTS INDIVIDUALA AGED 2-19 YEARS EXCLUSIVE. eGFR 89 # [facility] ( [facility] NORMAL RANGES Age WBC RBC HGB HCT [...] HCT IS 5% LESS SOURCE FOR DATA: [facility] 1800 OPERATION MANUAL( AUTOMATED BLOOD COUNTS AND [...] DESIRABLE: <130 MG/DL <110 MG/DL BORDERLINE-HIGH RISK: 130- 159 MG/DL 110-129 MG/DL HIGH RISK: >160 MG/DL >130 MG/DL *CHILDREN AND ADOLESCENTS REPRESENTS INDIVIDUALA AGED 2-19 YEARS EXCLUSIVE. Osmolality-Calculated 262.6 CALC [facility] ([facility] NORMAL RANGES Age WBC RBC HGB HCT [...] HCT IS 5% LESS SOURCE FOR DATA: [facility] 1800 OPERATION MANUAL( AUTOMATED BLOOD COUNTS AND [...] DESIRABLE: <130 MG/DL <110 MG/DL BORDERLINE-HIGH RISK: 130- 159 MG/DL 110-129 MG/DL HIGH RISK: >160 MG/DL >130 MG/DL *CHILDREN AND ADOLESCENTS REPRESENTS INDIVIDUALA AGED 2-19 YEARS EXCLUSIVE. Anion Gap 15 mmol/L [facility] ([facility] NORMAL RANGES Age WBC RBC HGB HCT [...] HCT IS 5% LESS SOURCE FOR DATA: [facility] 1800 OPERATION MANUAL( AUTOMATED BLOOD COUNTS AND [...] DESIRABLE: <130 MG/DL <110 MG/DL BORDERLINE-HIGH RISK: 130- 159 MG/DL 110-129 MG/DL HIGH RISK: >160 MG/DL >130 MG/DL *CHILDREN AND ADOLESCENTS REPRESENTS INDIVIDUALA AGED 2-19 YEARS EXCLUSIVE. eGFR Non-Afr. Peruvian 77 # [facility] ([facility] NORMAL RANGES Age WBC RBC HGB HCT [...] HCT IS 5% LESS SOURCE FOR DATA: [facility] 1800 OPERATION MANUAL( AUTOMATED BLOOD COUNTS AND [...] DESIRABLE: <130 MG/DL <110 MG/DL BORDERLINE-HIGH RISK: 130- 159 MG/DL 110-129 MG/DL HIGH RISK: >160 MG/DL >130 MG/DL *CHILDREN AND ADOLESCENTS REPRESENTS INDIVIDUALA AGED 2-19 YEARS EXCLUSIVE. ID Date Data Source [id number] 03/12/2020 04:32:00 PM EST [facility] ([facility] Name Value Range Interpretation Code Description Data Renetta rce(s) Supporting Document(s) Creatine kinase [Enzymatic activity/volume] in Serum or Plasma 92 U /L 26-192 [facility] ([facility] NORMAL RANGES Age WBC RBC HGB HCT [...] HCT IS 5% LESS SOURCE FOR DATA: [facility] 1800 OPERATION MANUAL( AUTOMATED BLOOD COUNTS AND [...] ADOLESCENTS REPRESENTS INDIVIDUALA AGED 2-19 YEARS EXCLUSIVE. ID Date Data Source [id number] 03/12/2020 04:32:00 PM EST [facility] ([facility] Name Value Range Interpretation Code Description Data Renetta rce(s) Supporting Document(s) WBC 5.8 10E3/uL 4.1-10.9 [facility] ([facility] NORMAL RANGES Age WBC RBC HGB HCT [...] HCT IS 5% LESS SOURCE FOR DATA: [facility] 1800 OPERATION MANUAL( AUTOMATED BLOOD COUNTS AND [...] ADOLESCENTS REPRESENTS INDIVIDUALA AGED 2-19 YEARS EXCLUSIVE. RBC 3.80 10E6/uL 4.20-6.30 Below low normal [facility] ([facility] NORMAL RANGES Age WBC RBC HGB HCT [...] HCT IS 5% LESS SOURCE FOR DATA: [facility] 1800 OPERATION MANUAL( AUTOMATED BLOOD COUNTS AND [...] ADOLESCENTS REPRESENTS INDIVIDUALA AGED 2-19 YEARS EXCLUSIVE. MCV 95.0 fL 80.0-97.0 [facility] NORMAL RANGES Age WBC RBC HGB HCT [...] HCT IS 5% LESS SOURCE FOR DATA: [facility] 1800 OPERATION MANUAL( AUTOMATED BLOOD COUNTS AND [...] ADOLESCENTS REPRESENTS INDIVIDUALA AGED 2-19 YEARS EXCLUSIVE. HCT 36.1 % 37.0-51.0 Below low normal [facility] ( [facility] NORMAL RANGES Age WBC RBC HGB HCT [...] HCT IS 5% LESS SOURCE FOR DATA: [facility] 1800 OPERATION MANUAL( AUTOMATED BLOOD COUNTS AND [...] ADOLESCENTS REPRESENTS INDIVIDUALA AGED 2-19 YEARS EXCLUSIVE. HGB 12.0 g/dL 12.0-18.0 [facility] ([facility] NORMAL RANGES Age WBC RBC HGB HCT [...] HCT IS 5% LESS SOURCE FOR DATA: [facility] 1800 OPERATION MANUAL( AUTOMATED BLOOD COUNTS AND [...] ADOLESCENTS REPRESENTS INDIVIDUALA AGED 2-19 YEARS EXCLUSIVE. MCHC 33.2 g/dL 31.0-36.0 [facility] ([facility] NORMAL RANGES Age WBC RBC HGB HCT [...] HCT IS 5% LESS SOURCE FOR DATA: [facility] 1800 OPERATION MANUAL( AUTOMATED BLOOD COUNTS AND [...] ADOLESCENTS REPRESENTS INDIVIDUALA AGED 2-19 YEARS EXCLUSIVE. MCH 31.6 pg 26.0-32.0 [facility] ([facility] NORMAL RANGES Age WBC RBC HGB HCT [...] HCT IS 5% LESS SOURCE FOR DATA: [facility] 1800 OPERATION MANUAL( AUTOMATED BLOOD COUNTS AND [...] ADOLESCENTS REPRESENTS INDIVIDUALA AGED 2-19 YEARS EXCLUSIVE. PLT 351 10E3/uL 140-440 [facility] ([facility] NORMAL RANGES Age WBC RBC HGB HCT [...] HCT IS 5% LESS SOURCE FOR DATA: [facility] 1800 OPERATION MANUAL( AUTOMATED BLOOD COUNTS AND [...] ADOLESCENTS REPRESENTS INDIVIDUALA AGED 2-19 YEARS EXCLUSIVE. RDW-CV 12.7 % 11.5-14.5 [facility] ([facility] NORMAL RANGES Age WBC RBC HGB HCT [...] HCT IS 5% LESS SOURCE FOR DATA: [facility] 1800 OPERATION MANUAL( AUTOMATED BLOOD COUNTS AND [...] ADOLESCENTS REPRESENTS INDIVIDUALA AGED 2-19 YEARS EXCLUSIVE. Lym% 30.8 % 10.0-58.5 [facility] ([facility] NORMAL RANGES Age WBC RBC HGB HCT [...] HCT IS 5% LESS SOURCE FOR DATA: [facility] 1800 OPERATION MANUAL( AUTOMATED BLOOD COUNTS AND [...] ADOLESCENTS REPRESENTS INDIVIDUALA AGED 2-19 YEARS EXCLUSIVE. MXD% 10.5 % 0.1-24.0 [facility] ([facility] NORMAL RANGES Age WBC RBC HGB HCT [...] HCT IS 5% LESS SOURCE FOR DATA: [facility] 1800 OPERATION MANUAL( AUTOMATED BLOOD COUNTS AND [...] ADOLESCENTS REPRESENTS INDIVIDUALA AGED 2-19 YEARS EXCLUSIVE. Neut% 58.7 % 37.0-92.0 [facility] ([facility] NORMAL RANGES Age WBC RBC HGB HCT [...] HCT IS 5% LESS SOURCE FOR DATA: [facility] 1800 OPERATION MANUAL( AUTOMATED BLOOD COUNTS AND [...] ADOLESCENTS REPRESENTS INDIVIDUALA AGED 2-19 YEARS EXCLUSIVE. MXD# 0.6 10E3/uL 0.0-1.8 [facility] ([facility] NORMAL RANGES Age WBC RBC HGB HCT [...] HCT IS 5% LESS SOURCE FOR DATA: [facility] 1800 OPERATION MANUAL( AUTOMATED BLOOD COUNTS AND [...] ADOLESCENTS REPRESENTS INDIVIDUALA AGED 2-19 YEARS EXCLUSIVE. Neut# 3.4 % 2.0-7.8 [facility] ([facility] NORMAL RANGES Age WBC RBC HGB HCT [...] HCT IS 5% LESS SOURCE FOR DATA: [facility] 1800 OPERATION MANUAL( AUTOMATED BLOOD COUNTS AND [...] ADOLESCENTS REPRESENTS INDIVIDUALA AGED 2-19 YEARS EXCLUSIVE. Lym# 1.8 10E3/uL 0.6-4.1 [facility] ([facility] NORMAL RANGES Age WBC RBC HGB HCT [...] HCT IS 5% LESS SOURCE FOR DATA: [employer] [facility] 1800 OPERATION MANUAL( AUTOMATED BLOOD COUNTS AND [...] ADOLESCENTS REPRESENTS INDIVIDUALA AGED 2-19 YEARS EXCLUSIVE. MPV 9.3 fL 9.0-13.0 [facility] ([facility] NORMAL RANGES Age WBC RBC HGB HCT [...] HCT IS 5% LESS SOURCE FOR DATA: [facility] 1800 OPERATION MANUAL( AUTOMATED BLOOD COUNTS AND [...] ADOLESCENTS REPRESENTS INDIVIDUALA AGED 2-19 YEARS EXCLUSIVE. ID Date Data Source [id number] 03/12/2020 04:27:00 PM EST [facility] ([facility] Name Value Range Interpretation Code Description Data Renetta rce(s) Supporting Document(s) Thyrotropin [Units/volume] in Serum or Plasma 2.057 ulU/mL 0.60-4.8 [facility] ([facility] ID Date Data Source [id number] 03/09/2020 09:43:33 AM EST [facility] PCName: Brenda OlguinOB: 1955Provider: Jordin RodneyDino: 03/05/2020 Chief ComplaintLow back pain Chief Complaint 2NYSW VAS PAIN Established: MA completing section: TODUME History of Present IllnessRecent test/procedures: Patient was asked and denies having any tests since their last visit. Patient was asked and denies being seen by any Physicians since their last visit. The patient was last seen by a [facility] provider on 01/07/2020. At today's visit patient presents with their Self Implanted Devices The patient has the following implanted device(s): LOOP MONITOR. Patient is retired. The patient is being seen for a follow-up. Pain Duration: YRS Condition type: The patient is being seen for a chronic condition. Junior Jennings for medication discussion and MILD consideration. PAIN LOCATION: the pain is located in the low back and radiates to the right buttock, right thigh, right knee and right calf/morrow. The etiology of this injury/condition is unknown. RELATIONSHIP TO INJURY: This condition is not related to a specific injury. PAST EVALUATION: The patient has been previously evaluated by a primary care provider . Provider records were obtained, reviewed and on file. PAST TREATMENT has included: TENS unit (not effective). INTERVAL EVENTS: include . Patient here today to f/u on chronic low back pain. Her pain is worsened with standing and walking and relieved by sitting, lying down flat and pain meds. Was started on oxycodone 3 times a day PRN dosing with her PCP. Last time she was here I ordered diagnostic facet blocks. These will be completed on March 31 and April 01, 2020. These are being done for consideration of a possible rhizotomy in the future. Here today for a 60 day check. Review of SystemsConstitutional: Normal. Eyes: Normal. ENT: normal. Cardiovascular: Normal. Respiratory: Normal. Gastrointestinal: Normal. Genitourinary: Normal. Musculoskeletal: lower back pain. Integumentary: Normal. Neurological: Normal. Psychiatric: Normal. Endocrine: Normal. Hematologic/Lymphatic: Normal. Active Problems 1. History of anticoagulant therapy (V87.49) (Z92.29) 2. Low back pain (724.2) (M54.5) 3. Lumbar facet art hropathy (721.3) (M47.816) 4. Lumbar radiculopathy (724.4) (M54.16) 5. Lumbosacral stenosis with neurogenic claudication (724.03) (M48.07,G95.19) Allergies iodine Hives;; Recorded By: Porsche Gao; 01/07/2020 1:54:30 PM Iodinated Contrast Media hives; Updated By: Porsche Gao; 01/07/2020 1:54:30 PMonly if contrast is iodinatedDenied Adhesive Tape Recorded By: Porsche Gao; 01/07/2020 1:29:09 PM Latex Recorded By: Porsche Gao; 01/07/2020 1:29:09 PM Current Meds Bimatoprost 0.03 % Ophthalmic Solution;Therapy: (Recorded:07Jan2020) to Recorded BuSpar TABS;Therapy: (Recorded:07Jan2020) to Recorded Cozaar TABS;Therapy: (Recorded:07Jan2020) to Recorded Evista TABS;Therapy: (Recorded:07Jan2020) to Recorded FiberCon TABS;Therapy: (Recorded:07Jan2020) to Recorded Iron TABS;Therapy: (Recorded:07Jan2020) to Recorded Methocarbamol TABS;Therapy: (Recorded:07Jan2020) to Recorded Metoprolol Succinate ER TB24;Therapy: (Recorded:07Jan2020) to Recorded Norethindrone-Eth Estradiol TABS;Therapy: (Recorded:07Jan2020) to Recorded oxyCODONE HCl - 10 MG Oral Tablet;Therapy: (Recorded:07Jan2020) to Recorded Protonix PACK;Therapy: (Recorded:07Jan2020) to Recorded Sertraline HCl TABS;Therapy: (Recorded:07Jan2020) to Recorded Synthroid TABS;Therapy: (Recorded:07Jan2020) to Recorded traZODone HCl TABS;Therapy: (Recorded:07Jan2020) to Recorded Vitamin D CAPS;Therapy: (Recorded:07Jan2020) to Recorded Xarelto TABS;Therapy: (Recorded:07Jan2020) to Recorded Zofran TABS;Therapy: (Recorded:07Jan2020) to Recorded Zyrtec TABS;Therapy: (Recorded:07Jan2020) to Recorded Past Medical History Denied: History of Clotting disorder History of anticoagulant therapy (V87.49) (Z92.29) Resolved Date: 07 Jan 2020; Assessed By: Shasha Brenner (Pain Management); Last Assessed: 05 Mar 2020 xarelto History of arthritis (V13.4) (Z87.39) History of atrial fibrillation (V12.59) (Z86.79) History of gastroesophageal reflux (GERD) (V12.79) (Z87.19) History of glaucoma (V12.49) (Z86.69) History of hypertension (V12.59) (Z86.79) History of hypothyroidism (V12.29) (Z86.39) History of radiculopathy (V12.49) (Z86.69) lumbo sacral Surgical History Denied: History of Cardioverter defibrillator insertion History of Fracture repair 2013 LLE History of Gastric bypass surgery 2004 History of Hip replacement 2015 left History of prior surgery Heart loop monitor Denied: History of Pacemaker insertion Family History No pertinent family history Social History (V61.03) (Z63.5) Denied: History of Drug use Never a smoker Occasional alcohol use Retired from employment VitalsVital Signs Recorded: 05Mar2020 02:00PM Height: 5 ft 3 inWeight: 154 lb BMI Calculated: 27.28BSA Calculated: 1.73Systolic: 160, SittingDiastolic: 87, SittingHeart Rate: 89Respiration: 16Temperature: 97.1 FHeight measured w/wo shoes: w/shoesPain Scale: 6 Physical ExamGeneral: The patient is a well nourished/well developed, female, heavy set, who is in no acute distress and appears stated age. Eyes: Lids are atraumatic, no lesions, sclerae are anicteric. Ears, Nose, Mouth, Throat: Patient wearing a mask due to COVID-19. Respiratory: Normal chest expansion and respiratory effort. Gait and Station: Gait was antalgic. Lumbosacral Spine: - Inspection: normal appearance. No deformity, ecchymosis, erythema or swelling noted. Normal Lordosis..- Palpation/Tenderness: No SI, paraspinous, or sciatic notch tenderness. - ROM Flexion: was not restricted, was painless. - ROM Extension: was restricted, was painful.Right Lower Extremity Motor:- Hip: 5/5 flexion, 5/5 extension- Knee: 5/5 flexion, 5/5 extension- Foot: 5/5 Plantar , 5/5 DorsiFlexionSpecial Tests: flip test was negative and positive facet challenge Left Lower Extremity Motor:- Hip: 5/5 flexion, 5/5 extension- Knee: 5/5 flexion, 5/5 extension- Foot: 5/5 Plantar , 5/5 DorsiFle xionSpecial Tests: positive facet challenge Neurological:Sensation Left Lower: normalSensation Right Lower: normal. Skin: Warm, dry, acyanotic. Psychological: Alert and oriented to person, place and time. Mood and affect are pleasant and appropriate. Judgement intact. Insight normal without delusions or hallucinations. Denies suicidal/homicidal ideation. Verified ResultsMRI of the lumbar spine completed on March 28, 2019 showed degenerative disc disease and spondylosis in background of scoliosis. Assessment 1. Encounter for preventive health examination (V70.0) (Z00.00) 2. Lumbar facet arthropathy (721.3) (M47.816) 3. Low back pain (724.2) (M54.5) 4. History of anticoagulant therapy (V87.49) (Z92.29) PlanMedication:. The patient does not receive any medication prescriptions from this office. Treatment includes: PROCEDURE(S): (Diagnositc MBB injections scheduled on 03-31 and 04-01-2020 - risks and benefits reviewed. Has educational material) THERAPIES: Therapy Treatment Plan: Deferred: All Therapies: Deferred: per patient request. FOLLOW UP: The patient should have a follow up visit in 2 months. CONTINUE TREATMENT: Renetta will continue with the following:. Renetta is participating in a home exercise program and is encouraged to continue. - STONE UNLOADER: The patient was counseled on the following: treatment plan and future treatment options. Discussion/SummaryPatient here today to f/u on chronic low back pain. Her pain is worsened with standing and walking and relieved by sitting, lying down flat and pain meds. Was started on oxycodone 3 times a day PRN dosing with her PCP. Last time she was here I ordered diagnostic facet blocks. These will be completed on March 31 and April 01, 2020. These are being done for consideration of a possible rhizotomy in the future. Here today for a 60 day check. Based on subjective and objective findings she would still warrant the lumbar facet diagnostic medial branch blocks. Risks and benefits once again reviewed. She has the education material that was provided at the last appointment regarding her injection. She continues to screen as low risk on the coronavirus screening tool, was made aware this, and continues to wish to move forward with injection. She will follow up with me 4 weeks after injection to review results. She continues to be anticoagulated with Xarelto and knows that she needs to hold this medication prior to her nerve block. She is worrying about traveling from [place] down here to have her injection with the weather and reports that she may rent a hotel room for the week. Signatures Electronically signed by : Shasha Brenner NP; Mar 05 2020 2:15PM EST (Author) Electronically signed by : Zoila Up MD; Mar 09 2020 9:43AM EST Name Value Range Interpretation Code Description Data Renetta rce(s) Supporting Document(s) ID Date Data Source [id number] 01/08/2020 11:54:02 AM EST [facility], PCName: Brenda Cuevas: 1955Provider: Elmer Brenner: 01/07/2020 Chief ComplaintLow back pain History of Present [facility]ness[facility] Cont[facility] Substance and Treatment Agreement Patient has signed a [facility] Controlled Substance and Treatment Agreement. Patient has been given a copy of the treatment agreement and has been given a copy of our Prescription Information Fact Sheet. Do you have a Brace for your condition? Patient currently has a brace for their condition and does utilize it. Do you have a TENS Unit for your condition? Patient currently does have a TENS Unit for their condition and does NOT utilize it. Supplements: Patient is currently taking the following supplements: (see current med list). Nerve Conduction: Patient has had a Nerve Conduction Test. At today's visit patient presents with their Self Implanted Devices The patient does not have any implanted devices. The patient does not have a glucose monitoring device. Patient is retired. What was brayden mcintosh's previous occupation? [employer]. The patient is being seen for an initial evaluation. Pain Duration: 7+ years Pain Quality: (Neuropathic) burning Pain Quality: (Nociceptive) aching and stabbing Timing: constant Palliation: opioid analgesics and sitting Exacerbating: standing and walking Pain Score: a current pain level of 5/10, a minimum pain level of 3/10 and a maximum pain level of 8/10. Condition type: The patient is being seen for a chronic condition. Junior Jennings for medication discussion and MILD consideration. PAIN LOCATION: the pain is located in the low back and radiates to the right buttock, right thigh, right knee and right calf/morrow. The etiology of this injury/condition is unknown. RELATIONSHIP TO INJURY: This condition is not related to a specific injury. PAST EVALUATION: The patient has been previously evaluated by a primary care provider . Provider records were obtained, reviewed and on file. PAST TREATMENT has included: TENS unit (not effective). INTERVAL EVENTS: include . Patient here today to establish care for chronic low back pain that radiates down the right lower extremity. Her pain is worsened with standing and walking and relieved by sitting, lying down flat and pain meds. Has been utilizing a Butrans patch and it was helpful to her pain however it was costing too much. Was started on oxycodone 3 times a day dosing. Is referred here today to discuss medication options as well as an MILD procedure. Review of SystemsConstitutional: Normal. Eyes: Normal. ENT: normal. Cardiovascular: Normal. Respiratory: Normal. Gastrointestinal: Normal. Genitourinary: Normal. Musculoskeletal: lower back pain. Integumentary: Normal. Neurological: Normal. Psychiatric: Normal. Endocrine: Normal. Hematologic/Lymphatic: Normal. Active Problems History of anticoagulant therapy (V87.49) (Z92.29) Allergies iodine Hives;; Recorded By: Porsche Gao; 01/07/2020 1:54:30 PM Iodinated Contrast Media hives; Updated By: Porsche Gao; 01/07/2020 1:54:30 PMonly if contrast is iodinatedDenied Adhesive Tape Recorded By: Porsche Gao; 01/07/2020 1:29:09 PM Latex Recorded By: Porsche Gao; 01/07/2020 1:29:09 PM Current Meds Bimatoprost 0.03 % Ophthalmic Solution;Therapy: (Recorded:07Jan2020) to Recorded Dispense: 0 Days ; #: Sufficient; Refill: 0;For: SocHx: Never a smoker; LUI = N; Record; Last Updated By: Porsche Gao; 01/07/2020 1:54:30 PM BuSpar TABS;Therapy: (Recorded:07Jan2020) to Recorded Dispense: 0 Days ; #: Sufficient; Refill: 0;For: SocHx: Never a smoker; LUI = N; Record; Last Updated By: Porsche Gao; 01/07/2020 1:54:30 PM Cozaar TABS;Therapy: (Recorded:07Jan2020) to Recorded Dispense: 0 Days ; #: Sufficient; Refill: 0;For: SocHx: Never a smoker; LUI = N; Record; Last Updated By: Porsche Gao; 01/07/2020 1:54:30 PM Evista TABS;Thera py: (Recorded:07Jan2020) to Recorded Dispense: 0 Days ; #: Sufficient; Refill: 0;For: SocHx: Never a smoker; LUI = N; Record; Last Updated By: Porsche Gao; 01/07/2020 1:54:30 PM FiberCon TABS;Therapy: (Recorded:07Jan2020) to Recorded Dispense: 0 Days ; #: Sufficient; Refill: 0;For: SocHx: Never a smoker; LUI = N; Record; Last Updated By: Porsche Gao; 01/07/2020 1:54:30 PM Iron TABS;Therapy: (Recorded:07Jan2020) to Recorded Dispense: 0 Days ; #: Sufficient; Refill: 0;For: SocHx: Never a smoker; LUI = N; Record; Last Updated By: Porsche Gao; 01/07/2020 1:54:30 PM Methocarbamol TABS;Therapy: (Rec orded:07Jan2020) to Recorded Dispense: 0 Days ; #: Sufficient; Refill: 0;For: SocHx: Never a smoker; LUI = N; Record; Last Updated By: Porsche Gao; 01/07/2020 1:54:30 PM Metoprolol Succinate ER TB24;Therapy: (Recorded:07Jan2020) to Recorded Dispense: 0 Days ; #: Sufficient; Refill: 0;For: SocHx: Never a smoker; LUI = N; Record; Last Updated By: Porsche Gao; 01/07/2020 1:54:30 PM Norethindrone-Eth Estradiol TABS;Therapy: (Recorded:07Jan2020) to Recorded Dispense: 0 Days ; #: Sufficient; Refill: 0;For: SocHx: Never a smoker; LUI = N; Record; Last Updated By: Porsche Gao; 01/07/2020 1:54:30 PM oxyCODONE HCl - 10 MG Oral Tablet;Therapy: (Recorded:07Jan2020) to Recorded Dispense: 0 Days ; #: Sufficient; Refill: 0;For: SocHx: Never a smoker; LUI = N; Record; Last Updated By: Porsche Gao; 01/07/2020 1:54:30 PM Protonix PACK;Therapy: (Recorded:07Jan2020) to Recorded Dispense: 0 Days ; #: Sufficient; Refill: 0;For: SocHx: Never a smoker; LUI = N; Record; Last Updated By: Porsche Gao; 01/07/2020 1:54:30 PM Sertraline HCl TABS;Therapy: (Recorded:07Jan2020) to Recorded Dispense: 0 Days ; #: Sufficient; Refill: 0;For: SocHx: Never a smoker; LUI = N; Record; Last Updated By: Porsche Gao; 01/07/2020 1:54:30 PM Synthroid TABS;Therapy: (Recorded:07Jan2020) to Recorded Dispense: 0 Days ; #: Sufficient; Refill: 0;For: SocHx: Never a smoker; LUI = N; Record; Last Updated By: Porsche Gao; 01/07/2020 1:54:30 PM traZODone HCl TABS;Therapy: (Recorded:07Jan2020) to Recorded Dispense: 0 Days ; #: Sufficient; Refill: 0;For: SocHx: Never a smoker; LUI = N; Record; Last Updated By: Porsche Gao; 01/07/2020 1:54:30 PM Vitamin D CAPS;Therapy: (Recorded:07Jan2020) to Recorded Dispense: 0 Days ; #: Sufficient; Refill: 0;For: SocHx: Never a smoker; LIU = N; Record; Last Updated By: Porsche Gao; 01/07/2020 1:54:30 PM Xarelto TABS;Therapy: (Recorded:07Jan2020) to Recorded Dispense: 0 Days ; #: Sufficient; Refill: 0;For: PMH: History of anticoagulant therapy; LUI = N; Record; Last Updated By: Porsche Gao; 01/07/2020 1:29:09 PM Zofran TABS;Therapy: (Recorded:07Jan2020) to Recorded Dispense: 0 Days ; #: Sufficient; Refill: 0;For: SocHx: Never a smoker; LUI = N; Record; Last Updated By: Porsche Gao; 01/07/2020 1:54:30 PM Zyrtec TABS;Therapy: (Recorded:07Jan2020) to Recorded Dispense: 0 Days ; #: Sufficient; Refill: 0;For: SocHx: Never a smoker; LUI = N; Record; Last Updated By: Porsche Gao; 01/07/2020 1:54:30 PM Past Medical History Denied: History of Clotting disorder History of anticoagulant therapy (V87.49) (Z92.29) Resolved Date: 07 Jan 2020; Assessed By: Shasha Brenner (Pain Management); Last Assessed: 07 Jan 2020 xarelto History of arthritis (V13.4) (Z87.39) History of atrial fibrillation (V12.59) (Z86.79) History of gastroesophageal reflux (GERD) (V12.79) (Z87.19) History of glaucoma (V12.49) (Z86.69) History of hypertension (V12.59) (Z86.79) History of hypothyroidism (V12.29) (Z86.39) History of radiculopathy (V12.49) (Z86.69) lumbo sacral Surgical History Denied: History of Cardioverter defibrillator insertion History of Fracture repair 2013 LLE History of Gastric bypass surgery 2004 History of Hip replacement 2015 left History of prior surgery Heart loop monitor Denied: History of Pacemaker insertion Family History No pertinent family history Social History (V61.03) (Z63.5) Denied: History of Drug use Never a smoker 2020 Occasional alcohol use 1 glass with special occasion dinners Retired from [employer] VitalsVital Signs Recorded: 07Jan2020 01:57PM Height: 5 ft 4 inWeight: 150 lb BMI Calculated: 25.75BSA Calculated: 1.73Systolic: 120, SittingDiastolic: 76, SittingHeart Rate: 78Respiration: 16Temperature: 97.9 FHeight measured w/wo shoes: w/shoesPain Scale: 5Depression: 4ORT: LR Physical ExamGeneral: The patient is a well nourished/well developed, female, heavy set, who is in mild distress and appears stated age. Eyes: Lids are atraumatic, no lesions, sclerae are anicteric. Ears, Nose, Mouth, Throat: Patient wearing a mask due to COVID-19. Respiratory: Normal chest expansion and respiratory effort. Gait and Station: Gait was antalgic. Lumbosacral Spine: - Inspection: normal appearance. No deformity, ecchymosis, erythema or swelling noted. Normal Lordosis..- Palpation/Tenderness: No SI, paraspinous, or sciatic notch tenderness. - ROM Flexion: was not restricted, was painless. - ROM Extension: was restricted, was painful.Right Lower Extremity Motor:- Hip: 5/5 flexion, 5/5 extension- Knee: 5/5 flexion, 5/5 extension- Foot: 5/5 Plantar , 5/5 DorsiFlexionSpecial Tests: flip test was positive and positive facet challenge Left Lower Extremity Motor:- Hip: 5/5 flexion, 5/5 extension- Knee: 5/5 flexion, 5/5 extension- Foot: 5/5 Plantar , 5/5 DorsiFlexionSpecial Tests: positive facet challenge Neurological:Sensation Left Lower: normalSensation Right Lower: normal. Skin: Warm, dry, acyanotic. Psychological: Alert and oriented to person, place and time. Mood and affect are pleasant and appropriate. Judgement intact. Insight normal without delusions or hallucinations. Denies suicidal/homicidal ideation. Assessment 1. History of anticoagulant therapy (V87.49) (Z92.29) 2. Lumbosacral stenosis with neurogenic claudication (724.03) (M48.07,G95.19) 3. Lumbar radiculopathy (724.4) (M54.16) 4. Lumbar facet arthropathy (721.3) (M47.816) 5. Low back pain (724.2) (M54.5) Plan 1. Stop: Butrans PTWK (Buprenorphine) 2. Anticoag: Xarelto per Protocol Management Patient education Status: Hold For - Scheduling Requested for: [id number] Anticoagulant Task Board : Please task the [facility] Anticoagulant Task BoardAnticoagulant Review.....: : Patient will be receiving a telephone call to review instructions again before their procedure.Important information regarding your appointment: : If you cannot make your block appointment please call Triage for instruction regarding your anticoagulant.Anticoagulant: Xarelto. Hold your Anticoagulant (blood thinner) for... : 3 days BEFORE the day of your procedure and do not take the day of your procedure. Your will be instruced at your nerve block appointment as to when to start taking your blood thinner.Anticoagulant Clearance Per Protocol : Anticoagulant Clearance per Protocol 3. Block (Diagnostic Facet 2 wks apart) ([facility]) Referral Procedure Procedure Status: Hold For - Scheduling Requested for: [id number] Type : MedicareIs patient currently on a biologic? : NoIs patient taking Aspirin 325 mg or greater...? : NoAnticoagulant List : XARELTO (rivaroxaban)Is your patient on an Anticoagulant -OR- have Coagulopathy...? : Yes - Remember to place the anticoag orderSedation : YesArea : LumbarProfessional Tissue Rewinder needed for block? : NoFront Desk Reminder: : Schedule the Status Post BlockBlock should be booked with: : _First Available ProviderPt weight: SODS: </= 450 lbs. HODS: </= 400 lbs. ENTER WEIGHT: : 150Diagnostic Facet Block Order : book 2 weeks apart and book follow up 4-6 weeksIF PT has Thrombocytopenia are platelets >/= 100,000 ? : NAAre you ordering pyhsical therapy...? : NoDoes patient require a Miladis lift? : NoIs this an urgent request? : No - This is not an urgent requestCovid Risk : Low Risk Medication:. The patient, at this time, is receiving prescriptions for narcotic substances from another practice and doesn't wish for [facility] to take over prescribing. In the future if patient changes his/her mind [facility] will consider taking over prescribing of medications. The patient, at this time, is receiving prescriptions for controlled substances from another practice and doesn't wish for [facility] to take over prescribing. In the future if patient changes his/her mind [facility] will consider taking over prescribing of medications. The patient does not receive any medication prescriptions from this office. Treatment includes: PROCEDURE(S): ASIPP Risk Stratification of Patients presenting for Interventional Pain Procedures: Decreasing Morbidity of COVID-19 Comments: 2Comments: 0Comments: 2Comments: 1Comments: 0Comments: 0Comments: 0Comments: 0Total Points: 5 According to the Covid-19 ASIPP guidelines and the medical history as relayed to me by the patient, the Covid-19 risk stratification is low .- Nerve Block Plan: I am ordering a, BILATERAL, LUMBAR, FACET JOINT MEDIAL BRANCH NERVE BLOCK. Definitive levels to be determined by the interventional physician based on fluoroscopic imaging and symptomatology at the time of the procedure. This procedure is , targeting the L3 L4 level, L4 L5 level, L5 S1 level and under fluoroscopy with SEDATION. NERVE BLOCK: The material risks, benefits, alternatives have been discussed with the patient, including no treatment. They include, but are not limited to, bleeding, bruising, infection, damage to targeted and non-targeted tissue, increased pain, nerve injury or other reaction, if severe, could lead to CVA, arrhythmias or . The patient was given procedure instructions and educational material for this specific procedure at the time of the visit.- Bleeding Disorder: Patient denies having a bleeding disorder. - Anticoagulation therapy: XARELTO (rivaroxaban) (per protocol hold 3 days). THERAPIES: Therapy Treatment Plan: Deferred: All Therapies: Deferred: per patient request. FOLLOW UP: The patient should have a follow up visit with MD. CONTINUE TREATMENT: Renetta will continue with the following:. Renetta is participating in a home exercise program and is encouraged to continue. PHQ-9 Patient's PHQ-9 score was 0-4 suggesting a Minimal level of Depression. No further plan is required at this time. The PHQ-9 was administered today as part of routine health risk screening for depression and psychosocial functioning. Screening for depression in chronic pain patients is standard of care due to the high rate of co-morbidity between these illnesses. In conjunction with other health risk assessment screening data, such as the Opioid Risk Tool and Visual Analogue Scale, this information is imperative for determining the patients risk factors and potential comorbidities prior to determining a safe and effective treatment plan. - STONE UNLOADER: The patient was counseled on the following: treatment plan and future treatment options. Discussion/SummaryPatient here today to establish care for chronic low back pain that radiates down the right lower extremity. Her pain is worsened with standing and walking and relieved by sitting, lying down flat and pain meds. Has been utilizing a Butrans patch and it was helpful to her pain however it was costing too much. Was started on oxycodone 3 times a day dosing. Is referred here today to discuss medication options as well as an MILD procedure. She reports that she is having difficulty caring for her house that she cannot do sweeping or vacuuming due to the pain that is caused with the lateral rotation of her lumbar spine. She also has pain with lumbar extension. We did discuss the possibility of moving forward with an MILD procedure however at this time she does wish to move forward with bilateral lumbar facet medial branch diagnostic blocks targeting L3-S1 with sedation under fluoroscopy at today's visit. Educational material provided. Risks and benefits reviewed. She is anticoagulated with Xarelto for A. fib and will need to hold this medication for 3 days prior to each set of injections- she made aware of this and wishes to proceed with injection. She also screens as low risk of exposed to the lozoya virus and was made aware of this and wishes to proceed with injection. We may still proceed with the MILD MRI and an FMD for MILD consideration in the future however her axial low back pain is most troublesome to her and impacting her quality of life at this point. She continues, at this time, to get Oxycodone from her pain management center near [place] as they give 3 pills a day so I explained to her that we would make her a non narcotic candidate w/ our facility at this time. If her pain clinic does not feel comfortable prescribing her narcotics that she is now following with us we will take over prescribing and s he was made aware that she would only be able to get her narcotic medications from one facility and patient verbalized understanding. I also told her that if we took over prescribing we will only give her to immediate release oxycodone. Signatures Electronically signed by : Shasha Brenner NP; Jan 07 2020 3:47PM EST (Author) Electronically signed by : Doni Duncan MD; Jan 08 2020 11:53AM EST Name Value Range Interpretation Code Description Data Renetta rce(s) Supporting Document(s) ID Date Data Source [id number] 12/22/2019 08:45:56 AM EDT [facility] PCName: Renetta MooreOB: [id number]: Mookie Farmer: 12/17/2019 Reason For VisitRenetta Singhan is here for evaluation of NCS/EMG results and Renetta Singhan is here for a second opinion. The patient's pain is managed by [facility]. Patient is retired. PlanHISTORY: The patient is back for follow-up EMG/NCS. Symptoms are unchanged. The patient continues to experience discomfort, numbness and tingling involving the wrist and hand. Splinting has been ineffective in controlling symptoms. The patient would like to discuss surgery.EXAM: The patient appears well-developed, well- nourished, and in no acute distress. The patient's body habitus is approximately normal weight. The patient is oriented to person, place and time. The patient's mood is appropriate to situation. The patient's coordination is normal.Bilateral upper extremities show no deformities, no skin lesions. The patient has full range of motion of the elbow, wrists, and digits. The patient is neurovascularly intact to light touch, but does have paresthesias to the median nerve distribution with carpal tunnel compression test. The patient has brisk capillary refill to all digits. Carpal tunnel compression test and Tinel's testing at the wrist recreate mild paresthesias to the median nerve distribution. There is no thenar nor intrinsic atrophy.X-RAYS: None today ASSESSMENT/PLAN:- right stage II thumb CMC (carpometacarpal) joint primary osteoarthritis-Right volar ganglion- Followed by [facility]-Bilateral carpal tunnel syndrome-[facility], atrial fibrillation-Travels from [place]-EMG/NCS consistent with carpal tunnel syndrome, median nerve motor latencies 5.5 ms right wrist, 8.2 ms left wrist, bilateral C6-7 changesNerve studies show cervical involvement, and therefore, there may be a double crush component to the patient's symptoms. I explained to the patient that for this reason, peripheral nerve decompression may not alleviate all of the patient's symptoms, as nerve compression more proximally in the cervical spine may account for continued symptoms.Carpal tunnel treatment options were discussed once more. Given electrodiagnostic findings consistent with carpal tunnel syndrome, and failure of conservative measures to control symptoms, it is felt to be reasonable to proceed with surgical intervention. Risks of persistent pain, numbness, weakness, discomfort, stiffness, and other potential problems with surgery, including anesthesia, infection, discussed with the patient. It is expected that vice president payer strength will likely take up to 3 months to recover back to relatively normal levels. The bandages are to be kept clean and dry until the patient's postoperative visit. If needed, postoperative therapy will be considered if the patient experiences any residual discomfort or stiffness, but it is frequently not necessary. After thorough discussion, the patient would like to proceed with endoscopic carpal tunnel release, although at this time, she is still trying to figure out plans for her back, she is awaiting evaluation for possible MILLD spine procedure with [facility].Should this be needed, there is a slim chance that we might be able to combine a carpal tunnel release procedure with an outpatient spine procedure surgery at our surgery center, otherwise we will just do them separately.Risks benefits and alternatives of surgery were all carefully discussed with the patient today. Risks of infection, bleeding, postoperative infection, and other complications potentially needing further surgery were all discussed, and the patient voiced understanding and may call at any time to proceed with surgery. Work / School NoteThe percentage of temporary impairment is 0%. The patient is not working at this time. DisclaimersThis document was dictated and electronically signed using [email or web address] software. A reasonable attempt at proof reading has been made to minimize errors. Please call with any questions. Signatures Electronically signed by : Mookie Farmer M.D.; Dec 22 2019 8:45AM EST (Author) Name Value Range Interpretation Code Description Data Renetta rce(s) Supporting Document(s) ID Date Data Source [id number] 12/05/2019 01:32:00 PM EDT [facility] ([facility] Name Value Range Interpretation Code Description Data Renetta rce(s) Supporting Document(s) Thyrotropin [Units/volume] in Serum or Plasma 1.918 ulU/mL 0.60-4.8 [facility] ([facility] ID Date Data Source [id number] 12/05/2019 01:32:00 PM EDT [facility] ([facility] Name Value Range Interpretation Code Description Data Renetta rce(s) Supporting Document(s) Glu 92 mg/dL 70-110 [facility] ([facility] NORMAL RANGES Age WBC RBC HGB HCT [...] HCT IS 5% LESS SOURCE FOR DATA: [facility] 1800 OPERATION MANUAL( AUTOMATED BLOOD COUNTS AND DIFF.) APPENDIX B-3CLASSIFICATION CHOLESTEROL FOR ADULTS CHILDREN/ADOLESCENTS* DESIRABLE: <200 MG/DL <170 MG/DL BORDER-LINE HIGH RISK: 200-239 MG/DL 170-199 MG/DL HIGH RISK: >240 MG/DL >200 MG/DL CLASS. FOR PRIMARY LDL CHOL PREVENTION: LDL CHOL-CHILD/ADOLESCENTS* DESIRABLE: <130 MG/DL <110 MG/DL BORDERLINE-HIGH RISK: 130- 159 MG/DL 110-129 MG/DL HIGH RISK: >160 MG/DL >130 MG/DL *CHILDREN AND ADOLESCENTS REPRESENTS INDIVIDUALA AGED 2-19 YEARS EXCLUSIVE. BUN 11 mg/dL 8-23 [facility] ([facility] NORMAL RANGES Age WBC RBC HGB HCT [...] HCT IS 5% LESS SOURCE FOR DATA: [facility] 1800 OPERATION MANUAL( AUTOMATED BLOOD COUNTS AND DIFF.) APPENDIX B-3CLASSIFICATION CHOLESTEROL FOR ADULTS CHILDREN/ADOLESCENTS* DESIRABLE: <200 MG/DL <170 MG/DL BORDER-LINE HIGH RISK: 200-239 MG/DL 170-199 MG/DL HIGH RISK: >240 MG/DL >200 MG/DL CLASS. FOR PRIMARY LDL CHOL PREVENTION: LDL CHOL-CHILD/ADOLESCENTS* DESIRABLE: <130 MG/DL <110 MG/DL BORDERLINE-HIGH RISK: 130- 159 MG/DL 110-129 MG/DL HIGH RISK: >160 MG/DL >130 MG/DL *CHILDREN AND ADOLESCENTS REPRESENTS INDIVIDUALA AGED 2-19 YEARS EXCLUSIVE. Creat 0.7 mg/dL 0.5-1.0 [facility] ([facility] NORMAL RANGES Age WBC RBC HGB HCT [...] HCT IS 5% LESS SOURCE FOR DATA: [facility] 1800 OPERATION MANUAL( AUTOMATED BLOOD COUNTS AND DIFF.) APPENDIX B-3CLASSIFICATION CHOLESTEROL FOR ADULTS CHILDREN/ADOLESCENTS* DESIRABLE: <200 MG/DL <170 MG/DL BORDER-LINE HIGH RISK: 200-239 MG/DL 170-199 MG/DL HIGH RISK: >240 MG/DL >200 MG/DL CLASS. FOR PRIMARY LDL CHOL PREVENTION: LDL CHOL-CHILD/ADOLESCENTS* DESIRABLE: <130 MG/DL <110 MG/DL BORDERLINE-HIGH RISK: 130- 159 MG/DL 110-129 MG/DL HIGH RISK: >160 MG/DL >130 MG/DL *CHILDREN AND ADOLESCENTS REPRESENTS INDIVIDUALA AGED 2-19 YEARS EXCLUSIVE. Na 129 mmol/L 136-145 Below low normal [facility] ( [facility] NORMAL RANGES Age WBC RBC HGB HCT [...] HCT IS 5% LESS SOURCE FOR DATA: [facility] 1800 OPERATION MANUAL( AUTOMATED BLOOD COUNTS AND DIFF.) APPENDIX B-3CLASSIFICATION CHOLESTEROL FOR ADULTS CHILDREN/ADOLESCENTS* DESIRABLE: <200 MG/DL <170 MG/DL BORDER-LINE HIGH RISK: 200-239 MG/DL 170-199 MG/DL HIGH RISK: >240 MG/DL >200 MG/DL CLASS. FOR PRIMARY LDL CHOL PREVENTION: LDL CHOL-CHILD/ADOLESCENTS* DESIRABLE: <130 MG/DL <110 MG/DL BORDERLINE-HIGH RISK: 130- 159 MG/DL 110-129 MG/DL HIGH RISK: >160 MG/DL >130 MG/DL *CHILDREN AND ADOLESCENTS REPRESENTS INDIVIDUALA AGED 2-19 YEARS EXCLUSIVE. BUN/Creatinine Ratio 14.9 Calc [facility] ([facility] NORMAL RANGES Age WBC RBC HGB HCT [...] HCT IS 5% LESS SOURCE FOR DATA: [facility] 1800 OPERATION MANUAL( AUTOMATED BLOOD COUNTS AND DIFF.) APPENDIX B-3CLASSIFICATION CHOLESTEROL FOR ADULTS CHILDREN/ADOLESCENTS* DESIRABLE: <200 MG/DL <170 MG/DL BORDER-LINE HIGH RISK: 200-239 MG/DL 170-199 MG/DL HIGH RISK: >240 MG/DL >200 MG/DL CLASS. FOR PRIMARY LDL CHOL PREVENTION: LDL CHOL-CHILD/ADOLESCENTS* DESIRABLE: <130 MG/DL <110 MG/DL BORDERLINE-HIGH RISK: 130- 159 MG/DL 110-129 MG/DL HIGH RISK: >160 MG/DL >130 MG/DL *CHILDREN AND ADOLESCENTS REPRESENTS INDIVIDUALA AGED 2-19 YEARS EXCLUSIVE. CL 95.1 mmol/L 98.0-107.0 Below low normal [facility] ([facility] NORMAL RANGES Age WBC RBC HGB HCT [...] HCT IS 5% LESS SOURCE FOR DATA: [facility] 1800 OPERATION MANUAL( AUTOMATED BLOOD COUNTS AND DIFF.) APPENDIX B-3CLASSIFICATION CHOLESTEROL FOR ADULTS CHILDREN/ADOLESCENTS* DESIRABLE: <200 MG/DL <170 MG/DL BORDER-LINE HIGH RISK: 200-239 MG/DL 170-199 MG/DL HIGH RISK: >240 MG/DL >200 MG/DL CLASS. FOR PRIMARY LDL CHOL PREVENTION: LDL CHOL-CHILD/ADOLESCENTS* DESIRABLE: <130 MG/DL <110 MG/DL BORDERLINE-HIGH RISK: 130- 159 MG/DL 110-129 MG/DL HIGH RISK: >160 MG/DL >130 MG/DL *CHILDREN AND ADOLESCENTS REPRESENTS INDIVIDUALA AGED 2-19 YEARS EXCLUSIVE. K 4.5 mmol/L 3.5-5.1 [facility] ([facility] NORMAL RANGES Age WBC RBC HGB HCT [...] HCT IS 5% LESS SOURCE FOR DATA: [employer] [facility] 1800 OPERATION MANUAL( AUTOMATED BLOOD COUNTS AND DIFF.) APPENDIX B-3CLASSIFICATION CHOLESTEROL FOR ADULTS CHILDREN/ADOLESCENTS* DESIRABLE: <200 MG/DL <170 MG/DL BORDER-LINE HIGH RISK: 200-239 MG/DL 170-199 MG/DL HIGH RISK: >240 MG/DL >200 MG/DL CLASS. FOR PRIMARY LDL CHOL PREVENTION: LDL CHOL-CHILD/ADOLESCENTS* DESIRABLE: <130 MG/DL <110 MG/DL BORDERLINE-HIGH RISK: 130- 159 MG/DL 110-129 MG/DL HIGH RISK: >160 MG/DL >130 MG/DL *CHILDREN AND ADOLESCENTS REPRESENTS INDIVIDUALA AGED 2-19 YEARS EXCLUSIVE. TP 6.2 g/dL 6.6-8.7 Below low normal [facility] ( [facility] NORMAL RANGES Age WBC RBC HGB HCT [...] HCT IS 5% LESS SOURCE FOR DATA: [facility] 1800 OPERATION MANUAL( AUTOMATED BLOOD COUNTS AND DIFF.) APPENDIX B-3CLASSIFICATION CHOLESTEROL FOR ADULTS CHILDREN/ADOLESCENTS* DESIRABLE: <200 MG/DL <170 MG/DL BORDER-LINE HIGH RISK: 200-239 MG/DL 170-199 MG/DL HIGH RISK: >240 MG/DL >200 MG/DL CLASS. FOR PRIMARY LDL CHOL PREVENTION: LDL CHOL-CHILD/ADOLESCENTS* DESIRABLE: <130 MG/DL <110 MG/DL BORDERLINE-HIGH RISK: 130- 159 MG/DL 110-129 MG/DL HIGH RISK: >160 MG/DL >130 MG/DL *CHILDREN AND ADOLESCENTS REPRESENTS INDIVIDUALA AGED 2-19 YEARS EXCLUSIVE. Co2 23.3 mmol/L 22.0-29.0 [facility] ([facility] NORMAL RANGES Age WBC RBC HGB HCT [...] HCT IS 5% LESS SOURCE FOR DATA: [facility] 1800 OPERATION MANUAL( AUTOMATED BLOOD COUNTS AND DIFF.) APPENDIX B-3CLASSIFICATION CHOLESTEROL FOR ADULTS CHILDREN/ADOLESCENTS* DESIRABLE: <200 MG/DL <170 MG/DL BORDER-LINE HIGH RISK: 200-239 MG/DL 170-199 MG/DL HIGH RISK: >240 MG/DL >200 MG/DL CLASS. FOR PRIMARY LDL CHOL PREVENTION: LDL CHOL-CHILD/ADOLESCENTS* DESIRABLE: <130 MG/DL <110 MG/DL BORDERLINE-HIGH RISK: 130- 159 MG/DL 110-129 MG/DL HIGH RISK: >160 MG/DL >130 MG/DL *CHILDREN AND ADOLESCENTS REPRESENTS INDIVIDUALA AGED 2-19 YEARS EXCLUSIVE. CA 9.6 mg/dL 8.6-10.2 [facility] ([facility] NORMAL RANGES Age WBC RBC HGB HCT [...] HCT IS 5% LESS SOURCE FOR DATA: [facility] 1800 OPERATION MANUAL( AUTOMATED BLOOD COUNTS AND DIFF.) APPENDIX B-3CLASSIFICATION CHOLESTEROL FOR ADULTS CHILDREN/ADOLESCENTS* DESIRABLE: <200 MG/DL <170 MG/DL BORDER-LINE HIGH RISK: 200-239 MG/DL 170-199 MG/DL HIGH RISK: >240 MG/DL >200 MG/DL CLASS. FOR PRIMARY LDL CHOL PREVENTION: LDL CHOL-CHILD/ADOLESCENTS* DESIRABLE: <130 MG/DL <110 MG/DL BORDERLINE-HIGH RISK: 130- 159 MG/DL 110-129 MG/DL HIGH RISK: >160 MG/DL >130 MG/DL *CHILDREN AND ADOLESCENTS REPRESENTS INDIVIDUALA AGED 2-19 YEARS EXCLUSIVE. Alb 4.3 g/dL 3.4-4.8 [facility] ([facility] NORMAL RANGES Age WBC RBC HGB HCT [...] HCT IS 5% LESS SOURCE FOR DATA: [employer] [facility] 1800 OPERATION MANUAL( AUTOMATED BLOOD COUNTS AND DIFF.) APPENDIX B-3CLASSIFICATION CHOLESTEROL FOR ADULTS CHILDREN/ADOLESCENTS* DESIRABLE: <200 MG/DL <170 MG/DL BORDER-LINE HIGH RISK: 200-239 MG/DL 170-199 MG/DL HIGH RISK: >240 MG/DL >200 MG/DL CLASS. FOR PRIMARY LDL CHOL PREVENTION: LDL CHOL-CHILD/ADOLESCENTS* DESIRABLE: <130 MG/DL <110 MG/DL BORDERLINE-HIGH RISK: 130- 159 MG/DL 110-129 MG/DL HIGH RISK: >160 MG/DL >130 MG/DL *CHILDREN AND ADOLESCENTS REPRESENTS INDIVIDUALA AGED 2-19 YEARS EXCLUSIVE. A/G Ratio 2.3 Calc [facility] ([facility] NORMAL RANGES Age WBC RBC HGB HCT [...] HCT IS 5% LESS SOURCE FOR DATA: [facility] 1800 OPERATION MANUAL( AUTOMATED BLOOD COUNTS AND DIFF.) APPENDIX B-3CLASSIFICATION CHOLESTEROL FOR ADULTS CHILDREN/ADOLESCENTS* DESIRABLE: <200 MG/DL <170 MG/DL BORDER-LINE HIGH RISK: 200-239 MG/DL 170-199 MG/DL HIGH RISK: >240 MG/DL >200 MG/DL CLASS. FOR PRIMARY LDL CHOL PREVENTION: LDL CHOL-CHILD/ADOLESCENTS* DESIRABLE: <130 MG/DL <110 MG/DL BORDERLINE-HIGH RISK: 130- 159 MG/DL 110-129 MG/DL HIGH RISK: >160 MG/DL >130 MG/DL *CHILDREN AND ADOLESCENTS REPRESENTS INDIVIDUALA AGED 2-19 YEARS EXCLUSIVE. Alt (SGPT) 10 U/L 0-41 [facility] ([facility] NORMAL RANGES Age WBC RBC HGB HCT [...] HCT IS 5% LESS SOURCE FOR DATA: [facility] 1800 OPERATION MANUAL( AUTOMATED BLOOD COUNTS AND DIFF.) APPENDIX B-3CLASSIFICATION CHOLESTEROL FOR ADULTS CHILDREN/ADOLESCENTS* DESIRABLE: <200 MG/DL <170 MG/DL BORDER-LINE HIGH RISK: 200-239 MG/DL 170-199 MG/DL HIGH RISK: >240 MG/DL >200 MG/DL CLASS. FOR PRIMARY LDL CHOL PREVENTION: LDL CHOL-CHILD/ADOLESCENTS* DESIRABLE: <130 MG/DL <110 MG/DL BORDERLINE-HIGH RISK: 130- 159 MG/DL 110-129 MG/DL HIGH RISK: >160 MG/DL >130 MG/DL *CHILDREN AND ADOLESCENTS REPRESENTS INDIVIDUALA AGED 2-19 YEARS EXCLUSIVE. Alp 59.3 U/L 35-129 [facility] ([facility] NORMAL RANGES Age WBC RBC HGB HCT [...] HCT IS 5% LESS SOURCE FOR DATA: [facility] 1800 OPERATION MANUAL( AUTOMATED BLOOD COUNTS AND DIFF.) APPENDIX B-3CLASSIFICATION CHOLESTEROL FOR ADULTS CHILDREN/ADOLESCENTS* DESIRABLE: <200 MG/DL <170 MG/DL BORDER-LINE HIGH RISK: 200-239 MG/DL 170-199 MG/DL HIGH RISK: >240 MG/DL >200 MG/DL CLASS. FOR PRIMARY LDL CHOL PREVENTION: LDL CHOL-CHILD/ADOLESCENTS* DESIRABLE: <130 MG/DL <110 MG/DL BORDERLINE-HIGH RISK: 130- 159 MG/DL 110-129 MG/DL HIGH RISK: >160 MG/DL >130 MG/DL *CHILDREN AND ADOLESCENTS REPRESENTS INDIVIDUALA AGED 2-19 YEARS EXCLUSIVE. Globulin 1.9 Calc [facility] ([facility] NORMAL RANGES Age WBC RBC HGB HCT [...] HCT IS 5% LESS SOURCE FOR DATA: [facility] 1800 OPERATION MANUAL( AUTOMATED BLOOD COUNTS AND DIFF.) APPENDIX B-3CLASSIFICATION CHOLESTEROL FOR ADULTS CHILDREN/ADOLESCENTS* DESIRABLE: <200 MG/DL <170 MG/DL BORDER-LINE HIGH RISK: 200-239 MG/DL 170-199 MG/DL HIGH RISK: >240 MG/DL >200 MG/DL CLASS. FOR PRIMARY LDL CHOL PREVENTION: LDL CHOL-CHILD/ADOLESCENTS* DESIRABLE: <130 MG/DL <110 MG/DL BORDERLINE-HIGH RISK: 130- 159 MG/DL 110-129 MG/DL HIGH RISK: >160 MG/DL >130 MG/DL *CHILDREN AND ADOLESCENTS REPRESENTS INDIVIDUALA AGED 2-19 YEARS EXCLUSIVE. Ast (Sgot) 22 U/L 0-40 [facility] ([facility] NORMAL RANGES Age WBC RBC HGB HCT [...] HCT IS 5% LESS SOURCE FOR DATA: [facility] 1800 OPERATION MANUAL( AUTOMATED BLOOD COUNTS AND DIFF.) APPENDIX B-3CLASSIFICATION CHOLESTEROL FOR ADULTS CHILDREN/ADOLESCENTS* DESIRABLE: <200 MG/DL <170 MG/DL BORDER-LINE HIGH RISK: 200-239 MG/DL 170-199 MG/DL HIGH RISK: >240 MG/DL >200 MG/DL CLASS. FOR PRIMARY LDL CHOL PREVENTION: LDL CHOL-CHILD/ADOLESCENTS* DESIRABLE: <130 MG/DL <110 MG/DL BORDERLINE-HIGH RISK: 130- 159 MG/DL 110-129 MG/DL HIGH RISK: >160 MG/DL >130 MG/DL *CHILDREN AND ADOLESCENTS REPRESENTS INDIVIDUALA AGED 2-19 YEARS EXCLUSIVE. Tbili 0.41 mg/dL 0.0-1.2 [facility] ([facility] NORMAL RANGES Age WBC RBC HGB HCT [...] HCT IS 5% LESS SOURCE FOR DATA: [facility] 1800 OPERATION MANUAL( AUTOMATED BLOOD COUNTS AND DIFF.) APPENDIX B-3CLASSIFICATION CHOLESTEROL FOR ADULTS CHILDREN/ADOLESCENTS* DESIRABLE: <200 MG/DL <170 MG/DL BORDER-LINE HIGH RISK: 200-239 MG/DL 170-199 MG/DL HIGH RISK: >240 MG/DL >200 MG/DL CLASS. FOR PRIMARY LDL CHOL PREVENTION: LDL CHOL-CHILD/ADOLESCENTS* DESIRABLE: <130 MG/DL <110 MG/DL BORDERLINE-HIGH RISK: 130- 159 MG/DL 110-129 MG/DL HIGH RISK: >160 MG/DL >130 MG/DL *CHILDREN AND ADOLESCENTS REPRESENTS INDIVIDUALA AGED 2-19 YEARS EXCLUSIVE. Anion Gap 15 mmol/L [facility] ([facility] NORMAL RANGES Age WBC RBC HGB HCT [...] HCT IS 5% LESS SOURCE FOR DATA: [facility] 1800 OPERATION MANUAL( AUTOMATED BLOOD COUNTS AND DIFF.) APPENDIX B-3CLASSIFICATION CHOLESTEROL FOR ADULTS CHILDREN/ADOLESCENTS* DESIRABLE: <200 MG/DL <170 MG/DL BORDER-LINE HIGH RISK: 200-239 MG/DL 170-199 MG/DL HIGH RISK: >240 MG/DL >200 MG/DL CLASS. FOR PRIMARY LDL CHOL PREVENTION: LDL CHOL-CHILD/ADOLESCENTS* DESIRABLE: <130 MG/DL <110 MG/DL BORDERLINE-HIGH RISK: 130- 159 MG/DL 110-129 MG/DL HIGH RISK: >160 MG/DL >130 MG/DL *CHILDREN AND ADOLESCENTS REPRESENTS INDIVIDUALA AGED 2-19 YEARS EXCLUSIVE. eGFR 105 # [facility] ( [facility] NORMAL RANGES Age WBC RBC HGB HCT [...] HCT IS 5% LESS SOURCE FOR DATA: [facility] 1800 OPERATION MANUAL( AUTOMATED BLOOD COUNTS AND DIFF.) APPENDIX B-3CLASSIFICATION CHOLESTEROL FOR ADULTS CHILDREN/ADOLESCENTS* DESIRABLE: <200 MG/DL <170 MG/DL BORDER-LINE HIGH RISK: 200-239 MG/DL 170-199 MG/DL HIGH RISK: >240 MG/DL >200 MG/DL CLASS. FOR PRIMARY LDL CHOL PREVENTION: LDL CHOL-CHILD/ADOLESCENTS* DESIRABLE: <130 MG/DL <110 MG/DL BORDERLINE-HIGH RISK: 130- 159 MG/DL 110-129 MG/DL HIGH RISK: >160 MG/DL >130 MG/DL *CHILDREN AND ADOLESCENTS REPRESENTS INDIVIDUALA AGED 2-19 YEARS EXCLUSIVE. Osmolality-Calculated 257.9 Calc [facility] ([facility] NORMAL RANGES Age WBC RBC HGB HCT [...] HCT IS 5% LESS SOURCE FOR DATA: [employer] [facility] 1800 OPERATION MANUAL( AUTOMATED BLOOD COUNTS AND DIFF.) APPENDIX B-3CLASSIFICATION CHOLESTEROL FOR ADULTS CHILDREN/ADOLESCENTS* DESIRABLE: <200 MG/DL <170 MG/DL BORDER-LINE HIGH RISK: 200-239 MG/DL 170-199 MG/DL HIGH RISK: >240 MG/DL >200 MG/DL CLASS. FOR PRIMARY LDL CHOL PREVENTION: LDL CHOL-CHILD/ADOLESCENTS* DESIRABLE: <130 MG/DL <110 MG/DL BORDERLINE-HIGH RISK: 130- 159 MG/DL 110-129 MG/DL HIGH RISK: >160 MG/DL >130 MG/DL *CHILDREN AND ADOLESCENTS REPRESENTS INDIVIDUALA AGED 2-19 YEARS EXCLUSIVE. eGFR Non-Afr. Peruvian 91 # [facility] ([facility] NORMAL RANGES Age WBC RBC HGB HCT [...] HCT IS 5% LESS SOURCE FOR DATA: [facility] 1800 OPERATION MANUAL( AUTOMATED BLOOD COUNTS AND DIFF.) APPENDIX B-3CLASSIFICATION CHOLESTEROL FOR ADULTS CHILDREN/ADOLESCENTS* DESIRABLE: <200 MG/DL <170 MG/DL BORDER-LINE HIGH RISK: 200-239 MG/DL 170-199 MG/DL HIGH RISK: >240 MG/DL >200 MG/DL CLASS. FOR PRIMARY LDL CHOL PREVENTION: LDL CHOL-CHILD/ADOLESCENTS* DESIRABLE: <130 MG/DL <110 MG/DL BORDERLINE-HIGH RISK: 130- 159 MG/DL 110-129 MG/DL HIGH RISK: >160 MG/DL >130 MG/DL *CHILDREN AND ADOLESCENTS REPRESENTS INDIVIDUALA AGED 2-19 YEARS EXCLUSIVE. ID Date Data Source [id number] 12/05/2019 01:32:00 PM EDT [facility] ([facility] Name Value Range Interpretation Code Description Data Renetta rce(s) Supporting Document(s) Creatine kinase [Enzymatic activity/volume] in Serum or Plasma 176 U/L 26-192 [facility] ([facility] NORMAL RANGES Age WBC RBC HGB HCT [...] HCT IS 5% LESS SOURCE FOR DATA: [employer] [facility] 1800 OPERATION MANUAL( AUTOMATED BLOOD COUNTS AND [...] ADOLESCENTS REPRESENTS INDIVIDUALA AGED 2-19 YEARS EXCLUSIVE. ID Date Data Source [id number] 12/05/2019 01:32:00 PM EDT [facility] ([facility] Name Value Range Interpretation Code Description Data Renetta rce(s) Supporting Document(s) WBC 3.6 10E3/uL 4.1-10.9 Below low normal [facility] ([facility] NORMAL RANGES Age WBC RBC HGB HCT [...] HCT IS 5% LESS SOURCE FOR DATA: [facility] 1800 OPERATION MANUAL( AUTOMATED BLOOD COUNTS AND [...] ADOLESCENTS REPRESENTS INDIVIDUALA AGED 2-19 YEARS EXCLUSIVE. RBC 3.71 10E6/uL 4.20-6.30 Below low normal [facility] ([facility] NORMAL RANGES Age WBC RBC HGB HCT [...] HCT IS 5% LESS SOURCE FOR DATA: [facility] 1800 OPERATION MANUAL( AUTOMATED BLOOD COUNTS AND [...] ADOLESCENTS REPRESENTS INDIVIDUALA AGED 2-19 YEARS EXCLUSIVE. HGB 11.9 g/dL 12.0-18.0 Below low normal [facility] ( [facility] NORMAL RANGES Age WBC RBC HGB HCT [...] HCT IS 5% LESS SOURCE FOR DATA: [facility] 1800 OPERATION MANUAL( AUTOMATED BLOOD COUNTS AND [...] ADOLESCENTS REPRESENTS INDIVIDUALA AGED 2-19 YEARS EXCLUSIVE. HCT 35.1 % 37.0-51.0 Below low normal [facility] ( [facility] NORMAL RANGES Age WBC RBC HGB HCT [...] HCT IS 5% LESS SOURCE FOR DATA: [facility] 1800 OPERATION MANUAL( AUTOMATED BLOOD COUNTS AND [...] ADOLESCENTS REPRESENTS INDIVIDUALA AGED 2-19 YEARS EXCLUSIVE. MCV 94.6 fL 80.0-97.0 [facility] ([facility] NORMAL RANGES Age WBC RBC HGB HCT [...] HCT IS 5% LESS SOURCE FOR DATA: [facility] 1800 OPERATION MANUAL( AUTOMATED BLOOD COUNTS AND [...] ADOLESCENTS REPRESENTS INDIVIDUALA AGED 2-19 YEARS EXCLUSIVE. MCH 32.1 pg 26.0-32.0 Above high normal [facility] ([facility] NORMAL RANGES Age WBC RBC HGB HCT [...] HCT IS 5% LESS SOURCE FOR DATA: [facility] 1800 OPERATION MANUAL( AUTOMATED BLOOD COUNTS AND [...] ADOLESCENTS REPRESENTS INDIVIDUALA AGED 2-19 YEARS EXCLUSIVE. MCHC 33.9 g/dL 31.0-36.0 [facility] ([facility] NORMAL RANGES Age WBC RBC HGB HCT [...] HCT IS 5% LESS SOURCE FOR DATA: [facility] 1800 OPERATION MANUAL( AUTOMATED BLOOD COUNTS AND [...] ADOLESCENTS REPRESENTS INDIVIDUALA AGED 2-19 YEARS EXCLUSIVE. RDW-CV 12.7 % 11.5-14.5 [facility] ([facility] NORMAL RANGES Age WBC RBC HGB HCT [...] HCT IS 5% LESS SOURCE FOR DATA: [facility] 1800 OPERATION MANUAL( AUTOMATED BLOOD COUNTS AND [...] ADOLESCENTS REPRESENTS INDIVIDUALA AGED 2-19 YEARS EXCLUSIVE. PLT 336 10E3/uL 140-440 [facility] ([facility] NORMAL RANGES Age WBC RBC HGB HCT [...] HCT IS 5% LESS SOURCE FOR DATA: [facility] 1800 OPERATION MANUAL( AUTOMATED BLOOD COUNTS AND [...] ADOLESCENTS REPRESENTS INDIVIDUALA AGED 2-19 YEARS EXCLUSIVE. Lym% 33.2 % 10.0-58.5 [facility] ([facility] NORMAL RANGES Age WBC RBC HGB HCT [...] HCT IS 5% LESS SOURCE FOR DATA: [employer] [facility] 1800 OPERATION MANUAL( AUTOMATED BLOOD COUNTS AND [...] ADOLESCENTS REPRESENTS INDIVIDUALA AGED 2-19 YEARS EXCLUSIVE. Neut% 53.6 % 37.0-92.0 [facility] ([facility] NORMAL RANGES Age WBC RBC HGB HCT [...] HCT IS 5% LESS SOURCE FOR DATA: [employer] 1800 OPERATION MANUAL( AUTOMATED BLOOD COUNTS AND [...] ADOLESCENTS REPRESENTS INDIVIDUALA AGED 2-19 YEARS EXCLUSIVE. MXD% 13.2 % 0.1-24.0 [facility] ([facility] NORMAL RANGES Age WBC RBC HGB HCT [...] HCT IS 5% LESS SOURCE FOR DATA: [facility] 1800 OPERATION MANUAL( AUTOMATED BLOOD COUNTS AND [...] ADOLESCENTS REPRESENTS INDIVIDUALA AGED 2-19 YEARS EXCLUSIVE. Neut# 1.9 % 2.0-7.8 Below low normal [facility] ( [facility] NORMAL RANGES Age WBC RBC HGB HCT [...] HCT IS 5% LESS SOURCE FOR DATA: [facility] 1800 OPERATION MANUAL( AUTOMATED BLOOD COUNTS AND [...] ADOLESCENTS REPRESENTS INDIVIDUALA AGED 2-19 YEARS EXCLUSIVE. Lym# 1.2 10E3/uL 0.6-4.1 [facility] ([facility] NORMAL RANGES Age WBC RBC HGB HCT [...] HCT IS 5% LESS SOURCE FOR DATA: [facility] 1800 OPERATION MANUAL( AUTOMATED BLOOD COUNTS AND [...] ADOLESCENTS REPRESENTS INDIVIDUALA AGED 2-19 YEARS EXCLUSIVE. MXD# 0.5 10E3/uL 0.0-1.8 [facility] ([facility] NORMAL RANGES Age WBC RBC HGB HCT [...] HCT IS 5% LESS SOURCE FOR DATA: [facility] 1800 OPERATION MANUAL( AUTOMATED BLOOD COUNTS AND [...] ADOLESCENTS REPRESENTS INDIVIDUALA AGED 2-19 YEARS EXCLUSIVE. MPV 9.2 fL 9.0-13.0 [facility] ([facility] NORMAL RANGES Age WBC RBC HGB HCT [...] HCT IS 5% LESS SOURCE FOR DATA: [facility] 1800 OPERATION MANUAL( AUTOMATED BLOOD COUNTS AND [...] ADOLESCENTS REPRESENTS INDIVIDUALA AGED 2-19 YEARS EXCLUSIVE. ID Date Data Source [id number] 10/31/2019 04:57:50 PM EDT [facility] PCName: Renetta MooreOB: 1955Provider: Mookie Farmer: 10/29/2019 PlanHISTORY: The patient has developed discomfort, numbness and tingling involving the right wrist/hand over the last year. Symptoms are aggravated at nighttime, bothered with repetitive use. There is a medical history of no obvious pre-existing medical risk factors for trigger finger or carpal tunnel syndrome, specifically denying any past medical history of diabetes or hypothyroidism, no known family history of carpal tunnel syndrome. Splints have been tried, without effectiveness.EXAM: The patient appears well-developed, well-nourished, and in no acute distress. The patient's body habitus is approximately normal weight. The patient is oriented to person, place and time. The patient's mood is appropriate to situation. The patient's coordination is normal.Bilateral upper extremities show no deformities, no skin lesions. The patient has full range of motion of the elbow, wrists, and digits. The patient is neurovascularly intact to light touch, but does have paresthesias to the median nerve distribution with carpal tunnel compression test. The patient has brisk capillary refill to all digits. Carpal tunnel compression test and Tinel's testing at the wrist recreate mild paresthesias to the median nerve distribution. There is no thenar nor intrinsic atrophy. 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 Should EMG/NCS show no definitive pathology deemed to be of significance, cortisone injection into the carpal tunnel would be considered at next visit for both diagnostic and potentially therapeutic purposes.For basilar joint thumb pain/arthritis, I discu ssed various treatment options, including judicious NSAID use (which rarely is significantly helpful), splinting and cortisone injections. However, the mainstay of conservative treatment is primarily splint immobilization and cortisone injections. If this fails to control the patient's discomfort, CMC arthroplasty with flexor carpi radialis tendon interposition graft is always the final option, although certainly not always necessary. Risks/benefits and alternatives discussed.The patient opted to undergo a cortisone injection, and I placed 1 cc of Celestone and 1 cc of 1% lidocaine into the right thumb CMC joint using sterile technique. Splint will be utilized if felt to be beneficial.The patient was provided with my office contact information with telephone numbers. Should there be any concerns or change in symptoms, for which the patient would like to see me again sooner, our office may be contacted to be seen at any point. Work / School NoteThe incident described by the patient is a competent medical cause of this injury. The patient's complaints are consistent with the history of the injury/illness. The patient's history of the injury/illness is consistent with my objective findings. The percentage of temporary impairment is 0%. The patient is not working at this time. Renetta Graff is retired. DisclaimersThis document was dictated and electronically signed using [email or web address] software. A reasonable attempt at proof reading has been made to minimize errors. Please call with any questions. Signatures Electronically signed by : Mookie Farmer M.D.; Oct 31 2019 4:57PM EST (Author) Name Value Range Interpretation Code Description Data Renetta rce(s) Supporting Document(s) ID Date Data Source [id number] 09/23/2019 12:00:00 PM EDT [facility] ([facility] SUPPORT TECHNICIAN) Name Value Range Interpretation Code Description Data Renetta rce(s) Supporting Document(s) TP Reflex HPV ASCUS Laboratory test result [facility] (Jordin Johnson SUPPORT TECHNICIAN) SPECIMEN PART------ A. Cervical, Endocervical, ThinPrep Pap (Speech Scientist) CYTOLOGY HX-------- Other Information:Previous Normal Pap: 09/17/18 Post-menopausal FINAL DIAGNOSIS---- INTERPRETATION: Negative for Intraepithelial Lesion or Malignancy. SPECIMEN ADEQUACY:Satisfactory for evaluation. Endocervical/transformation zone component is absent/insufficient. TP Reflex HPV ASCUS Laboratory test result [facility] (Brenner Woman SUPPORT TECHNICIAN) ID Date Data Source [id number] 09/03/2019 01:46:00 PM EDT [facility] ([facility] [employer] [facility] Name Value Range Interpretation Code Description Data Renetta rce(s) Supporting Document(s) Erythrocyte sedimentation rate by Westergren method 5 0-20 [facility] ([facility] ID Date Data Source [id number] 09/03/2019 01:44:00 PM EDT [facility] ([facility] Name Value Range Interpretation Code Description Data Renetta rce(s) Supporting Document(s) Laboratory test finding (navigational concept) 13.2 umol/L 0.0-17.2 [facility] ([facility] Please note reference interval change* * ID Date Data Source [id number] 09/03/2019 01:44:00 PM EDT [facility] ([facility] Name Value Range Interpretation Code Description Data Renetta rce(s) Supporting Document(s) Disclaimer: Laboratory test result Donnie GREGG ([facility] This test was developed and its performa nce characteristics determined by [facility]. It has not been cleared or approved by the Food and Drug Administration. Methylmalonic Acid, Serum 146 nmol/L 0-378 [facility] ([facility] ID Date Data Source [id number] 09/03/2019 01:44:00 PM EDT [facility] ([facility] Name Value Range Interpretation Code Description Data Renetta rce(s) Supporting Document(s) Iron binding capacity.unsaturated [Mass/volume] in Serum or Plasma 143 ug/dL 118-369 [facility] ([facility] Iron binding capacity [Mass/volume] in Serum or Plasma 283 ug/dL 250 -450 [facility] ([facility] Iron [Mass/volume] in Serum or Plasma 140 ug/dL 27-139 Above hig h normal [facility] ([facility] Iron saturation [Mass Fraction] in Serum or Plasma 49 % 15-55 [facility] ([facility] ID Date Data Source [id number] 08/15/2019 02:10:00 PM EDT [facility] ([facility]) Name Value Range Interpretation Code Description Data Renetta rce(s) Supporting Document(s) Creatine kinase [Enzymatic activity/volume] in Serum or Plasma 185 U/L 26-192 [facility] ([facility] NORMAL RANGES Age WBC RBC HGB HCT [...] HCT IS 5% LESS SOURCE FOR DATA: [facility] 1800 OPERATION MANUAL( AUTOMATED BLOOD COUNTS AND [...] mL/min Normal 80 and above >32 mL/min Normal ID Date Data Source [id number] 08/15/2019 02:10:00 PM EDT [facility] ([facility] Name Value Range Interpretation Code Description Data Renetta rce(s) Supporting Document(s) Glu 131 mg/dL 70-110 Above high normal [facility] ([facility] NORMAL RANGES Age WBC RBC HGB HCT [...] HCT IS 5% LESS SOURCE FOR DATA: [facility] 1800 OPERATION MANUAL( AUTOMATED BLOOD COUNTS AND [...] mL/min Normal 80 and above >32 mL/min Normal BUN 10 mg/dL 8-23 [facility] NORMAL RANGES Age WBC RBC HGB HCT [...] HCT IS 5% LESS SOURCE FOR DATA: [facility] 1800 OPERATION MANUAL( AUTOMATED BLOOD COUNTS AND [...] mL/min Normal 80 and above >32 mL/min Normal BUN/Creatinine Ratio 13.1 [facility] ([facility] NORMAL RANGES Age WBC RBC HGB HCT [...] HCT IS 5% LESS SOURCE FOR DATA: [facility] 1800 OPERATION MANUAL( AUTOMATED BLOOD COUNTS AND [...] mL/min Normal 80 and above >32 mL/min Normal Na 130 mmol/L 136-145 Below low normal [facility] ( [facility] NORMAL RANGES Age WBC RBC HGB HCT [...] HCT IS 5% LESS SOURCE FOR DATA: [facility] 1800 OPERATION MANUAL( AUTOMATED BLOOD COUNTS AND [...] mL/min Normal 80 and above >32 mL/min Normal Creat 0.8 mg/dL 0.5-1.0 [facility] ([facility] NORMAL RANGES Age WBC RBC HGB HCT [...] HCT IS 5% LESS SOURCE FOR DATA: [facility] 1800 OPERATION MANUAL( AUTOMATED BLOOD COUNTS AND [...] mL/min Normal 80 and above >32 mL/min Normal CL 95.3 mmol/L 98.0-107.0 Below low normal [facility] ([facility] NORMAL RANGES Age WBC RBC HGB HCT [...] HCT IS 5% LESS SOURCE FOR DATA: [facility] 1800 OPERATION MANUAL( AUTOMATED BLOOD COUNTS AND [...] mL/min Normal 80 and above >32 mL/min Normal K 4.7 mmol/L 3.5-5.1 [facility] ([facility] NORMAL RANGES Age WBC RBC HGB HCT [...] HCT IS 5% LESS SOURCE FOR DATA: [facility] 1800 OPERATION MANUAL( AUTOMATED BLOOD COUNTS AND [...] mL/min Normal 80 and above >32 mL/min Normal Co2 23.9 mmol/L 22.0-29.0 [facility] ([facility] NORMAL RANGES Age WBC RBC HGB HCT [...] HCT IS 5% LESS SOURCE FOR DATA: [facility] 1800 OPERATION MANUAL( AUTOMATED BLOOD COUNTS AND [...] mL/min Normal 80 and above >32 mL/min Normal CA 9.4 mg/dL 8.6-10.2 [facility] ([facility] NORMAL RANGES Age WBC RBC HGB HCT [...] HCT IS 5% LESS SOURCE FOR DATA: [facility] 1800 OPERATION MANUAL( AUTOMATED BLOOD COUNTS AND [...] mL/min Normal 80 and above >32 mL/min Normal Alb 4.1 g/dL 3.4-4.8 [facility] NORMAL RANGES Age WBC RBC HGB HCT [...] HCT IS 5% LESS SOURCE FOR DATA: [facility] 1800 OPERATION MANUAL( AUTOMATED BLOOD COUNTS AND [...] mL/min Normal 80 and above >32 mL/min Normal TP 6.1 g/dL 6.6-8.7 Below low normal [facility] ( [facility] NORMAL RANGES Age WBC RBC HGB HCT [...] HCT IS 5% LESS SOURCE FOR DATA: [facility] 1800 OPERATION MANUAL( AUTOMATED BLOOD COUNTS AND [...] mL/min Normal 80 and above >32 mL/min Normal A/G Ratio 2.1 CALC [facility] ([facility] NORMAL RANGES Age WBC RBC HGB HCT [...] HCT IS 5% LESS SOURCE FOR DATA: [facility] 1800 OPERATION MANUAL( AUTOMATED BLOOD COUNTS AND [...] mL/min Normal 80 and above >32 mL/min Normal Alp 40.8 U/L 35-129 [facility] ([facility] NORMAL RANGES Age WBC RBC HGB HCT [...] HCT IS 5% LESS SOURCE FOR DATA: [facility] 1800 OPERATION MANUAL( AUTOMATED BLOOD COUNTS AND [...] mL/min Normal 80 and above >32 mL/min Normal Globulin 1.9 CALC [facility] ([facility] NORMAL RANGES Age WBC RBC HGB HCT [...] HCT IS 5% LESS SOURCE FOR DATA: [facility] 1800 OPERATION MANUAL( AUTOMATED BLOOD COUNTS AND [...] mL/min Normal 80 and above >32 mL/min Normal Ast (Sgot) 21 U/L 0-40 [facility] ([facility] NORMAL RANGES Age WBC RBC HGB HCT [...] HCT IS 5% LESS SOURCE FOR DATA: [facility] 1800 OPERATION MANUAL( AUTOMATED BLOOD COUNTS AND [...] mL/min Normal 80 and above >32 mL/min Normal Alt (SGPT) 11 U/L 0-41 [facility] ([facility] NORMAL RANGES Age WBC RBC HGB HCT [...] HCT IS 5% LESS SOURCE FOR DATA: [facility] 1800 OPERATION MANUAL( AUTOMATED BLOOD COUNTS AND [...] mL/min Normal 80 and above >32 mL/min Normal Tbili 0.27 mg/dL 0.0-1.2 [facility] ([facility] NORMAL RANGES Age WBC RBC HGB HCT [...] HCT IS 5% LESS SOURCE FOR DATA: [facility] 1800 OPERATION MANUAL( AUTOMATED BLOOD COUNTS AND [...] mL/min Normal 80 and above >32 mL/min Normal Osmolality-Calculated 261.1 [facility] ([facility] NORMAL RANGES Age WBC RBC HGB HCT [...] HCT IS 5% LESS SOURCE FOR DATA: [facility] 1800 OPERATION MANUAL( AUTOMATED BLOOD COUNTS AND [...] mL/min Normal 80 and above >32 mL/min Normal Anion Gap 15 mmol/L [facility] ([facility] NORMAL RANGES Age WBC RBC HGB HCT [...] HCT IS 5% LESS SOURCE FOR DATA: [facility] 1800 OPERATION MANUAL( AUTOMATED BLOOD COUNTS AND [...] mL/min Normal 80 and above >32 mL/min Normal eGFR 90 # [facility] ( [facility] NORMAL RANGES Age WBC RBC HGB HCT MCV PLT Adult M 4.1-10.9 4.20-6.30 12.0-18.0 37.0-51.0 80-97 140-440 Adult F 4.1-10.9 4.04-5.48 12.0-18.0 37.0-51.0 80- 140-440 0 -1 Yr 5.0-20.0 3.9-5.9 15-18 [...] HCT IS 5% LESS SOURCE FOR DATA: [facility] 1800 OPERATION MANUAL( AUTOMATED BLOOD COUNTS AND [...] mL/min Normal 80 and above >32 mL/min Normal eGFR Non-Afr. Peruvian 77 # [facility] ([facility] NORMAL RANGES Age WBC RBC HGB HCT [...] HCT IS 5% LESS SOURCE FOR DATA: [facility] 1800 OPERATION MANUAL( AUTOMATED BLOOD COUNTS AND [...] mL/min Normal 80 and above >32 mL/min Normal ID Date Data Source [id number] 08/15/2019 02:10:00 PM EDT [facility] ([facility] Name Value Range Interpretation Code Description Data Renetta rce(s) Supporting Document(s) RBC 3.65 10E6/uL 4.20-6.30 Below low normal [facility] ([facility] NORMAL RANGES Age WBC RBC HGB HCT [...] HCT IS 5% LESS SOURCE FOR DATA: [facility] 1800 OPERATION MANUAL( AUTOMATED BLOOD COUNTS AND [...] mL/min Normal 80 and above >32 mL/min Normal WBC 5.4 10E3/uL 4.1-10.9 [facility] ([facility] NORMAL RANGES Age WBC RBC HGB HCT [...] HCT IS 5% LESS SOURCE FOR DATA: [facility] 1800 OPERATION MANUAL( AUTOMATED BLOOD COUNTS AND [...] mL/min Normal 80 and above >32 mL/min Normal HGB 11.9 g/dL 12.0-18.0 Below low normal [facility] ( [facility] NORMAL RANGES Age WBC RBC HGB HCT [...] HCT IS 5% LESS SOURCE FOR DATA: [facility] 1800 OPERATION MANUAL( AUTOMATED BLOOD COUNTS AND [...] mL/min Normal 80 and above >32 mL/min Normal MCV 94.5 fL 80.0-97.0 [facility] ([facility] NORMAL RANGES Age WBC RBC HGB HCT [...] HCT IS 5% LESS SOURCE FOR DATA: [facility] 1800 OPERATION MANUAL( AUTOMATED BLOOD COUNTS AND [...] mL/min Normal 80 and above >32 mL/min Normal HCT 34.5 % 37.0-51.0 Below low normal [facility] ( [facility] NORMAL RANGES Age WBC RBC HGB HCT [...] HCT IS 5% LESS SOURCE FOR DATA: [facility] 1800 OPERATION MANUAL( AUTOMATED BLOOD COUNTS AND [...] mL/min Normal 80 and above >32 mL/min Normal MCH 32.6 pg 26.0-32.0 Above high normal [facility] ([facility] NORMAL RANGES Age WBC RBC HGB HCT [...] HCT IS 5% LESS SOURCE FOR DATA: [facility] 1800 OPERATION MANUAL( AUTOMATED BLOOD COUNTS AND [...] mL/min Normal 80 and above >32 mL/min Normal MCHC 34.5 g/dL 31.0-36.0 [facility] ([facility] NORMAL RANGES Age WBC RBC HGB HCT [...] HCT IS 5% LESS SOURCE FOR DATA: [facility] 1800 OPERATION MANUAL( AUTOMATED BLOOD COUNTS AND [...] mL/min Normal 80 and above >32 mL/min Normal PLT 355 10E3/uL 140-440 [facility] ([facility] [place] NORMAL RANGES Age WBC RBC HGB HCT [...] HCT IS 5% LESS SOURCE FOR DATA: [facility] 1800 OPERATION MANUAL( AUTOMATED BLOOD COUNTS AND [...] mL/min Normal 80 and above >32 mL/min Normal Lym% 37.3 % 10.0-58.5 [facility] ([facility] NORMAL RANGES Age WBC RBC HGB HCT [...] HCT IS 5% LESS SOURCE FOR DATA: [facility] 1800 OPERATION MANUAL( AUTOMATED BLOOD COUNTS AND [...] mL/min Normal 80 and above >32 mL/min Normal Neut% 54.9 % 37.0-92.0 [facility] ([facility] NORMAL RANGES Age WBC RBC HGB HCT [...] HCT IS 5% LESS SOURCE FOR DATA: [facility] 1800 OPERATION MANUAL( AUTOMATED BLOOD COUNTS AND [...] mL/min Normal 80 and above >32 mL/min Normal RDW-CV 13.0 % 11.5-14.5 [facility] ([facility] NORMAL RANGES Age WBC RBC HGB HCT [...] HCT IS 5% LESS SOURCE FOR DATA: [facility] 1800 OPERATION MANUAL( AUTOMATED BLOOD COUNTS AND [...] mL/min Normal 80 and above >32 mL/min Normal Neut# 3.0 % 2.0-7.8 [facility] ([facility] NORMAL RANGES Age WBC RBC HGB HCT [...] HCT IS 5% LESS SOURCE FOR DATA: [facility] 1800 OPERATION MANUAL( AUTOMATED BLOOD COUNTS AND [...] mL/min Normal 80 and above >32 mL/min Normal MXD% 7.8 % 0.1-24.0 [facility] ([facility] NORMAL RANGES Age WBC RBC HGB HCT [...] HCT IS 5% LESS SOURCE FOR DATA: [facility] 1800 OPERATION MANUAL( AUTOMATED BLOOD COUNTS AND [...] mL/min Normal 80 and above >32 mL/min Normal Lym# 2.0 10E3/uL 0.6-4.1 [facility] ([facility] NORMAL RANGES Age WBC RBC HGB HCT [...] HCT IS 5% LESS SOURCE FOR DATA: [employer] [facility] 1800 OPERATION MANUAL( AUTOMATED BLOOD COUNTS AND [...] mL/min Normal 80 and above >32 mL/min Normal MPV 9.6 fL 9.0-13.0 [facility] ([facility] NORMAL RANGES Age WBC RBC HGB HCT [...] HCT IS 5% LESS SOURCE FOR DATA: [facility] 1800 OPERATION MANUAL( AUTOMATED BLOOD COUNTS AND [...] mL/min Normal 80 and above >32 mL/min Normal MXD# 0.4 10E3/uL 0.0-1.8 [facility] ([facility] [place] NORMAL RANGES Age WBC RBC HGB HCT [...] HCT IS 5% LESS SOURCE FOR DATA: [facility] 1800 OPERATION MANUAL( AUTOMATED BLOOD COUNTS AND [...] mL/min Normal 80 and above >32 mL/min Normal ID Date Data Source [id number] 08/15/2019 02:10:00 PM EDT [facility] ([facility] Name Value Range Interpretation Code Description Data Renetta rce(s) Supporting Document(s) Thyrotropin [Units/volume] in Serum or Plasma 1.267 ulU/mL 0.60-4.8 [facility] ([facility] ID Date Data Source [id number] 05/13/2019 02:25:00 PM EDT [facility] ([facility] Name Value Range Interpretation Code Description Data Renetta rce(s) Supporting Document(s) Glu 162 mg/dL 70-110 Above high normal [facility] ([facility] CHRONIC KIDNEY DISEASE STAGING PER NKF: MALE [...] mL/min Normal 80 and above >32 mL/min Normal BUN 7 mg/dL 8-23 Below low normal [facility] ([facility] CHRONIC KIDNEY DISEASE STAGING PER NKF: MALE [...] mL/min Normal 80 and above >32 mL/min Normal Creat 0.8 mg/dL 0.5-1.0 [facility] ([facility] CHRONIC KIDNEY DISEASE STAGING PER NKF: MALE [...] mL/min Normal 80 and above >32 mL/min Normal CA 9.8 mg/dL 8.6-10.2 [facility] ([facility] CHRONIC KIDNEY DISEASE STAGING PER NKF: MALE [...] mL/min Normal 80 and above >32 mL/min Normal BUN/Creatinine Ratio 9.2 Calc [facility] ([facility] CHRONIC KIDNEY DISEASE STAGING PER NKF: MALE [...] mL/min Normal 80 and above >32 mL/min Normal Co2 20.3 mmol/L 22.0-29.0 Below low normal [facility] ([facility] CHRONIC KIDNEY DISEASE STAGING PER NKF: MALE [...] mL/min Normal 80 and above >32 mL/min Normal CL 97.4 mmol/L 98.0-107.0 Below low normal [facility] ([facility] CHRONIC KIDNEY DISEASE STAGING PER NKF: MALE [...] mL/min Normal 80 and above >32 mL/min Normal K 5.3 mmol/L 3.5-5.1 Above high normal [facility] ([facility] CHRONIC KIDNEY DISEASE STAGING PER NKF: MALE [...] mL/min Normal 80 and above >32 mL/min Normal Na 132 mmol/L 136-145 Below low normal [facility] ( [facility] CHRONIC KIDNEY DISEASE STAGING PER NKF: MALE [...] mL/min Normal 80 and above >32 mL/min Normal eGFR 90 # [facility] ( [facility] CHRONIC KIDNEY DISEASE STAGING PER NKF: MALE [...] mL/min Normal 80 and above >32 mL/min Normal eGFR Non-Afr. Peruvian 77 # [facility] ([facility] CHRONIC KIDNEY DISEASE STAGING PER NKF: MALE [...] mL/min Normal 80 and above >32 mL/min Normal Anion Gap 19 mmol/L [facility] ([facility] CHRONIC KIDNEY DISEASE STAGING PER NKF: MALE [...] mL/min Normal 80 and above >32 mL/min Normal ID Date Data Source [id number] 05/09/2019 03:15:00 PM EDT [facility] ([facility] [employer] [facility] Name Value Range Interpretation Code Description Data Renetta rce(s) Supporting Document(s) Creatinine, Urine 100 mg/dL 10-300 [facility] ( [facility] A/C Ratio Laboratory test result Abnormal (applies to non -numeric results) [facility] ([facility] Alb 30 mg/L 1-30 [facility] ([facility] ID Date Data Source [id number] 05/09/2019 03:15:00 PM EDT [facility] ([facility] Name Value Range Interpretation Code Description Data Renetta rce(s) Supporting Document(s) Appearance of Urine Laboratory test result [facility] ( [facility] Color Urine Laboratory test result M [facility] ([facility] PH Urine 6.0 5.0-8.0 [facility] ([facility] Specific [place] 1.020 1.00-1.03 [facility] ([facility] Glucose Urine Laboratory test result [facility] ([facility] Bilirubin.total [Presence] in Urine by Test strip Laboratory test res ult [facility] ([facility] Blood Urine Laboratory test result Above high normal [facility] ([facility] Ketones Laboratory test result [facility] ([facility] Urobilinogen 0.2 EU/dl 0.2-1.0 [facility] ([facility] Protein Urine Laboratory test result [facility] ([facility] Nitrite Laboratory test result [facility] ([facility] Leukocytes Laboratory test result ME D[facility] ([facility] ID Date Data Source [id number] 05/09/2019 01:28:00 PM EDT [facility] ([facility] Name Value Range Interpretation Code Description Data Renetta rce(s) Supporting Document(s) Thyrotropin [Units/volume] in Serum or Plasma 0.929 ulU/mL 0.60-4.8 [facility] ([facility] ID Date Data Source [id number] 05/09/2019 01:28:00 PM EDT [facility] ([facility] Name Value Range Interpretation Code Description Data Renetta rce(s) Supporting Document(s) Creatine kinase [Enzymatic activity/volume] in Serum or Plasma 152 U/L 26-192 [facility] ([facility] CLASSIFICATION CHOLESTEROL FO R ADULTS CHILDREN/ADOLESCENTS* DESIRABLE: <200 MG/DL <170 MG/DL BORDER-LINE HIGH RISK: 200-239 MG/DL 170-199 MG/DL HIGH RISK: >240 MG/DL >200 MG/DL CLASS. FOR PRIMARY LDL CHOL PREVENTION: LDL CHOL-CHILD/ADOLESCENTS* DESIRABLE: <130 MG/DL <110 MG/DL BORDERLINE-HIGH RISK: 130-159 MG/DL 110-129 MG/DL HIGH RISK: >160 MG/DL >130 MG/DL *CHILDREN AND ADOLESCENTS REPRESENTS INDIVIDUALA AGED 2-19 YEARS EXCLUSIVE. CHRONIC KIDNEY DISEASE STAGING PER NKF: MALE [...] mL/min Normal 80 and above >32 mL/min NormalNORMAL RANGES Age WBC RBC HGB HCT MCV PLT Adult M 4.1-10.9 4.20-6.30 12.0-18.0 37.0-51.0 80-97 140-440 Adult F 4.1-10.9 4.04-5.48 12.0-18.0 37.0-51.0 80-97 140-440 0- 1 Yr 5.0-20.0 3.9-5.9 15-18 MV: 44 MV: 91 MV: 277 2-9 Yr. 6.0-17.0 3.8-5.4 11-13 MV: 37 MV: 78 MV: 300 10 Yrs. 5.0-13.0 3.8-5.4 12-15 MV: 39 MV: 80 MV: 250 NOTE: * FOR ADULT BLACK MALES AND FEMALES, NORMAL WBC IS 2.9-7.7 K/ML * FOR ADULT BLACK MALES AND FEMALES, NORMAL RBC,HGB, AND HCT IS 5% LESS SOURCE FOR DATA: [facility] 1800 OPERATION MANUAL( AUTOMATED BLOOD COUNTS AND DIFF.) APPENDIX B-3 ID Date Data Source [id number] 05/09/2019 01:28:00 PM EDT [facility] ([facility] [employer] [facility] Name Value Range Interpretation Code Description Data Renetta rce(s) Supporting Document(s) Chol 190 mg/dL 0-200 [facility] ([facility] CLASSIFICATION CHOLESTEROL FO R ADULTS CHILDREN/ADOLESCENTS* DESIRABLE: <200 MG/DL <170 MG/DL BORDER-LINE HIGH RISK: 200-239 MG/DL 170-199 MG/DL HIGH RISK: >240 MG/DL >200 MG/DL CLASS. FOR PRIMARY LDL CHOL PREVENTION: LDL CHOL-CHILD/ADOLESCENTS* DESIRABLE: <130 MG/DL <110 MG/DL BORDERLINE-HIGH RISK: 130-159 MG/DL 110-129 MG/DL HIGH RISK: >160 MG/DL >130 MG/DL *CHILDREN AND ADOLESCENTS REPRESENTS INDIVIDUALA AGED 2-19 YEARS EXCLUSIVE. CHRONIC KIDNEY DISEASE STAGING PER NKF: MALE [...] mL/min Normal 80 and above >32 mL/min NormalNORMAL RANGES Age WBC RBC HGB HCT MCV PLT Adult M 4.1-10.9 4.20-6.30 12.0-18.0 37.0-51.0 80-97 140-440 Adult F 4.1-10.9 4.04-5.48 12.0-18.0 37.0-51.0 80-97 140-440 0- 1 Yr 5.0-20.0 3.9-5.9 15-18 MV: 44 MV: 91 MV: 277 2-9 Yr. 6.0-17.0 3.8-5.4 11-13 MV: 37 MV: 78 MV: 300 10 Yrs. 5.0-13.0 3.8-5.4 12-15 MV: 39 MV: 80 MV: 250 NOTE: * FOR ADULT BLACK MALES AND FEMALES, NORMAL WBC IS 2.9-7.7 K/ML * FOR ADULT BLACK MALES AND FEMALES, NORMAL RBC,HGB, AND HCT IS 5% LESS SOURCE FOR DATA: [facility] 1800 OPERATION MANUAL( AUTOMATED BLOOD COUNTS AND DIFF.) APPENDIX B-3 Trig 78 mg/dL 40-200 [facility] CLASSIFICATION CHOLESTEROL FO R ADULTS CHILDREN/ADOLESCENTS* DESIRABLE: <200 MG/DL <170 MG/DL BORDER-LINE HIGH RISK: 200-239 MG/DL 170-199 MG/DL HIGH RISK: >240 MG/DL >200 MG/DL CLASS. FOR PRIMARY LDL CHOL PREVENTION: LDL CHOL-CHILD/ADOLESCENTS* DESIRABLE: <130 MG/DL <110 MG/DL BORDERLINE-HIGH RISK: 130-159 MG/DL 110-129 MG/DL HIGH RISK: >160 MG/DL >130 MG/DL *CHILDREN AND ADOLESCENTS REPRESENTS INDIVIDUALA AGED 2-19 YEARS EXCLUSIVE. CHRONIC KIDNEY DISEASE STAGING PER NKF: MALE [...] mL/min Normal 80 and above >32 mL/min NormalNORMAL RANGES Age WBC RBC HGB HCT MCV PLT Adult M 4.1-10.9 4.20-6.30 12.0-18.0 37.0-51.0 80-97 140-440 Adult F 4.1-10.9 4.04-5.48 12.0-18.0 37.0-51.0 80-97 140-440 0- 1 Yr 5.0-20.0 3.9-5.9 15-18 MV: 44 MV: 91 MV: 277 2-9 Yr. 6.0-17.0 3.8-5.4 11-13 MV: 37 MV: 78 MV: 300 10 Yrs. 5.0-13.0 3.8-5.4 12-15 MV: 39 MV: 80 MV: 250 NOTE: * FOR ADULT BLACK MALES AND FEMALES, NORMAL WBC IS 2.9-7.7 K/ML * FOR ADULT BLACK MALES AND FEMALES, NORMAL RBC,HGB, AND HCT IS 5% LESS SOURCE FOR DATA: [facility] 1800 OPERATION MANUAL( AUTOMATED BLOOD COUNTS AND DIFF.) APPENDIX B-3 Prostate specific Ag [Mass/volume] in Serum or Plasma 99 mg/dL 45-65 Above high normal [facility] ([facility] CLASSIFICATION CHOLESTEROL FO R ADULTS CHILDREN/ADOLESCENTS* DESIRABLE: <200 MG/DL <170 MG/DL BORDER-LINE HIGH RISK: 200-239 MG/DL 170-199 MG/DL HIGH RISK: >240 MG/DL >200 MG/DL CLASS. FOR PRIMARY LDL CHOL PREVENTION: LDL CHOL-CHILD/ADOLESCENTS* DESIRABLE: <130 MG/DL <110 MG/DL BORDERLINE-HIGH RISK: 130-159 MG/DL 110-129 MG/DL HIGH RISK: >160 MG/DL >130 MG/DL *CHILDREN AND ADOLESCENTS REPRESENTS INDIVIDUALA AGED 2-19 YEARS EXCLUSIVE. CHRONIC KIDNEY DISEASE STAGING PER NKF: MALE [...] mL/min Normal 80 and above >32 mL/min NormalNORMAL RANGES Age WBC RBC HGB HCT MCV PLT Adult M 4.1-10.9 4.20-6.30 12.0-18.0 37.0-51.0 80-97 140-440 Adult F 4.1-10.9 4.04-5.48 12.0-18.0 37.0-51.0 80-97 140-440 0- 1 Yr 5.0-20.0 3.9-5.9 15-18 MV: 44 MV: 91 MV: 277 2-9 Yr. 6.0-17.0 3.8-5.4 11-13 MV: 37 MV: 78 MV: 300 10 Yrs. 5.0-13.0 3.8-5.4 12-15 MV: 39 MV: 80 MV: 250 NOTE: * FOR ADULT BLACK MALES AND FEMALES, NORMAL WBC IS 2.9-7.7 K/ML * FOR ADULT BLACK MALES AND FEMALES, NORMAL RBC,HGB, AND HCT IS 5% LESS SOURCE FOR DATA: [employer] 1800 OPERATION MANUAL( AUTOMATED BLOOD COUNTS AND DIFF.) APPENDIX B-3 Cho/HDL Ratio 1.9 Calc [facility] ([facility] CLASSIFICATION CHOLESTEROL FO R ADULTS CHILDREN/ADOLESCENTS* DESIRABLE: <200 MG/DL <170 MG/DL BORDER-LINE HIGH RISK: 200-239 MG/DL 170-199 MG/DL HIGH RISK: >240 MG/DL >200 MG/DL CLASS. FOR PRIMARY LDL CHOL PREVENTION: LDL CHOL-CHILD/ADOLESCENTS* DESIRABLE: <130 MG/DL <110 MG/DL BORDERLINE-HIGH RISK: 130-159 MG/DL 110-129 MG/DL HIGH RISK: >160 MG/DL >130 MG/DL *CHILDREN AND ADOLESCENTS REPRESENTS INDIVIDUALA AGED 2-19 YEARS EXCLUSIVE. CHRONIC KIDNEY DISEASE STAGING PER NKF: MALE [...] mL/min Normal 80 and above >32 mL/min NormalNORMAL RANGES Age WBC RBC HGB HCT MCV PLT Adult M 4.1-10.9 4.20-6.30 12.0-18.0 37.0-51.0 80-97 140-440 Adult F 4.1-10.9 4.04-5.48 12.0-18.0 37.0-51.0 80-97 140-440 0- 1 Yr 5.0-20.0 3.9-5.9 15-18 MV: 44 MV: 91 MV: 277 2-9 Yr. 6.0-17.0 3.8-5.4 11-13 MV: 37 MV: 78 MV: 300 10 Yrs. 5.0-13.0 3.8-5.4 12-15 MV: 39 MV: 80 MV: 250 NOTE: * FOR ADULT BLACK MALES AND FEMALES, NORMAL WBC IS 2.9-7.7 K/ML * FOR ADULT BLACK MALES AND FEMALES, NORMAL RBC,HGB, AND HCT IS 5% LESS SOURCE FOR DATA: [facility] 1800 OPERATION MANUAL( AUTOMATED BLOOD COUNTS AND DIFF.) APPENDIX B-3 LDL_C 76 Calc 75-129 [facility] ([facility] CLASSIFICATION CHOLESTEROL FO R ADULTS CHILDREN/ADOLESCENTS* DESIRABLE: <200 MG/DL <170 MG/DL BORDER-LINE HIGH RISK: 200-239 MG/DL 170-199 MG/DL HIGH RISK: >240 MG/DL >200 MG/DL CLASS. FOR PRIMARY LDL CHOL PREVENTION: LDL CHOL-CHILD/ADOLESCENTS* DESIRABLE: <130 MG/DL <110 MG/DL BORDERLINE-HIGH RISK: 130-159 MG/DL 110-129 MG/DL HIGH RISK: >160 MG/DL >130 MG/DL *CHILDREN AND ADOLESCENTS REPRESENTS INDIVIDUALA AGED 2-19 YEARS EXCLUSIVE. CHRONIC KIDNEY DISEASE STAGING PER NKF: MALE [...] mL/min Normal 80 and above >32 mL/min NormalNORMAL RANGES Age WBC RBC HGB HCT MCV PLT Adult M 4.1-10.9 4.20-6.30 12.0-18.0 37.0-51.0 80-97 140-440 Adult F 4.1-10.9 4.04-5.48 12.0-18.0 37.0-51.0 80-97 140-440 0- 1 Yr 5.0-20.0 3.9-5.9 15-18 MV: 44 MV: 91 MV: 277 2-9 Yr. 6.0-17.0 3.8-5.4 11-13 MV: 37 MV: 78 MV: 300 10 Yrs. 5.0-13.0 3.8-5.4 12-15 MV: 39 MV: 80 MV: 250 NOTE: * FOR ADULT BLACK MALES AND FEMALES, NORMAL WBC IS 2.9-7.7 K/ML * FOR ADULT BLACK MALES AND FEMALES, NORMAL RBC,HGB, AND HCT IS 5% LESS SOURCE FOR DATA: [employer] 1800 OPERATION MANUAL( AUTOMATED BLOOD COUNTS AND DIFF.) APPENDIX B-3 ID Date Data Source [id number] 05/09/2019 01:28:00 PM EDT [facility] ([facility] Name Value Range Interpretation Code Description Data Renetta rce(s) Supporting Document(s) Glu 145 mg/dL 70-110 Above high normal [facility] ([facility] CLASSIFICATION CHOLESTEROL FO R ADULTS CHILDREN/ADOLESCENTS* DESIRABLE: <200 MG/DL <170 MG/DL BORDER-LINE HIGH RISK: 200-239 MG/DL 170-199 MG/DL HIGH RISK: >240 MG/DL >200 MG/DL CLASS. FOR PRIMARY LDL CHOL PREVENTION: LDL CHOL-CHILD/ADOLESCENTS* DESIRABLE: <130 MG/DL <110 MG/DL BORDERLINE-HIGH RISK: 130-159 MG/DL 110-129 MG/DL HIGH RISK: >160 MG/DL >130 MG/DL *CHILDREN AND ADOLESCENTS REPRESENTS INDIVIDUALA AGED 2-19 YEARS EXCLUSIVE. CHRONIC KIDNEY DISEASE STAGING PER NKF: MALE [...] mL/min Normal 80 and above >32 mL/min NormalNORMAL RANGES Age WBC RBC HGB HCT MCV PLT Adult M 4.1-10.9 4.20-6.30 12.0-18.0 37.0-51.0 80-97 140-440 Adult F 4.1-10.9 4.04-5.48 12.0-18.0 37.0-51.0 80-97 140-440 0- 1 Yr 5.0-20.0 3.9-5.9 15-18 MV: 44 MV: 91 MV: 277 2-9 Yr. 6.0-17.0 3.8-5.4 11-13 MV: 37 MV: 78 MV: 300 10 Yrs. 5.0-13.0 3.8-5.4 12-15 MV: 39 MV: 80 MV: 250 NOTE: * FOR ADULT BLACK MALES AND FEMALES, NORMAL WBC IS 2.9-7.7 K/ML * FOR ADULT BLACK MALES AND FEMALES, NORMAL RBC,HGB, AND HCT IS 5% LESS SOURCE FOR DATA: [employer] 1800 OPERATION MANUAL( AUTOMATED BLOOD COUNTS AND DIFF.) APPENDIX B-3 Creat 0.7 mg/dL 0.5-1.0 [facility] ([facility] CLASSIFICATION CHOLESTEROL FO R ADULTS CHILDREN/ADOLESCENTS* DESIRABLE: <200 MG/DL <170 MG/DL BORDER-LINE HIGH RISK: 200-239 MG/DL 170-199 MG/DL HIGH RISK: >240 MG/DL >200 MG/DL CLASS. FOR PRIMARY LDL CHOL PREVENTION: LDL CHOL-CHILD/ADOLESCENTS* DESIRABLE: <130 MG/DL <110 MG/DL BORDERLINE-HIGH RISK: 130-159 MG/DL 110-129 MG/DL HIGH RISK: >160 MG/DL >130 MG/DL *CHILDREN AND ADOLESCENTS REPRESENTS INDIVIDUALA AGED 2-19 YEARS EXCLUSIVE. CHRONIC KIDNEY DISEASE STAGING PER NKF: MALE [...] mL/min Normal 80 and above >32 mL/min NormalNORMAL RANGES Age WBC RBC HGB HCT MCV PLT Adult M 4.1-10.9 4.20-6.30 12.0-18.0 37.0-51.0 80-97 140-440 Adult F 4.1-10.9 4.04-5.48 12.0-18.0 37.0-51.0 80-97 140-440 0- 1 Yr 5.0-20.0 3.9-5.9 15-18 MV: 44 MV: 91 MV: 277 2-9 Yr. 6.0-17.0 3.8-5.4 11-13 MV: 37 MV: 78 MV: 300 10 Yrs. 5.0-13.0 3.8-5.4 12-15 MV: 39 MV: 80 MV: 250 NOTE: * FOR ADULT BLACK MALES AND FEMALES, NORMAL WBC IS 2.9-7.7 K/ML * FOR ADULT BLACK MALES AND FEMALES, NORMAL RBC,HGB, AND HCT IS 5% LESS SOURCE FOR DATA: [employer] 1800 OPERATION MANUAL( AUTOMATED BLOOD COUNTS AND DIFF.) APPENDIX B-3 BUN 6 mg/dL 8-23 Below low normal [facility] ([facility] CLASSIFICATION CHOLESTEROL FO R ADULTS CHILDREN/ADOLESCENTS* DESIRABLE: <200 MG/DL <170 MG/DL BORDER-LINE HIGH RISK: 200-239 MG/DL 170-199 MG/DL HIGH RISK: >240 MG/DL >200 MG/DL CLASS. FOR PRIMARY LDL CHOL PREVENTION: LDL CHOL-CHILD/ADOLESCENTS* DESIRABLE: <130 MG/DL <110 MG/DL BORDERLINE-HIGH RISK: 130-159 MG/DL 110-129 MG/DL HIGH RISK: >160 MG/DL >130 MG/DL *CHILDREN AND ADOLESCENTS REPRESENTS INDIVIDUALA AGED 2-19 YEARS EXCLUSIVE. CHRONIC KIDNEY DISEASE STAGING PER NKF: MALE [...] mL/min Normal 80 and above >32 mL/min NormalNORMAL RANGES Age WBC RBC HGB HCT MCV PLT Adult M 4.1-10.9 4.20-6.30 12.0-18.0 37.0-51.0 80-97 140-440 Adult F 4.1-10.9 4.04-5.48 12.0-18.0 37.0-51.0 80-97 140-440 0- 1 Yr 5.0-20.0 3.9-5.9 15-18 MV: 44 MV: 91 MV: 277 2-9 Yr. 6.0-17.0 3.8-5.4 11-13 MV: 37 MV: 78 MV: 300 10 Yrs. 5.0-13.0 3.8-5.4 12-15 MV: 39 MV: 80 MV: 250 NOTE: * FOR ADULT BLACK MALES AND FEMALES, NORMAL WBC IS 2.9-7.7 K/ML * FOR ADULT BLACK MALES AND FEMALES, NORMAL RBC,HGB, AND HCT IS 5% LESS SOURCE FOR DATA: [employer] 1800 OPERATION MANUAL( AUTOMATED BLOOD COUNTS AND DIFF.) APPENDIX B-3 BUN/Creatinine Ratio 9.3 CALC [facility] ([facility] CLASSIFICATION CHOLESTEROL FO R ADULTS CHILDREN/ADOLESCENTS* DESIRABLE: <200 MG/DL <170 MG/DL BORDER-LINE HIGH RISK: 200-239 MG/DL 170-199 MG/DL HIGH RISK: >240 MG/DL >200 MG/DL CLASS. FOR PRIMARY LDL CHOL PREVENTION: LDL CHOL-CHILD/ADOLESCENTS* DESIRABLE: <130 MG/DL <110 MG/DL BORDERLINE-HIGH RISK: 130-159 MG/DL 110-129 MG/DL HIGH RISK: >160 MG/DL >130 MG/DL *CHILDREN AND ADOLESCENTS REPRESENTS INDIVIDUALA AGED 2-19 YEARS EXCLUSIVE. CHRONIC KIDNEY DISEASE STAGING PER NKF: MALE [...] mL/min Normal 80 and above >32 mL/min NormalNORMAL RANGES Age WBC RBC HGB HCT MCV PLT Adult M 4.1-10.9 4.20-6.30 12.0-18.0 37.0-51.0 80-97 140-440 Adult F 4.1-10.9 4.04-5.48 12.0-18.0 37.0-51.0 80-97 140-440 0- 1 Yr 5.0-20.0 3.9-5.9 15-18 MV: 44 MV: 91 MV: 277 2-9 Yr. 6.0-17.0 3.8-5.4 11-13 MV: 37 MV: 78 MV: 300 10 Yrs. 5.0-13.0 3.8-5.4 12-15 MV: 39 MV: 80 MV: 250 NOTE: * FOR ADULT BLACK MALES AND FEMALES, NORMAL WBC IS 2.9-7.7 K/ML * FOR ADULT BLACK MALES AND FEMALES, NORMAL RBC,HGB, AND HCT IS 5% LESS SOURCE FOR DATA: [facility] 1800 OPERATION MANUAL( AUTOMATED BLOOD COUNTS AND DIFF.) APPENDIX B-3 CL 86.7 mmol/L 98.0-107.0 Below low normal [facility] ([facility] CLASSIFICATION CHOLESTEROL FO R ADULTS CHILDREN/ADOLESCENTS* DESIRABLE: <200 MG/DL <170 MG/DL BORDER-LINE HIGH RISK: 200-239 MG/DL 170-199 MG/DL HIGH RISK: >240 MG/DL >200 MG/DL CLASS. FOR PRIMARY LDL CHOL PREVENTION: LDL CHOL-CHILD/ADOLESCENTS* DESIRABLE: <130 MG/DL <110 MG/DL BORDERLINE-HIGH RISK: 130-159 MG/DL 110-129 MG/DL HIGH RISK: >160 MG/DL >130 MG/DL *CHILDREN AND ADOLESCENTS REPRESENTS INDIVIDUALA AGED 2-19 YEARS EXCLUSIVE. CHRONIC KIDNEY DISEASE STAGING PER NKF: MALE [...] mL/min Normal 80 and above >32 mL/min NormalNORMAL RANGES Age WBC RBC HGB HCT MCV PLT Adult M 4.1-10.9 4.20-6.30 12.0-18.0 37.0-51.0 80-97 140-440 Adult F 4.1-10.9 4.04-5.48 12.0-18.0 37.0-51.0 80-97 140-440 0- 1 Yr 5.0-20.0 3.9-5.9 15-18 MV: 44 MV: 91 MV: 277 2-9 Yr. 6.0-17.0 3.8-5.4 11-13 MV: 37 MV: 78 MV: 300 10 Yrs. 5.0-13.0 3.8-5.4 12-15 MV: 39 MV: 80 MV: 250 NOTE: * FOR ADULT BLACK MALES AND FEMALES, NORMAL WBC IS 2.9-7.7 K/ML * FOR ADULT BLACK MALES AND FEMALES, NORMAL RBC,HGB, AND HCT IS 5% LESS SOURCE FOR DATA: [facility] 1800 OPERATION MANUAL( AUTOMATED BLOOD COUNTS AND DIFF.) APPENDIX B-3 Na 122 mmol/L 136-145 Below low normal [facility] ( [facility] CLASSIFICATION CHOLESTEROL FO R ADULTS CHILDREN/ADOLESCENTS* DESIRABLE: <200 MG/DL <170 MG/DL BORDER-LINE HIGH RISK: 200-239 MG/DL 170-199 MG/DL HIGH RISK: >240 MG/DL >200 MG/DL CLASS. FOR PRIMARY LDL CHOL PREVENTION: LDL CHOL-CHILD/ADOLESCENTS* DESIRABLE: <130 MG/DL <110 MG/DL BORDERLINE-HIGH RISK: 130-159 MG/DL 110-129 MG/DL HIGH RISK: >160 MG/DL >130 MG/DL *CHILDREN AND ADOLESCENTS REPRESENTS INDIVIDUALA AGED 2-19 YEARS EXCLUSIVE. CHRONIC KIDNEY DISEASE STAGING PER NKF: MALE [...] mL/min Normal 80 and above >32 mL/min NormalNORMAL RANGES Age WBC RBC HGB HCT MCV PLT Adult M 4.1-10.9 4.20-6.30 12.0-18.0 37.0-51.0 80-97 140-440 Adult F 4.1-10.9 4.04-5.48 12.0-18.0 37.0-51.0 80-97 140-440 0- 1 Yr 5.0-20.0 3.9-5.9 15-18 MV: 44 MV: 91 MV: 277 2-9 Yr. 6.0-17.0 3.8-5.4 11-13 MV: 37 MV: 78 MV: 300 10 Yrs. 5.0-13.0 3.8-5.4 12-15 MV: 39 MV: 80 MV: 250 NOTE: * FOR ADULT BLACK MALES AND FEMALES, NORMAL WBC IS 2.9-7.7 K/ML * FOR ADULT BLACK MALES AND FEMALES, NORMAL RBC,HGB, AND HCT IS 5% LESS SOURCE FOR DATA: [employer] 1800 OPERATION MANUAL( AUTOMATED BLOOD COUNTS AND DIFF.) APPENDIX B-3 K 5.0 mmol/L 3.5-5.1 [facility] ([facility] CLASSIFICATION CHOLESTEROL FO R ADULTS CHILDREN/ADOLESCENTS* DESIRABLE: <200 MG/DL <170 MG/DL BORDER-LINE HIGH RISK: 200-239 MG/DL 170-199 MG/DL HIGH RISK: >240 MG/DL >200 MG/DL CLASS. FOR PRIMARY LDL CHOL PREVENTION: LDL CHOL-CHILD/ADOLESCENTS* DESIRABLE: <130 MG/DL <110 MG/DL BORDERLINE-HIGH RISK: 130-159 MG/DL 110-129 MG/DL HIGH RISK: >160 MG/DL >130 MG/DL *CHILDREN AND ADOLESCENTS REPRESENTS INDIVIDUALA AGED 2-19 YEARS EXCLUSIVE. CHRONIC KIDNEY DISEASE STAGING PER NKF: MALE [...] mL/min Normal 80 and above >32 mL/min NormalNORMAL RANGES Age WBC RBC HGB HCT MCV PLT Adult M 4.1-10.9 4.20-6.30 12.0-18.0 37.0-51.0 80-97 140-440 Adult F 4.1-10.9 4.04-5.48 12.0-18.0 37.0-51.0 80-97 140-440 0- 1 Yr 5.0-20.0 3.9-5.9 15-18 MV: 44 MV: 91 MV: 277 2-9 Yr. 6.0-17.0 3.8-5.4 11-13 MV: 37 MV: 78 MV: 300 10 Yrs. 5.0-13.0 3.8-5.4 12-15 MV: 39 MV: 80 MV: 250 NOTE: * FOR ADULT BLACK MALES AND FEMALES, NORMAL WBC IS 2.9-7.7 K/ML * FOR ADULT BLACK MALES AND FEMALES, NORMAL RBC,HGB, AND HCT IS 5% LESS SOURCE FOR DATA: [facility] 1800 OPERATION MANUAL( AUTOMATED BLOOD COUNTS AND DIFF.) APPENDIX B-3 CA 9.5 mg/dL 8.6-10.2 [facility] ([facility] CLASSIFICATION CHOLESTEROL FO R ADULTS CHILDREN/ADOLESCENTS* DESIRABLE: <200 MG/DL <170 MG/DL BORDER-LINE HIGH RISK: 200-239 MG/DL 170-199 MG/DL HIGH RISK: >240 MG/DL >200 MG/DL CLASS. FOR PRIMARY LDL CHOL PREVENTION: LDL CHOL-CHILD/ADOLESCENTS* DESIRABLE: <130 MG/DL <110 MG/DL BORDERLINE-HIGH RISK: 130-159 MG/DL 110-129 MG/DL HIGH RISK: >160 MG/DL >130 MG/DL *CHILDREN AND ADOLESCENTS REPRESENTS INDIVIDUALA AGED 2-19 YEARS EXCLUSIVE. CHRONIC KIDNEY DISEASE STAGING PER NKF: MALE [...] mL/min Normal 80 and above >32 mL/min NormalNORMAL RANGES Age WBC RBC HGB HCT MCV PLT Adult M 4.1-10.9 4.20-6.30 12.0-18.0 37.0-51.0 80-97 140-440 Adult F 4.1-10.9 4.04-5.48 12.0-18.0 37.0-51.0 80-97 140-440 0- 1 Yr 5.0-20.0 3.9-5.9 15-18 MV: 44 MV: 91 MV: 277 2-9 Yr. 6.0-17.0 3.8-5.4 11-13 MV: 37 MV: 78 MV: 300 10 Yrs. 5.0-13.0 3.8-5.4 12-15 MV: 39 MV: 80 MV: 250 NOTE: * FOR ADULT BLACK MALES AND FEMALES, NORMAL WBC IS 2.9-7.7 K/ML * FOR ADULT BLACK MALES AND FEMALES, NORMAL RBC,HGB, AND HCT IS 5% LESS SOURCE FOR DATA: [employer] 1800 OPERATION MANUAL( AUTOMATED BLOOD COUNTS AND DIFF.) APPENDIX B-3 Co2 24.8 mmol/L 22.0-29.0 [facility] ([facility] CLASSIFICATION CHOLESTEROL FO R ADULTS CHILDREN/ADOLESCENTS* DESIRABLE: <200 MG/DL <170 MG/DL BORDER-LINE HIGH RISK: 200-239 MG/DL 170-199 MG/DL HIGH RISK: >240 MG/DL >200 MG/DL CLASS. FOR PRIMARY LDL CHOL PREVENTION: LDL CHOL-CHILD/ADOLESCENTS* DESIRABLE: <130 MG/DL <110 MG/DL BORDERLINE-HIGH RISK: 130-159 MG/DL 110-129 MG/DL HIGH RISK: >160 MG/DL >130 MG/DL *CHILDREN AND ADOLESCENTS REPRESENTS INDIVIDUALA AGED 2-19 YEARS EXCLUSIVE. CHRONIC KIDNEY DISEASE STAGING PER NKF: MALE [...] mL/min Normal 80 and above >32 mL/min NormalNORMAL RANGES Age WBC RBC HGB HCT MCV PLT Adult M 4.1-10.9 4.20-6.30 12.0-18.0 37.0-51.0 80-97 140-440 Adult F 4.1-10.9 4.04-5.48 12.0-18.0 37.0-51.0 80-97 140-440 0- 1 Yr 5.0-20.0 3.9-5.9 15-18 MV: 44 MV: 91 MV: 277 2-9 Yr. 6.0-17.0 3.8-5.4 11-13 MV: 37 MV: 78 MV: 300 10 Yrs. 5.0-13.0 3.8-5.4 12-15 MV: 39 MV: 80 MV: 250 NOTE: * FOR ADULT BLACK MALES AND FEMALES, NORMAL WBC IS 2.9-7.7 K/ML * FOR ADULT BLACK MALES AND FEMALES, NORMAL RBC,HGB, AND HCT IS 5% LESS SOURCE FOR DATA: [employer] 1800 OPERATION MANUAL( AUTOMATED BLOOD COUNTS AND DIFF.) APPENDIX B-3 TP 6.3 g/dL 6.6-8.7 Below low normal [facility] ( [facility] CLASSIFICATION CHOLESTEROL FO R ADULTS CHILDREN/ADOLESCENTS* DESIRABLE: <200 MG/DL <170 MG/DL BORDER-LINE HIGH RISK: 200-239 MG/DL 170-199 MG/DL HIGH RISK: >240 MG/DL >200 MG/DL CLASS. FOR PRIMARY LDL CHOL PREVENTION: LDL CHOL-CHILD/ADOLESCENTS* DESIRABLE: <130 MG/DL <110 MG/DL BORDERLINE-HIGH RISK: 130-159 MG/DL 110-129 MG/DL HIGH RISK: >160 MG/DL >130 MG/DL *CHILDREN AND ADOLESCENTS REPRESENTS INDIVIDUALA AGED 2-19 YEARS EXCLUSIVE. CHRONIC KIDNEY DISEASE STAGING PER NKF: MALE [...] mL/min Normal 80 and above >32 mL/min NormalNORMAL RANGES Age WBC RBC HGB HCT MCV PLT Adult M 4.1-10.9 4.20-6.30 12.0-18.0 37.0-51.0 80-97 140-440 Adult F 4.1-10.9 4.04-5.48 12.0-18.0 37.0-51.0 80-97 140-440 0- 1 Yr 5.0-20.0 3.9-5.9 15-18 MV: 44 MV: 91 MV: 277 2-9 Yr. 6.0-17.0 3.8-5.4 11-13 MV: 37 MV: 78 MV: 300 10 Yrs. 5.0-13.0 3.8-5.4 12-15 MV: 39 MV: 80 MV: 250 NOTE: * FOR ADULT BLACK MALES AND FEMALES, NORMAL WBC IS 2.9-7.7 K/ML * FOR ADULT BLACK MALES AND FEMALES, NORMAL RBC,HGB, AND HCT IS 5% LESS SOURCE FOR DATA: [facility] 1800 OPERATION MANUAL( AUTOMATED BLOOD COUNTS AND DIFF.) APPENDIX B-3 Globulin 2.1 CALC [facility] ([facility] CLASSIFICATION CHOLESTEROL FO R ADULTS CHILDREN/ADOLESCENTS* DESIRABLE: <200 MG/DL <170 MG/DL BORDER-LINE HIGH RISK: 200-239 MG/DL 170-199 MG/DL HIGH RISK: >240 MG/DL >200 MG/DL CLASS. FOR PRIMARY LDL CHOL PREVENTION: LDL CHOL-CHILD/ADOLESCENTS* DESIRABLE: <130 MG/DL <110 MG/DL BORDERLINE-HIGH RISK: 130-159 MG/DL 110-129 MG/DL HIGH RISK: >160 MG/DL >130 MG/DL *CHILDREN AND ADOLESCENTS REPRESENTS INDIVIDUALA AGED 2-19 YEARS EXCLUSIVE. CHRONIC KIDNEY DISEASE STAGING PER NKF: MALE [...] mL/min Normal 80 and above >32 mL/min NormalNORMAL RANGES Age WBC RBC HGB HCT MCV PLT Adult M 4.1-10.9 4.20-6.30 12.0-18.0 37.0-51.0 80-97 140-440 Adult F 4.1-10.9 4.04-5.48 12.0-18.0 37.0-51.0 80-97 140-440 0- 1 Yr 5.0-20.0 3.9-5.9 15-18 MV: 44 MV: 91 MV: 277 2-9 Yr. 6.0-17.0 3.8-5.4 11-13 MV: 37 MV: 78 MV: 300 10 Yrs. 5.0-13.0 3.8-5.4 12-15 MV: 39 MV: 80 MV: 250 NOTE: * FOR ADULT BLACK MALES AND FEMALES, NORMAL WBC IS 2.9-7.7 K/ML * FOR ADULT BLACK MALES AND FEMALES, NORMAL RBC,HGB, AND HCT IS 5% LESS SOURCE FOR DATA: [facility] 1800 OPERATION MANUAL( AUTOMATED BLOOD COUNTS AND DIFF.) APPENDIX B-3 Alb 4.2 g/dL 3.4-4.8 [facility] ([facility] CLASSIFICATION CHOLESTEROL FO R ADULTS CHILDREN/ADOLESCENTS* DESIRABLE: <200 MG/DL <170 MG/DL BORDER-LINE HIGH RISK: 200-239 MG/DL 170-199 MG/DL HIGH RISK: >240 MG/DL >200 MG/DL CLASS. FOR PRIMARY LDL CHOL PREVENTION: LDL CHOL-CHILD/ADOLESCENTS* DESIRABLE: <130 MG/DL <110 MG/DL BORDERLINE-HIGH RISK: 130-159 MG/DL 110-129 MG/DL HIGH RISK: >160 MG/DL >130 MG/DL *CHILDREN AND ADOLESCENTS REPRESENTS INDIVIDUALA AGED 2-19 YEARS EXCLUSIVE. CHRONIC KIDNEY DISEASE STAGING PER NKF: MALE [...] mL/min Normal 80 and above >32 mL/min NormalNORMAL RANGES Age WBC RBC HGB HCT MCV PLT Adult M 4.1-10.9 4.20-6.30 12.0-18.0 37.0-51.0 80-97 140-440 Adult F 4.1-10.9 4.04-5.48 12.0-18.0 37.0-51.0 80-97 140-440 0- 1 Yr 5.0-20.0 3.9-5.9 15-18 MV: 44 MV: 91 MV: 277 2-9 Yr. 6.0-17.0 3.8-5.4 11-13 MV: 37 MV: 78 MV: 300 10 Yrs. 5.0-13.0 3.8-5.4 12-15 MV: 39 MV: 80 MV: 250 NOTE: * FOR ADULT BLACK MALES AND FEMALES, NORMAL WBC IS 2.9-7.7 K/ML * FOR ADULT BLACK MALES AND FEMALES, NORMAL RBC,HGB, AND HCT IS 5% LESS SOURCE FOR DATA: [employer] 1800 OPERATION MANUAL( AUTOMATED BLOOD COUNTS AND DIFF.) APPENDIX B-3 A/G Ratio 2.0 CALC [facility] ([facility] CLASSIFICATION CHOLESTEROL FO R ADULTS CHILDREN/ADOLESCENTS* DESIRABLE: <200 MG/DL <170 MG/DL BORDER-LINE HIGH RISK: 200-239 MG/DL 170-199 MG/DL HIGH RISK: >240 MG/DL >200 MG/DL CLASS. FOR PRIMARY LDL CHOL PREVENTION: LDL CHOL-CHILD/ADOLESCENTS* DESIRABLE: <130 MG/DL <110 MG/DL BORDERLINE-HIGH RISK: 130-159 MG/DL 110-129 MG/DL HIGH RISK: >160 MG/DL >130 MG/DL *CHILDREN AND ADOLESCENTS REPRESENTS INDIVIDUALA AGED 2-19 YEARS EXCLUSIVE. CHRONIC KIDNEY DISEASE STAGING PER NKF: MALE [...] mL/min Normal 80 and above >32 mL/min NormalNORMAL RANGES Age WBC RBC HGB HCT MCV PLT Adult M 4.1-10.9 4.20-6.30 12.0-18.0 37.0-51.0 80-97 140-440 Adult F 4.1-10.9 4.04-5.48 12.0-18.0 37.0-51.0 80-97 140-440 0- 1 Yr 5.0-20.0 3.9-5.9 15-18 MV: 44 MV: 91 MV: 277 2-9 Yr. 6.0-17.0 3.8-5.4 11-13 MV: 37 MV: 78 MV: 300 10 Yrs. 5.0-13.0 3.8-5.4 12-15 MV: 39 MV: 80 MV: 250 NOTE: * FOR ADULT BLACK MALES AND FEMALES, NORMAL WBC IS 2.9-7.7 K/ML * FOR ADULT BLACK MALES AND FEMALES, NORMAL RBC,HGB, AND HCT IS 5% LESS SOURCE FOR DATA: [employer] DYN 1800 OPERATION MANUAL( AUTOMATED BLOOD COUNTS AND DIFF.) APPENDIX B-3 Ast (Sgot) 36 U/L 0-40 [facility] ([facility] CLASSIFICATION CHOLESTEROL FO R ADULTS CHILDREN/ADOLESCENTS* DESIRABLE: <200 MG/DL <170 MG/DL BORDER-LINE HIGH RISK: 200-239 MG/DL 170-199 MG/DL HIGH RISK: >240 MG/DL >200 MG/DL CLASS. FOR PRIMARY LDL CHOL PREVENTION: LDL CHOL-CHILD/ADOLESCENTS* DESIRABLE: <130 MG/DL <110 MG/DL BORDERLINE-HIGH RISK: 130-159 MG/DL 110-129 MG/DL HIGH RISK: >160 MG/DL >130 MG/DL *CHILDREN AND ADOLESCENTS REPRESENTS INDIVIDUALA AGED 2-19 YEARS EXCLUSIVE. CHRONIC KIDNEY DISEASE STAGING PER NKF: MALE [...] mL/min Normal 80 and above >32 mL/min NormalNORMAL RANGES Age WBC RBC HGB HCT MCV PLT Adult M 4.1-10.9 4.20-6.30 12.0-18.0 37.0-51.0 80-97 140-440 Adult F 4.1-10.9 4.04-5.48 12.0-18.0 37.0-51.0 80-97 140-440 0- 1 Yr 5.0-20.0 3.9-5.9 15-18 MV: 44 MV: 91 MV: 277 2-9 Yr. 6.0-17.0 3.8-5.4 11-13 MV: 37 MV: 78 MV: 300 10 Yrs. 5.0-13.0 3.8-5.4 12-15 MV: 39 MV: 80 MV: 250 NOTE: * FOR ADULT BLACK MALES AND FEMALES, NORMAL WBC IS 2.9-7.7 K/ML * FOR ADULT BLACK MALES AND FEMALES, NORMAL RBC,HGB, AND HCT IS 5% LESS SOURCE FOR DATA: [employer] DYN 1800 OPERATION MANUAL( AUTOMATED BLOOD COUNTS AND DIFF.) APPENDIX B-3 Alt (SGPT) 22 U/L 0-41 [facility] ([facility] CLASSIFICATION CHOLESTEROL FO R ADULTS CHILDREN/ADOLESCENTS* DESIRABLE: <200 MG/DL <170 MG/DL BORDER-LINE HIGH RISK: 200-239 MG/DL 170-199 MG/DL HIGH RISK: >240 MG/DL >200 MG/DL CLASS. FOR PRIMARY LDL CHOL PREVENTION: LDL CHOL-CHILD/ADOLESCENTS* DESIRABLE: <130 MG/DL <110 MG/DL BORDERLINE-HIGH RISK: 130-159 MG/DL 110-129 MG/DL HIGH RISK: >160 MG/DL >130 MG/DL *CHILDREN AND ADOLESCENTS REPRESENTS INDIVIDUALA AGED 2-19 YEARS EXCLUSIVE. CHRONIC KIDNEY DISEASE STAGING PER NKF: MALE [...] mL/min Normal 80 and above >32 mL/min NormalNORMAL RANGES Age WBC RBC HGB HCT MCV PLT Adult M 4.1-10.9 4.20-6.30 12.0-18.0 37.0-51.0 80-97 140-440 Adult F 4.1-10.9 4.04-5.48 12.0-18.0 37.0-51.0 80-97 140-440 0- 1 Yr 5.0-20.0 3.9-5.9 15-18 MV: 44 MV: 91 MV: 277 2-9 Yr. 6.0-17.0 3.8-5.4 11-13 MV: 37 MV: 78 MV: 300 10 Yrs. 5.0-13.0 3.8-5.4 12-15 MV: 39 MV: 80 MV: 250 NOTE: * FOR ADULT BLACK MALES AND FEMALES, NORMAL WBC IS 2.9-7.7 K/ML * FOR ADULT BLACK MALES AND FEMALES, NORMAL RBC,HGB, AND HCT IS 5% LESS SOURCE FOR DATA: [employer]YN 1800 OPERATION MANUAL( AUTOMATED BLOOD COUNTS AND DIFF.) APPENDIX B-3 Alp 39.5 U/L 35-129 [facility] CLASSIFICATION CHOLESTEROL FO R ADULTS CHILDREN/ADOLESCENTS* DESIRABLE: <200 MG/DL <170 MG/DL BORDER-LINE HIGH RISK: 200-239 MG/DL 170-199 MG/DL HIGH RISK: >240 MG/DL >200 MG/DL CLASS. FOR PRIMARY LDL CHOL PREVENTION: LDL CHOL-CHILD/ADOLESCENTS* DESIRABLE: <130 MG/DL <110 MG/DL BORDERLINE-HIGH RISK: 130-159 MG/DL 110-129 MG/DL HIGH RISK: >160 MG/DL >130 MG/DL *CHILDREN AND ADOLESCENTS REPRESENTS INDIVIDUALA AGED 2-19 YEARS EXCLUSIVE. CHRONIC KIDNEY DISEASE STAGING PER NKF: MALE [...] mL/min Normal 80 and above >32 mL/min NormalNORMAL RANGES Age WBC RBC HGB HCT MCV PLT Adult M 4.1-10.9 4.20-6.30 12.0-18.0 37.0-51.0 80-97 140-440 Adult F 4.1-10.9 4.04-5.48 12.0-18.0 37.0-51.0 80-97 140-440 0- 1 Yr 5.0-20.0 3.9-5.9 15-18 MV: 44 MV: 91 MV: 277 2-9 Yr. 6.0-17.0 3.8-5.4 11-13 MV: 37 MV: 78 MV: 300 10 Yrs. 5.0-13.0 3.8-5.4 12-15 MV: 39 MV: 80 MV: 250 NOTE: * FOR ADULT BLACK MALES AND FEMALES, NORMAL WBC IS 2.9-7.7 K/ML * FOR ADULT BLACK MALES AND FEMALES, NORMAL RBC,HGB, AND HCT IS 5% LESS SOURCE FOR DATA: [facility] 1800 OPERATION MANUAL( AUTOMATED BLOOD COUNTS AND DIFF.) APPENDIX B-3 eGFR 105 # [facility] ( [facility] CLASSIFICATION CHOLESTEROL FO R ADULTS CHILDREN/ADOLESCENTS* DESIRABLE: <200 MG/DL <170 MG/DL BORDER-LINE HIGH RISK: 200-239 MG/DL 170-199 MG/DL HIGH RISK: >240 MG/DL >200 MG/DL CLASS. FOR PRIMARY LDL CHOL PREVENTION: LDL CHOL-CHILD/ADOLESCENTS* DESIRABLE: <130 MG/DL <110 MG/DL BORDERLINE-HIGH RISK: 130-159 MG/DL 110-129 MG/DL HIGH RISK: >160 MG/DL >130 MG/DL *CHILDREN AND ADOLESCENTS REPRESENTS INDIVIDUALA AGED 2-19 YEARS EXCLUSIVE. CHRONIC KIDNEY DISEASE STAGING PER NKF: MALE [...] mL/min Normal 80 and above >32 mL/min NormalNORMAL RANGES Age WBC RBC HGB HCT MCV PLT Adult M 4.1-10.9 4.20-6.30 12.0-18.0 37.0-51.0 80-97 140-440 Adult F 4.1-10.9 4.04-5.48 12.0-18.0 37.0-51.0 80-97 140-440 0- 1 Yr 5.0-20.0 3.9-5.9 15-18 MV: 44 MV: 91 MV: 277 2-9 Yr. 6.0-17.0 3.8-5.4 11-13 MV: 37 MV: 78 MV: 300 10 Yrs. 5.0-13.0 3.8-5.4 12-15 MV: 39 MV: 80 MV: 250 NOTE: * FOR ADULT BLACK MALES AND FEMALES, NORMAL WBC IS 2.9-7.7 K/ML * FOR ADULT BLACK MALES AND FEMALES, NORMAL RBC,HGB, AND HCT IS 5% LESS SOURCE FOR DATA: [employer] 1800 OPERATION MANUAL( AUTOMATED BLOOD COUNTS AND DIFF.) APPENDIX B-3 Tbili 0.27 mg/dL 0.0-1.2 [facility] ([facility] CLASSIFICATION CHOLESTEROL FO R ADULTS CHILDREN/ADOLESCENTS* DESIRABLE: <200 MG/DL <170 MG/DL BORDER-LINE HIGH RISK: 200-239 MG/DL 170-199 MG/DL HIGH RISK: >240 MG/DL >200 MG/DL CLASS. FOR PRIMARY LDL CHOL PREVENTION: LDL CHOL-CHILD/ADOLESCENTS* DESIRABLE: <130 MG/DL <110 MG/DL BORDERLINE-HIGH RISK: 130-159 MG/DL 110-129 MG/DL HIGH RISK: >160 MG/DL >130 MG/DL *CHILDREN AND ADOLESCENTS REPRESENTS INDIVIDUALA AGED 2-19 YEARS EXCLUSIVE. CHRONIC KIDNEY DISEASE STAGING PER NKF: MALE [...] mL/min Normal 80 and above >32 mL/min NormalNORMAL RANGES Age WBC RBC HGB HCT MCV PLT Adult M 4.1-10.9 4.20-6.30 12.0-18.0 37.0-51.0 80-97 140-440 Adult F 4.1-10.9 4.04-5.48 12.0-18.0 37.0-51.0 80-97 140-440 0- 1 Yr 5.0-20.0 3.9-5.9 15-18 MV: 44 MV: 91 MV: 277 2-9 Yr. 6.0-17.0 3.8-5.4 11-13 MV: 37 MV: 78 MV: 300 10 Yrs. 5.0-13.0 3.8-5.4 12-15 MV: 39 MV: 80 MV: 250 NOTE: * FOR ADULT BLACK MALES AND FEMALES, NORMAL WBC IS 2.9-7.7 K/ML * FOR ADULT BLACK MALES AND FEMALES, NORMAL RBC,HGB, AND HCT IS 5% LESS SOURCE FOR DATA: [employer] 1800 OPERATION MANUAL( AUTOMATED BLOOD COUNTS AND DIFF.) APPENDIX B-3 Osmolality-Calculated 247.1 CALC MED [facility] ([facility] CLASSIFICATION CHOLESTEROL FO R ADULTS CHILDREN/ADOLESCENTS* DESIRABLE: <200 MG/DL <170 MG/DL BORDER-LINE HIGH RISK: 200-239 MG/DL 170-199 MG/DL HIGH RISK: >240 MG/DL >200 MG/DL CLASS. FOR PRIMARY LDL CHOL PREVENTION: LDL CHOL-CHILD/ADOLESCENTS* DESIRABLE: <130 MG/DL <110 MG/DL BORDERLINE-HIGH RISK: 130-159 MG/DL 110-129 MG/DL HIGH RISK: >160 MG/DL >130 MG/DL *CHILDREN AND ADOLESCENTS REPRESENTS INDIVIDUALA AGED 2-19 YEARS EXCLUSIVE. CHRONIC KIDNEY DISEASE STAGING PER NKF: MALE [...] mL/min Normal 80 and above >32 mL/min NormalNORMAL RANGES Age WBC RBC HGB HCT MCV PLT Adult M 4.1-10.9 4.20-6.30 12.0-18.0 37.0-51.0 80-97 140-440 Adult F 4.1-10.9 4.04-5.48 12.0-18.0 37.0-51.0 80-97 140-440 0- 1 Yr 5.0-20.0 3.9-5.9 15-18 MV: 44 MV: 91 MV: 277 2-9 Yr. 6.0-17.0 3.8-5.4 11-13 MV: 37 MV: 78 MV: 300 10 Yrs. 5.0-13.0 3.8-5.4 12-15 MV: 39 MV: 80 MV: 250 NOTE: * FOR ADULT BLACK MALES AND FEMALES, NORMAL WBC IS 2.9-7.7 K/ML * FOR ADULT BLACK MALES AND FEMALES, NORMAL RBC,HGB, AND HCT IS 5% LESS SOURCE FOR DATA: [employer] DYN 1800 OPERATION MANUAL( AUTOMATED BLOOD COUNTS AND DIFF.) APPENDIX B-3 Anion Gap 16 mmol/L [facility] CLASSIFICATION CHOLESTEROL FO R ADULTS CHILDREN/ADOLESCENTS* DESIRABLE: <200 MG/DL <170 MG/DL BORDER-LINE HIGH RISK: 200-239 MG/DL 170-199 MG/DL HIGH RISK: >240 MG/DL >200 MG/DL CLASS. FOR PRIMARY LDL CHOL PREVENTION: LDL CHOL-CHILD/ADOLESCENTS* DESIRABLE: <130 MG/DL <110 MG/DL BORDERLINE-HIGH RISK: 130-159 MG/DL 110-129 MG/DL HIGH RISK: >160 MG/DL >130 MG/DL *CHILDREN AND ADOLESCENTS REPRESENTS INDIVIDUALA AGED 2-19 YEARS EXCLUSIVE. CHRONIC KIDNEY DISEASE STAGING PER NKF: MALE [...] mL/min Normal 80 and above >32 mL/min NormalNORMAL RANGES Age WBC RBC HGB HCT MCV PLT Adult M 4.1-10.9 4.20-6.30 12.0-18.0 37.0-51.0 80-97 140-440 Adult F 4.1-10.9 4.04-5.48 12.0-18.0 37.0-51.0 80-97 140-440 0- 1 Yr 5.0-20.0 3.9-5.9 15-18 MV: 44 MV: 91 MV: 277 2-9 Yr. 6.0-17.0 3.8-5.4 11-13 MV: 37 MV: 78 MV: 300 10 Yrs. 5.0-13.0 3.8-5.4 12-15 MV: 39 MV: 80 MV: 250 NOTE: * FOR ADULT BLACK MALES AND FEMALES, NORMAL WBC IS 2.9-7.7 K/ML * FOR ADULT BLACK MALES AND FEMALES, NORMAL RBC,HGB, AND HCT IS 5% LESS SOURCE FOR DATA: [facility] 1800 OPERATION MANUAL( AUTOMATED BLOOD COUNTS AND DIFF.) APPENDIX B-3 eGFR Non-Afr. Peruvian 91 # [facility] ([facility] CLASSIFICATION CHOLESTEROL FO R ADULTS CHILDREN/ADOLESCENTS* DESIRABLE: <200 MG/DL <170 MG/DL BORDER-LINE HIGH RISK: 200-239 MG/DL 170-199 MG/DL HIGH RISK: >240 MG/DL >200 MG/DL CLASS. FOR PRIMARY LDL CHOL PREVENTION: LDL CHOL-CHILD/ADOLESCENTS* DESIRABLE: <130 MG/DL <110 MG/DL BORDERLINE-HIGH RISK: 130-159 MG/DL 110-129 MG/DL HIGH RISK: >160 MG/DL >130 MG/DL *CHILDREN AND ADOLESCENTS REPRESENTS INDIVIDUALA AGED 2-19 YEARS EXCLUSIVE. CHRONIC KIDNEY DISEASE STAGING PER NKF: MALE [...] mL/min Normal 80 and above >32 mL/min NormalNORMAL RANGES Age WBC RBC HGB HCT MCV PLT Adult M 4.1-10.9 4.20-6.30 12.0-18.0 37.0-51.0 80-97 140-440 Adult F 4.1-10.9 4.04-5.48 12.0-18.0 37.0-51.0 80 140-440 0- 1 Yr 5.0-20.0 3.9-5.9 15-18 MV: 44 MV: 91 MV: 277 2-9 Yr. 6.0-17.0 3.8-5.4 11-13 MV: 37 MV: 78 MV: 300 10 Yrs. 5.0-13.0 3.8-5.4 12-15 MV: 39 MV: 80 MV: 250 NOTE: * FOR ADULT BLACK MALES AND FEMALES, NORMAL WBC IS 2.9-7.7 K/ML * FOR ADULT BLACK MALES AND FEMALES, NORMAL RBC,HGB, AND HCT IS 5% LESS SOURCE FOR DATA: [facility] 1800 OPERATION MANUAL( AUTOMATED BLOOD COUNTS AND DIFF.) APPENDIX B-3 ID Date Data Source [id number] 05/09/2019 01:28:00 PM EDT [facility] ([facility] Name Value Range Interpretation Code Description Data Renetta rce(s) Supporting Document(s) HGB 12.9 g/dL 12.0-18.0 [facility] ([facility] CLASSIFICATION CHOLESTEROL FO R ADULTS CHILDREN/ADOLESCENTS* DESIRABLE: <200 MG/DL <170 MG/DL BORDER-LINE HIGH RISK: 200-239 MG/DL 170-199 MG/DL HIGH RISK: >240 MG/DL >200 MG/DL CLASS. FOR PRIMARY LDL CHOL PREVENTION: LDL CHOL-CHILD/ADOLESCENTS* DESIRABLE: <130 MG/DL <110 MG/DL BORDERLINE-HIGH RISK: 130-159 MG/DL 110-129 MG/DL HIGH RISK: >160 MG/DL >130 MG/DL *CHILDREN AND ADOLESCENTS REPRESENTS INDIVIDUALA AGED 2-19 YEARS EXCLUSIVE. CHRONIC KIDNEY DISEASE STAGING PER NKF: MALE [...] mL/min Normal 80 and above >32 mL/min NormalNORMAL RANGES Age WBC RBC HGB HCT MCV PLT Adult M 4.1-10.9 4.20-6.30 12.0-18.0 37.0-51.0 80-97 140-440 Adult F 4.1-10.9 4.04-5.48 12.0-18.0 37.0-51.0 80-97 140-440 0- 1 Yr 5.0-20.0 3.9-5.9 15-18 MV: 44 MV: 91 MV: 277 2-9 Yr. 6.0-17.0 3.8-5.4 11-13 MV: 37 MV: 78 MV: 300 10 Yrs. 5.0-13.0 3.8-5.4 12-15 MV: 39 MV: 80 MV: 250 NOTE: * FOR ADULT BLACK MALES AND FEMALES, NORMAL WBC IS 2.9-7.7 K/ML * FOR ADULT BLACK MALES AND FEMALES, NORMAL RBC,HGB, AND HCT IS 5% LESS SOURCE FOR DATA: [facility] 1800 OPERATION MANUAL( AUTOMATED BLOOD COUNTS AND DIFF.) APPENDIX B-3 WBC 6.3 10E3/uL 4.1-10.9 [facility] ([facility] CLASSIFICATION CHOLESTEROL FO R ADULTS CHILDREN/ADOLESCENTS* DESIRABLE: <200 MG/DL <170 MG/DL BORDER-LINE HIGH RISK: 200-239 MG/DL 170-199 MG/DL HIGH RISK: >240 MG/DL >200 MG/DL CLASS. FOR PRIMARY LDL CHOL PREVENTION: LDL CHOL-CHILD/ADOLESCENTS* DESIRABLE: <130 MG/DL <110 MG/DL BORDERLINE-HIGH RISK: 130-159 MG/DL 110-129 MG/DL HIGH RISK: >160 MG/DL >130 MG/DL *CHILDREN AND ADOLESCENTS REPRESENTS INDIVIDUALA AGED 2-19 YEARS EXCLUSIVE. CHRONIC KIDNEY DISEASE STAGING PER NKF: MALE [...] mL/min Normal 80 and above >32 mL/min NormalNORMAL RANGES Age WBC RBC HGB HCT MCV PLT Adult M 4.1-10.9 4.20-6.30 12.0-18.0 37.0-51.0 80-97 140-440 Adult F 4.1-10.9 4.04-5.48 12.0-18.0 37.0-51.0 80-97 140-440 0- 1 Yr 5.0-20.0 3.9-5.9 15-18 MV: 44 MV: 91 MV: 277 2-9 Yr. 6.0-17.0 3.8-5.4 11-13 MV: 37 MV: 78 MV: 300 10 Yrs. 5.0-13.0 3.8-5.4 12-15 MV: 39 MV: 80 MV: 250 NOTE: * FOR ADULT BLACK MALES AND FEMALES, NORMAL WBC IS 2.9-7.7 K/ML * FOR ADULT BLACK MALES AND FEMALES, NORMAL RBC,HGB, AND HCT IS 5% LESS SOURCE FOR DATA: [employer] DYN 1800 OPERATION MANUAL( AUTOMATED BLOOD COUNTS AND DIFF.) APPENDIX B-3 RBC 4.08 10E6/uL 4.20-6.30 Below low normal [facility] ([facility] CLASSIFICATION CHOLESTEROL FO R ADULTS CHILDREN/ADOLESCENTS* DESIRABLE: <200 MG/DL <170 MG/DL BORDER-LINE HIGH RISK: 200-239 MG/DL 170-199 MG/DL HIGH RISK: >240 MG/DL >200 MG/DL CLASS. FOR PRIMARY LDL CHOL PREVENTION: LDL CHOL-CHILD/ADOLESCENTS* DESIRABLE: <130 MG/DL <110 MG/DL BORDERLINE-HIGH RISK: 130-159 MG/DL 110-129 MG/DL HIGH RISK: >160 MG/DL >130 MG/DL *CHILDREN AND ADOLESCENTS REPRESENTS INDIVIDUALA AGED 2-19 YEARS EXCLUSIVE. CHRONIC KIDNEY DISEASE STAGING PER NKF: MALE [...] mL/min Normal 80 and above >32 mL/min NormalNORMAL RANGES Age WBC RBC HGB HCT MCV PLT Adult M 4.1-10.9 4.20-6.30 12.0-18.0 37.0-51.0 80-97 140-440 Adult F 4.1-10.9 4.04-5.48 12.0-18.0 37.0-51.0 80-97 140-440 0- 1 Yr 5.0-20.0 3.9-5.9 15-18 MV: 44 MV: 91 MV: 277 2-9 Yr. 6.0-17.0 3.8-5.4 11-13 MV: 37 MV: 78 MV: 300 10 Yrs. 5.0-13.0 3.8-5.4 12-15 MV: 39 MV: 80 MV: 250 NOTE: * FOR ADULT BLACK MALES AND FEMALES, NORMAL WBC IS 2.9-7.7 K/ML * FOR ADULT BLACK MALES AND FEMALES, NORMAL RBC,HGB, AND HCT IS 5% LESS SOURCE FOR DATA: [facility] 1800 OPERATION MANUAL( AUTOMATED BLOOD COUNTS AND DIFF.) APPENDIX B-3 MCV 95.1 fL 80.0-97.0 [facility] ([facility] CLASSIFICATION CHOLESTEROL FO R ADULTS CHILDREN/ADOLESCENTS* DESIRABLE: <200 MG/DL <170 MG/DL BORDER-LINE HIGH RISK: 200-239 MG/DL 170-199 MG/DL HIGH RISK: >240 MG/DL >200 MG/DL CLASS. FOR PRIMARY LDL CHOL PREVENTION: LDL CHOL-CHILD/ADOLESCENTS* DESIRABLE: <130 MG/DL <110 MG/DL BORDERLINE-HIGH RISK: 130-159 MG/DL 110-129 MG/DL HIGH RISK: >160 MG/DL >130 MG/DL *CHILDREN AND ADOLESCENTS REPRESENTS INDIVIDUALA AGED 2-19 YEARS EXCLUSIVE. CHRONIC KIDNEY DISEASE STAGING PER NKF: MALE [...] mL/min Normal 80 and above >32 mL/min NormalNORMAL RANGES Age WBC RBC HGB HCT MCV PLT Adult M 4.1-10.9 4.20-6.30 12.0-18.0 37.0-51.0 80-97 140-440 Adult F 4.1-10.9 4.04-5.48 12.0-18.0 37.0-51.0 80-97 140-440 0- 1 Yr 5.0-20.0 3.9-5.9 15-18 MV: 44 MV: 91 MV: 277 2-9 Yr. 6.0-17.0 3.8-5.4 11-13 MV: 37 MV: 78 MV: 300 10 Yrs. 5.0-13.0 3.8-5.4 12-15 MV: 39 MV: 80 MV: 250 NOTE: * FOR ADULT BLACK MALES AND FEMALES, NORMAL WBC IS 2.9-7.7 K/ML * FOR ADULT BLACK MALES AND FEMALES, NORMAL RBC,HGB, AND HCT IS 5% LESS SOURCE FOR DATA: [employer] 1800 OPERATION MANUAL( AUTOMATED BLOOD COUNTS AND DIFF.) APPENDIX B-3 MCH 31.6 pg 26.0-32.0 [facility] ([facility] CLASSIFICATION CHOLESTEROL FO R ADULTS CHILDREN/ADOLESCENTS* DESIRABLE: <200 MG/DL <170 MG/DL BORDER-LINE HIGH RISK: 200-239 MG/DL 170-199 MG/DL HIGH RISK: >240 MG/DL >200 MG/DL CLASS. FOR PRIMARY LDL CHOL PREVENTION: LDL CHOL-CHILD/ADOLESCENTS* DESIRABLE: <130 MG/DL <110 MG/DL BORDERLINE-HIGH RISK: 130-159 MG/DL 110-129 MG/DL HIGH RISK: >160 MG/DL >130 MG/DL *CHILDREN AND ADOLESCENTS REPRESENTS INDIVIDUALA AGED 2-19 YEARS EXCLUSIVE. CHRONIC KIDNEY DISEASE STAGING PER NKF: MALE [...] mL/min Normal 80 and above >32 mL/min NormalNORMAL RANGES Age WBC RBC HGB HCT MCV PLT Adult M 4.1-10.9 4.20-6.30 12.0-18.0 37.0-51.0 80-97 140-440 Adult F 4.1-10.9 4.04-5.48 12.0-18.0 37.0-51.0 80-97 140-440 0- 1 Yr 5.0-20.0 3.9-5.9 15-18 MV: 44 MV: 91 MV: 277 2-9 Yr. 6.0-17.0 3.8-5.4 11-13 MV: 37 MV: 78 MV: 300 10 Yrs. 5.0-13.0 3.8-5.4 12-15 MV: 39 MV: 80 MV: 250 NOTE: * FOR ADULT BLACK MALES AND FEMALES, NORMAL WBC IS 2.9-7.7 K/ML * FOR ADULT BLACK MALES AND FEMALES, NORMAL RBC,HGB, AND HCT IS 5% LESS SOURCE FOR DATA: [facility] 1800 OPERATION MANUAL( AUTOMATED BLOOD COUNTS AND DIFF.) APPENDIX B-3 HCT 38.8 % 37.0-51.0 [facility] ([facility] CLASSIFICATION CHOLESTEROL FO R ADULTS CHILDREN/ADOLESCENTS* DESIRABLE: <200 MG/DL <170 MG/DL BORDER-LINE HIGH RISK: 200-239 MG/DL 170-199 MG/DL HIGH RISK: >240 MG/DL >200 MG/DL CLASS. FOR PRIMARY LDL CHOL PREVENTION: LDL CHOL-CHILD/ADOLESCENTS* DESIRABLE: <130 MG/DL <110 MG/DL BORDERLINE-HIGH RISK: 130-159 MG/DL 110-129 MG/DL HIGH RISK: >160 MG/DL >130 MG/DL *CHILDREN AND ADOLESCENTS REPRESENTS INDIVIDUALA AGED 2-19 YEARS EXCLUSIVE. CHRONIC KIDNEY DISEASE STAGING PER NKF: MALE [...] mL/min Normal 80 and above >32 mL/min NormalNORMAL RANGES Age WBC RBC HGB HCT MCV PLT Adult M 4.1-10.9 4.20-6.30 12.0-18.0 37.0-51.0 80-97 140-440 Adult F 4.1-10.9 4.04-5.48 12.0-18.0 37.0-51.0 80-97 140-440 0- 1 Yr 5.0-20.0 3.9-5.9 15-18 MV: 44 MV: 91 MV: 277 2-9 Yr. 6.0-17.0 3.8-5.4 11-13 MV: 37 MV: 78 MV: 300 10 Yrs. 5.0-13.0 3.8-5.4 12-15 MV: 39 MV: 80 MV: 250 NOTE: * FOR ADULT BLACK MALES AND FEMALES, NORMAL WBC IS 2.9-7.7 K/ML * FOR ADULT BLACK MALES AND FEMALES, NORMAL RBC,HGB, AND HCT IS 5% LESS SOURCE FOR DATA: [facility] 1800 OPERATION MANUAL( AUTOMATED BLOOD COUNTS AND DIFF.) APPENDIX B-3 RDW-CV 12.6 % 11.5-14.5 [facility] ([facility] CLASSIFICATION CHOLESTEROL FO R ADULTS CHILDREN/ADOLESCENTS* DESIRABLE: <200 MG/DL <170 MG/DL BORDER-LINE HIGH RISK: 200-239 MG/DL 170-199 MG/DL HIGH RISK: >240 MG/DL >200 MG/DL CLASS. FOR PRIMARY LDL CHOL PREVENTION: LDL CHOL-CHILD/ADOLESCENTS* DESIRABLE: <130 MG/DL <110 MG/DL BORDERLINE-HIGH RISK: 130-159 MG/DL 110-129 MG/DL HIGH RISK: >160 MG/DL >130 MG/DL *CHILDREN AND ADOLESCENTS REPRESENTS INDIVIDUALA AGED 2-19 YEARS EXCLUSIVE. CHRONIC KIDNEY DISEASE STAGING PER NKF: MALE [...] mL/min Normal 80 and above >32 mL/min NormalNORMAL RANGES Age WBC RBC HGB HCT MCV PLT Adult M 4.1-10.9 4.20-6.30 12.0-18.0 37.0-51.0 80-97 140-440 Adult F 4.1-10.9 4.04-5.48 12.0-18.0 37.0-51.0 80-97 140-440 0- 1 Yr 5.0-20.0 3.9-5.9 15-18 MV: 44 MV: 91 MV: 277 2-9 Yr. 6.0-17.0 3.8-5.4 11-13 MV: 37 MV: 78 MV: 300 10 Yrs. 5.0-13.0 3.8-5.4 12-15 MV: 39 MV: 80 MV: 250 NOTE: * FOR ADULT BLACK MALES AND FEMALES, NORMAL WBC IS 2.9-7.7 K/ML * FOR ADULT BLACK MALES AND FEMALES, NORMAL RBC,HGB, AND HCT IS 5% LESS SOURCE FOR DATA: [employer] DYN 1800 OPERATION MANUAL( AUTOMATED BLOOD COUNTS AND DIFF.) APPENDIX B-3 PLT 356 10E3/uL 140-440 [facility] ([facility], [facility] CLASSIFICATION CHOLESTEROL FO R ADULTS CHILDREN/ADOLESCENTS* DESIRABLE: <200 MG/DL <170 MG/DL BORDER-LINE HIGH RISK: 200-239 MG/DL 170-199 MG/DL HIGH RISK: >240 MG/DL >200 MG/DL CLASS. FOR PRIMARY LDL CHOL PREVENTION: LDL CHOL-CHILD/ADOLESCENTS* DESIRABLE: <130 MG/DL <110 MG/DL BORDERLINE-HIGH RISK: 130-159 MG/DL 110-129 MG/DL HIGH RISK: >160 MG/DL >130 MG/DL *CHILDREN AND ADOLESCENTS REPRESENTS INDIVIDUALA AGED 2-19 YEARS EXCLUSIVE. CHRONIC KIDNEY DISEASE STAGING PER NKF: MALE [...] mL/min Normal 80 and above >32 mL/min NormalNORMAL RANGES Age WBC RBC HGB HCT MCV PLT Adult M 4.1-10.9 4.20-6.30 12.0-18.0 37.0-51.0 80-97 140-440 Adult F 4.1-10.9 4.04-5.48 12.0-18.0 37.0-51.0 80-97 140-440 0- 1 Yr 5.0-20.0 3.9-5.9 15-18 MV: 44 MV: 91 MV: 277 2-9 Yr. 6.0-17.0 3.8-5.4 11-13 MV: 37 MV: 78 MV: 300 10 Yrs. 5.0-13.0 3.8-5.4 12-15 MV: 39 MV: 80 MV: 250 NOTE: * FOR ADULT BLACK MALES AND FEMALES, NORMAL WBC IS 2.9-7.7 K/ML * FOR ADULT BLACK MALES AND FEMALES, NORMAL RBC,HGB, AND HCT IS 5% LESS SOURCE FOR DATA: [employer] D[employer] 1800 OPERATION MANUAL( AUTOMATED BLOOD COUNTS AND DIFF.) APPENDIX B-3 MCHC 33.2 g/dL 31.0-36.0 [facility] ([facility] CLASSIFICATION CHOLESTEROL FO R ADULTS CHILDREN/ADOLESCENTS* DESIRABLE: <200 MG/DL <170 MG/DL BORDER-LINE HIGH RISK: 200-239 MG/DL 170-199 MG/DL HIGH RISK: >240 MG/DL >200 MG/DL CLASS. FOR PRIMARY LDL CHOL PREVENTION: LDL CHOL-CHILD/ADOLESCENTS* DESIRABLE: <130 MG/DL <110 MG/DL BORDERLINE-HIGH RISK: 130-159 MG/DL 110-129 MG/DL HIGH RISK: >160 MG/DL >130 MG/DL *CHILDREN AND ADOLESCENTS REPRESENTS INDIVIDUALA AGED 2-19 YEARS EXCLUSIVE. CHRONIC KIDNEY DISEASE STAGING PER NKF: MALE [...] mL/min Normal 80 and above >32 mL/min NormalNORMAL RANGES Age WBC RBC HGB HCT MCV PLT Adult M 4.1-10.9 4.20-6.30 12.0-18.0 37.0-51.0 80-97 140-440 Adult F 4.1-10.9 4.04-5.48 12.0-18.0 37.0-51.0 80-97 140-440 0- 1 Yr 5.0-20.0 3.9-5.9 15-18 MV: 44 MV: 91 MV: 277 2-9 Yr. 6.0-17.0 3.8-5.4 11-13 MV: 37 MV: 78 MV: 300 10 Yrs. 5.0-13.0 3.8-5.4 12-15 MV: 39 MV: 80 MV: 250 NOTE: * FOR ADULT BLACK MALES AND FEMALES, NORMAL WBC IS 2.9-7.7 K/ML * FOR ADULT BLACK MALES AND FEMALES, NORMAL RBC,HGB, AND HCT IS 5% LESS SOURCE FOR DATA: [employer] DYN 1800 OPERATION MANUAL( AUTOMATED BLOOD COUNTS AND DIFF.) APPENDIX B-3 Lym% 40.2 % 10.0-58.5 [facility] CLASSIFICATION CHOLESTEROL FO R ADULTS CHILDREN/ADOLESCENTS* DESIRABLE: <200 MG/DL <170 MG/DL BORDER-LINE HIGH RISK: 200-239 MG/DL 170-199 MG/DL HIGH RISK: >240 MG/DL >200 MG/DL CLASS. FOR PRIMARY LDL CHOL PREVENTION: LDL CHOL-CHILD/ADOLESCENTS* DESIRABLE: <130 MG/DL <110 MG/DL BORDERLINE-HIGH RISK: 130-159 MG/DL 110-129 MG/DL HIGH RISK: >160 MG/DL >130 MG/DL *CHILDREN AND ADOLESCENTS REPRESENTS INDIVIDUALA AGED 2-19 YEARS EXCLUSIVE. CHRONIC KIDNEY DISEASE STAGING PER NKF: MALE [...] mL/min Normal 80 and above >32 mL/min NormalNORMAL RANGES Age WBC RBC HGB HCT MCV PLT Adult M 4.1-10.9 4.20-6.30 12.0-18.0 37.0-51.0 80-97 140-440 Adult F 4.1-10.9 4.04-5.48 12.0-18.0 37.0-51.0 80-97 140-440 0- 1 Yr 5.0-20.0 3.9-5.9 15-18 MV: 44 MV: 91 MV: 277 2-9 Yr. 6.0-17.0 3.8-5.4 11-13 MV: 37 MV: 78 MV: 300 10 Yrs. 5.0-13.0 3.8-5.4 12-15 MV: 39 MV: 80 MV: 250 NOTE: * FOR ADULT BLACK MALES AND FEMALES, NORMAL WBC IS 2.9-7.7 K/ML * FOR ADULT BLACK MALES AND FEMALES, NORMAL RBC,HGB, AND HCT IS 5% LESS SOURCE FOR DATA: [facility] 1800 OPERATION MANUAL( AUTOMATED BLOOD COUNTS AND DIFF.) APPENDIX B-3 MXD% 8.5 % 0.1-24.0 [facility] ([facility] CLASSIFICATION CHOLESTEROL FO R ADULTS CHILDREN/ADOLESCENTS* DESIRABLE: <200 MG/DL <170 MG/DL BORDER-LINE HIGH RISK: 200-239 MG/DL 170-199 MG/DL HIGH RISK: >240 MG/DL >200 MG/DL CLASS. FOR PRIMARY LDL CHOL PREVENTION: LDL CHOL-CHILD/ADOLESCENTS* DESIRABLE: <130 MG/DL <110 MG/DL BORDERLINE-HIGH RISK: 130-159 MG/DL 110-129 MG/DL HIGH RISK: >160 MG/DL >130 MG/DL *CHILDREN AND ADOLESCENTS REPRESENTS INDIVIDUALA AGED 2-19 YEARS EXCLUSIVE. CHRONIC KIDNEY DISEASE STAGING PER NKF: MALE [...] mL/min Normal 80 and above >32 mL/min NormalNORMAL RANGES Age WBC RBC HGB HCT MCV PLT Adult M 4.1-10.9 4.20-6.30 12.0-18.0 37.0-51.0 80-97 140-440 Adult F 4.1-10.9 4.04-5.48 12.0-18.0 37.0-51.0 80-97 140-440 0- 1 Yr 5.0-20.0 3.9-5.9 15-18 MV: 44 MV: 91 MV: 277 2-9 Yr. 6.0-17.0 3.8-5.4 11-13 MV: 37 MV: 78 MV: 300 10 Yrs. 5.0-13.0 3.8-5.4 12-15 MV: 39 MV: 80 MV: 250 NOTE: * FOR ADULT BLACK MALES AND FEMALES, NORMAL WBC IS 2.9-7.7 K/ML * FOR ADULT BLACK MALES AND FEMALES, NORMAL RBC,HGB, AND HCT IS 5% LESS SOURCE FOR DATA: [facility] 1800 OPERATION MANUAL( AUTOMATED BLOOD COUNTS AND DIFF.) APPENDIX B-3 Neut% 51.3 % 37.0-92.0 [facility] ([facility] CLASSIFICATION CHOLESTEROL FO R ADULTS CHILDREN/ADOLESCENTS* DESIRABLE: <200 MG/DL <170 MG/DL BORDER-LINE HIGH RISK: 200-239 MG/DL 170-199 MG/DL HIGH RISK: >240 MG/DL >200 MG/DL CLASS. FOR PRIMARY LDL CHOL PREVENTION: LDL CHOL-CHILD/ADOLESCENTS* DESIRABLE: <130 MG/DL <110 MG/DL BORDERLINE-HIGH RISK: 130-159 MG/DL 110-129 MG/DL HIGH RISK: >160 MG/DL >130 MG/DL *CHILDREN AND ADOLESCENTS REPRESENTS INDIVIDUALA AGED 2-19 YEARS EXCLUSIVE. CHRONIC KIDNEY DISEASE STAGING PER NKF: MALE [...] mL/min Normal 80 and above >32 mL/min NormalNORMAL RANGES Age WBC RBC HGB HCT MCV PLT Adult M 4.1-10.9 4.20-6.30 12.0-18.0 37.0-51.0 80-97 140-440 Adult F 4.1-10.9 4.04-5.48 12.0-18.0 37.0-51.0 80-97 140-440 0- 1 Yr 5.0-20.0 3.9-5.9 15-18 MV: 44 MV: 91 MV: 277 2-9 Yr. 6.0-17.0 3.8-5.4 11-13 MV: 37 MV: 78 MV: 300 10 Yrs. 5.0-13.0 3.8-5.4 12-15 MV: 39 MV: 80 MV: 250 NOTE: * FOR ADULT BLACK MALES AND FEMALES, NORMAL WBC IS 2.9-7.7 K/ML * FOR ADULT BLACK MALES AND FEMALES, NORMAL RBC,HGB, AND HCT IS 5% LESS SOURCE FOR DATA: [facility] 1800 OPERATION MANUAL( AUTOMATED BLOOD COUNTS AND DIFF.) APPENDIX B-3 Neut# 3.3 % 2.0-7.8 [facility] ([facility] CLASSIFICATION CHOLESTEROL FO R ADULTS CHILDREN/ADOLESCENTS* DESIRABLE: <200 MG/DL <170 MG/DL BORDER-LINE HIGH RISK: 200-239 MG/DL 170-199 MG/DL HIGH RISK: >240 MG/DL >200 MG/DL CLASS. FOR PRIMARY LDL CHOL PREVENTION: LDL CHOL-CHILD/ADOLESCENTS* DESIRABLE: <130 MG/DL <110 MG/DL BORDERLINE-HIGH RISK: 130-159 MG/DL 110-129 MG/DL HIGH RISK: >160 MG/DL >130 MG/DL *CHILDREN AND ADOLESCENTS REPRESENTS INDIVIDUALA AGED 2-19 YEARS EXCLUSIVE. CHRONIC KIDNEY DISEASE STAGING PER NKF: MALE [...] mL/min Normal 80 and above >32 mL/min NormalNORMAL RANGES Age WBC RBC HGB HCT MCV PLT Adult M 4.1-10.9 4.20-6.30 12.0-18.0 37.0-51.0 80-97 140-440 Adult F 4.1-10.9 4.04-5.48 12.0-18.0 37.0-51.0 80-97 140-440 0- 1 Yr 5.0-20.0 3.9-5.9 15-18 MV: 44 MV: 91 MV: 277 2-9 Yr. 6.0-17.0 3.8-5.4 11-13 MV: 37 MV: 78 MV: 300 10 Yrs. 5.0-13.0 3.8-5.4 12-15 MV: 39 MV: 80 MV: 250 NOTE: * FOR ADULT BLACK MALES AND FEMALES, NORMAL WBC IS 2.9-7.7 K/ML * FOR ADULT BLACK MALES AND FEMALES, NORMAL RBC,HGB, AND HCT IS 5% LESS SOURCE FOR DATA: [facility] 1800 OPERATION MANUAL( AUTOMATED BLOOD COUNTS AND DIFF.) APPENDIX B-3 Lym# 2.5 10E3/uL 0.6-4.1 [facility] ([facility] CLASSIFICATION CHOLESTEROL FO R ADULTS CHILDREN/ADOLESCENTS* DESIRABLE: <200 MG/DL <170 MG/DL BORDER-LINE HIGH RISK: 200-239 MG/DL 170-199 MG/DL HIGH RISK: >240 MG/DL >200 MG/DL CLASS. FOR PRIMARY LDL CHOL PREVENTION: LDL CHOL-CHILD/ADOLESCENTS* DESIRABLE: <130 MG/DL <110 MG/DL BORDERLINE-HIGH RISK: 130-159 MG/DL 110-129 MG/DL HIGH RISK: >160 MG/DL >130 MG/DL *CHILDREN AND ADOLESCENTS REPRESENTS INDIVIDUALA AGED 2-19 YEARS EXCLUSIVE. CHRONIC KIDNEY DISEASE STAGING PER NKF: MALE [...] mL/min Normal 80 and above >32 mL/min NormalNORMAL RANGES Age WBC RBC HGB HCT MCV PLT Adult M 4.1-10.9 4.20-6.30 12.0-18.0 37.0-51.0 80-97 140-440 Adult F 4.1-10.9 4.04-5.48 12.0-18.0 37.0-51.0 80-97 140-440 0- 1 Yr 5.0-20.0 3.9-5.9 15-18 MV: 44 MV: 91 MV: 277 2-9 Yr. 6.0-17.0 3.8-5.4 11-13 MV: 37 MV: 78 MV: 300 10 Yrs. 5.0-13.0 3.8-5.4 12-15 MV: 39 MV: 80 MV: 250 NOTE: * FOR ADULT BLACK MALES AND FEMALES, NORMAL WBC IS 2.9-7.7 K/ML * FOR ADULT BLACK MALES AND FEMALES, NORMAL RBC,HGB, AND HCT IS 5% LESS SOURCE FOR DATA: [facility] 1800 OPERATION MANUAL( AUTOMATED BLOOD COUNTS AND DIFF.) APPENDIX B-3 MXD# 0.5 10E3/uL 0.0-1.8 [facility] ([facility] CLASSIFICATION CHOLESTEROL FO R ADULTS CHILDREN/ADOLESCENTS* DESIRABLE: <200 MG/DL <170 MG/DL BORDER-LINE HIGH RISK: 200-239 MG/DL 170-199 MG/DL HIGH RISK: >240 MG/DL >200 MG/DL CLASS. FOR PRIMARY LDL CHOL PREVENTION: LDL CHOL-CHILD/ADOLESCENTS* DESIRABLE: <130 MG/DL <110 MG/DL BORDERLINE-HIGH RISK: 130-159 MG/DL 110-129 MG/DL HIGH RISK: >160 MG/DL >130 MG/DL *CHILDREN AND ADOLESCENTS REPRESENTS INDIVIDUALA AGED 2-19 YEARS EXCLUSIVE. CHRONIC KIDNEY DISEASE STAGING PER NKF: MALE [...] mL/min Normal 80 and above >32 mL/min NormalNORMAL RANGES Age WBC RBC HGB HCT MCV PLT Adult M 4.1-10.9 4.20-6.30 12.0-18.0 37.0-51.0 80-97 140-440 Adult F 4.1-10.9 4.04-5.48 12.0-18.0 37.0-51.0 80-97 140-440 0- 1 Yr 5.0-20.0 3.9-5.9 15-18 MV: 44 MV: 91 MV: 277 2-9 Yr. 6.0-17.0 3.8-5.4 11-13 MV: 37 MV: 78 MV: 300 10 Yrs. 5.0-13.0 3.8-5.4 12-15 MV: 39 MV: 80 MV: 250 NOTE: * FOR ADULT BLACK MALES AND FEMALES, NORMAL WBC IS 2.9-7.7 K/ML * FOR ADULT BLACK MALES AND FEMALES, NORMAL RBC,HGB, AND HCT IS 5% LESS SOURCE FOR DATA: [facility] 1800 OPERATION MANUAL( AUTOMATED BLOOD COUNTS AND DIFF.) APPENDIX B-3 MPV 9.5 fL 9.0-13.0 [facility] ([facility] CLASSIFICATION CHOLESTEROL FO R ADULTS CHILDREN/ADOLESCENTS* DESIRABLE: <200 MG/DL <170 MG/DL BORDER-LINE HIGH RISK: 200-239 MG/DL 170-199 MG/DL HIGH RISK: >240 MG/DL >200 MG/DL CLASS. FOR PRIMARY LDL CHOL PREVENTION: LDL CHOL-CHILD/ADOLESCENTS* DESIRABLE: <130 MG/DL <110 MG/DL BORDERLINE-HIGH RISK: 130-159 MG/DL 110-129 MG/DL HIGH RISK: >160 MG/DL >130 MG/DL *CHILDREN AND ADOLESCENTS REPRESENTS INDIVIDUALA AGED 2-19 YEARS EXCLUSIVE. CHRONIC KIDNEY DISEASE STAGING PER NKF: MALE [...] mL/min Normal 80 and above >32 mL/min NormalNORMAL RANGES Age WBC RBC HGB HCT MCV PLT Adult M 4.1-10.9 4.20-6.30 12.0-18.0 37.0-51.0 80-97 140-440 Adult F 4.1-10.9 4.04-5.48 12.0-18.0 37.0-51.0 80-97 140-440 0- 1 Yr 5.0-20.0 3.9-5.9 15-18 MV: 44 MV: 91 MV: 277 2-9 Yr. 6.0-17.0 3.8-5.4 11-13 MV: 37 MV: 78 MV: 300 10 Yrs. 5.0-13.0 3.8-5.4 12-15 MV: 39 MV: 80 MV: 250 NOTE: * FOR ADULT BLACK MALES AND FEMALES, NORMAL WBC IS 2.9-7.7 K/ML * FOR ADULT BLACK MALES AND FEMALES, NORMAL RBC,HGB, AND HCT IS 5% LESS SOURCE FOR DATA: [facility] 1800 OPERATION MANUAL( AUTOMATED BLOOD COUNTS AND DIFF.) APPENDIX B-3 ID Date Data Source [id number] 04/30/2019 12:00:00 AM EST [facility] Vielka Dangelo MD Patient Name: [facility] 1955[facility] [id number] Date of Exam: 04/30/2019#: Fax: [phone] EXAM: MAMMO SCREENING WITH CADCLINICAL INFORMATION: Screening examination.COMPARISON: 01/16/2017 as well as other prior exams.The patient is adopted, no family history available.Digital screening (2D) mammography was performed bilaterally.Additionally, breast tomosynthesis (3D mammography) was performedbilaterally in the CC and MLO projections and compared to the priorexam(s).There has been no change in appearance of the mammogram from prior studies. There is a moderate amount of residual fibroglandular tissue remaining,which is fairly symmetric. There has been no interval development ofdominant masses, areas of structural distortion or clusters ofmicro calcifications typical of malignancy.Large coarse calcifications are present, of no clinical significance.Scattered lymph nodes are seen in the axilla.The Volpara volumetric breast density category is C, the breasts areheterogeneously dense which may obscure small masses.IMPRESSION:BI-RADS Category 1 - Negative Mammogram. Currently no mammographicevidence of malignancy. Routine follow-up is recommended in 1 year.This mammogram was read with the assistance of Nelson DELVALLE, an FDAapproved computer aided detection system for mammography.Negative x-ray reports should not delay surgical consultation if a dominantor clinically suspicious mass is present.Not all breast cancers can be identified by mammography. Therefore, werecommend that you continue to perform regular breast self-examination andphysical examination and then promptly contact your physician of anyconcerns or changes.Adenosis and dense breasts may obscure an underlying neoplasm. The patient states that the last clinical br east exam was 08/2018.RYAN Rosa/Marcio you for referring RENETTA GRAFF to our office. Electronically Signed - MARY JUAREZ MD 05/01/19 11:02 Name Value Range Interpretation Code Description Data Renetta rce(s) Supporting Document(s) ID Date Data Source [id number] 03/28/2019 12:00:00 AM EST [facility] Luz Lamas Patient Name: RENETTA [id number] [facility] 1955[facility] [place] [id number] Date of Exam: 03/28/2019PH#: Fax: [phone] EXAM: MRI LUMBAR SPINE WITHOUT CONTRASTPROCEDURE INFORMATION:Exam: MR Lumbar Spine Without Contrast.Exam date and time: 03/28/2019 1:05 PM Age: 63 years oldClinical indication: Low back painTECHNIQUE: Imaging protocol: Multiplanar magnetic resonance images of thelumbar spine without intravenous contrast.COMPARISON: MRI LUMBAR SPINE WITHOUT CONTRAST 03/31/2016 1:56 PMFINDINGS: Vertebrae: There is a pronounced thoracolumbar dextroscoliosis.There is 2 mm of grade 1 retrolisthesis of L1 with respect to L2 and L3with respect to L4. There is 4 mm of grade 1 anterolisthesis of L4 withrespect to L5. Normal vertebral body alignment is otherwise preserved.Vertebral body heights are within normal limits. There is severeintervertebral disc space loss at L1/2, L2/3 and L4/5.Spinal cord: The conus medullaris terminates is not clearly visualizedsecondary to artifact. There is no compression.L1-L2: There is a diffuse disc osteophyte complex. There is moderate facethypertrophy. There is mild right and moderate to severe left neuralforaminal narrowing.L2-L3: There is a diffuse disc osteophyte complex. There is moderate facethypertrophy. There is moderate right and severe left neural foraminalnarrowing. There is mild canal stenosis.L3-L4: There is a diffuse disc osteophyte complex. There is moderate facethypertrophy. Fluid is noted within the facet joints. There is moderate tosevere right and mild left neural foraminal narrowing.L4-L5: There is diffuse disc bulging/uncovering related to listhesis. Thereis severe facet hypertrophy. There is mild bilateral lateral recessstenosis. There is mild to moderate canal stenosis. There is moderate tosevere right and [id number] left neural foraminal narrowing.L5-S1: There is a diffuse disc osteophyte complex. There is moderate facethypertrophy. Trace fluid is noted within the facet joints. There ismoderate to severe right and moderate left neural foraminal narrowing.Soft tissues: Unremarkable.IMPRESSION:Examination somewhat limited by artifact. Degenerative disc disease andspondylosis in a background of scoliosis. Changes contribute to multilevelmoderate to severe neural foraminal narrowing. Appearance is notsignificantly changed as compared to the preceding examination.Thank you for allowing us to participate in the care of your patient.Dictated and Authenticated by: Sunita Chaudhary MD 03/28/2019 6:52 PMEastern Time ([place] & Pr[place]h)VradV/jmcThank you for referring RENETTA GRAFF to our office. Electronically Signed - BRI 03/29/19 8:31 Name Value Range Interpretation Code Description Data Renetta rce(s) Supporting Document(s) Procedure Social History Code Duration Value Status Description Data Source(s ) Smoking 03/20/2020 12:00:00 AM EST Never Smoker completed Never S moker eCW1 ([facility]) Smoking 03/12/2020 12:00:00 AM EST Patient has never smoked co mpleted Patient has never smoked [facility] ([facility] ) Smoking 01/14/2020 12:00:00 AM EST Never Smoker completed Never S moker eCW1 ([facility]) Smoking 01/14/2020 12:00:00 AM EST Never Smoker completed Never S moker eCW1 ([facility]) Smoking 01/14/2020 12:00:00 AM EST Never Smoker completed Never S moker eCW1 ([facility]) Smoking 01/14/2020 12:00:00 AM EST Never Smoker completed Never S moker eCW1 ([facility]) Smoking 01/10/2020 12:00:00 AM EST Never Smoked Cigarettes com pleted Never Smoked Cigarettes [facility] ([facility]) Smoking 12/12/2019 12:00:00 AM EDT Never Smoker completed Never S moker eCW1 ([facility]) Smoking 12/12/2019 12:00:00 AM EDT Never Smoker completed Never S moker eCW1 ([facility]) Smoking 12/12/2019 12:00:00 AM EDT Never Smoker completed Never S moker eCW1 ([facility]) Smoking 12/12/2019 12:00:00 AM EDT Never Smoker completed Never S moker eCW1 ([facility]) Smoking 12/12/2019 12:00:00 AM EDT Never Smoker completed Never S moker eCW1 ([facility]) Smoking 12/12/2019 12:00:00 AM EDT Never Smoker completed Never S moker eCW1 ([facility]) Smoking 12/12/2019 12:00:00 AM EDT Never Smoker completed Never S moker eCW1 ([facility]) Smoking 12/12/2019 12:00:00 AM EDT Never Smoker completed Never S moker eCW1 ([facility]) Smoking 12/12/2019 12:00:00 AM EDT Never Smoker completed Never S moker eCW1 ([facility]) Smoking 08/05/2019 12:00:00 AM EDT Never Smoker completed Never S moker eCW1 ([facility]) Smoking 08/05/2019 12:00:00 AM EDT Never Smoker completed Never S moker eCW1 ([facility]) Smoking 08/05/2019 12:00:00 AM EDT Never Smoker completed Never S moker eCW1 ([facility]) Smoking 08/05/2019 12:00:00 AM EDT Never Smoker completed Never S moker eCW1 ([facility]) Vital Signs ID Date Data Source UNK Name Value Range Interpretation Code Description Data Source(s) Diastolic blood pressure 67 mm[Hg] 67 mm[Hg] eCW1 ([facility]) Systolic blood pressure 146 mm[Hg] 146 mm[Hg] e CW1 ([facility]) Body temperature 96.8 [degF] 96.8 [degF] eCW1 ( [facility]) Respiratory rate 16 /min 16 /min eCW1 ([facility]) Heart rate 75 /min 75 /min eCW1 ([facility]) Body mass index (BMI) [Ratio] 25.05 kg/m2 25.05 kg/m2 eCW1 ([facility]) Body height 66 [in_i] 66 [in_i] eCW1 ([facility]) Body weight 155.2 [lb_av] 155.2 [lb_av] eCW1 ([facility]) Oxygen saturation in Arterial blood by Pulse oximetry 98 % 98 % [facility] ([facility] Body mass index (BMI) [Ratio] 26.1 kg/m2 26.1 k g/m2 [facility] ([facility] [place] body weight 120 [lb_av] 120 [lb_av] [facility] T ([facility] Body weight 152.00 [lb_av] 152.00 [lb_av] [facility] T ([facility] Body height 64 [in_i] 64 [in_i] [facility] ([facility] 5'4" Respiratory rate 16 /min 16 /min [facility] ( [facility] Heart rate 82 /min 82 /min [facility] ([facility] Body temperature 98.3 [degF] 98.3 [degF] [facility] ([facility] Diastolic blood pressure 70 mm[Hg] 70 mm[Hg] [facility] ([facility] Systolic blood pressure 126 mm[Hg] 126 mm[Hg] M EDENT ([facility] Diastolic blood pressure 70 mm[Hg] 70 mm[Hg] eCW1 ([facility]) Systolic blood pressure 139 mm[Hg] 139 mm[Hg] e CW1 ([facility]) Body temperature 98.0 [degF] 98.0 [degF] eCW1 ( [facility]) Respiratory rate 18 /min 18 /min eCW1 ([facility]) Heart rate 78 /min 78 /min eCW1 ([facility]) Body mass index (BMI) [Ratio] 24.21 kg/m2 24.21 kg/m2 W1 ([facility]) Body height 66 [in_i] 66 [in_i] eCW1 ([facility]) Body weight 150.0 [lb_av] 150.0 [lb_av] eCW1 ([facility]) Diastolic blood pressure 65 mm[Hg] 65 mm[Hg] eCW1 ([facility]) Systolic blood pressure 134 mm[Hg] 134 mm[Hg] e CW1 ([facility]) Body temperature 97.3 [degF] 97.3 [degF] eCW1 ( [facility]) Respiratory rate 18 /min 18 /min eCW1 ([facility]) Heart rate 69 /min 69 /min eCW1 ([facility]) Body mass index (BMI) [Ratio] 24.53 kg/m2 24.53 kg/m2 eCW1 ([facility]) Body height 66 [in_i] 66 [in_i] eCW1 ([facility]) Body weight 152 [lb_av] 152 [lb_av] eCW1 ([facility]) Oxygen saturation in Arterial blood by Pulse oximetry 97 % 97 % [facility] ([facility] Body mass index (BMI) [Ratio] 25.4 kg/m2 25.4 k g/m2 [facility] ([facility] [place] body weight 120 [lb_av] 120 [lb_av] [facility] T ([facility] Body weight 148.00 [lb_av] 148.00 [lb_av] [facility] T ([facility] Body height 64 [in_i] 64 [in_i] [facility] ([facility] 5'4" Respiratory rate 16 /min 16 /min [facility] ( [facility] Heart rate 72 /min 72 /min [facility] ([facility] Body temperature 97.2 [degF] 97.2 [degF] [facility] ([facility] Diastolic blood pressure 76 mm[Hg] 76 mm[Hg] [facility] ([facility] Systolic blood pressure 128 mm[Hg] 128 mm[Hg] M [facility]ENT ([facility] Body surface area Derived from formula 1.68 m2 1.68 m2 [facility] ([facility]) Body mass index (BMI) [Ratio] 24.8 kg/m2 24.8 k g/m2 [facility] ([facility]) Body weight 142.00 [lb_av] 142.00 [lb_av] [facility] T ([facility]) Body height 63.5 [in_i] 63.5 [in_i] [facility] ([facility]) 5'3.50" Diastolic blood pressure 74 mm[Hg] 74 mm[Hg] [facility] ([facility]) Systolic blood pressure 134 mm[Hg] 134 mm[Hg] M EDENT ([facility]) Body surface area 1.68 m2 1.68 m2 [facility] ([facility]) Oxygen saturation in Arterial blood by Pulse oximetry 95 % 95 % [facility] ([facility] ([place]), (Room Air) Body mass index (BMI) [Ratio] 24.9 kg/m2 24.9 k g/m2 [facility] ([facility] [place] body weight 120 [lb_av] 120 [lb_av] [facility] T ([facility] Body weight 145.00 [lb_av] 145.00 [lb_av] [facility] T ([facility] Body height 64 [in_i] 64 [in_i] [facility] ([facility] 5'4" Respiratory rate 16 /min 16 /min [facility] ( [facility] Heart rate 84 /min 84 /min [facility] ([facility] Body temperature 99.2 [degF] 99.2 [degF] [facility] ([facility] Diastolic blood pressure 60 mm[Hg] 60 mm[Hg] [facility] ([facility] Systolic blood pressure 110 mm[Hg] 110 mm[Hg] M [facility]ENT ([facility] Diastolic blood pressure 74 mm[Hg] 74 mm[Hg] eCW1 ([facility]) Systolic blood pressure 160 mm[Hg] 160 mm[Hg] e CW1 ([facility]) Body temperature 98.3 [degF] 98.3 [degF] eCW1 ( [facility]) Respiratory rate 18 /min 18 /min eCW1 ([facility]) Heart rate 67 /min 67 /min eCW1 ([facility]) Body mass index (BMI) [Ratio] 23.92 kg/m2 23.92 kg/m2 eCW1 ([facility]) Body height 66 [in_us] 66 [in_us] eCW1 ([facility]) Body weight Measured 148.2 [lb_av] 148.2 [lb_av ] eCW1 ([facility]) Oxygen saturation in Arterial blood by Pulse oximetry 99 % 99 % [facility] ([facility] Body mass index (BMI) [Ratio] 25.4 kg/m2 25.4 k g/m2 [facility] ([facility] Body weight 148.00 [lb_av] 148.00 [lb_av] MED[facility] T ([facility] Body height 64 [in_i] 64 [in_i] [facility] ([facility] 5'4" Respiratory rate 16 /min 16 /min [facility] ( [facility] Heart rate 83 /min 83 /min [facility] ([facility] Body temperature 98.2 [degF] 98.2 [degF] [facility] ([facility] Diastolic blood pressure 72 mm[Hg] 72 mm[Hg] [facility] ([facility] Systolic blood pressure 100 mm[Hg] 100 mm[Hg] M [facility]ENT ([facility] Diastolic blood pressure 70 mm[Hg] 70 mm[Hg] eCW1 ([facility]) Systolic blood pressure 161 mm[Hg] 161 mm[Hg] e CW1 ([facility]) Body temperature 97.0 [degF] 97.0 [degF] eCW1 ( [facility]) Respiratory rate 18 /min 18 /min eCW1 ([facility]) Heart rate 66 /min 66 /min eCW1 ([facility]) Body mass index (BMI) [Ratio] 24.01 kg/m2 24.01 kg/m2 eCW1 ([facility]) Body height 66 [in_us] 66 [in_us] eCW1 ([facility]) Body weight Measured 148.8 [lb_av] 148.8 [lb_av ] eCW1 ([facility]) Patient Treatment Plan of Care Planned Activity Planned Date Details Description Data Source (s) Oxycodone Hydrochloride 10 MG Oral Tablet 03/20/2020 12:00:00 AM ES T eCW1 ([facility]) Oxycodone Hydrochloride 10 MG Oral Tablet 02/19/2020 12:00:00 AM ES T eCW1 ([facility]) Oxycodone Hydrochloride 10 MG Oral Tablet 01/27/2020 12:00:00 AM ES T eCW1 ([facility]) Oxycodone Hydrochloride 10 MG Oral Tablet 12/26/2019 12:00:00 AM ED T eCW1 ([facility]) Oxycodone Hydrochloride 10 MG Oral Tablet 12/26/2019 12:00:00 AM ED T eCW1 ([facility]) Oxycodone Hydrochloride 10 MG Oral Tablet 12/26/2019 12:00:00 AM ED T eCW1 ([facility]) Oxycodone Hydrochloride 10 MG Oral Tablet 12/26/2019 12:00:00 AM ED T eCW1 ([facility]) Oxycodone Hydrochloride 10 MG Oral Tablet 12/26/2019 12:00:00 AM ED T eCW1 ([facility]) Oxycodone Hydrochloride 10 MG Oral Tablet 12/23/2019 12:00:00 AM ED T eCW1 ([facility]) Oxycodone Hydrochloride 10 MG Oral Tablet 12/23/2019 12:00:00 AM ED T eCW1 ([facility]) Oxycodone Hydrochloride 10 MG Oral Tablet 12/23/2019 12:00:00 AM ED T eCW1 ([facility]) Oxycodone Hydrochloride 5 MG Oral Tablet 12/04/2019 12:00:00 AM EDT eCW1 ([facility]) Oxycodone Hydrochloride 10 MG Oral Tablet 12/04/2019 12:00:00 AM ED T eCW1 ([facility]) Oxycodone Hydrochloride 5 MG Oral Tablet 09/09/2019 12:00:00 AM EDT eCW1 ([facility]) Oxycodone Hydrochloride 5 MG Oral Tablet 09/09/2019 12:00:00 AM EDT eCW1 ([facility]) Oxycodone Hydrochloride 5 MG Oral Tablet 08/06/2019 12:00:00 AM EDT eCW1 ([facility]) Oxycodone Hydrochloride 5 MG Oral Tablet 07/10/2019 12:00:00 AM EDT eCW1 ([facility]) Oxycodone Hydrochloride 5 MG Oral Tablet 06/05/2019 12:00:00 AM EDT eCW1 ([facility]) Oxycodone Hydrochloride 5 MG Oral Tablet 05/10/2019 12:00:00 AM EDT eCW1 ([facility]) Oxycodone Hydrochloride 5 MG Oral Tablet 04/09/2019 12:00:00 AM EST eCW1 ([facility]) Oxycodone Hydrochloride 5 MG Oral Tablet 03/12/2019 12:00:00 AM EST eCW1 ([facility])
--- NOTE | 2020-04-20 15:43 | REP ---
INDICATION: CHEST PAIN. COMPARISON: 10/30/2018. TECHNIQUE: SINGLE PORTABLE AP VIEW OF THE CHEST WAS PERFORMED. FINDINGS: Scattered right lung infiltrate is noted, heavier in the inferior aspect of the right lung. There is moderate elevation of the left hemidiaphragm with no infiltrate seen in the left lung. Heart mediastinum appear unchanged. IMPRESSION: Right lung infiltrate. <Electronically signed by Real Kaplan > 04/20/20 [id number]
[2020-04-20 15:49] LABS: HEMATOCRIT 34.4 % (36.0-47.0); HEMOGLOBIN 11.6 g/dl (12.0-15.5); MEAN CORPUSCULAR HEMOGLOBIN 31.9 pg (27.0-33.0); MEAN CORPUSCULAR HGB CONC 33.7 g/dl (32.0-36.5); MEAN CORPUSCULAR VOLUME 94.5 fl (80.0-96.0); PLATELET COUNT, AUTOMATED 256 10^3/uL (150-450); RED BLOOD COUNT 3.64 10^6/uL (4.00-5.40); WHITE BLOOD COUNT 14.4 10^3/uL (4.0-10.0)
[2020-04-20 16:03] LABS: INR 1.12; PROTHROMBIN TIME 14.7 SECONDS (12.5-14.3)
[2020-04-20 16:04] LABS: PARTIAL THROMBOPLASTIN TIME 29.7 SECONDS (24.2-38.5)
[2020-04-20 16:04] LABS: ATYPICAL LYMPH 3 % (0-5); LYMPHOCYTES 10 % (16-44); NEUTROPHILS 76 % (28-66)
[2020-04-20 16:05] LABS: PLATELET CLUMPS SMALL AMT; PLATELET ESTIMATE NORMAL (NORMAL); TOXIC VACUOLATION 1+
--- OUTSIDE RECORDS SUMMARY | 2020-04-20 16:08 | CCD ---
Author Author [facility] Organization [facility] Address Unknown Phone Unavailable Care Team Providers Care Professor Of Graphic Design Name Role Phone Lamin DANGELO MD Unavailable [...] Unavailable Unavailable BENNETT FARMER MD Unavailable Unavailable BENNTET FARMER MD Unavailable Unavailable BENNETT FARMER MD [...] MD Unavailable Unavailable WILLIANMookie MD Unavailable Unavailable WLILIANMookie MD Unavailable Unavailable WILLIANMookie MD Unavailable Unavailable WILLIANMooike MD Unavailable Unavailable WILLIANMookie MD Unavailable Unavailable [...] Mookie YOU MD Unavailable Unavailable WILLIAN, Mookie OYU MD Unavailable Unavailable WILLIAN, Mookie YOU MD [...] Unavailable Lamin DANGELO MD Unavailable Unavailable Lamin DNAGELO MD Unavailable Unavailable Lamin DANGELO MD Unavailable [...] Unavailable Yonatan Hernandez MD Unavailable Unavailable Yonatan eHrnandez MD Unavailable Unavailable Yonatan Hernandez MD Unavailable [...] J Zhang Unavailable Unavailable Hill, A Shasha CEMENT GUN OPERATOR Unavailable Unavailable Hill, A Shasha CEMENT GUN OPERATOR Unavailable Unavailable Hill, A Shasha CEMENT GUN OPERATOR Unavailable Unavailable Hill, A Shasha CEMENT GUN OPERATOR Unavailable Unavailable Hill, A Shasha CEMENT GUN OPERATOR Unavailable Unavailable Hill, A Shasha CEMENT GUN OPERATOR Unavailable Unavailable Hill, A Shasha CEMENT GUN OPERATOR Unavailable Unavailable Hill, A Shasha CEMENT GUN OPERATOR Unavailable Unavailable Hill, A Shasha CEMENT GUN OPERATOR Unavailable Unavailable Hill, A Shasha CEMENT GUN OPERATOR Unavailable Unavailable Hill, A Shasha CEMENT GUN OPERATOR Unavailable Unavailable Hill, A Shasha CEMENT GUN OPERATOR Unavailable Unavailable Hill, A Shasha CEMENT GUN OPERATOR Unavailable Unavailable Hill, A Shasha CEMENT GUN OPERATOR Unavailable Unavailable Hill, A Shasha CEMENT GUN OPERATOR Unavailable Unavailable Hill, A Shasha CEMENT GUN OPERATOR Unavailable Unavailable Hill, A Shasha CEMENT GUN OPERATOR Unavailable Unavailable Hill, A Shasha CEMENT GUN OPERATOR Unavailable Unavailable Hill, A Shasha CEMENT GUN OPERATOR Unavailable Unavailable Hill, A Shasha CEMENT GUN OPERATOR Unavailable Unavailable Hill, A Shasha CEMENT GUN OPERATOR Unavailable Unavailable Hill, A Shasha CEMENT GUN OPERATOR Unavailable Unavailable Hill, A Shasha CEMENT GUN OPERATOR Unavailable Unavailable Hill, A Shasha CEMENT GUN OPERATOR Unavailable Unavailable DARIAN, BENNETT SALAZAR MD Unavailable Unavailable DARIAN, BENNETT SALAZAR MD Unavailable Unavailable DARIAN, BENNETT SALAZAR MD Unavailable Unavailable DARIAN, BENNETT SALAZAR MD Unavailable Unavailable DARIAN, EBNNETT SALAZAR MD Unavailable Unavailable DARIAN, BENNETT SALAZAR MD Unavailable Unavailable DARIAN, BENNETT SALAZAR MD Unavailable Unavailable DARIAN, BENNETT SALAZAR MD Unavailable Unavailable DARIAN, BENNETT SALAZAR MD Unavailable Unavailable DARIAN, BENNETT SALAZAR MD Unavailable Unavailable DARIAN, BENNETT SALAZAR MD Unavailable Unavailable DARIAN, BENENTT SALAZAR MD Unavailable Unavailable DARIAN, BENNETT SALAZAR MD Unavailable Unavailable DARIAN, BENNETT SALAZAR MD Unavailable Unavailable DARIAN, BENNETT SALAZAR MD Unavailable Unavailable DARIAN, BENNETT SALAZAR MD Unavailable Unavailable DARIAN, BENNETT SALAZAR MD Unavailable Unavailable DARIAN, BENNETT SALAZAR MD Unavailable Unavailable DARIAN, BENNETT SALAZAR MD Unavailable Unavailable DARIAN, BENNETT SALAZAR MD Unavailable Unavailable DARIAN, BENNETT ASLAZAR MD Unavailable Unavailable DARIAN, BENNETT SALAZAR MD [...] DARIAN, BENNETT SALAZAR MD Unavailable Unavailable Dick SALVAGE ENGINEERING TECHNICIAN, Christopher Unavailable Unavailable Re-disclosure Warning The records [...] is protected by Article 27-F of the [facility] Public Health law. If you continue you may have access to information: Regarding HIV / AIDS; Provided by facilities licensed or operated by the [facility] Office of Mental Health; or Provided by the [facility] Office for People With Developmental Disabilities. If such information is present, then the following [facility] mandated warning applies: This information has been [...] law may result in a fine or longterm sentence or both. A general authorization for the release of medical or other information is NOT sufficient authorization for further disc losure. Allergies and Adverse Reactions Type Description Substance Reaction Status Data Source(s ) Food allergy SEAFOOD SEAFOOD [facility] Drug allergy IODINE IODINE [facility] ENVIRONMENTAL seasonal seasonal [facility] CLASS RADIOLOGICAL CONTRAST MEDIA, IODINE RELA KACY RADIOLOGICAL CONTRAST MEDIA, IODINE RELATED [facility] tizanidine Tizanidine HCl tizanidine Confusion Active eCW1 ([facility]) Drug allergy Iodine Drug allergy Hives Active eCW1 ([facility]) Family History Family Member Name Family Member Gender Family Member Status Date o f Status Description Data Source(s) Unknown Unknown Problem MEDENT (Jordin salazar MANAGER AUTO) Unknown Unknown Problem [facility] ([facility] Unknown Female Problem MEDENT ([facility] ) Encounters Encounter Providers Location Date Indications Data Source(s ) Out[place] [address] [facility] [address] 03/20/2020 12:00:00 AM EST eCW1 (Critical access hospital) Outpatient Attender: Zhang Ruiz [facility] 03/12/2020 01:30:0 0 PM EST MED[facility] ([facility] Outpatient Attender: Shasha Brenner NPReferrer: Zhang Ruiz 03/09/2020 09:43:33 AM EST [facility] [place] [address] [facility] [place] [address] 02/19/2020 12:00:00 AM EST eCW1 (Critical access hospital) Unknown [address] [facility] [place] [address] 01/27/2020 12:00:00 AM EST eCW1 (Critical access hospital) Outpatient [address] [facility] [place] [address] 01/14/2020 12:00:00 AM EST eCW1 (Critical access hospital) Outpatient Attender: VIELKA DANGELO MD Brenner Woman spin tank tender 09:45:00 AM EST 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) Outpatient Attender: Shasha Brenner NPReferrer: Zhang Ruiz 01/08/2020 11:54:02 AM EST [facility] Recurring Patient Referrer: Ludin ESCOBAR 11/2019 03:12:29 PM EST [facility] Unknown [address] [facility] [place] [address] 01/01/2020 12:00:00 AM EST [facility]1 [facility] Unknown [address] [facility] [address] 12/31/2019 12:00:00 AM EST [facility]CW1 [facility] Unknown [address] [facility] [address] 12/26/2019 12:00:00 AM EDT eCW1 ([facility] Unknown [address] [facility] [place] [address] 12/26/2019 12:00:00 AM EDT eCW1 ([facility] Unknown [address] [facility] [place] [address] 12/24/2019 12:00:00 AM EDT eCW1 ([facility] Unknown [address] [facility] [place] [address] 12/24/2019 12:00:00 AM EDT eCW1 ([facility] Unknown [address] [facility] [place] [address] 12/23/2019 12:00:00 AM EDT eCW1 ([facility] Unknown [address] [facility] [place] [address] 12/23/2019 12:00:00 AM EDT eCW1 ([facility] Outpatient Attender: MARIE FARMER MDReferrer: Zhang Ruiz 12/22/2019 08:45:56 AM EDT [facility] Recurring Patient Referrer: Ludin ESCOBAR 08:09:42 AM EDT [facility] Unknown [address] [facility] [address] 12/18/2019 12:00:00 AM EDT eCW1 (Critical access hospital) Recurring Patient Referrer: KENYATTA DORSEY MD 12/17/2019 01: 03:08 PM EDT [facility] Recurring Patient Referrer: KENYATTA DORSEY MD 12/17/2019 12: 55:14 PM EDT [facility] Outpatient [address] [facility] [address] 12/12/2019 12:00:00 AM EDT eCW1 (Critical access hospital) Outpatient Attender: Zhang Ruiz [facility] 12/05/2019 01:00:0 0 PM EDT MEDENT ([facility] Recurring Patient Referrer: MARIE FARMER MD 12/03/2019 02: 52:20 PM EDT [facility] Recurring Patient Referrer: MARIE FARMER MD 12/03/2019 02: 38:36 PM EDT [facility] Recurring Patient Referrer: MARIE FARMER MD 12/03/2019 02: 37:05 PM EDT [facility] Unknown [address] [facility] [address] 12/03/2019 12:00:00 AM EDT eCW1 (Critical access hospital) Recurring Patient Referrer: MARIE FARMER MD 11/11/2019 09: 33:18 AM EDT [facility] Outpatient Attender: MARIE FARMER MDReferrer: Zhang Ruiz 10/31/2019 04:57:50 PM EDT [facility] Recurring Patient Referrer: KENYATTA DORSEY MD 10/01/2019 11: 12:03 AM EDT [facility] Unknown [address] [facility] [address] 09/09/2019 12:00:00 AM EDT eCW1 (Critical access hospital) Unknown [address] [facility] [place] [address] 08/20/2019 12:00:00 AM EDT eCW1 ([facility]) Outpatient Attender: Zhang Ruiz [facility] 08/15/2019 01:30:0 0 PM EDT MEDENT ([facility] TeleMedicine Est. Pt. Level [address] [place] [address] 08/06/2019 12:00:00 AM EDT eCW1 ([facility]) Outpatient Attender: VIELKA DANGELO MD Brenner Woman spin tank tender 03:00:00 PM EDT 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) [facility] [address] [place] [address] 07/16/2019 12:00:00 AM EDT eCW1 ([facility]) [facility] [address] [place] [address] 07/09/2019 12:00:00 AM EDT eCW1 ([facility]) [facility] [address] [place] [address] 06/06/2019 12:00:00 AM EDT eCW1 ([facility]) [facility] [address] [place] [address] 06/05/2019 12:00:00 AM EDT eCW1 ([facility]) [facility] [address] [place] [address] 06/03/2019 12:00:00 AM EDT eCW1 ([facility]) [facility] [address] [place] [address] 05/16/2019 12:00:00 AM EDT eCW1 ([facility]) [facility] [address] [place] [address] 05/13/2019 12:00:00 AM EDT eCW1 ([facility]) Outpatient Attender: Zhang Joseph [facility] 05/09/2019 01:00:0 0 PM EDT MEDENT ([facility] [address] [place], [place] [id number] 05/09/2019 12:00:00 AM EDT [facility] Outpatient Referrer: VIELKA DANGELO MD 05/06/2019 03:21:00 PM EDT [facility] [address] [place] [address] 04/25/2019 12:00:00 AM EST [facility]CW1 [facility] Outpatient Referrer: VIELKA DANGELO MD 04/16/2019 02:48:00 PM EST [facility] Outpatient Referrer: VIELKA DANGELO MD 04/10/2019 04:13:00 PM EST [facility] [address] [place] [address] 04/09/2019 12:00:00 AM EST [facility]CW[facility] [address] [place] [phone] 04/01/2019 12:00:00 AM EST eCW1 ([facility] Outpatient Referrer: LUZ JENNINGS 03/28/2019 12: 49:00 PM EST [facility] Outpatient Referrer: LUZ JENNINGS 03/22/2019 11: 52:00 AM EST [facility] Outpatient Referrer: LUZ JENNINGS 03/21/2019 09: 04:00 AM EST [facility] Outpatient Referrer: LUZ JENNINGS 03/21/2019 08: 53:00 AM EST [facility] [address] [place] [address] 03/19/2019 12:00:00 AM EST eCW1 ([facility] [address] [place] [phone] 03/11/2019 12:00:00 AM EST eCW1 ([facility] Outpatient Attender: Yonatan Hernandez MDConsultant: Zhang atkinson 11/16/2018 09:30:52 AM EDT - 12/05/2019 11:55:00 AM EDT [facility] Patient discharged. Immunizations Vaccine Date Status Description Data Source(s) New in 2012. IIV4 12/05/2019 01:05:00 PM EDT completed MEDENT ([facility] Medications Medication Brand Name Start Date Product Form Dose Route Admi nistrative Instructions Pharmacy Instructions Status Indications Reaction Description Data Source(s) Oxycodone Hydrochloride 10 MG Oral Tablet Oxycodone HC l 10 MG Oxycodone HCl 10 MG 03/20/2020 12:00:00 AM EST 1.0 {tablet_as_needed} active Oxycodone HCl 10 MG eCW1 ([facility]) Oxycodone Hydrochloride 10 MG Oral Tablet Oxycodone HC l 10 MG Oxycodone HCl 10 MG 02/19/2020 12:00:00 AM EST 1.0 {tablet_as_needed} active Oxycodone HCl 10 MG eCW1 ([facility]) Oxycodone Hydrochloride 10 MG Oral Tablet Oxycodone HC l 10 MG Oxycodone HCl 10 MG 01/27/2020 12:00:00 AM EST 1.0 {tablet_as_needed} active Oxycodone HCl 10 MG eCW1 ([facility]) Metronidazole 500 MG Oral Tablet Metronidazole 01/10/2020 12:00:00 AM EST ORAL active MEDENT ([facility]i se Woman MANAGER AUTO) Oxycodone Hydrochloride 10 MG Oral Tablet Oxycodone HC l 10 MG Oxycodone HCl 10 MG 12/26/2019 12:00:00 AM EDT 1.0 {tablet_as_needed} active Oxycodone HCl 10 MG eCW1 ([facility]) Oxycodone Hydrochloride 10 MG Oral Tablet Oxycodone HC l 10 MG Oxycodone HCl 10 MG 12/26/2019 12:00:00 AM EDT 1.0 {tablet_as_needed} active Oxycodone HCl 10 MG eCW1 ([facility]) Oxycodone Hydrochloride 10 MG Oral Tablet Oxycodone HC l 10 MG Oxycodone HCl 10 MG 12/26/2019 12:00:00 AM EDT 1.0 {tablet_as_needed} active Oxycodone HCl 10 MG eCW1 ([facility]) Oxycodone Hydrochloride 10 MG Oral Tablet Oxycodone HC l 10 MG Oxycodone HCl 10 MG 12/26/2019 12:00:00 AM EDT 1.0 {tablet_as_needed} active Oxycodone HCl 10 MG eCW1 ([facility]) Oxycodone Hydrochloride 10 MG Oral Tablet Oxycodone HC l 10 MG Oxycodone HCl 10 MG 12/26/2019 12:00:00 AM EDT 1.0 {tablet_as_needed} active Oxycodone HCl 10 MG eCW1 ([facility]) Oxycodone Hydrochloride 10 MG Oral Tablet Oxycodone HC l 10 MG Oxycodone HCl 10 MG 12/26/2019 12:00:00 AM EDT 1.0 {tablet_as_needed} active Oxycodone HCl 10 MG eCW1 ([facility]) Oxycodone Hydrochloride 10 MG Oral Tablet Oxycodone HC l 10 MG Oxycodone HCl 10 MG 12/26/2019 12:00:00 AM EDT 1.0 {tablet_as_needed} active Oxycodone HCl 10 MG eCW1 ([facility]) Oxycodone Hydrochloride 10 MG Oral Tablet Oxycodone HC l 10 MG Oxycodone HCl 10 MG 12/23/2019 12:00:00 AM EDT 1.0 {tablet_as_needed} active Oxycodone HCl 10 MG eCW1 ([facility]) Oxycodone Hydrochloride 10 MG Oral Tablet Oxycodone HC l 10 MG Oxycodone HCl 10 MG 12/23/2019 12:00:00 AM EDT 1.0 {tablet_as_needed} active Oxycodone HCl 10 MG eCW1 ([facility]) Oxycodone Hydrochloride 10 MG Oral Tablet Oxycodone HC l 10 MG Oxycodone HCl 10 MG 12/23/2019 12:00:00 AM EDT 1.0 {tablet_as_needed} active Oxycodone HCl 10 MG eCW1 ([facility]) Oxycodone Hydrochloride 10 MG Oral Tablet Oxycodone HC l 10 MG Oxycodone HCl 10 MG 12/04/2019 12:00:00 AM EDT 1.0 {tablet_as_needed} active Oxycodone HCl 10 MG eCW1 ([facility]) Oxycodone Hydrochloride 5 MG Oral Tablet Oxycodone HCl 5 MG Oxycodone HCl 5 MG 12/04/2019 12:00:00 AM EDT 1.0 {tablet_as_needed} active Oxycodone HCl 5 MG eCW1 ([facility]) Estrogens, Conjugated (CORRECTION) 0.625 MG/ML Vaginal Cream [Kristina rin] Premarin 09/23/2019 12:00:00 AM EDT active 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) Oxycodone Hydrochloride 5 MG Oral Tablet Oxycodone HCl 5 MG Oxycodone HCl 5 MG 09/09/2019 12:00:00 AM EDT 1.0 {tablet_as_needed} active Oxycodone HCl 5 MG eCW1 ([facility]) Oxycodone Hydrochloride 5 MG Oral Tablet Oxycodone HCl 5 MG Oxycodone HCl 5 MG 09/09/2019 12:00:00 AM EDT 1.0 {tablet_as_needed} active Oxycodone HCl 5 MG eCW1 ([facility]) Oxycodone Hydrochloride 5 MG Oral Tablet Oxycodone HCl 5 MG Oxycodone HCl 5 MG 08/06/2019 12:00:00 AM EDT 1.0 {tablet_as_needed} active Oxycodone HCl 5 MG eCW1 ([facility]) Metronidazole 500 MG Oral Tablet Metronidazole 07/24/2019 12:00:00 AM EDT ORAL completed MEDENT (Wi se Woman MANAGER AUTO) Oxycodone Hydrochloride 5 MG Oral Tablet Oxycodone HCl 5 MG Oxycodone HCl 5 MG 07/10/2019 12:00:00 AM EDT active 1 tablet as needed eCW1 ([facility]) Raloxifene Hydrochloride 60 MG Oral Tablet [Evista] Evista 06/05/2019 12:00:00 AM EDT ORAL active MEDENT (W[facility] se Woman MANAGER AUTO) Oxycodone Hydrochloride 5 MG Oral Tablet Oxycodone HCl 5 MG Oxycodone HCl 5 MG 06/05/2019 12:00:00 AM EDT active 1 tablet as needed eCW1 ([facility]) Oxycodone Hydrochloride 5 MG Oral Tablet Oxycodone HCl 5 MG Oxycodone HCl 5 MG 05/10/2019 12:00:00 AM EDT active 1 tablet as needed eCW1 ([facility]) Oxycodone Hydrochloride 5 MG Oral Tablet Oxycodone HCl 5 MG Oxycodone HCl 5 MG 05/10/2019 12:00:00 AM EDT active 1 tablet as needed eCW1 ([facility]) Lancets 28G 05/09/2019 12:00:00 AM EDT active MEDENT ([facility] Blood Glucose Monitoring System 05/09/2019 12:00:00 AM EDT active MEDENT ([facility] Blood Glucose Test Strips Premium 05/09/2019 12:00:00 AM EDT [facility] Oxycodone Hydrochloride 5 MG Oral Tablet Oxycodone HCl 5 MG Oxycodone HCl 5 MG 04/09/2019 12:00:00 AM EST active 1 tablet as needed eCW1 ([facility]) Oxycodone Hydrochloride 5 MG Oral Tablet Oxycodone HCl 5 MG Oxycodone HCl 5 MG 03/12/2019 12:00:00 AM EST active 1 tablet as needed eCW1 ([facility]) Oxycodone HCl 5 MG UNK 03/12/2019 12:00:00 AM EST active 1 tablet as needed eCW1 ([facility]) Insurance Providers Payer name Policy type / Coverage type Policy ID Covered libertarian ID Covered libertarian's relationship to sanches Policy Sanches Plan Information O BLUE [id number] SP [id number] MEDICARE BLUE PPO [id number] SP [id number] EXCELL BC-BS PPO 306 VYM [id number] SP VYM [id number] MEDICARE [id number] SP [id number] MEDICARE BLUE PPO [id number] SP [id number] MEDICARE BLUE PPO 306 VYM [id number] SP VYM [id number] Blue Shield Medicare P [id number] SELF [id number] Blue Shield Medicare P [id number] SELF [id number] Blue Federal Employee Program J [id number] SELF [id number] Blue Federal Employee Program J [id number] SELF [id number] BCBS FEDERAL EMPLOYEE PROGRAM [id number] SP [id number] BC BS [place] [facility] B [id number] S [id number] EXCELLUS C [id number] Self [id number] BLUE CROSS BLUE SHIELD FEDERAL -O/P [id number] 18 [id number] [facility] FEDERAL EMPLOYEE PROGRAM [id number] SP [id number] [facility] Part B [id number] Family Dependent [id number] General Accident Insur. Workers Compensation [id number] Vijaya f [id number] BCBS Commercial [id number] Self [id number] BS [facility] Commercial [id number] Self [id number] [facility] Part B [id number] Family Dependent [id number] General Accident Insur. Workers Compensation [id number] Vijaya f [id number] BCBS Commercial [id number] Self [id number] ANSI-Commercial [id number] ANSI-Commercial [id number] [facility] Part B [id number] Family Dependent [id number] General Accident Insur. Workers Compensation [id number] Vijaya f [id number] BCBS Commercial [id number] Self [id number] EXCELLUS CNY FEP BS [id number] 18 [id number] Excellus CNY Fep Commercial [id number] Self [id number] BLUE CROSS BLUE SHIELD FEDERAL -CLINIC [id number] 18 [id number] BLUE CROSS BLUE SHIELD CO UNAVAILABLE 18 UNAVAILABLE BLUE CROSS BLUE SHIELD FEDERAL -PHYS [id number] 18 [id number] Blue Cross Blue Shield Commercial [id number] Self [id number] ANSI-Commercial [id number] ANSI-Commercial [id number] ANSI-Commercial [id number] ANSI-Commercial [id number] ANSI-Commercial [id number] ANSI-Commercial [id number] [facility] Part B [id number] Family Dependent [id number] General Accident Insur. Workers Compensation [id number] Vijaya f [id number] BCBS Commercial [id number] Self [id number] BS [place] Medigap Part B [id number] Self [id number] BS Fed Plan Commercial [id number] Self [id number] ANSI-Commercial [id number] EXCELLUS BCBS [id number] Vijaya [id number] Blue Cross Blue Shield P [id number] SELF [id number] EXCELLUS BCBS PI PI ANSI-Commercial [id number] ANSI-Commercial [id number] ANSI-Commercial [id number] i/[facility] Medigap Part B [id number] Family Dependent [id number] General Accident Insur. Workers Compensation [id number] Vijaya f [id number] BCBS Commercial [id number] Self [id number] [facility] O UNAVAILABLE S UNAVAILABLE i/[facility] Medigap Part B [id number] Family Dependent [id number] General Accident Insur. Workers Compensation [id number] Vijaya f [id number] BCBS Commercial [id number] Self [id number] EXCELLUS BS FEDERAL [id number] SP [id number] i/[facility] Medigap Part B [id number] Family Dependent [id number] General Accident Insur. Workers Compensation [id number] Vijaya f [id number] BCBS Commercial [id number] Self [id number] EXCELLUS BS FEDERAL [id number] SP [id number] i/[facility] Medigap Part B [id number] Family Dependent [id number] General Accident Insur. Workers Compensation [id number] Vijaya f [id number] BCBS Commercial [id number] Self [id number] i/[facility] Medigap Part B [id number] Family Dependent [id number] General Accident Insur. Workers Compensation [id number] Vijaya f [id number] BCBS Commercial [id number] Self [id number] BLUE CROSS BLUE SHIELD-O/P [id number] 18 [id number] [facility] Self BS Fed Plan Commercial Self Ghi/[facility] Medigap Part B Family Dependent General Accident Insur. Workers Compensation Self BCBS [facility] Commercial Self EXCELLUS BCBS FEDERAL [id number] SP [id number] BC BS [place] FEDERAL [id number] SP [id number] BS [place] FEDERAL P [id number] S [id number] Problems, Conditions, and Diagnoses Code Display Name Description Problem Type Effective Dates Data Source(s) [id number] Chronic back pain Chronic back pain Problem 12/05 12:00:00 AM EDT MEDENT ([facility] ) Note: FOLLOWED BY OUTSIDE PRACTICE R99 Ill-defined and unknown cause of mortali ty Ill-defined and unknown cause of mortality Diagnosis 12/05/2019 11:55:00 AM EDT [facility] Surgeries/Procedures Procedure Description Date Indications Data Source(s) Capillary Blood Collection Finger, Heel, Ear Stick 03/23/2020 12:00:00 AM EST [facility] ([facility] ) ESTABILISHED PATIENT [facility] CHARGE 020 12:00:00 AM EDT eCW1 ([facility]) Mammogram 04/30/2019 12:00:00 AM EST M EDENT ([facility] MANAGER [facility]) Results ID Date Data Source [id number] 04/09/2020 11:35:00 AM EST [facility] Name Value Range Interpretation Code Description Data Renetta rce(s) Supporting Document(s) SARS coronavirus 2 RNA Not Detected [facility] [place] This lab was ordered by [facility] and reported by [facility]. ID Date Data Source [id number] 03/27/2020 10:00:00 AM EST [facility] Name Value Range Interpretation Code Description Data Renetta rce(s) Supporting Document(s) SARS coronavirus 2 RNA Not Detected [facility] [place] This lab was ordered by [facility] and reported by [facility]. ID Date Data Source [id number] 03/23/2020 01:35:00 PM EST [facility] ([facility] Name Value Range Interpretation Code Description Data Renetta rce(s) Supporting Document(s) Hemoglobin A1c/Hemoglobin.total in Blood 5.3 % 4.50-6.20 [facility] ([facility] ID Date Data Source [id number] 03/12/2020 04:33:00 PM EST [facility] ([facility] Name Value Range Interpretation Code Description Data Renetta rce(s) Supporting Document(s) Color Urine Laboratory test result M EDENT ([facility] Appearance of Urine Laboratory test result [facility] ([facility] Specific Arboles 1.025 1.00-1.03 [facility] ([facility] PH Urine 6.0 5.0-8.0 [facility] ([facility] Glucose Urine Laboratory test result [facility] ([facility] Ketones Laboratory test result [facility] ([facility] Blood Urine Laboratory test result Above high normal [facility] ([facility] Bilirubin.total [Presence] in Urine by Test strip Laboratory katleynn t result Above high normal [facility] ([facility] ) Nitrite Laboratory test result [facility] ([facility] Protein Urine Laboratory test result Above high normal [facility] ([facility] Urobilinogen 0.2 EU/dl 0.2-1.0 [facility] ([facility] Leukocytes Laboratory test result ME DENT ([facility] ID Date Data Source [id number] 03/12/2020 04:32:00 PM EST [facility] ([facility] Name Value Range Interpretation Code Description Data Renetta rce(s) Supporting Document(s) Chol 160 mg/dL 0-200 [facility] ([facility] NORMAL RANGES Age WBC [...] HCT IS 5% LESS SOURCE FOR DATA: [employer] 1800 OPERATION MANUAL( AUTOMATED BLOOD COUNTS AND [...] 2-19 YEARS EXCLUSIVE. Trig 42 mg/dL 40-[address] [facility] ([facility] NORMAL RANGES Age WBC RBC [...] HCT IS 5% LESS SOURCE FOR DATA: [employer] 1800 OPERATION MANUAL( AUTOMATED BLOOD COUNTS AND [...] HCT IS 5% LESS SOURCE FOR DATA: [employer] 1800 OPERATION MANUAL( AUTOMATED BLOOD COUNTS AND [...] HCT IS 5% LESS SOURCE FOR DATA: [employer] 1800 OPERATION MANUAL( AUTOMATED BLOOD COUNTS AND [...] 2-19 YEARS EXCLUSIVE. Cho/HDL Ratio 1.7 CALC [facility] ([facility] NORMAL RANGES Age WBC RBC HGB [...] HCT IS 5% LESS SOURCE FOR DATA: [employer] 1800 OPERATION MANUAL( AUTOMATED BLOOD COUNTS AND [...] 2-19 YEARS EXCLUSIVE. ID Date Data Source [id number] 03/12/2020 04:32:00 PM EST [facility] ([facility] Name Value Range [...] HCT IS 5% LESS SOURCE FOR DATA: [employer] 1800 OPERATION MANUAL( AUTOMATED BLOOD COUNTS AND [...] HCT IS 5% LESS SOURCE FOR DATA: [employer] 1800 OPERATION MANUAL( AUTOMATED BLOOD COUNTS AND [...] 2-19 YEARS EXCLUSIVE. Creat 0.8 mg/dL 0.5-1.0 [facility] ([facility] NORMAL RANGES [...] HCT IS 5% LESS SOURCE FOR DATA: [employer] DYN 1800 OPERATION MANUAL( AUTOMATED BLOOD COUNTS [...] 2-19 YEARS EXCLUSIVE. BUN/Creatinine Ratio 16.[address] [facility] ([facility] NORMAL RANGES Age [...] HCT IS 5% LESS SOURCE FOR DATA: [employer] 1800 OPERATION MANUAL( AUTOMATED BLOOD COUNTS AND [...] CL 94.5 mmol/L 98.0-107.0 Below low normal [facility] ([facility] NORMAL RANGES Age WBC RBC [...] HCT IS 5% LESS SOURCE FOR DATA: [employer] 1800 OPERATION MANUAL( AUTOMATED BLOOD COUNTS AND [...] 2-19 YEARS EXCLUSIVE. K 4.1 mmol/L 3.5-5.1 [facility] NORMAL RANGES Age WBC RBC [...] HCT IS 5% LESS SOURCE FOR DATA: [employer] 1800 OPERATION MANUAL( AUTOMATED BLOOD COUNTS AND [...] HCT IS 5% LESS SOURCE FOR DATA: [employer] 1800 OPERATION MANUAL( AUTOMATED BLOOD COUNTS AND [...] 2-19 YEARS EXCLUSIVE. Co2 23.9 mmol/L 22.0-29.[address] [facility] ([facility] NORMAL RANGES Age WBC RBC [...] HCT IS 5% LESS SOURCE FOR DATA: [employer] 1800 OPERATION MANUAL( AUTOMATED BLOOD COUNTS AND [...] 2-19 YEARS EXCLUSIVE. CA 9.7 mg/dL 8.6-10.2 [facility] ([facility] NORMAL RANGES [...] HCT IS 5% LESS SOURCE FOR DATA: [employer] 1800 OPERATION MANUAL( AUTOMATED BLOOD COUNTS AND [...] HCT IS 5% LESS SOURCE FOR DATA: [employer] 1800 OPERATION MANUAL( AUTOMATED BLOOD COUNTS AND [...] YEARS EXCLUSIVE. A/G Ratio 2.3 CALC [facility] ([facility] NORMAL RANGES Age WBC [...] HCT IS 5% LESS SOURCE FOR DATA: [employer] 1800 OPERATION MANUAL( AUTOMATED BLOOD COUNTS AND [...] 2-19 YEARS EXCLUSIVE. Alb 4.4 g/dL 3.4-4.8 [facility] ([facility] NORMAL RANGES [...] HCT IS 5% LESS SOURCE FOR DATA: [employer] 1800 OPERATION MANUAL( AUTOMATED BLOOD COUNTS AND [...] HCT IS 5% LESS SOURCE FOR DATA: [employer] 1800 OPERATION MANUAL( AUTOMATED BLOOD COUNTS AND [...] AGED 2-19 YEARS EXCLUSIVE. Globulin 1.9 CALC [facility] ([facility] NORMAL RANGES Age WBC RBC [...] HCT IS 5% LESS SOURCE FOR DATA: [employer] 1800 OPERATION MANUAL( AUTOMATED BLOOD COUNTS AND [...] YEARS EXCLUSIVE. Alt (SGPT) 9 U/L 0-41 [facility] ([facility] NORMAL RANGES [...] HCT IS 5% LESS SOURCE FOR DATA: [employer] 1800 OPERATION MANUAL( AUTOMATED BLOOD COUNTS AND [...] HCT IS 5% LESS SOURCE FOR DATA: [employer] 1800 OPERATION MANUAL( AUTOMATED BLOOD COUNTS AND [...] 2-19 YEARS EXCLUSIVE. Tbili 0.25 mg/dL 0.0-1.[address] [facility] ([facility] NORMAL RANGES Age WBC RBC [...] HCT IS 5% LESS SOURCE FOR DATA: [employer] 1800 OPERATION MANUAL( AUTOMATED BLOOD COUNTS AND [...] HCT IS 5% LESS SOURCE FOR DATA: [employer] 1800 OPERATION MANUAL( AUTOMATED BLOOD COUNTS AND [...] 2-19 YEARS EXCLUSIVE. Anion Gap 15 mmol/L [facility] ([facility] NORMAL [...] INDIVIDUALA AGED 2-19 YEARS EXCLUSIVE. eGFR Non-Afr. Citizen Of [place] 77 # [facility] ([facility] [...] HCT IS 5% LESS SOURCE FOR DATA: [employer] 1800 OPERATION MANUAL( AUTOMATED BLOOD COUNTS AND [...] 2-19 YEARS EXCLUSIVE. ID Date Data Source [id number] 03/12/2020 04:32:00 PM EST [facility] ([facility] Name Value Range Interpretation Code Description Data Renetta rce(s) Supporting Document(s) Creatine kinase [Enzymatic activity/volume] in Serum or Plasma 92 U /L 26-[address] [facility] ([facility] NORMAL RANGES Age WBC RBC [...] HCT IS 5% LESS SOURCE FOR DATA: [employer] 1800 OPERATION MANUAL( AUTOMATED BLOOD COUNTS AND [...] 2-19 YEARS EXCLUSIVE. ID Date Data Source [id number] 03/12/2020 04:32:00 PM EST [facility] ([facility] Name Value Range Interpretation Code Description Data Renetta rce(s) Supporting Document(s) WBC 5.8 10E3/uL 4.1-10.9 [facility] ([facility] NORMAL RANGES Age WBC RBC [...] HCT IS 5% LESS SOURCE FOR DATA: [employer] 1800 OPERATION MANUAL( AUTOMATED BLOOD COUNTS AND [...] HCT IS 5% LESS SOURCE FOR DATA: [employer] 1800 OPERATION MANUAL( AUTOMATED BLOOD COUNTS AND [...] 2-19 YEARS EXCLUSIVE. MCV 95.0 fL 80.0-97.[address] [facility] ([facility] NORMAL RANGES Age WBC RBC [...] HCT IS 5% LESS SOURCE FOR DATA: [employer] 1800 OPERATION MANUAL( AUTOMATED BLOOD COUNTS AND [...] HCT IS 5% LESS SOURCE FOR DATA: [employer] 1800 OPERATION MANUAL( AUTOMATED BLOOD COUNTS AND [...] HCT IS 5% LESS SOURCE FOR DATA: [employer] 1800 OPERATION MANUAL( AUTOMATED BLOOD COUNTS AND [...] 2-19 YEARS EXCLUSIVE. MCHC 33.2 g/dL 31.0-36.0 [facility] ([facility] NORMAL RANGES [...] HCT IS 5% LESS SOURCE FOR DATA: [employer] DYN 1800 OPERATION MANUAL( AUTOMATED BLOOD COUNTS [...] HCT IS 5% LESS SOURCE FOR DATA: [employer] 1800 OPERATION MANUAL( AUTOMATED BLOOD COUNTS AND [...] YEARS EXCLUSIVE. PLT 351 10E3/uL 140-440 [facility] ([facility] NORMAL RANGES Age WBC RBC [...] HCT IS 5% LESS SOURCE FOR DATA: [employer] 1800 OPERATION MANUAL( AUTOMATED BLOOD COUNTS AND [...] 2-19 YEARS EXCLUSIVE. RDW-CV 12.7 % 11.5-14.5 [facility] ([facility] NORMAL RANGES [...] HCT IS 5% LESS SOURCE FOR DATA: [employer] DYN 1800 OPERATION MANUAL( AUTOMATED BLOOD COUNTS [...] 2-19 YEARS EXCLUSIVE. Lym% 30.8 % 10.0-58.5 [facility] ([facility] NORMAL RANGES [...] HCT IS 5% LESS SOURCE FOR DATA: [employer] 1800 OPERATION MANUAL( AUTOMATED BLOOD COUNTS AND [...] 2-19 YEARS EXCLUSIVE. MXD% 10.5 % 0.1-24.0 [facility] ([facility] NORMAL RANGES Age WBC [...] HCT IS 5% LESS SOURCE FOR DATA: [employer] 1800 OPERATION MANUAL( AUTOMATED BLOOD COUNTS AND [...] 2-19 YEARS EXCLUSIVE. Neut% 58.7 % 37.0-92.0 [facility] ([facility] NORMAL RANGES [...] HCT IS 5% LESS SOURCE FOR DATA: [employer] 1800 OPERATION MANUAL( AUTOMATED BLOOD COUNTS AND [...] 2-19 YEARS EXCLUSIVE. MXD# 0.6 10E3/uL 0.0-1.[address] [facility] ([facility] NORMAL RANGES Age WBC RBC [...] HCT IS 5% LESS SOURCE FOR DATA: [employer] 1800 OPERATION MANUAL( AUTOMATED BLOOD COUNTS AND [...] 2-19 YEARS EXCLUSIVE. Neut# 3.4 % 2.0-7.8 [facility] NORMAL RANGES Age WBC [...] HCT IS 5% LESS SOURCE FOR DATA: [employer] 1800 OPERATION MANUAL( AUTOMATED BLOOD COUNTS AND [...] 2-19 YEARS EXCLUSIVE. Lym# 1.8 10E3/uL 0.6-4.[address] [facility] ([facility] NORMAL RANGES Age WBC RBC [...] HCT IS 5% LESS SOURCE FOR DATA: [employer] DYN 1800 OPERATION MANUAL( AUTOMATED BLOOD COUNTS [...] HCT IS 5% LESS SOURCE FOR DATA: [employer] 1800 OPERATION MANUAL( AUTOMATED BLOOD COUNTS AND [...] 2-19 YEARS EXCLUSIVE. ID Date Data Source [id number] 03/12/2020 04:27:00 PM EST [facility] ([facility] Name Value Range Interpretation Code Description Data Renetta rce(s) Supporting Document(s) Thyrotropin [Units/volume] in Serum or Plasma 2.057 ulU/mL 0.60-4.8 [facility] ([facility] ID Date Data Source [id number] 03/09/2020 09:43:33 AM EST [facility] PCName: Brenda OlguinOB: 1955Provider: Elmer Brenner: 03/05/2020 Chief ComplaintLow back pain Chief Complaint 2NYSW VAS PAIN Established: HAROON completing section: TODUME History of Present IllnessRecent test/procedures: Patient was asked and denies having any tests since their last visit. Patient was asked and denies being seen by any Physicians since their last visit. The patient was last seen by a [facility] provider on 01/07/2020. At [...] program and is encouraged to continue. - COMBER OPERATOR: The patient was counseled on the following: [...] block. She is worrying about traveling from [place] down here to have her injection with the weather and reports that she may rent a hotel room for the week. Signatures Electronically signed by : Shasha Brenner NP; Mar 05 2020 2:15PM EST (Author) Electronically signed by : Zoila Up MD; Mar 09 2020 9:43AM EST Name Value Range Interpretation Code Description Data Renetta rce(s) Supporting Document(s) ID Date Data Source [id number] 01/08/2020 11:54:02 AM EST [facility] PCName: Brenda OlguinOB: 1955Provider: Elmer Brenner: 01/07/2020 Chief ComplaintLow back pain [facility] Patient has signed a [facility] Controlled Substance and Treatment Agreement. Patient has [...] retired. What was brayden mcintosh's previous occupation? [employer]. The patient is being seen for an [...] Sufficient; Refill: 0;For: SocHx: Never a smoker; ULI = N; Record; Last Updated By: Porsche [...] Resolved Date: 07 Jan 2020; Assessed By: hSasha Brenner (Pain Management); Last Assessed: 07 Jan [...] glass with special occasion dinners Retired from [employer] ? [employer] VitalsVital Signs Recorded: 07Jan2020 01:57PM Height: 5 [...] Status: Hold For - Scheduling Requested for: [id number] Anticoagulant Task Board : Please task the [facility] Anticoagulant Task BoardAnticoagulant Review.....: : Patient will [...] 3. Block (Diagnostic Facet 2 wks apart) ([facility]) Referral Procedure Procedure Status: Hold For - Scheduling Requested for: [id number] Type : MedicareIs patient currently on a biologic? : NoIs patient taking Aspirin 325 mg or greater...? : NoAnticoagulant List : XARELTO (rivaroxaban)Is your patient on an Anticoagulant -OR- have Coagulopathy...? : Yes - Remember to place the anticoag orderSedation : YesArea : LumbarProfessional Supervisor Pipe Finishing needed for block? : NoFront Desk Reminder: [...] from another practice and doesn't wish for [facility] to take over prescribing. In the future if patient changes his/her mind [facility] will consider taking over prescribing of medications. The patient, at this time, is receiving prescriptions for controlled substances from another practice and doesn't wish for [facility] to take over prescribing. In the future if patient changes his/her mind [facility] will consider taking over prescribing of medications. [...] a safe and effective treatment plan. - COMBER OPERATOR: The patient was counseled on the following: [...] Oxycodone from her pain management center near [place] as they give 3 pills a day [...] rce(s) Supporting Document(s) ID Date Data Source [id number] 12/22/2019 08:45:56 AM EDT [facility], PCName: Renetta MooreOB: 1955Provider: Mookie Farmer: 12/17/2019 Reason For VisitRenetta Graff is here for evaluation of NCS/EMG results and Renetta Graff is here for a second opinion. The patient's pain is managed by [facility] [facility]. Patient is retired. PlanHISTORY: The [...] joint primary osteoarthritis-Right volar ganglion- Followed by [place] [facility]-Bilateral carpal tunnel syndrome-Raynauds h istory, atrial fibrillation-Travels from [place]-EMG/NCS consistent with carpal tunnel syndrome, median nerve [...] with the patient. It is expected that change control specialist strength will likely take up to 3 [...] evaluation for possible MILLD spine procedure with [facility].Should this be needed, there is a slim [...] document was dictated and electronically signed using [employer] software. A reasonable attempt at proof reading has been made to minimize errors. Please call with any questions. Signatures Electronically signed by : Mookie Farmer M.D.; Dec 22 2019 8:45AM EST (Author) Name Value Range Interpretation Code Description Data Renetta rce(s) Supporting Document(s) ID Date Data Source [id number] 12/05/2019 01:32:00 PM EDT [facility] ([email or web address] Name Value Range Interpretation Code Description Data Renetta rce(s) Supporting Document(s) Thyrotropin [Units/volume] in Serum or Plasma 1.918 ulU/mL 0.60-4.8 [facility] ([facility] ID Date Data Source [id number] 12/05/2019 01:32:00 PM EDT [facility] ([facility] Name Value Range Interpretation Code Description Data Renetta rce(s) Supporting Document(s) Glu 92 mg/dL 70-110 [facility] ([facility] NORMAL RANGES Age WBC [...] HCT IS 5% LESS SOURCE FOR DATA: [employer] 1800 OPERATION MANUAL( AUTOMATED BLOOD COUNTS AND [...] 2-19 YEARS EXCLUSIVE. BUN 11 mg/dL 8-[address] [facility] ([facility] NORMAL [...] HCT IS 5% LESS SOURCE FOR DATA: [employer] 1800 OPERATION MANUAL( AUTOMATED BLOOD COUNTS AND [...] HCT IS 5% LESS SOURCE FOR DATA: [employer] 1800 OPERATION MANUAL( AUTOMATED BLOOD COUNTS AND [...] HCT IS 5% LESS SOURCE FOR DATA: [employer] DYN 1800 OPERATION MANUAL( AUTOMATED BLOOD COUNTS [...] 2-19 YEARS EXCLUSIVE. BUN/Creatinine Ratio 14.9 Calc [facility] ([facility] NORMAL RANGES Age [...] HCT IS 5% LESS SOURCE FOR DATA: [employer] 1800 OPERATION MANUAL( AUTOMATED BLOOD COUNTS AND [...] HCT IS 5% LESS SOURCE FOR DATA: [employer] 1800 OPERATION MANUAL( AUTOMATED BLOOD COUNTS AND [...] 2-19 YEARS EXCLUSIVE. K 4.5 mmol/L 3.5-5.1 [facility] ([facility] NORMAL RANGES [...] HCT IS 5% LESS SOURCE FOR DATA: [employer] 1800 OPERATION MANUAL( AUTOMATED BLOOD COUNTS AND [...] TP 6.2 g/dL 6.6-8.7 Below low normal [facility] ( [facility] NORMAL RANGES Age [...] HCT IS 5% LESS SOURCE FOR DATA: [employer] 1800 OPERATION MANUAL( AUTOMATED BLOOD COUNTS AND [...] 2-19 YEARS EXCLUSIVE. Co2 23.3 mmol/L 22.0-29.[address] [facility] ([facility] NORMAL RANGES Age WBC RBC [...] HCT IS 5% LESS SOURCE FOR DATA: [employer] 1800 OPERATION MANUAL( AUTOMATED BLOOD COUNTS AND [...] 2-19 YEARS EXCLUSIVE. CA 9.6 mg/dL 8.6-10.2 [facility] ([facility] NORMAL RANGES [...] 2-19 YEARS EXCLUSIVE. Alb 4.3 g/dL 3.4-4.8 [facility] ([facility] NORMAL RANGES [...] HCT IS 5% LESS SOURCE FOR DATA: [employer] DYN 1800 OPERATION MANUAL( AUTOMATED BLOOD COUNTS [...] YEARS EXCLUSIVE. Alt (SGPT) 10 U/L 0-41 [facility] ([facility] NORMAL RANGES [...] HCT IS 5% LESS SOURCE FOR DATA: [employer] 1800 OPERATION MANUAL( AUTOMATED BLOOD COUNTS AND [...] 2-19 YEARS EXCLUSIVE. Alp 59.3 U/L 35-129 [facility] ([facility] NORMAL [...] HCT IS 5% LESS SOURCE FOR DATA: [employer] 1800 OPERATION MANUAL( AUTOMATED BLOOD COUNTS AND [...] HCT IS 5% LESS SOURCE FOR DATA: [employer] 1800 OPERATION MANUAL( AUTOMATED BLOOD COUNTS AND [...] HCT IS 5% LESS SOURCE FOR DATA: [employer] 1800 OPERATION MANUAL( AUTOMATED BLOOD COUNTS AND [...] HCT IS 5% LESS SOURCE FOR DATA: [employer] 1800 OPERATION MANUAL( AUTOMATED BLOOD COUNTS AND [...] 2-19 YEARS EXCLUSIVE. Anion Gap 15 mmol/L [facility] ([facility] NORMAL [...] HCT IS 5% LESS SOURCE FOR DATA: [employer] DYN 1800 OPERATION MANUAL( AUTOMATED BLOOD COUNTS [...] HCT IS 5% LESS SOURCE FOR DATA: [employer] 1800 OPERATION MANUAL( AUTOMATED BLOOD COUNTS AND [...] YEARS EXCLUSIVE. Osmolality-Calculated 257.9 [facility]c [facility] ([facility] NORMAL [...] HCT IS 5% LESS SOURCE FOR DATA: [employer] 1800 OPERATION MANUAL( AUTOMATED BLOOD COUNTS AND [...] INDIVIDUALA AGED 2-19 YEARS EXCLUSIVE. eGFR Non-Afr. Citizen Of [place] 91 # [facility] ([facility] NORMAL RANGES Age [...] HCT IS 5% LESS SOURCE FOR DATA: [employer] 1800 OPERATION MANUAL( AUTOMATED BLOOD COUNTS AND [...] 2-19 YEARS EXCLUSIVE. ID Date Data Source [id number] 12/05/2019 01:32:00 PM EDT [facility] ([facility] Name Value Range Interpretation Code Description Data Renetta rce(s) Supporting Document(s) Creatine kinase [Enzymatic activity/volume] in Serum or Plasma 176 U/L 26-192 [facility] ([facility] NORMAL RANGES Age [...] HCT IS 5% LESS SOURCE FOR DATA: [employer] DYN 1800 OPERATION MANUAL( AUTOMATED BLOOD COUNTS [...] 2-19 YEARS EXCLUSIVE. ID Date Data Source [id number] 12/05/2019 01:32:00 PM EDT [facility] ([facility] Name Value Range Interpretation Code Description Data Renetta rce(s) Supporting Document(s) WBC 3.6 10E3/uL 4.1-10.9 Below low normal [facility] ([facility] NORMAL RANGES Age [...] HCT IS 5% LESS SOURCE FOR DATA: [employer] 1800 OPERATION MANUAL( AUTOMATED BLOOD COUNTS AND [...] RBC 3.71 10E6/uL 4.20-6.[address] [facility] ([facility] NORMAL RANGES Age [...] HCT IS 5% LESS SOURCE FOR DATA: [employer] 1800 OPERATION MANUAL( AUTOMATED BLOOD COUNTS AND [...] HCT IS 5% LESS SOURCE FOR DATA: [employer] 1800 OPERATION MANUAL( AUTOMATED BLOOD COUNTS AND [...] HCT IS 5% LESS SOURCE FOR DATA: [employer] DYN 1800 OPERATION MANUAL( AUTOMATED BLOOD COUNTS [...] HCT IS 5% LESS SOURCE FOR DATA: [employer] 1800 OPERATION MANUAL( AUTOMATED BLOOD COUNTS AND [...] HCT IS 5% LESS SOURCE FOR DATA: [employer] 1800 OPERATION MANUAL( AUTOMATED BLOOD COUNTS AND [...] 2-19 YEARS EXCLUSIVE. MCHC 33.9 g/dL 31.0-36.0 [facility] ([facility] NORMAL RANGES Age WBC RBC [...] HCT IS 5% LESS SOURCE FOR DATA: [employer] 1800 OPERATION MANUAL( AUTOMATED BLOOD COUNTS AND [...] 2-19 YEARS EXCLUSIVE. RDW-CV 12.7 % 11.5-14.5 [facility] ([facility] NORMAL RANGES Age WBC [...] HCT IS 5% LESS SOURCE FOR DATA: [employer] 1800 OPERATION MANUAL( AUTOMATED BLOOD COUNTS AND [...] 2-19 YEARS EXCLUSIVE. PLT 336 10E3/uL 140-[address] [facility] ([facility] NORMAL RANGES Age WBC RBC [...] HCT IS 5% LESS SOURCE FOR DATA: [employer] 1800 OPERATION MANUAL( AUTOMATED BLOOD COUNTS AND [...] 2-19 YEARS EXCLUSIVE. Lym% 33.2 % 10.0-58.5 [facility] ([facility] NORMAL RANGES [...] 2-19 YEARS EXCLUSIVE. Neut% 53.6 % 37.0-92.0 [facility] ([facility] NORMAL RANGES [...] HCT IS 5% LESS SOURCE FOR DATA: [employer] 1800 OPERATION MANUAL( AUTOMATED BLOOD COUNTS AND [...] 2-19 YEARS EXCLUSIVE. MXD% 13.2 % 0.1-24.[address] [facility] ([facility] NORMAL [...] HCT IS 5% LESS SOURCE FOR DATA: [employer] 1800 OPERATION MANUAL( AUTOMATED BLOOD COUNTS AND [...] Neut# 1.9 % 2.0-7.8 Below low normal [facility] ( [facility] NORMAL RANGES [...] HCT IS 5% LESS SOURCE FOR DATA: [employer] 1800 OPERATION MANUAL( AUTOMATED BLOOD COUNTS AND [...] 2-19 YEARS EXCLUSIVE. Lym# 1.2 10E3/uL 0.6-4.1 [facility] ([facility] NORMAL RANGES Age WBC RBC [...] HCT IS 5% LESS SOURCE FOR DATA: [employer] 1800 OPERATION MANUAL( AUTOMATED BLOOD COUNTS AND [...] 2-19 YEARS EXCLUSIVE. MXD# 0.5 10E3/uL 0.0-1.8 [facility] ([facility] NORMAL RANGES Age WBC RBC [...] HCT IS 5% LESS SOURCE FOR DATA: [employer] 1800 OPERATION MANUAL( AUTOMATED BLOOD COUNTS AND [...] 2-19 YEARS EXCLUSIVE. MPV 9.2 fL 9.0-13.0 [facility] ([facility] [...] 2-19 YEARS EXCLUSIVE. ID Date Data Source [id number] 10/31/2019 04:57:50 PM EDT [facility], PCName: Renetta Zuleta: 1955Provider: Mookie Farmer: 10/29/2019 PlanHISTORY: The patient [...] joint primary osteoarthritis-Right volar ganglion- Followed by [facility]-Suspected carpal tunnel syndrome-Raynauds history, atrial fibrillation-[place] EM[place]/NCS [...] document was dictated and electronically signed using [employer] software. A reasonable attempt at proof reading has been made to minimize errors. Please call with any questions. Signatures Electronically signed by : Mookie Farmer M.D.; Oct 31 2019 4:57PM EST (Author) Name Value Range Interpretation Code Description Data Renetta rce(s) Supporting Document(s) ID Date Data Source [id number] 09/23/2019 12:00:00 PM EDT [facility] (Jordin Elizabeth MANAGER AUTO) Name Value Range Interpretation Code Description Data Renetta rce(s) Supporting Document(s) TP Reflex HPV ASCUS Laboratory test result [facility] (Brenner Elizabeth MANAGER AUTO) SPECIMEN PART------ A. Cervical, Endocervical, ThinPrep Pap (Hogshead Inspector) CYTOLOGY HX-------- Other Information:Previous Normal Pap: 09/17/18 Post-menopausal FINAL DIAGNOSIS---- INTERPRETATION: Negative for Intraepithelial Lesion or Malignancy. SPECIMEN ADEQUACY:Satisfactory for evaluation. Endocervical/transformation zone component is absent/insufficient. TP Reflex HPV ASCUS Laboratory test result 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) ID Date Data Source [id number] 09/03/2019 01:46:00 PM EDT [facility] ([facility] Name Value Range Interpretation Code Description Data Renetta rce(s) Supporting Document(s) Erythrocyte sedimentation rate by Westergren method 5 0-20 [facility] ([facility] ID Date Data Source [id number] 09/03/2019 01:44:00 PM EDT [facility] ([facility] Name Value Range Interpretation Code Description Data Renetta rce(s) Supporting Document(s) Laboratory test finding (navigational concept) 13.2 umol/L 0.0-17.2 [facility] ([facility] Please note reference interval change* * ID Date Data Source [id number] 09/03/2019 01:44:00 PM EDT [facility] ([facility] Name Value Range Interpretation Code Description Data Renetta rce(s) Supporting Document(s) Disclaimer: Laboratory test result [facility] ([facility] This test was developed and its performa nce characteristics determined by [facility]. It has not been cleared or approved by the Food and Drug Administration. Methylmalonic Acid, Serum 146 nmol/L 0-378 [facility] ([facility] ID Date Data Source [id number] 09/03/2019 01:44:00 PM EDT [facility] ([facility] Name Value Range Interpretation Code Description Data Renetta rce(s) Supporting Document(s) Iron binding capacity.unsaturated [Mass/volume] in Serum or Plasma 143 ug/dL 118-369 [facility] ([facility] Iron binding capacity [Mass/volume] in Serum or Plasma 283 ug/dL 250 -450 [facility] ([facility] Iron [Mass/volume] in Serum or Plasma 140 ug/dL 27-139 Above hig h normal [facility] ([facility] Iron saturation [Mass Fraction] in Serum or Plasma 49 % 15-55 [facility] ([facility] ID Date Data Source [id number] 08/15/2019 02:10:00 PM EDT [facility] ([facility] Name Value Range Interpretation Code Description Data Renetta rce(s) Supporting Document(s) Creatine kinase [Enzymatic activity/volume] in Serum or Plasma 185 U/L 26-192 [facility] ([facility] NORMAL RANGES Age WBC RBC [...] >32 mL/min Normal ID Date Data Source [id number] 08/15/2019 02:10:00 PM EDT [facility] ([facility] Name Value Range Interpretation Code Description Data Renetta rce(s) Supporting Document(s) Glu 131 mg/dL 70-110 Above high normal [facility] ([facility] NORMAL RANGES Age WBC RBC [...] HCT IS 5% LESS SOURCE FOR DATA: [employer] 1800 OPERATION MANUAL( AUTOMATED BLOOD COUNTS AND [...] >32 mL/min Normal BUN 10 mg/dL 8-[address] [facility] ([facility] NORMAL RANGES Age WBC RBC [...] HCT IS 5% LESS SOURCE FOR DATA: [employer] 1800 OPERATION MANUAL( AUTOMATED BLOOD COUNTS AND [...] above >32 mL/min Normal BUN/Creatinine Ratio 13.[address] [facility] ([facility] NORMAL RANGES Age WBC [...] HCT IS 5% LESS SOURCE FOR DATA: [employer] 1800 OPERATION MANUAL( AUTOMATED BLOOD COUNTS AND [...] Na 130 mmol/L 136-145 Below low normal [facility] ( [facility] NORMAL RANGES [...] HCT IS 5% LESS SOURCE FOR DATA: [employer] 1800 OPERATION MANUAL( AUTOMATED BLOOD COUNTS AND [...] HCT IS 5% LESS SOURCE FOR DATA: [employer] 1800 OPERATION MANUAL( AUTOMATED BLOOD COUNTS AND [...] CL 95.3 mmol/L 98.0-107.0 Below low normal [facility] ([facility] NORMAL RANGES Age [...] HCT IS 5% LESS SOURCE FOR DATA: [employer] 1800 OPERATION MANUAL( AUTOMATED BLOOD COUNTS AND [...] >32 mL/min Normal K 4.7 mmol/L 3.5-5.[address] [facility] ([facility] NORMAL [...] HCT IS 5% LESS SOURCE FOR DATA: [employer] 1800 OPERATION MANUAL( AUTOMATED BLOOD COUNTS AND [...] >32 mL/min Normal Co2 23.9 mmol/L 22.0-29.[address] [facility] ([facility] NORMAL RANGES Age WBC RBC [...] HCT IS 5% LESS SOURCE FOR DATA: [employer] 1800 OPERATION MANUAL( AUTOMATED BLOOD COUNTS AND [...] >32 mL/min Normal CA 9.4 mg/dL 8.6-10.2 [facility] ([facility] NORMAL RANGES Age WBC RBC [...] >32 mL/min Normal Alb 4.1 g/dL 3.4-4.[address] [facility] ([facility] NORMAL RANGES Age WBC RBC [...] HCT IS 5% LESS SOURCE FOR DATA: [employer] 1800 OPERATION MANUAL( AUTOMATED BLOOD COUNTS AND [...] TP 6.1 g/dL 6.6-8.7 Below low normal [facility] ( [facility] NORMAL RANGES [...] HCT IS 5% LESS SOURCE FOR DATA: [employer] 1800 OPERATION MANUAL( AUTOMATED BLOOD COUNTS AND [...] >32 mL/min Normal A/G Ratio 2.[address] [facility] ([facility] NORMAL RANGES Age WBC [...] HCT IS 5% LESS SOURCE FOR DATA: [employer] 1800 OPERATION MANUAL( AUTOMATED BLOOD COUNTS AND [...] >32 mL/min Normal Alp 40.8 U/L 35-[address] [facility] ([facility] NORMAL [...] HCT IS 5% LESS SOURCE FOR DATA: [employer] 1800 OPERATION MANUAL( AUTOMATED BLOOD COUNTS AND [...] HCT IS 5% LESS SOURCE FOR DATA: [employer] 1800 OPERATION MANUAL( AUTOMATED BLOOD COUNTS AND [...] Normal Ast (Sgot) 21 U/L 0-40 [facility] ([facility] NORMAL RANGES Age WBC RBC [...] HCT IS 5% LESS SOURCE FOR DATA: [employer] 1800 OPERATION MANUAL( AUTOMATED BLOOD COUNTS AND [...] mL/min Normal Alt (SGPT) 11 U/L 0-41 [facility] NORMAL RANGES Age WBC [...] HCT IS 5% LESS SOURCE FOR DATA: [employer] 1800 OPERATION MANUAL( AUTOMATED BLOOD COUNTS AND [...] >32 mL/min Normal Tbili 0.27 mg/dL 0.0-1.[address] [facility] ([facility] NORMAL RANGES Age WBC RBC [...] HCT IS 5% LESS SOURCE FOR DATA: [employer] 1800 OPERATION MANUAL( AUTOMATED BLOOD COUNTS AND [...] mL/min Normal Osmolality-Calculated 261.1 [facility] ([facility] NORMAL RANGES Age [...] HCT IS 5% LESS SOURCE FOR DATA: [employer] 1800 OPERATION MANUAL( AUTOMATED BLOOD COUNTS AND [...] >32 mL/min Normal Anion Gap 15 mmol/L [facility] ([facility] NORMAL RANGES Age WBC RBC [...] HCT IS 5% LESS SOURCE FOR DATA: [employer] DYN 1800 OPERATION MANUAL( AUTOMATED BLOOD COUNTS [...] HCT IS 5% LESS SOURCE FOR DATA: [employer] 1800 OPERATION MANUAL( AUTOMATED BLOOD COUNTS AND [...] and above >32 mL/min Normal eGFR Non-Afr. Citizen Of [place] 77 # [facility] ([facility] [...] HCT IS 5% LESS SOURCE FOR DATA: [employer] 1800 OPERATION MANUAL( AUTOMATED BLOOD COUNTS AND [...] >32 mL/min Normal ID Date Data Source [id number] 08/15/2019 02:10:00 PM EDT [facility] ([facility] Name Value Range Interpretation Code Description Data Renetta rce(s) Supporting Document(s) RBC 3.65 10E6/uL 4.20-6.30 Below low normal [facility] ([facility] NORMAL RANGES Age [...] HCT IS 5% LESS SOURCE FOR DATA: [employer] 1800 OPERATION MANUAL( AUTOMATED BLOOD COUNTS AND [...] >32 mL/min Normal WBC 5.4 10E3/uL 4.1-10.[address] [facility] ([facility] NORMAL RANGES Age WBC RBC [...] HCT IS 5% LESS SOURCE FOR DATA: [employer] 1800 OPERATION MANUAL( AUTOMATED BLOOD COUNTS AND [...] HGB 11.9 g/dL 12.0-18.0 Below low normal [facility] ( [facility] NORMAL RANGES [...] HCT IS 5% LESS SOURCE FOR DATA: [employer] 1800 OPERATION MANUAL( AUTOMATED BLOOD COUNTS AND [...] >32 mL/min Normal MCV 94.5 fL 80.0-97.[address] [facility] ([facility] NORMAL RANGES Age WBC RBC [...] HCT IS 5% LESS SOURCE FOR DATA: [employer] 1800 OPERATION MANUAL( AUTOMATED BLOOD COUNTS AND [...] HCT 34.5 % 37.0-51.0 Below low normal [facility] ( [facility] NORMAL RANGES Age WBC RBC [...] HCT IS 5% LESS SOURCE FOR DATA: [employer] 1800 OPERATION MANUAL( AUTOMATED BLOOD COUNTS AND [...] MCH 32.6 pg 26.0-32.0 Above high normal [facility] ([facility] NORMAL RANGES Age [...] HCT IS 5% LESS SOURCE FOR DATA: [employer] 1800 OPERATION MANUAL( AUTOMATED BLOOD COUNTS AND [...] >32 mL/min Normal MCHC 34.5 g/dL 31.0-36.[address] [facility] ([facility] NORMAL RANGES Age WBC RBC HGB HCT MCV PLT Adult M 4.1-10.9 4.20-6.30 12.0-18.0 37.0-51.0 80- 140-440 Adult F 4.1-10.9 4.04-5.48 12.0-18.0 37.0-51.0 140-440 0 -1 Yr 5.0-20.0 3.9-5.9 15-18 [...] HCT IS 5% LESS SOURCE FOR DATA: [employer] 1800 OPERATION MANUAL( AUTOMATED BLOOD COUNTS AND [...] >32 mL/min Normal PLT 355 10E3/uL 140-440 [facility] ([facility] NORMAL RANGES Age WBC RBC [...] HCT IS 5% LESS SOURCE FOR DATA: [employer] 1800 OPERATION MANUAL( AUTOMATED BLOOD COUNTS AND [...] >32 mL/min Normal Lym% 37.3 % 10.0-58.[address] [facility] ([facility] NORMAL RANGES Age WBC [...] HCT IS 5% LESS SOURCE FOR DATA: [employer] 1800 OPERATION MANUAL( AUTOMATED BLOOD COUNTS AND [...] >32 mL/min Normal Neut% 54.9 % 37.0-92.[address] [facility] ([facility] NORMAL RANGES [...] HCT IS 5% LESS SOURCE FOR DATA: [employer] 1800 OPERATION MANUAL( AUTOMATED BLOOD COUNTS AND [...] >32 mL/min Normal RDW-CV 13.0 % 11.5-14.[address] [facility] ([facility] NORMAL [...] HCT IS 5% LESS SOURCE FOR DATA: [employer] 1800 OPERATION MANUAL( AUTOMATED BLOOD COUNTS AND [...] >32 mL/min Normal Neut# 3.0 % 2.0-7.8 [facility] ([facility] NORMAL RANGES [...] HCT IS 5% LESS SOURCE FOR DATA: [employer] 1800 OPERATION MANUAL( AUTOMATED BLOOD COUNTS AND [...] >32 mL/min Normal MXD% 7.8 % 0.1-24.0 [facility] ([facility] NORMAL RANGES [...] HCT IS 5% LESS SOURCE FOR DATA: [employer] 1800 OPERATION MANUAL( AUTOMATED BLOOD COUNTS AND [...] mL/min Normal Lym# 2.0 10E3/uL 0.6-4.1 [facility] ([facility] NORMAL RANGES Age WBC RBC [...] HCT IS 5% LESS SOURCE FOR DATA: [employer] 1800 OPERATION MANUAL( AUTOMATED BLOOD COUNTS AND [...] >32 mL/min Normal MPV 9.6 fL 9.0-13.[address] [facility] ([facility] NORMAL RANGES Age WBC RBC [...] HCT IS 5% LESS SOURCE FOR DATA: [employer] 1800 OPERATION MANUAL( AUTOMATED BLOOD COUNTS AND [...] >32 mL/min Normal MXD# 0.4 10E3/uL 0.0-1.8 [facility] ([facility] NORMAL RANGES Age WBC RBC [...] HCT IS 5% LESS SOURCE FOR DATA: [employer] DYN 1800 OPERATION MANUAL( AUTOMATED BLOOD COUNTS [...] >32 mL/min Normal ID Date Data Source [id number] 08/15/2019 02:10:00 PM EDT [facility] ([email or web address] Name Value Range Interpretation Code Description Data Renetta rce(s) Supporting Document(s) Thyrotropin [Units/volume] in Serum or Plasma 1.267 ulU/mL 0.60-4.8 [facility] ([facility] ID Date Data Source [id number] 05/13/2019 02:25:00 PM EDT [facility] ([email or web address] Name Value Range Interpretation Code Description Data Renetta rce(s) Supporting Document(s) Glu 162 mg/dL 70-110 Above high normal [facility] ([facility] CHRONIC KIDNEY DISEASE STAGING [...] 7 mg/dL 8-23 Below low normal [facility] ([facility] CHRONIC KIDNEY DISEASE STAGING [...] mL/min Normal Creat 0.8 mg/dL 0.5-1.0 [facility] ([facility] CHRONIC KIDNEY DISEASE STAGING [...] mL/min Normal CA 9.8 mg/dL 8.6-10.2 [facility] ([facility] CHRONIC KIDNEY DISEASE STAGING [...] mL/min Normal BUN/Creatinine Ratio 9.2 Calc [facility] ([facility] CHRONIC KIDNEY DISEASE STAGING [...] and above >32 mL/min Normal eGFR Non-Afr. Citizen Of [place] 77 # [facility] ([facility] [...] mL/min Normal Anion Gap 19 mmol/L [facility] ([facility] CHRONIC KIDNEY DISEASE STAGING [...] >32 mL/min Normal ID Date Data Source [id number] 05/09/2019 03:15:00 PM EDT [facility] ([facility] Name Value Range Interpretation Code Description Data Renetta rce(s) Supporting Document(s) Creatinine, Urine 100 mg/dL 10-300 [facility] ([facility] A/C Ratio Laboratory test result Abnormal (applies to non -numeric results) [facility] ([facility] Alb 30 mg/L 1-30 [facility] ([facility] ID Date Data Source [id number] 05/09/2019 03:15:00 PM EDT [facility] ([facility] Name Value Range Interpretation Code Description Data Renetta rce(s) Supporting Document(s) Appearance of Urine Laboratory test result [facility] ([facility] Color Urine Laboratory test result M [facility] ([facility] PH Urine 6.0 5.0-8.0 [facility] ([facility] Specific Arboles 1.020 1.00-1.03 [facility] ([facility] Glucose Urine Laboratory test result [facility] ([facility] Bilirubin.total [Presence] in Urine by Test strip Laboratory test res ult [facility] ([facility] Blood Urine Laboratory test result Above high normal [facility] ([facility] Ketones Laboratory test result [facility] ([facility] Urobilinogen 0.2 EU/dl 0.2-1.0 [facility] ([facility] Protein Urine Laboratory test result [facility] ([facility] Nitrite Laboratory test result [facility] ([facility] Leukocytes Laboratory test result [facility] ([facility] ID Date Data Source [id number] 05/09/2019 01:28:00 PM EDT [facility] ([facility] Name Value Range Interpretation Code Description Data Renetta rce(s) Supporting Document(s) Thyrotropin [Units/volume] in Serum or Plasma 0.929 ulU/mL 0.60-4.8 [facility] ([facility] ID Date Data Source [id number] 05/09/2019 01:28:00 PM EDT [facility] ([facility] Name Value Range Interpretation Code Description Data Renetta rce(s) Supporting Document(s) Creatine kinase [Enzymatic activity/volume] in Serum or Plasma 152 U/L 26-192 [facility] ([facility] CLASSIFICATION CHOLESTEROL FO R ADULTS [...] HCT IS 5% LESS SOURCE FOR DATA: [employer] 1800 OPERATION MANUAL( AUTOMATED BLOOD COUNTS AND DIFF.) APPENDIX B-3 ID Date Data Source [id number] 05/09/2019 01:28:00 PM EDT [facility] ([facility] Name Value Range Interpretation Code Description Data Renetta rce(s) Supporting Document(s) Chol 190 mg/dL 0-200 [facility] ([facility] CLASSIFICATION CHOLESTEROL [...] HCT IS 5% LESS SOURCE FOR DATA: [employer] 1800 OPERATION MANUAL( AUTOMATED BLOOD COUNTS AND DIFF.) APPENDIX B-3 Trig 78 mg/dL 40-200 [facility] ([facility] CLASSIFICATION CHOLESTEROL [...] HCT IS 5% LESS SOURCE FOR DATA: [employer] 1800 OPERATION MANUAL( AUTOMATED BLOOD COUNTS AND [...] Cho/HDL Ratio 1.9 Calc [facility] ([facility] CLASSIFICATION CHOLESTEROL FO R ADULTS [...] HCT IS 5% LESS SOURCE FOR DATA: [employer] 1800 OPERATION MANUAL( AUTOMATED BLOOD COUNTS AND DIFF.) APPENDIX B-3 LDL_C 76 Calc 75-129 [facility] ([facility] CLASSIFICATION CHOLESTEROL FO [...] HCT IS 5% LESS SOURCE FOR DATA: [employer] DYN 1800 OPERATION MANUAL( AUTOMATED BLOOD COUNTS AND DIFF.) APPENDIX B-3 ID Date Data Source [id number] 05/09/2019 01:28:00 PM EDT [facility] ([facility] Name Value Range Interpretation Code Description Data Renetta rce(s) Supporting Document(s) Glu 145 mg/dL 70-110 Above high normal [facility] ([facility] CLASSIFICATION CHOLESTEROL FO [...] HCT IS 5% LESS SOURCE FOR DATA: [employer] 1800 OPERATION MANUAL( AUTOMATED BLOOD COUNTS AND DIFF.) APPENDIX B-3 Creat 0.7 mg/dL 0.5-1.0 [facility] ([facility] CLASSIFICATION [...] HCT IS 5% LESS SOURCE FOR DATA: [employer] DYN 1800 OPERATION MANUAL( AUTOMATED BLOOD COUNTS AND DIFF.) APPENDIX B-3 BUN 6 mg/dL 8-23 Below low normal [facility] ([facility] CLASSIFICATION CHOLESTEROL FO [...] APPENDIX B-3 BUN/Creatinine Ratio 9.3 CALC [facility] ([facility] CLASSIFICATION CHOLESTEROL FO [...] HCT IS 5% LESS SOURCE FOR DATA: [employer] 1800 OPERATION MANUAL( AUTOMATED BLOOD COUNTS AND DIFF.) APPENDIX B-3 Na 122 mmol/L 136-145 Below low normal [facility] ( [facility] CLASSIFICATION [...] APPENDIX B-3 K 5.0 mmol/L 3.5-5.1 [facility] ([facility] CLASSIFICATION CHOLESTEROL FO R ADULTS [...] HCT IS 5% LESS SOURCE FOR DATA: [employer] 1800 OPERATION MANUAL( AUTOMATED BLOOD COUNTS AND [...] APPENDIX B-3 Co2 24.8 mmol/L 22.0-29.0 [facility] ([facility] CLASSIFICATION CHOLESTEROL FO R ADULTS [...] TP 6.3 g/dL 6.6-8.7 Below low normal [facility] ( [facility] CLASSIFICATION CHOLESTEROL [...] HCT IS 5% LESS SOURCE FOR DATA: [employer] 1800 OPERATION MANUAL( AUTOMATED BLOOD COUNTS AND DIFF.) APPENDIX B-3 Globulin 2.1 CALC [facility] ([facility] CLASSIFICATION CHOLESTEROL FO [...] HCT IS 5% LESS SOURCE FOR DATA: [employer] DYN 1800 OPERATION MANUAL( AUTOMATED BLOOD COUNTS [...] HCT IS 5% LESS SOURCE FOR DATA: [employer] DYN 1800 OPERATION MANUAL( AUTOMATED BLOOD COUNTS AND DIFF.) APPENDIX B-3 A/G Ratio 2.0 CALC [facility] ([facility] CLASSIFICATION CHOLESTEROL FO R [...] HCT IS 5% LESS SOURCE FOR DATA: [employer] DYN 1800 OPERATION MANUAL( AUTOMATED BLOOD COUNTS AND DIFF.) APPENDIX B-3 Ast (Sgot) 36 U/L 0-[address] [facility] ([facility] CLASSIFICATION CHOLESTEROL FO R ADULTS [...] APPENDIX B-3 Alt (SGPT) 22 U/L 0-41 [facility] CLASSIFICATION CHOLESTEROL FO R ADULTS [...] DIFF.) APPENDIX B-3 Alp 39.5 U/L 35-129 [facility] ([facility] CLASSIFICATION CHOLESTEROL FO R ADULTS [...] HCT IS 5% LESS SOURCE FOR DATA: [employer] DYN 1800 OPERATION MANUAL( AUTOMATED BLOOD COUNTS [...] HCT IS 5% LESS SOURCE FOR DATA: [employer] 1800 OPERATION MANUAL( AUTOMATED BLOOD COUNTS AND DIFF.) APPENDIX B-3 Tbili 0.27 mg/dL 0.0-1.2 [facility] ([facility] CLASSIFICATION CHOLESTEROL FO R [...] HCT IS 5% LESS SOURCE FOR DATA: [employer] 1800 OPERATION MANUAL( AUTOMATED BLOOD COUNTS AND [...] DIFF.) APPENDIX B-3 Anion Gap 16 mmol/L [facility] ([facility] [facility] CLASSIFICATION CHOLESTEROL FO R ADULTS [...] COUNTS AND DIFF.) APPENDIX B-3 eGFR Non-Afr. Citizen Of [place] 91 # MED[facility] ([facility] [...] HCT IS 5% LESS SOURCE FOR DATA: [employer] 1800 OPERATION MANUAL( AUTOMATED BLOOD COUNTS AND DIFF.) APPENDIX B-3 ID Date Data Source [id number] 05/09/2019 01:28:00 PM EDT ZACH ([facility] Name Value Range Interpretation Code Description Data Renetta rce(s) Supporting Document(s) HGB 12.9 g/dL 12.0-18.0 ZACH ([facility] CLASSIFICATION CHOLESTEROL [...] HCT IS 5% LESS SOURCE FOR DATA: [employer] 1800 OPERATION MANUAL( AUTOMATED BLOOD COUNTS AND DIFF.) APPENDIX B-3 WBC 6.3 10E3/uL 4.1-10.9 MEDENT ([facility] CLASSIFICATION CHOLESTEROL FO R ADULTS [...] RBC 4.08 10E6/uL 4.20-6.30 Below low [address] [facility] ([facility] CLASSIFICATION CHOLESTEROL FO [...] HCT IS 5% LESS SOURCE FOR DATA: [employer] DYN 1800 OPERATION MANUAL( AUTOMATED BLOOD COUNTS [...] HCT IS 5% LESS SOURCE FOR DATA: [employer] DYN 1800 OPERATION MANUAL( AUTOMATED BLOOD COUNTS AND DIFF.) APPENDIX B-3 HCT 38.8 % 37.0-51.0 [facility] CLASSIFICATION CHOLESTEROL FO [...] HCT IS 5% LESS SOURCE FOR DATA: [employer] DYN 1800 OPERATION MANUAL( AUTOMATED BLOOD COUNTS AND DIFF.) APPENDIX B-3 RDW-CV 12.6 % 11.5-14.[address] [facility] ([facility] CLASSIFICATION CHOLESTEROL FO [...] HCT IS 5% LESS SOURCE FOR DATA: [employer] 1800 OPERATION MANUAL( AUTOMATED BLOOD COUNTS AND DIFF.) APPENDIX B-3 PLT 356 10E3/uL 140-440 [facility] ([facility] CLASSIFICATION CHOLESTEROL FO R ADULTS [...] HCT IS 5% LESS SOURCE FOR DATA: [employer] 1800 OPERATION MANUAL( AUTOMATED BLOOD COUNTS AND DIFF.) APPENDIX B-3 MCHC 33.2 g/dL 31.0-36.0 [facility] ([facility] CLASSIFICATION CHOLESTEROL FO [...] DIFF.) APPENDIX B-3 Lym% 40.2 % 10.0-58.[address] [facility] ([facility] CLASSIFICATION CHOLESTEROL FO [...] IS 5% LESS SOURCE FOR DATA: [employer] 1800 OPERATION MANUAL( AUTOMATED BLOOD COUNTS AND [...] HCT IS 5% LESS SOURCE FOR DATA: [employer] DYN 1800 OPERATION MANUAL( AUTOMATED BLOOD COUNTS AND DIFF.) APPENDIX B-3 Neut% 51.3 % 37.0-92.0 [facility] ([facility] CLASSIFICATION CHOLESTEROL [...] HCT IS 5% LESS SOURCE FOR DATA: [employer] 1800 OPERATION MANUAL( AUTOMATED BLOOD COUNTS AND DIFF.) APPENDIX B-3 Neut# 3.3 % 2.0-7.[address] [facility] ([facility] CLASSIFICATION [...] DIFF.) APPENDIX B-3 Lym# 2.5 10E3/uL 0.6-4.1 [facility] ([facility] CLASSIFICATION CHOLESTEROL FO R ADULTS [...] HCT IS 5% LESS SOURCE FOR DATA: [employer] 1800 OPERATION MANUAL( AUTOMATED BLOOD COUNTS AND DIFF.) APPENDIX B-3 MXD# 0.5 10E3/uL 0.0-1.8 [facility] ([facility] CLASSIFICATION CHOLESTEROL FO R ADULTS [...] HCT IS 5% LESS SOURCE FOR DATA: [employer] 1800 OPERATION MANUAL( AUTOMATED BLOOD COUNTS AND DIFF.) APPENDIX B-3 MPV 9.5 fL 9.0-13.0 [facility] ([facility] CLASSIFICATION [...] DIFF.) APPENDIX B-3 ID Date Data Source [id number] 04/30/2019 12:00:00 AM EST [facility] Vielka Dangelo MD Patient Name: JAD GRAFF Date of : 1955[place] [id number] Date of Exam: 04/30/2019#: Fax: [phone] EXAM: [...] rce(s) Supporting Document(s) ID Date Data Source [id number] 03/28/2019 12:00:00 AM EST [facility] Luz Lamas Patient Name: RENETTA [id number] [facility] Date [facility] : 1955[place] [address] Date of Exam: 03/28/2019PH#: Fax: [phone] EXAM: [...] stenosis. 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 Electronically Signed - [facility] 03/29/19 8:31 Name Value Range Interpretation Code Description Data Renetta rce(s) Supporting Document(s) Procedure Social History Code Duration Value Status Description Data Source(s ) Smoking 03/20/2020 12:00:00 AM EST Never Smoker completed Never S moker eCW1 ([facility]) Smoking 03/12/2020 12:00:00 AM EST Patient has never smoked co mpleted Patient has never smoked MEDENT ([facility] ) Smoking 01/14/2020 12:00:00 AM EST Never Smoker completed Never S moker eCW1 ([facility]) Smoking 01/14/2020 12:00:00 AM EST Never Smoker completed Never S moker eCW1 ([facility]) Smoking 01/14/2020 12:00:00 AM EST Never Smoker completed Never S moker eCW1 ([facility]) Smoking 01/14/2020 12:00:00 AM EST Never Smoker completed Never S moker eCW1 ([facility]) Smoking 01/10/2020 12:00:00 AM EST Never Smoked Cigarettes com pleted Never Smoked Cigarettes 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) Smoking 12/12/2019 12:00:00 AM EDT Never Smoker completed Never S moker eCW1 ([facility]) Smoking 12/12/2019 12:00:00 AM EDT Never Smoker completed Never S moker eCW1 ([facility]) Smoking 12/12/2019 12:00:00 AM EDT Never Smoker completed Never S moker eCW1 ([facility]) Smoking 12/12/2019 12:00:00 AM EDT Never Smoker completed Never S moker eCW1 ([facility]) Smoking 12/12/2019 12:00:00 AM EDT Never Smoker completed Never S moker eCW1 ([facility]) Smoking 12/12/2019 12:00:00 AM EDT Never Smoker completed Never S moker eCW1 ([facility]) Smoking 12/12/2019 12:00:00 AM EDT Never Smoker completed Never S moker eCW1 ([facility]) Smoking 12/12/2019 12:00:00 AM EDT Never Smoker completed Never S moker eCW1 ([facility]) Smoking 12/12/2019 12:00:00 AM EDT Never Smoker completed Never S moker eCW1 ([facility]) Smoking 08/05/2019 12:00:00 AM EDT Never Smoker completed Never S moker eCW1 ([facility]) Smoking 08/05/2019 12:00:00 AM EDT Never Smoker completed Never S moker eCW1 ([facility]) Smoking 08/05/2019 12:00:00 AM EDT Never Smoker completed Never S moker eCW1 ([facility]) Smoking 08/05/2019 12:00:00 AM EDT Never Smoker completed Never S moker eCW1 ([facility]) Vital Signs ID Date Data Source UNK Name Value Range Interpretation Code Description Data Source(s) Diastolic blood pressure 67 mm[Hg] 67 mm[Hg] eCW1 ([facility]) Systolic blood pressure 146 mm[Hg] 146 mm[Hg] e CW1 ([facility]) Body temperature 96.8 [degF] 96.8 [degF] eCW1 ( [facility]) Respiratory rate 16 /min 16 /min eCW1 ([facility]) Heart rate 75 /min 75 /min eCW1 ([facility]) Body mass index (BMI) [Ratio] 25.05 kg/m2 25.05 kg/m2 eCW1 ([facility]) Body height 66 [in_i] 66 [in_i] eCW1 ([facility]) Body weight 155.2 [lb_av] 155.2 [lb_av] eCW1 ([facility]) Oxygen saturation in Arterial blood by Pulse oximetry 98 % 98 % MED[facility] ([facility] Body mass index (BMI) [Ratio] 26.1 kg/m2 26.1 k g/m2 MED[facility] ([facility] [place] body weight 120 [lb_av] 120 [lb_av] MEDEN T ([facility] Body weight 152.00 [lb_av] 152.00 [lb_av] MEDEN T ([facility] Body height 64 [in_i] 64 [in_i] MEDENT ([facility] 5'4" Respiratory rate 16 /min 16 /min MEDENT ( [facility] Heart rate 82 /min 82 /min MED[facility] ([facility] Body temperature 98.3 [degF] 98.3 [degF] MED[facility] ([facility] Diastolic blood pressure 70 mm[Hg] 70 mm[Hg] MED[facility] ([facility] Systolic blood pressure 126 mm[Hg] 126 mm[Hg] M EDENT ([facility] Diastolic blood pressure 70 mm[Hg] 70 mm[Hg] eCW1 ([facility]) Systolic blood pressure 139 mm[Hg] 139 mm[Hg] e CW1 ([facility]) Body temperature 98.0 [degF] 98.0 [degF] eCW1 ( [facility]) Respiratory rate 18 /min 18 /min eCW1 ([facility]) Heart rate 78 /min 78 /min eCW1 ([facility]) Body mass index (BMI) [Ratio] 24.21 kg/m2 24.21 kg/m2 [facility] ([facility]) Body height 66 [in_i] 66 [in_i] eCW1 ([facility]) Body weight 150.0 [lb_av] 150.0 [lb_av] eCW1 ([facility]) Diastolic blood pressure 65 mm[Hg] 65 mm[Hg] eCW1 ([facility]) Systolic blood pressure 134 mm[Hg] 134 mm[Hg] e CW1 ([facility]) Body temperature 97.3 [degF] 97.3 [degF] eCW1 ( [facility]) Respiratory rate 18 /min 18 /min eCW1 ([facility]) Heart rate 69 /min 69 /min eCW1 ([facility]) Body mass index (BMI) [Ratio] 24.53 kg/m2 24.53 kg/m2 eCW1 ([facility]) Body height 66 [in_i] 66 [in_i] eCW1 ([facility]) Body weight 152 [lb_av] 152 [lb_av] eCW1 ([facility]) Oxygen saturation in Arterial blood by Pulse oximetry 97 % 97 % MED[facility] ([facility] Body mass index (BMI) [Ratio] 25.4 kg/m2 25.4 k g/m2 [facility] ([facility] [place] body weight 120 [lb_av] 120 [lb_av] MEDEN T ([facility] Body weight 148.00 [lb_av] 148.00 [lb_av] MEDEN T ([facility] Body height 64 [in_i] 64 [in_i] MEDENT ([facility] 5'4" Respiratory rate [...] 1.68 m2 1.68 m2 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) Body mass index (BMI) [Ratio] 24.8 kg/m2 24.8 k g/m2 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) Body weight 142.00 [lb_av] 142.00 [lb_av] MEDEN T ([facility]) Body height 63.5 [in_i] 63.5 [in_i] [facility] ([facility]) 5'3.50" Diastolic blood pressure 74 mm[Hg] 74 mm[Hg] 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) Systolic blood pressure 134 mm[Hg] 134 mm[Hg] M EDENT ([facility]) Body surface area 1.68 m2 1.68 m2 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) Oxygen saturation in Arterial blood by Pulse oximetry 95 % 95 % MED[facility] ([facility] ([place]), ([facility] [employer]) Body mass index (BMI) [Ratio] 24.9 kg/m2 24.9 k g/m2 [facility] ([facility] [place] body weight 120 [lb_av] 120 [lb_av] MEDEN T ([facility] Body weight 145.00 [lb_av] 145.00 [lb_av] MEDEN T ([facility] Body height 64 [in_i] 64 [in_i] MEDENT ([facility] 5'4" Respiratory rate 16 /min 16 /min MEDENT ( [facility] Heart rate 84 /min 84 /min MED[facility] ([facility] Body temperature 99.2 [degF] 99.2 [degF] [facility] ([facility] Diastolic blood pressure 60 mm[Hg] 60 mm[Hg] [facility] ([facility] Systolic blood pressure 110 mm[Hg] 110 mm[Hg] M EDENT ([facility] Diastolic blood pressure 74 mm[Hg] 74 mm[Hg] eCW1 ([facility]) Systolic blood pressure 160 mm[Hg] 160 mm[Hg] e CW1 ([facility]) Body temperature 98.3 [degF] 98.3 [degF] eCW1 ( [facility]) Respiratory rate 18 /min 18 /min eCW1 ([facility]) Heart rate 67 /min 67 /min eCW1 ([facility]) Body mass index (BMI) [Ratio] 23.92 kg/m2 23.92 kg/m2 W1 ([facility]) Body height 66 [in_us] 66 [in_us] eCW1 ([facility]) Body weight Measured 148.2 [lb_av] 148.2 [lb_av ] eCW1 ([facility]) Oxygen saturation in Arterial blood by Pulse oximetry 99 % 99 % MED[facility] ([facility] Body mass index (BMI) [Ratio] 25.4 kg/m2 25.4 k g/m2 [facility] ([facility] Body weight 148.00 [lb_av] 148.00 [lb_av] MEDEN T ([facility] Body height 64 [in_i] 64 [in_i] MEDENT ([facility] 5'4" Respiratory rate 16 /min 16 /min MED[facility] ( [facility] Heart rate 83 /min 83 /min MED[facility] ([facility] Body temperature 98.2 [degF] 98.2 [degF] MEDENT ([facility] Diastolic blood pressure 72 mm[Hg] 72 mm[Hg] [facility] ([facility] Systolic blood pressure 100 mm[Hg] 100 mm[Hg] M EDENT ([facility] Diastolic blood pressure 70 mm[Hg] 70 mm[Hg] eCW1 ([facility]) Systolic blood pressure 161 mm[Hg] 161 mm[Hg] e CW1 ([facility]) Body temperature 97.0 [degF] 97.0 [degF] eCW1 ( [facility]) Respiratory rate 18 /min 18 /min eCW1 ([facility]) Heart rate 66 /min 66 /min eCW1 ([facility]) Body mass index (BMI) [Ratio] 24.01 kg/m2 24.01 kg/m2 W1 ([facility]) Body height 66 [in_us] 66 [in_us] eCW1 ([facility]) Body weight Measured 148.8 [lb_av] 148.8 [lb_av ] eCW1 ([facility]) Patient Treatment Plan of Care Planned Activity Planned Date Details Description Data Source (s) Oxycodone Hydrochloride 10 MG Oral Tablet 03/20/2020 12:00:00 AM ES T eCW1 ([facility]) Oxycodone Hydrochloride 10 MG Oral Tablet 02/19/2020 12:00:00 AM ES T eCW1 ([facility]) Oxycodone Hydrochloride 10 MG Oral Tablet 01/27/2020 12:00:00 AM ES T eCW1 ([facility]) Oxycodone Hydrochloride 10 MG Oral Tablet 12/26/2019 12:00:00 AM ED T eCW1 ([facility]) Oxycodone Hydrochloride 10 MG Oral Tablet 12/26/2019 12:00:00 AM ED T eCW1 ([facility]) Oxycodone Hydrochloride 10 MG Oral Tablet 12/26/2019 12:00:00 AM ED T eCW1 ([facility]) Oxycodone Hydrochloride 10 MG Oral Tablet 12/26/2019 12:00:00 AM ED T eCW1 ([facility]) Oxycodone Hydrochloride 10 MG Oral Tablet 12/26/2019 12:00:00 AM ED T eCW1 ([facility]) Oxycodone Hydrochloride 10 MG Oral Tablet 12/23/2019 12:00:00 AM ED T eCW1 ([facility]) Oxycodone Hydrochloride 10 MG Oral Tablet 12/23/2019 12:00:00 AM ED T eCW1 ([facility]) Oxycodone Hydrochloride 10 MG Oral Tablet 12/23/2019 12:00:00 AM ED T eCW1 ([facility]) Oxycodone Hydrochloride 5 MG Oral Tablet 12/04/2019 12:00:00 AM EDT eCW1 ([facility]) Oxycodone Hydrochloride 10 MG Oral Tablet 12/04/2019 12:00:00 AM ED T eCW1 ([facility]) Oxycodone Hydrochloride 5 MG Oral Tablet 09/09/2019 12:00:00 AM EDT eCW1 ([facility]) Oxycodone Hydrochloride 5 MG Oral Tablet 09/09/2019 12:00:00 AM EDT eCW1 ([facility]) Oxycodone Hydrochloride 5 MG Oral Tablet 08/06/2019 12:00:00 AM EDT eCW1 ([facility]) Oxycodone Hydrochloride 5 MG Oral Tablet 07/10/2019 12:00:00 AM EDT eCW1 ([facility]) Oxycodone Hydrochloride 5 MG Oral Tablet 06/05/2019 12:00:00 AM EDT eCW1 ([facility]) Oxycodone Hydrochloride 5 MG Oral Tablet 05/10/2019 12:00:00 AM EDT eCW1 ([facility]) Oxycodone Hydrochloride 5 MG Oral Tablet 04/09/2019 12:00:00 AM EST eCW1 ([facility]) Oxycodone Hydrochloride 5 MG Oral Tablet 03/12/2019 12:00:00 AM EST eCW1 ([facility])
--- NOTE | 2020-04-20 16:17 | ECGEPIP ---
[facility] - ED Test Date: 2020-04-20 Pat Name: PRO REY Department: Room: - Gender: Female Policy Specialist: CAROL : 1955 Requested By: Shruti Cardona Order Number: [id number] Reading MD: Zach Villatoro Measurements Intervals [place]inch Rate: 83 P: 110 [place]: 162 QRS: 6 QRSD: 90 T: 46 QT: 358 QTc: 420 Interpretive Statements Normal sinus rhythm Baseline artifact Nonspecific ST-T wave abnormalities Similar to tracing done 10-29-18 Electronically Signed on 04-20-2020 16:16:38 EST by Zach Villatoro
[2020-04-20 16:19] LABS: ALT/SGPT 12 U/L (12-78); BLOOD UREA NITROGEN 22 MG/DL (7-18); CALCIUM LEVEL 9.2 MG/DL (8.8-10.2); CARBON DIOXIDE LEVEL 27 MEQ/L (21-32); CHLORIDE LEVEL 92 MEQ/L (98-107); CK-MB VALUE MASS 3.6 NG/ML (<3.6); CPK CREATINE PHOSPHOKINASE 84 U/L (26-192); CREATININE FOR GFR 1.08 MG/DL (0.55-1.30); GLOMERULAR FILTRATION RATE 54.2 (>45); GLUCOSE, FASTING 92 MG/DL (70-100); MB/CK RELATIVE INDEX 4.29 (< OR =4); POTASSIUM SERUM 4.2 MEQ/L (3.5-5.1); SODIUM LEVEL 127 MEQ/L (136-145)
[2020-04-20 16:20] LABS: ALBUMIN 3.8 GM/DL (3.2-5.2); BILIRUBIN,DIRECT 0.2 MG/DL (0.0-0.2); BILIRUBIN,TOTAL 0.5 MG/DL (0.2-1.0); FREE T4 1.02 NG/DL (0.76-1.46); LIPASE 52 U/L (73-393); TOTAL PROTEIN 6.5 GM/DL (6.4-8.2); TROPONIN I < 0.02 NG/ML (< 0.10)
[2020-04-20] MEDS ORDERED: LEVO750T13 PO (18:11)
[2020-04-20 18:15] VITALS: BP 137/63
[2020-04-20] MEDS ORDERED: ACETAMINOPHEN TAB 650MG DOSE (2X325MG) PO ONE (18:30)
[2020-04-20] MEDS ORDERED: LevoFLOXacin 750 MG TABLET PO ONE (19:00)
== END 2020-04-20 18:37 | disposition home or self-care (01) ==
LOC: M ED 15:08
DX: J18.9 Pneumonia, unspecified organism (principal); I48.91 Unspecified atrial fibrillation; I10 Essential (primary) hypertension; E03.9 Hypothyroidism, unspecified; Z88.8 Allergy status to other drugs, medicaments and biological substances; Z91.013 Allergy to seafood; Z79.899 Other long term (current) drug therapy

== ENCOUNTER → 2020-06-18 | Outpatient (CLI) | payer MEDICARE, BC ==
[~2020-06-18] MED LIST changes: +LEVO750T13 PO
--- NOTE | 2020-06-20 07:49 | ECWPNPC ---
PATIENT NAME: PRO REY : 1955 GENDER: FEMALE VISIT DATE: 06/18/2020 DISCHARGE DATE: 06/18/20 1440 VISIT LOCKED DATE TIME: PHYSICIAN: CARSON GARAY RESOURCE: CARSON GARAY REASON FOR APPOINTMENT 1. BACK PAIN HISTORY OF PRESENT ILLNESS GENERAL: -64-YEAR-OLD FEMALE IN FOR CHRONIC PAIN FOLLOW-UP. SHE RATES HER PAIN CURRENTLY AT A 6 OUT OF 10 AND DESCRIBES IT SHARP, AND THROBBING. SHE FEELS HER MEDICATIONS ARE HELPFUL AND DENIES MED SIDE EFFECTS AT THIS TIME. PATIENT DOES ADMIT TO A UPCOMING RF PROCEDURE WITH SPINE AND WELLNESS IN [place]. FALL RISK SCREENING: SCREENING : NO FALLS REPORTED THIS YEAR. PAIN SCREENING: PATIENT HAS A COMPLAINT OF ACUTE OR CHRONIC PAIN :YES LOCATION OF PAIN:MID BACK, LOW BACK INTENSITY OF PAIN (SCALE OF 1 TO 10):6 WHAT DOES YOUR PAIN FEEL LIKE:SHARP, THROBBING DURATION:CONTINOUS, CONSTANT, ALL DAY PAIN IS INCREASED BY:ACTIVITIES, PROLONGED STANDING, OTHERS WALKING AND THE WEATHER PAIN IS DECREASED BY:USE OF PAIN MEDICATIONS, OTHERS HEAT AND NOT MOVING NURSING NOTE: -. PAIN CENTER INTAKE QUESTIONS: DO YOU HAVE A HISTORY OF MRSA? :NO DO YOU TAKE A BLOOD THINNERS? :YES XARALTO FOR A-FIB DO YOU HAVE ANY BLEEDING DISORDERS? :NO ANY NEW NUMBNESS OR WEAKNESS IN YOUR LEGS OR ARMS? :NO ANY PACEMAKER,DEFIBRILLATOR, OR DORSAL COLUMN STIMULATOR? :NO DO YOU HAVE ANY RASHES OR OPEN SORES? :NO ARE YOU ALLERGIC TO IV DYE? :NO ARE YOU DIABETIC? :NO ANY NEW PROBLEMS WITH YOUR MEDICATIONS? :NO HAVE YOU RECEIVED A VACCINE IN THE PAST 30 DAYS? :YES 2ND COVID 05/27/2020 DO YOU PLAN TO RECEIVE A VACCINE IN THE NEXT 21 DAYS? :NO DO YOU NEED ANY PRESCRIPTION? :YES ONDANSETRON DO YOU TAKE ANY IMMUNOSUPPRESSIVE MEDICATIONS? :NO IS THERE A CHANCE YOU COULD BE ? :NO ARE YOU BREAST FEEDING? :NO CURRENT MEDICATIONS TAKING CALCIUM 600/VITAMIN D 600-400 MG-UNIT TABLET 1 TABLET WITH A MEAL ORALLY ONCE A DAY TAKING LEVOTHYROXINE SODIUM 50 MCG TABLET 1 TABLET ORALLY ONCE A DAY TAKING BUSPIRONE HCL 10 MG TABLET 1 TABLET ORALLY TWICE A DAY TAKING ZYRTEC 10 MG TABLET 1 TABLET NEEDED ORALLY ONCE A DAY TAKING ZOLOFT 100 MG TABLET 1 TABLET ORALLY ONCE A DAY TAKING TRAZODONE HCL 100 MG TABLET 1 TABLET AT BEDTIME ORALLY ONCE A DAY TAKING FEMHRT 1/5 1-5 MG - MCG TABS ORALLY DAILY TAKING PROTONIX 40 MG TABLET DELAYED RELEASE 1 TAB ORALLY ONCE A DAY TAKING METOPROLOL SUCCINATE ER 200 MG TABLET EXTENDED RELEASE 24 HOUR 1 TABLET ORALLY ONCE A DAY TAKING XARELTO 20 MG TABLET 1 TABLET WITH FOOD ORALLY ONCE A DAY TAKING LOSARTAN POTASSIUM 50 MG TABLET 1 TABLET ORALLY ONCE A DAY TAKING ONDANSETRON 4 MG TABLET DISINTEGRATING 1 TABLET ON THE TONGUE AND ALLOW TO DISSOLVE ORALLY DAILY NEEDED FOR NAUSEA TAKING ROBAXIN-750 750 MG TABLET 1/2 TABLET ORALLY AT NIGHT NEEDED TAKING OXYCODONE HCL 10 MG TABLET 1 TABLET NEEDED ORALLY EVERY 8 HRS NEEDED MDD 3 NOT-TAKING BYSTOLIC 10 MG TABLET 1 TABLET ORALLY ONCE A DAY NOT-TAKING POTASSIUM CHLORIDE CR 10 MEQ TABLET ORALLY DAILY NOT-TAKING VICODIN 5/325 TABLET 1 TABLET NEEDED ORALLY EVERY 4 HRS NOT-TAKING CYCLOBENZAPRINE HCL 5 MG TABLET 1 TABLET ORALLY THREE TIMES A DAY NOT-TAKING NITROFURANTOIN MONOHYD MACRO 100 MG CAPSULE 1 CAPSULE WITH FOOD ORALLY EVERY 12 HRS NOT-TAKING BACTRIM DS 800-160 MG TABLET 1 TABLET ORALLY ONCE A DAY MEDICATION LIST REVIEWED AND RECONCILED WITH THE PATIENT PAST MEDICAL HISTORY HTN HYPOTHYROIDISM ARTHRITIS CHRONIC NECK AND BACK PAIN ANXIETY/DEPRESSION HEART LOOP MONITER TO LEFT CHEST GERD A FIB RECURRENT UTI ALLERGIES IODINE: HIVES - ALLERGY TIZANIDINE HCL: CONFUSION - SIDE EFFECTS SOCIAL HISTORY GENERAL: TOBACCO USE ARE YOU A:NONSMOKER LATEX QUESTIONNAIRE LATEX ALLERGY : HAVE YOU EVER DEVELOPED ANY TYPE OF REACTION AFTER HANDLING LATEX PRODUCTS SUCH RUBBER GLOVES, CONDOMS, DIAPHRAGMS, BALLOONS, SOCKS, OR UNDERWEAR?NO LATEX ALLERGY : HAVE YOU EVER DEVELOPED ANY TYPE OF REACTION DURING OR AFTER DENTAL APPOINTMENT, VAGINAL/RECTAL EXAMINATION, SURGICAL PROCEDURE, OR ANY OTHER EXPOSURE?NO LATEX RISK : HAVE YOU EVER HAD ANY DIFFICULTY BREATHING OR HIVES AFTER EATING OR HANDLING ANY FRUITS, OR VEGETABLES; SUCH KIWI, BANANAS, STONE FRUITS, OR CHESTNUTSNO LATEX RISK : DO YOU HAVE A PREVIOUS PERSONAL HISTORY OF MORE THAN NINE SURGERIES, SPINA BIFIDA, OR REPEATED CATHERIZATIONS? NO LATEX RISK : ARE YOU FREQUENTLY EXPOSED TO LATEX PRODUCTS IN YOUR OCCUPATION?NO DATE ASKED : 06/18/2020 ALCOHOL USE: YES ACC. ALCOHOL SCREENING DID YOU HAVE A DRINK CONTAINING ALCOHOL IN THE PAST YEAR?YES HOW MANY DRINKS DID YOU HAVE ON A TYPICAL DAY WHEN YOU WERE DRINKING IN THE PAST YEAR?3 OR 4 (1 POINT) HOW OFTEN DID YOU HAVE A DRINK CONTAINING ALCOHOL IN THE PAST YEAR?MONTHLY OR LESS (1 POINT) POINTS2 INTERPRETATIONNEGATIVE RECREATIONAL DRUG USE DRUG USE?NO CAFFEINE CAFFEINE USE?YES HOW OFTEN AND HOW MUCH? 1 CUP COFFEE PER DAY IN THE AM WORSHIP [id number] GNOSTICIST NO AMISH BELIEFS THAT WOULD IMPACT HEALTH CARE. LANGUAGE LANGUAGES SPOKEN:ROMANSH LEARNING BARRIERS / SPECIAL NEEDS CHANGE FROM LAST VISIT?NO BARRIERS TO LEARNING?NO VISION IMPAIRED?YES :CORRECTIVE LENSES READING GLASSES ONLY READINESS TO LEARN?YES LEARNING PREFERENCES?NO LEARNING CAPABILITIES PRESENT?YES EMOTIONAL BARRIERS?NO SPECIAL DEVICES?NO FINISH OPENER NEEDED?NO DIET: GASTRIC BYPASS DIET SEVERAL SMALL MEALS (5-6 TIMES) PER DAY. - PFS REFERRAL NEEDED?NO CLERGY REFERRAL NEEDED?NO PUBLIC HEALTH REFERRAL NEEDED?NO HAS THE PATIENT BEEN EDUCATED REGARDING HIS/HER PLAN OF CARE?YES HAS THE PATIENT BEEN EDUCATED REGARDING PAIN, THE RISK FOR PAIN, THE IMPORTANCE OF EFFECTIVE PAIN MANAGEMENT, AND THE PAIN ASSESSMENT PROCESS?YES ADVANCE DIRECTIVE ADVANCE DIRECTIVE DISCUSSED WITH PATIENT:YES HCP - SAM KAUR [phone] REVIEW OF SYSTEMS CONSTITUTIONAL: ANY RECENT FEVER NO, NO . CHILLS NO, NO . WEIGHT CHANGE OF UNKNOWN REASONS NO, NO . GASTROENTEROLOGY: NEW UNEXPLAINABLE CHANGES IN BOWEL CONTROL NO, NO . CONSTIPATION NO, NO . GENITOURINARY: ANY NEW CHANGE IN BLADDER CONTROL? NO, NO . NEUROLOGY: NEW ONSET DIZZINESS OR NEUROLOGICAL CHANGES NOT MENTIONED NO, NO . NEW NUMBNESS OR PAIN PATTERNS NOT MENTIONED AND PERTINENT TO TODAY'S VISIT NO, NO . CARDIOLOGY: NEW CHEST PRESSURE NO, NO . PATIENT DENIES NO, NO . RESPIRATORY: UNEXPLAINABLE COUGH NO, NO . NEW SHORTNESS OF BREATH NO, NO . VITAL SIGNS WT 159 LBS, HT 66 IN, BMI 25.66 INDEX, BP 139/63 MM HG, HR 82 /MIN, RR 16 /MIN, TEMP 96.7 F, OXYGEN SAT % 98%, SAFE IN ENV? (Y/N) YEST.SHELIA PATIÑO. EXAMINATION GENERAL EXAMINATION: GENERALNO ACUTE DISTRESS, WELL NOURISHED AND HYDRATED. PSYCHAPPROPRIATE MOOD AND AFFECT . LUNGS:CLEAR TO AUSCULTATION BILATERALLY, NO WHEEZES, RHONCHI, RALES. HEART:NO MURMURS, REGULAR RATE AND RHYTHM. ASSESSMENTS LUMBOSACRAL RADICULOPATHY - M54.17 (PRIMARY), RISK: (NULL) CHRONIC PRESCRIPTION OPIATE USE - Z79.891 TREATMENT LUMBOSACRAL RADICULOPATHY NOTES: 64-YEAR-OLD FEMALE IN FOR CHRONIC PAIN FOLLOW-UP. GIVEN PRESENTING SYMPTOMS RECOMMENDED CONTINUATION OF CURRENT MEDICATION REGIMEN WITH FOLLOW-UP IN 3 MONTHS. PATIENT HAS EXPRESSED UNDERSTANDING OF AND WAS IN AGREEMENT WITH TREATMENT PLAN. GIVEN TIME TO ASK QUESTIONS AND EXPRESS CONCERNS. , ISTOP REGISTRY REVIEWED AND DEMONSTRATES COMPLLIANCE. (REF # [id number] ) BRINGS IN MEDICATIONS WHICH IS APPROPRIATE FOR WHAT WAS DISPENSED. RECENT URINE TOXICOLOGY REVIEWED. NO UNAUTHORIZED MEDICATIONS. NO ILLICIT SUBSTANCES AND PRESCRIBED MEDICATIONS WERE PRESENT. CHRONIC PRESCRIPTION OPIATE USE LAB: URINE TEST GROUP ANNIA BASS 06/18/2020 2:29:32 PM > LAST DOSE : OXYCODONE 06/18/2020, ROBAXIN 06/18/2020 PROCEDURE CODES FA211 ESTABILISHED PATIENT [facility] CHARGE DISPOSITION & COMMUNICATION FOLLOW UP 3 MONTHS (REASON: LOW BACK PAIN ) ELECTRONICALLY SIGNED BY LUZ LOVELL ON 06/19/2020 AT 12:58 PM EDT DISCLAIMER : THIS IS A VISIT SUMMARY EXTRACTED FROM THE [employer] CHART. IT IS NOT A COPY OF THE [employer] PROGRESS NOTE. LUDWIN
== END ==
LOC: M PAIN 13:45
PROVIDERS: ATTEND Family Medicine
DX: M54.17 Radiculopathy, lumbosacral region (principal); I10 Essential (primary) hypertension; E03.9 Hypothyroidism, unspecified; F41.9 Anxiety disorder, unspecified; F32.9 Major depressive disorder, single episode, unspecified; K21.9 Gastro-esophageal reflux disease without esophagitis; I48.91 Unspecified atrial fibrillation; Z79.891 Long term (current) use of opiate analgesic; Z79.899 Other long term (current) drug therapy; Z88.8 Allergy status to other drugs, medicaments and biological substances

== ENCOUNTER → 2020-06-19 | Outpatient (CLI) | payer MEDICARE | LOC: M LABSMTC 12:54 | PROVIDERS: ATTEND Physical Medicine & Rehabilitation | DX: Z20.822 Contact with and (suspected) exposure to COVID-19 (principal); M54.5 Low back pain ==

== ENCOUNTER → 2020-07-03 | Outpatient (CLI) | payer MEDICARE | LOC: M LABSMTC 12:54 | PROVIDERS: ATTEND Physical Medicine & Rehabilitation | DX: Z11.59 Encounter for screening for other viral diseases (principal); Z20.822 Contact with and (suspected) exposure to COVID-19 ==

== ENCOUNTER → 2020-09-17 | Outpatient (CLI) | payer MEDICARE, BC ==
--- NOTE | 2020-09-19 06:54 | ECWPNPC ---
PATIENT NAME: PRO REY : 1955 GENDER: FEMALE VISIT DATE: 09/17/2020 DISCHARGE DATE: 09/17/20 1402 VISIT LOCKED DATE TIME: PHYSICIAN: CARSON GARAY RESOURCE: CARSON GARAY REASON FOR APPOINTMENT 1. LOW BACK PAIN HISTORY OF PRESENT ILLNESS DEPRESSION SCREENING: PHQ-2 (2015 EDITION) LITTLE INTEREST OR PLEASURE IN DOING THINGS?NOT AT ALL FEELING DOWN, DEPRESSED, OR HOPELESS?SEVERAL DAYS TOTAL SCORE1 GENERAL: HPI 64-YEAR-OLD FEMALE IN FOR CHRONIC PAIN FOLLOW-UP. SHE RATES HER PAIN CURRENTLY AT A 5 OUT OF 10 AND DESCRIBES IT ACHING, CONTINUOUS, AND SHARP. PATIENT FEELS HER MEDICATIONS ARE HELPFUL AND DENIES MED SIDE EFFECTS AT THIS TIME.. -. FALL RISK SCREENING: SCREENING : NO FALLS REPORTED IN THE LAST YEAR. PAIN SCREENING: PATIENT HAS A COMPLAINT OF ACUTE OR CHRONIC PAIN :YES LOCATION OF PAIN:LOW BACK INTENSITY OF PAIN (SCALE OF 1 TO 10):5 AVERAGE IS 5. VARIES IN INTENSITY WHAT DOES YOUR PAIN FEEL LIKE:ACHING, CONTINOUS, SHARP DURATION:CONTINOUS, CONSTANT PAIN IS INCREASED BY:ACTIVITIES, PROLONGED STANDING PAIN IS DECREASED BY:USE OF PAIN MEDICATIONS, SITTING REPOSITIONING, HEATING PAD NURSING NOTE: -. PAIN CENTER INTAKE QUESTIONS: DO YOU HAVE A HISTORY OF MRSA? :NO DO YOU TAKE A BLOOD THINNERS? :YES XARALTO FOR A-FIB DO YOU HAVE ANY BLEEDING DISORDERS? :NO ANY NEW NUMBNESS OR WEAKNESS IN YOUR LEGS OR ARMS? :NO ANY PACEMAKER,DEFIBRILLATOR, OR DORSAL COLUMN STIMULATOR? :NO DO YOU HAVE ANY RASHES OR OPEN SORES? :NO ARE YOU ALLERGIC TO IV DYE? :NO ARE YOU DIABETIC? :NO ANY NEW PROBLEMS WITH YOUR MEDICATIONS? :NO HAVE YOU RECEIVED A VACCINE IN THE PAST 30 DAYS? :YES 2ND COVID 05/27/2020 DO YOU PLAN TO RECEIVE A VACCINE IN THE NEXT 21 DAYS? :NO DO YOU NEED ANY PRESCRIPTION? :YES ROBAXIN 90 DAY DO YOU TAKE ANY IMMUNOSUPPRESSIVE MEDICATIONS? :NO IS THERE A CHANCE YOU COULD BE ? :NO ARE YOU BREAST FEEDING? :NO CURRENT MEDICATIONS TAKING CALCIUM 600/VITAMIN D 600-400 MG-UNIT TABLET 1 TABLET WITH A MEAL ORALLY ONCE A DAY TAKING LEVOTHYROXINE SODIUM 50 MCG TABLET 1 TABLET ORALLY ONCE A DAY TAKING BUSPIRONE HCL 10 MG TABLET 1 TABLET ORALLY TWICE A DAY TAKING ZYRTEC 10 MG TABLET 1 TABLET NEEDED ORALLY ONCE A DAY TAKING ZOLOFT 100 MG TABLET 1 TABLET ORALLY ONCE A DAY TAKING TRAZODONE HCL 100 MG TABLET 1 TABLET AT BEDTIME ORALLY ONCE A DAY TAKING FEMHRT 1/5 1-5 MG - MCG TABS ORALLY DAILY TAKING PROTONIX 40 MG TABLET DELAYED RELEASE 1 TAB ORALLY ONCE A DAY TAKING METOPROLOL SUCCINATE ER 200 MG TABLET EXTENDED RELEASE 24 HOUR 1 TABLET ORALLY ONCE A DAY TAKING XARELTO 20 MG TABLET 1 TABLET WITH FOOD ORALLY ONCE A DAY TAKING LOSARTAN POTASSIUM 50 MG TABLET 1 TABLET ORALLY ONCE A DAY TAKING ONDANSETRON 4 MG TABLET DISINTEGRATING 1 TABLET ON THE TONGUE AND ALLOW TO DISSOLVE ORALLY DAILY NEEDED FOR NAUSEA TAKING OXYCODONE HCL 10 MG TABLET 1 TABLET NEEDED ORALLY EVERY 8 HRS NEEDED MDD 3 TAKING ROBAXIN-750 750 MG TABLET 1/2 TABLET ORALLY AT NIGHT NEEDED NOT-TAKING BYSTOLIC 10 MG TABLET 1 TABLET ORALLY ONCE A DAY NOT-TAKING POTASSIUM CHLORIDE CR 10 MEQ TABLET ORALLY DAILY NOT-TAKING VICODIN 5/325 TABLET 1 TABLET NEEDED ORALLY EVERY 4 HRS NOT-TAKING CYCLOBENZAPRINE HCL 5 MG TABLET 1 TABLET ORALLY THREE TIMES A DAY NOT-TAKING NITROFURANTOIN MONOHYD MACRO 100 MG CAPSULE 1 CAPSULE WITH FOOD ORALLY EVERY 12 HRS NOT-TAKING BACTRIM DS 800-160 MG TABLET 1 TABLET ORALLY ONCE A DAY MEDICATION LIST REVIEWED AND RECONCILED WITH THE PATIENT PAST MEDICAL HISTORY HTN HYPOTHYROIDISM ARTHRITIS CHRONIC NECK AND BACK PAIN ANXIETY/DEPRESSION HEART LOOP MONITER TO LEFT CHEST GERD A FIB RECURRENT UTI ALLERGIES IODINE: HIVES - ALLERGY TIZANIDINE HCL: CONFUSION - SIDE EFFECTS SOCIAL HISTORY GENERAL: TOBACCO USE ARE YOU A:NONSMOKER LATEX QUESTIONNAIRE LATEX ALLERGY : HAVE YOU EVER DEVELOPED ANY TYPE OF REACTION AFTER HANDLING LATEX PRODUCTS SUCH RUBBER GLOVES, CONDOMS, DIAPHRAGMS, BALLOONS, SOCKS, OR UNDERWEAR?NO LATEX ALLERGY : HAVE YOU EVER DEVELOPED ANY TYPE OF REACTION DURING OR AFTER DENTAL APPOINTMENT, VAGINAL/RECTAL EXAMINATION, SURGICAL PROCEDURE, OR ANY OTHER EXPOSURE?NO LATEX RISK : HAVE YOU EVER HAD ANY DIFFICULTY BREATHING OR HIVES AFTER EATING OR HANDLING ANY FRUITS, OR VEGETABLES; SUCH KIWI, BANANAS, STONE FRUITS, OR CHESTNUTSNO LATEX RISK : DO YOU HAVE A PREVIOUS PERSONAL HISTORY OF MORE THAN NINE SURGERIES, SPINA BIFIDA, OR REPEATED CATHERIZATIONS? NO LATEX RISK : ARE YOU FREQUENTLY EXPOSED TO LATEX PRODUCTS IN YOUR OCCUPATION?NO DATE ASKED : 09/17/2020 ALCOHOL USE: OCCASIONAL. ALCOHOL SCREENING DID YOU HAVE A DRINK CONTAINING ALCOHOL IN THE PAST YEAR?YES HOW MANY DRINKS DID YOU HAVE ON A TYPICAL DAY WHEN YOU WERE DRINKING IN THE PAST YEAR?3 OR 4 (1 POINT) HOW OFTEN DID YOU HAVE A DRINK CONTAINING ALCOHOL IN THE PAST YEAR?MONTHLY OR LESS (1 POINT) POINTS2 INTERPRETATIONNEGATIVE RECREATIONAL DRUG USE DRUG USE?NO CAFFEINE CAFFEINE USE?YES HOW OFTEN AND HOW MUCH? 1 CUP COFFEE PER DAY IN THE AM MU-ISM [id number] RASTAFARIAN NO RASTAFARI BELIEFS THAT WOULD IMPACT HEALTH CARE. LANGUAGE LANGUAGES SPOKEN:GUINEAN EDUCATION LEVEL OF EDUCATION:FINISHED COLLEGE LEARNING BARRIERS / SPECIAL NEEDS CHANGE FROM LAST VISIT?NO BARRIERS TO LEARNING?NO HEARING IMPAIRED?NO VISION IMPAIRED?YES :CORRECTIVE LENSES READING GLASSES ONLY COGNITIVELY IMPAIRED?NO READINESS TO LEARN?YES LEARNING PREFERENCES?NO LEARNING CAPABILITIES PRESENT?YES EMOTIONAL BARRIERS?NO SPECIAL DEVICES?NO RESERVOIR ENGINEERING ADVISOR NEEDED?NO DIET: GASTRIC BYPASS DIET SEVERAL SMALL MEALS (5-6 TIMES) PER DAY. - PFS REFERRAL NEEDED?NO CLERGY REFERRAL NEEDED?NO PUBLIC HEALTH REFERRAL NEEDED?NO HAS THE PATIENT BEEN EDUCATED REGARDING HIS/HER PLAN OF CARE?YES HAS THE PATIENT BEEN EDUCATED REGARDING PAIN, THE RISK FOR PAIN, THE IMPORTANCE OF EFFECTIVE PAIN MANAGEMENT, AND THE PAIN ASSESSMENT PROCESS?YES ADVANCE DIRECTIVE ADVANCE DIRECTIVE DISCUSSED WITH PATIENT:YES HCP - SAM KAUR [phone] REVIEW OF SYSTEMS CONSTITUTIONAL: ANY RECENT FEVER NO . CHILLS NO . WEIGHT CHANGE OF UNKNOWN REASONS NO . GASTROENTEROLOGY: NEW UNEXPLAINABLE CHANGES IN BOWEL CONTROL NO . CONSTIPATION NO . GENITOURINARY: ANY NEW CHANGE IN BLADDER CONTROL? NO . NEUROLOGY: NEW ONSET DIZZINESS OR NEUROLOGICAL CHANGES NOT MENTIONED NO . NEW NUMBNESS OR PAIN PATTERNS NOT MENTIONED AND PERTINENT TO TODAY'S VISIT NO . CARDIOLOGY: NEW CHEST PRESSURE NO . PATIENT DENIES NO . RESPIRATORY: UNEXPLAINABLE COUGH NO . NEW SHORTNESS OF BREATH NO . VITAL SIGNS WT 164.8 LBS, HT 66 IN, BMI 26.60 INDEX, BP 133/61 MM HG, HR 73 /MIN, RR 18 /MIN, TEMP 98.2 F, OXYGEN SAT % 98%, SAFE IN ENV? (Y/N) YES, NA INITIALS SC 13:40, REVIEWED BY: MEE LANG MA. EXAMINATION GENERAL EXAMINATION: GENERALNO ACUTE DISTRESS, WELL NOURISHED AND HYDRATED. PSYCHAPPROPRIATE MOOD AND AFFECT . LUNGS:CLEAR TO AUSCULTATION BILATERALLY, NO WHEEZES, RHONCHI, RALES. HEART:NO MURMURS, REGULAR RATE AND RHYTHM. ASSESSMENTS LUMBOSACRAL RADICULOPATHY - M54.17 TREATMENT LUMBOSACRAL RADICULOPATHY REFILL ROBAXIN-750 TABLET, 750 MG, 1/2 TABLET, ORALLY, AT NIGHT NEEDED, 30 DAYS, 30, REFILLS 2 NOTES: 64-YEAR-OLD FEMALE IN FOR CHRONIC PAIN FOLLOW-UP. GIVEN PRESENTING SYMPTOMS RECOMMEND CONTINUATION OF CURRENT MEDICATION REGIMEN WITH FOLLOW-UP IN 3 MONTHS. PATIENT HAS EXPRESSED UNDERSTANDING OF AND WAS IN AGREEMENT WITH TREATMENT PLAN. GIVEN TIME TO ASK QUESTIONS AND EXPRESS CONCERNS. ISTOP REGISTRY REVIEWED AND DEMONSTRATES COMPLLIANCE. (REF #[id number] ) BRINGS IN MEDICATIONS WHICH IS APPROPRIATE FOR WHAT WAS DISPENSED. RECENT URINE TOXICOLOGY REVIEWED. NO UNAUTHORIZED MEDICATIONS. NO ILLICIT SUBSTANCES AND PRESCRIBED MEDICATIONS WERE PRESENT. PROCEDURE CODES FA211 ESTABILISHED PATIENT [facility] CHARGE DISPOSITION & COMMUNICATION FOLLOW UP 3 MONTHS (REASON: BACK PAIN) ELECTRONICALLY SIGNED BY LUZ LOVELL ON 09/18/2020 AT 08:57 AM EDT DISCLAIMER : THIS IS A VISIT SUMMARY EXTRACTED FROM THE [employer] CHART. IT IS NOT A COPY OF THE [employer] PROGRESS NOTE. LUDWIN
== END ==
LOC: M PAIN 13:30
PROVIDERS: ATTEND Family Medicine
DX: M54.17 Radiculopathy, lumbosacral region (principal); I10 Essential (primary) hypertension; E03.9 Hypothyroidism, unspecified; F41.9 Anxiety disorder, unspecified; F32.9 Major depressive disorder, single episode, unspecified; K21.9 Gastro-esophageal reflux disease without esophagitis; I48.91 Unspecified atrial fibrillation; Z87.440 Personal history of urinary (tract) infections; Z79.01 Long term (current) use of anticoagulants; Z79.899 Other long term (current) drug therapy; Z88.8 Allergy status to other drugs, medicaments and biological substances

== ENCOUNTER → 2020-09-18 | Outpatient (REF) | payer MEDICARE, BC ==
[2020-09-18 11:51] LABS: APPEARANCE, URINE CLEAR (CLEAR); BACTERIA, URINE AUTO NEGATIVE (NEGATIVE); BILIRUBIN, URINE AUTO NEGATIVE (NEGATIVE); BLOOD, URINE BLOOD 2+ (NEGATIVE); CALCIUM OXALATE CRYSTALS SMALL; COLOR, URINE YELLOW (YELLOW); GLUCOSE, URINE (UA) AUTO NEGATIVE (NEGATIVE); KETONE, URINE AUTO NEGATIVE (NEGATIVE); LEUKOCYTE ESTERASE, URINE AUTO NEGATIVE (NEGATIVE); NITRITE, URINE AUTO NEGATIVE (NEGATIVE); PROTEIN, URINE AUTO NEGATIVE (NEGATIVE); RBC, URINE AUTO 4 /HPF (0-3); SPECIFIC GRAVITY URINE AUTO 1.011 (1.002-1.035); SQUAMOUS EPITHELIAL CELL UR AU 0 /HPF (0-6); UROBILINOGEN, URINE AUTO 0.2 mg/dL (0.0-2.0); WBC, URINE AUTO 0 /HPF (0-3)
[2020-09-18 11:53] LABS: BASO # 0.1 10^3/uL (0.0-0.2); BASO % 1.7 % (0.0-1.0); EOS # 0.3 10^3/uL (0.0-0.5); EOS % 5.1 % (0.0-3.0); HEMATOCRIT 37.2 % (36.0-47.0); HEMOGLOBIN 12.2 g/dl (12.0-15.5); LYMPH # 3.1 10^3/uL (1.5-5.0); LYMPH % 51.6 % (24.0-44.0); MEAN CORPUSCULAR HEMOGLOBIN 30.7 pg (27.0-33.0); MEAN CORPUSCULAR HGB CONC 32.8 g/dl (32.0-36.5); MEAN CORPUSCULAR VOLUME 93.5 fl (80.0-96.0); MONO # 0.5 10^3/uL (0.0-0.8); MONO % 8.6 % (2.0-8.0); NEUTROPHILS # 1.9 10^3/uL (1.5-8.5); NEUTROPHILS % 32.7 % (36.0-66.0); PLATELET COUNT, AUTOMATED 431 10^3/uL (150-450); RED BLOOD COUNT 3.98 10^6/uL (4.00-5.40); WHITE BLOOD COUNT 5.9 10^3/uL (4.0-10.0)
[2020-09-18 12:16] LABS: ERYTHROCYTE SEDIMENTATION RATE 26 mm/hr (0-30)
[2020-09-18 12:24] LABS: ALBUMIN 3.8 GM/DL (3.2-5.2); ALT/SGPT 18 U/L (12-78); BILIRUBIN,TOTAL 0.3 MG/DL (0.2-1.0); BLOOD UREA NITROGEN 10 MG/DL (7-18); CALCIUM LEVEL 9.7 MG/DL (8.8-10.2); CARBON DIOXIDE LEVEL 28 MEQ/L (21-32); CHLORIDE LEVEL 100 MEQ/L (98-107); COMPLEMENT C3 81 MG/DL (90-180); COMPLEMENT C4 23 MG/DL (10-40); CREATININE FOR GFR 0.53 MG/DL (0.55-1.30); GLOMERULAR FILTRATION RATE > 60.0 (>45); GLUCOSE, FASTING 80 MG/DL (70-100); POTASSIUM SERUM 4.4 MEQ/L (3.5-5.1); SODIUM LEVEL 133 MEQ/L (136-145); TOTAL PROTEIN 6.9 GM/DL (6.4-8.2)
[2020-09-18 12:25] LABS: CREATININE,RANDOM URINE 44.6 MG/DL
== END ==
LOC: M SFHCRHEU 08:56
PROVIDERS: ATTEND Internal Medicine Rheumatology
DX: R76.8 Other specified abnormal immunological findings in serum (principal); I73.00 Raynaud's syndrome without gangrene
CPT/HCPCS: 80053; 81001; 82570; 84156; 85025; 85652; 86140; 86160; G0463

== ENCOUNTER → 2020-10-02 | Outpatient (CLI) | payer BC, MEDICARE ==
[~2020-10-02] MED LIST changes: -CEFD1CAP8 PO; +CEFD300C41 PO
== END ==
LOC: M WUC 15:41
PROVIDERS: ATTEND Internal Medicine Rheumatology
DX: R76.8 Other specified abnormal immunological findings in serum (principal)

== ENCOUNTER → 2020-12-18 | Outpatient (CLI) | payer MEDICARE ==
[~2020-12-18] MED LIST changes: +CEFD1CAP8 PO; -CEFD300C41 PO
== END ==
LOC: M PAIN 13:30
PROVIDERS: ATTEND Anesthesiology
DX: M51.16 Intervertebral disc disorders with radiculopathy, lumbar region (principal); I10 Essential (primary) hypertension; E03.9 Hypothyroidism, unspecified; F41.9 Anxiety disorder, unspecified; F32.A Depression, unspecified; K21.9 Gastro-esophageal reflux disease without esophagitis; I48.91 Unspecified atrial fibrillation; Z79.01 Long term (current) use of anticoagulants; Z79.899 Other long term (current) drug therapy; Z79.891 Long term (current) use of opiate analgesic; Z88.8 Allergy status to other drugs, medicaments and biological substances

== ENCOUNTER → 2021-05-11 | Outpatient (CLI) | payer MEDICARE ==
[~2021-05-11] MED LIST changes: -CEFD1CAP8 PO; +CEFD300C41 PO
[2021-05-11 17:01] LABS: HEMATOCRIT 37.5 % (36.0-47.0); HEMOGLOBIN 12.6 g/dl (12.0-15.5); MEAN CORPUSCULAR HEMOGLOBIN 31.1 pg (27.0-33.0); MEAN CORPUSCULAR HGB CONC 33.6 g/dl (32.0-36.5); MEAN CORPUSCULAR VOLUME 92.6 fl (80.0-96.0); PLATELET COUNT, AUTOMATED 368 10^3/uL (150-450); RED BLOOD COUNT 4.05 10^6/uL (4.00-5.40); WHITE BLOOD COUNT 7.1 10^3/uL (4.0-10.0)
[2021-05-11 17:17] LABS: ALBUMIN 3.6 GM/DL (3.2-5.2); ALT/SGPT 13 U/L (12-78); BILIRUBIN,TOTAL 0.4 MG/DL (0.2-1.0); BLOOD UREA NITROGEN 12 MG/DL (7-18); CALCIUM LEVEL 9.6 MG/DL (8.8-10.2); CARBON DIOXIDE LEVEL 27 MEQ/L (21-32); CHLORIDE LEVEL 98 MEQ/L (98-107); CREATININE FOR GFR 0.88 MG/DL (0.55-1.30); GLOMERULAR FILTRATION RATE > 60.0 (>45); GLUCOSE, FASTING 87 MG/DL (70-100); MAGNESIUM LEVEL 1.6 MG/DL (1.8-2.4); NT-PRO BNP 1481 PG/ML (<125); POTASSIUM SERUM 3.8 MEQ/L (3.5-5.1); SODIUM LEVEL 132 MEQ/L (136-145)
== END ==
LOC: M RAD 15:12
PROVIDERS: ATTEND Internal Medicine Cardiovascular Disease
DX: R06.09 Other forms of dyspnea (principal)

== ENCOUNTER 2021-12-14 15:17 | Inpatient (IN) | payer MEDICARE ==
[~2021-12-14] VITALS: Ht 165.1 cm; Wt 70.5 kg
[~2021-12-14 15:17] MED LIST changes: +LEVO1TAB40 PO; -LEVO750T13 PO
[2021-12-14] MEDS ORDERED: NS 1,000 ML IV ONE (19:05)
[2021-12-14] MEDS ORDERED: ONDANSETRON 4MG 2ML VIAL IV ONE (19:05)
[2021-12-14 19:56] LABS: BASO % 0.3 % (0.0-1.0); EOS % 0.1 % (0.0-3.0); HEMATOCRIT 45.5 % (36.0-47.0); LYMPH # 1.6 10^3/uL (1.5-5.0); LYMPH % 14.1 % (24.0-44.0); MEAN CORPUSCULAR HEMOGLOBIN 31.3 pg (27.0-33.0); MEAN CORPUSCULAR HGB CONC 35.2 g/dl (32.0-36.5); MONO # 0.7 10^3/uL (0.0-0.8); MONO % 5.8 % (2.0-8.0); NEUTROPHILS # 8.9 10^3/uL (1.5-8.5); NEUTROPHILS % 79.3 % (36.0-66.0); PLATELET COUNT, AUTOMATED 451 10^3/uL (150-450); RED BLOOD COUNT 5.11 10^6/uL (4.00-5.40); WHITE BLOOD COUNT 11.2 10^3/uL (4.0-10.0)
[2021-12-14 20:09] LABS: CALCIUM LEVEL 9.6 MG/DL (8.8-10.2); CREATININE FOR GFR 1.11 MG/DL (0.55-1.30); GLOMERULAR FILTRATION RATE 52.4 (>45)
[2021-12-14 20:13] LABS: ALBUMIN 4.2 GM/DL (3.2-5.2); BILIRUBIN,DIRECT 0.4 MG/DL (0.0-0.2); TOTAL PROTEIN 7.7 GM/DL (6.4-8.2)
[2021-12-14] MEDS ORDERED: ACETAMINOPHEN TAB 650MG DOSE (2X325MG) PO ONE (21:10)
[2021-12-14] MEDS: NS 1,000 ML IV SCH (21:40)
[2021-12-14] MEDS ORDERED: ONDANSETRON 4MG 2ML VIAL IV PRN (21:50)
[2021-12-14] MEDS ORDERED: SOTA80TA32 PO (22:47)
[2021-12-14] MEDS ORDERED: ACID1TAB PO (22:47)
[2021-12-14] MEDS ORDERED: BIOT1CAP3 PO (22:47)
[2021-12-14] MEDS ORDERED: FURO20TA2 PO (22:47)
[2021-12-14] MEDS ORDERED: ferrous sulfate PO (22:47)
[2021-12-14] MEDS ORDERED: MULT1TAB7 PO (22:47)
[2021-12-14] MEDS ORDERED: ALL10TAB3 PO (22:47)
[2021-12-14] MEDS ORDERED: LOSA50TA28 PO (22:47)
[2021-12-14] MEDS ORDERED: vitamin d3 PO (22:47)
[2021-12-14] MEDS ORDERED: OXYC10TA12 PO (22:47)
[2021-12-14] MEDS ORDERED: RALO1TAB PO (22:47)
[2021-12-14] MEDS ORDERED: METO200T28 PO (22:47)
[2021-12-14] MEDS ORDERED: PANT40TA29 PO (22:47)
[2021-12-14] MEDS ORDERED: D 1010004 PO (22:57)
[2021-12-14] MEDS ORDERED: FERR1TAB8 PO (22:57)
[2021-12-14] MEDS ORDERED: PATIENT COMMENT (22:59)
[2021-12-14] MEDS ORDERED: HOME MED LIST COMPLETE! XX SCH (23:00)
[2021-12-14] MEDS ORDERED: cefTRIAXone SOD 1 GM in D5W MINI-BAG PLUS 50 ML IV SCH (23:00)
[2021-12-14] MEDS ORDERED: PROCHLORPERAZINE 10MG 2ML VIAL IV PRN (23:20)
[2021-12-14 23:31] LABS: PROTHROMBIN TIME 13.4 SECONDS (12.5-14.5)
[2021-12-14 23:32] LABS: PARTIAL THROMBOPLASTIN TIME 27.1 SECONDS (24.8-34.2)
[2021-12-14 23:34] LABS: FREE T4 1.34 NG/DL (0.76-1.46); MAGNESIUM LEVEL 1.4 MG/DL (1.8-2.4); THYROID STIMULATING HORMONE 0.977 uIU/ML (0.358-3.740)
[2021-12-15] MEDS ORDERED: METOPROLOL SUCC (TopROL XL) 100MG *XL* TAB PO ONE
[2021-12-15] MEDS: oxyCODONE 5MG TAB PO PRN ×2 (00:06→21:46)
[2021-12-15] MEDS: RIVAROXABAN 20MG TAB (XARELTO) PO SCH ×2 (00:07→17:35)
[2021-12-15 00:57] LABS: CREATININE,RANDOM URINE 82.3 MG/DL
[2021-12-15] MEDS: SOTALOL HCL 80 MG TAB PO SCH ×4 (01:00→22:59)
[2021-12-15 01:14] LABS: BLOOD UREA NITROGEN 12 MG/DL (7-18); CALCIUM LEVEL 8.6 MG/DL (8.8-10.2); CARBON DIOXIDE LEVEL 29 MEQ/L (21-32); CHLORIDE LEVEL 86 MEQ/L (98-107); CREATININE FOR GFR 0.86 MG/DL (0.55-1.30); GLOMERULAR FILTRATION RATE > 60.0 (>45); GLUCOSE, FASTING 110 MG/DL (70-100); SODIUM LEVEL 123 MEQ/L (136-145)
[2021-12-15] MEDS: MAG SULF 1GM/100ML (MAG RUN) 1 GM in IV 1 EA IV SCH ×2 (03:00→05:00)
[2021-12-15] MEDS ORDERED: POTASSIUM CHLORIDE 10MEQ SR TABLET PO ONE (03:00)
[2021-12-15] MEDS ORDERED: ONDANSETRON 4MG 2ML VIAL IV PRN (03:00)
[2021-12-15] MEDS: LEVOTHYROXINE 50MCG TABLET (0.05MG) PO SCH (05:59)
[2021-12-15] MEDS ORDERED: METOCLOPRAMIDE INJ 10MG/2ML VIAL (J2765 PER 1) IV PRN (06:00)
[2021-12-15] MEDS: NS 1,000 ML IV SCH (07:10)
[2021-12-15 08:23] LABS: HEMATOCRIT 36.3 % (36.0-47.0); MEAN CORPUSCULAR HEMOGLOBIN 31.3 pg (27.0-33.0); MEAN CORPUSCULAR HGB CONC 34.4 g/dl (32.0-36.5); PLATELET COUNT, AUTOMATED 301 10^3/uL (150-450); RED BLOOD COUNT 3.99 10^6/uL (4.00-5.40); WHITE BLOOD COUNT 8.6 10^3/uL (4.0-10.0)
[2021-12-15 08:27] LABS: HEMOGLOBIN 12.5 g/dl (12.0-15.5)
[2021-12-15] MEDS: POTASSIUM CHLORIDE 10MEQ SR TABLET PO SCH (08:38)
[2021-12-15] MEDS: PANTOPRAZOLE 40MG TAB (PROTONIX) PO SCH (08:38)
[2021-12-15] MEDS: metroNIDAZOLE 500 MG in IV 1 EA IV SCH ×5 (08:38→23:58)
[2021-12-15 09:08] LABS: ALT/SGPT 10 U/L (12-78); BILIRUBIN,TOTAL 0.5 MG/DL (0.2-1.0); BLOOD UREA NITROGEN 11 MG/DL (7-18); CALCIUM LEVEL 8.5 MG/DL (8.8-10.2); CARBON DIOXIDE LEVEL 29 MEQ/L (21-32); CHLORIDE LEVEL 89 MEQ/L (98-107); CREATININE FOR GFR 0.84 MG/DL (0.55-1.30); GLOMERULAR FILTRATION RATE > 60.0 (>45); GLUCOSE, FASTING 101 MG/DL (70-100); MAGNESIUM LEVEL 2.1 MG/DL (1.8-2.4); POTASSIUM SERUM 3.3 MEQ/L (3.5-5.1); SODIUM LEVEL 125 MEQ/L (136-145); TOTAL PROTEIN 5.8 GM/DL (6.4-8.2)
[2021-12-15 12:52] LABS: BLOOD UREA NITROGEN 10 MG/DL (7-18); CALCIUM LEVEL 8.6 MG/DL (8.8-10.2); CARBON DIOXIDE LEVEL 29 MEQ/L (21-32); CHLORIDE LEVEL 92 MEQ/L (98-107); CREATININE FOR GFR 0.79 MG/DL (0.55-1.30); GLOMERULAR FILTRATION RATE > 60.0 (>45); GLUCOSE, FASTING 107 MG/DL (70-100); POTASSIUM SERUM 4.2 MEQ/L (3.5-5.1); SODIUM LEVEL 126 MEQ/L (136-145)
[2021-12-15 13:13] VITALS: BP 147/82
[2021-12-15 14:00] VITALS: BP 137/75
[2021-12-15] MEDS: METOPROLOL SUCC (TopROL XL) 100MG *XL* TAB PO SCH (15:00)
[2021-12-15] MEDS: SODIUM CHLORIDE 1 GM TAB PO SCH ×2 (15:09→21:46)
[2021-12-15 19:37] VITALS: BP 140/70
[2021-12-15] MEDS ORDERED: RAMELTEON 8 MG TAB (ROZEREM) PO PRN (19:45)
[2021-12-15 19:55] LABS: BLOOD UREA NITROGEN 11 MG/DL (7-18); CALCIUM LEVEL 8.5 MG/DL (8.8-10.2); CARBON DIOXIDE LEVEL 25 MEQ/L (21-32); CHLORIDE LEVEL 97 MEQ/L (98-107); CREATININE FOR GFR 0.88 MG/DL (0.55-1.30); GLOMERULAR FILTRATION RATE > 60.0 (>45); GLUCOSE, FASTING 145 MG/DL (70-100); POTASSIUM SERUM 4.2 MEQ/L (3.5-5.1); SODIUM LEVEL 130 MEQ/L (136-145)
[2021-12-15] MEDS ORDERED: TEMAZEPAM 7.5 MG CAP PO ONE (20:00)
[2021-12-15 21:45] VITALS: BP 106/69
[2021-12-15] MEDS ORDERED: cefTRIAXone SOD 1 GM in D5W MINI-BAG PLUS 50 ML IV SCH (23:00)
[2021-12-16 01:38] LABS: BLOOD UREA NITROGEN 13 MG/DL (7-18); CARBON DIOXIDE LEVEL 27 MEQ/L (21-32); CHLORIDE LEVEL 96 MEQ/L (98-107); CREATININE FOR GFR 0.77 MG/DL (0.55-1.30); GLOMERULAR FILTRATION RATE > 60.0 (>45); GLUCOSE, FASTING 91 MG/DL (70-100); POTASSIUM SERUM 3.8 MEQ/L (3.5-5.1); SODIUM LEVEL 128 MEQ/L (136-145)
[2021-12-16 06:00] VITALS: BP 158/84
[2021-12-16] MEDS: LEVOTHYROXINE 50MCG TABLET (0.05MG) PO SCH (06:11)
[2021-12-16 06:15] LABS: BASO # 0.1 10^3/uL (0.0-0.2); BASO % 1.1 % (0.0-1.0); EOS # 0.3 10^3/uL (0.0-0.5); EOS % 2.9 % (0.0-3.0); HEMATOCRIT 35.1 % (36.0-47.0); LYMPH # 3.1 10^3/uL (1.5-5.0); LYMPH % 35.5 % (24.0-44.0); MEAN CORPUSCULAR HEMOGLOBIN 32.1 pg (27.0-33.0); MEAN CORPUSCULAR HGB CONC 34.2 g/dl (32.0-36.5); MEAN CORPUSCULAR VOLUME 93.9 fl (80.0-96.0); MONO # 0.8 10^3/uL (0.0-0.8); MONO % 9.1 % (2.0-8.0); NEUTROPHILS # 4.4 10^3/uL (1.5-8.5); NEUTROPHILS % 50.8 % (36.0-66.0); PLATELET COUNT, AUTOMATED 318 10^3/uL (150-450); RED BLOOD COUNT 3.74 10^6/uL (4.00-5.40); WHITE BLOOD COUNT 8.8 10^3/uL (4.0-10.0)
[2021-12-16 06:41] LABS: BLOOD UREA NITROGEN 12 MG/DL (7-18); CALCIUM LEVEL 8.4 MG/DL (8.8-10.2); CARBON DIOXIDE LEVEL 25 MEQ/L (21-32); CHLORIDE LEVEL 96 MEQ/L (98-107); CREATININE FOR GFR 0.67 MG/DL (0.55-1.30); GLOMERULAR FILTRATION RATE > 60.0 (>45); GLUCOSE, FASTING 94 MG/DL (70-100); SODIUM LEVEL 128 MEQ/L (136-145)
[2021-12-16] MEDS: SOTALOL HCL 80 MG TAB PO SCH (08:09)
[2021-12-16] MEDS: metroNIDAZOLE 500 MG in IV 1 EA IV SCH (08:09)
[2021-12-16] MEDS: POTASSIUM CHLORIDE 10MEQ SR TABLET PO SCH (08:09)
[2021-12-16] MEDS: SODIUM CHLORIDE 1 GM TAB PO SCH (08:09)
[2021-12-16] MEDS: PANTOPRAZOLE 40MG TAB (PROTONIX) PO SCH (08:09)
[2021-12-16 08:10] VITALS: BP 116/69
[2021-12-16] MEDS: METOPROLOL SUCC (TopROL XL) 100MG *XL* TAB PO SCH (08:10)
[2021-12-16 12:57] LABS: BLOOD UREA NITROGEN 12 MG/DL (7-18); CALCIUM LEVEL 8.5 MG/DL (8.8-10.2); CARBON DIOXIDE LEVEL 25 MEQ/L (21-32); CHLORIDE LEVEL 96 MEQ/L (98-107); GLOMERULAR FILTRATION RATE > 60.0 (>45); GLUCOSE, FASTING 105 MG/DL (70-100); POTASSIUM SERUM 4.5 MEQ/L (3.5-5.1); SODIUM LEVEL 128 MEQ/L (136-145)
[2021-12-16] MEDS ORDERED: METR-265 PO (13:22)
[2021-12-16] MEDS ORDERED: SODI1TAB6 PO (13:22)
[2021-12-16] MEDS ORDERED: CEFD300C41 PO (13:22)
[2021-12-16] MEDS ORDERED: traZODone 100 MG TAB PO SCH (21:00)
== END 2021-12-16 14:40 | disposition home or self-care (01) | DRG 644 ==
LOC: M ED 15:17 → M ED INP 21:50 → ENRESERV 12-15 11:59 → M MSPAV 12-15 12:45
PROVIDERS: ADMIT Internal Medicine; ATTEND Internal Medicine Nephrology
DX: E22.2 Syndrome of inappropriate secretion of antidiuretic hormone (principal); K57.32 Diverticulitis of large intestine without perforation or abscess without bleeding; I48.91 Unspecified atrial fibrillation; I10 Essential (primary) hypertension; E03.9 Hypothyroidism, unspecified; J30.2 Other seasonal allergic rhinitis; F32.A Depression, unspecified; K21.9 Gastro-esophageal reflux disease without esophagitis; A08.4 Viral intestinal infection, unspecified; M54.9 Dorsalgia, unspecified; M48.00 Spinal stenosis, site unspecified; E87.6 Hypokalemia; K44.9 Diaphragmatic hernia without obstruction or gangrene; E83.42 Hypomagnesemia; Z98.84 Bariatric surgery status; Z96.642 Presence of left artificial hip joint; Z98.49 Cataract extraction status, unspecified eye; Z79.890 Hormone replacement therapy; Z79.01 Long term (current) use of anticoagulants; Z79.899 Other long term (current) drug therapy; Z88.8 Allergy status to other drugs, medicaments and biological substances; Z91.013 Allergy to seafood

== ENCOUNTER → 2022-01-27 | Outpatient (CLI) | payer MEDICARE ==
[~2022-01-27] MED LIST changes: +ACID1TAB PO; +ALL10TAB3 PO; +BIOT1CAP3 PO; +D 1010004 PO; +FERR1TAB8 PO; +FURO20TA2 PO; +LOSA50TA28 PO; +METO200T28 PO; +METR-265 PO; +MULT1TAB7 PO; +OXYC10TA12 PO; +PANT40TA29 PO; +PATIENT COMMENT; +RALO1TAB PO; +SODI1TAB6 PO; +SOTA80TA32 PO; +ferrous sulfate PO; +vitamin d3 PO
== END ==
LOC: M PLALAB 14:46
PROVIDERS: ATTEND Advanced Practice Midwife
DX: Z78.9 Other specified health status (principal); N89.8 Other specified noninflammatory disorders of vagina

== ENCOUNTER → 2022-01-27 | Outpatient (CLI) | payer MEDICARE | LOC: M WHC 14:04 | PROVIDERS: ATTEND Advanced Practice Midwife | DX: Z12.31 Encounter for screening mammogram for malignant neoplasm of breast (principal) ==

== ENCOUNTER → 2022-01-27 | Outpatient (CLI) | payer MEDICARE | LOC: M WHC 13:00 | PROVIDERS: ATTEND Advanced Practice Midwife | DX: Z12.31 Encounter for screening mammogram for malignant neoplasm of breast (principal) ==

== ENCOUNTER → 2022-04-12 | Outpatient (CLI) | payer MEDICARE | LOC: M PLAIMG 15:13 | PROVIDERS: ATTEND Anesthesiology Pain Medicine | DX: M48.062 Spinal stenosis, lumbar region with neurogenic claudication (principal) ==

== ENCOUNTER 2022-08-19 09:52 | Day surgery (SDC) | payer MEDICARE ==
[~2022-08-19] VITALS: Ht 154.9 cm; Wt 66.4 kg
[~2022-08-19 09:52] MED LIST changes: -K-TA10TA2 PO; +NS 1,000 ML IV ONE; +POTA-165 PO; +ZYRT10TA12 PO
[2022-08-19] MEDS ORDERED: propofoL 200 MG/20 ML VIAL As Ordered ONE ×2 (11:41→12:27)
[2022-08-19] MEDS ORDERED: LIDOCAINE 2% 100MG/5ML SDV (FOR ANES.) As Ordered ONE (11:41)
[2022-08-19] MEDS ORDERED: fentaNYL 100 MCG/2 ML INJECTION As Ordered ONE (11:43)
[2022-08-19 12:52] VITALS: TEMP 97.5
[2022-08-19 13:22] VITALS: BP 165/86; O2SAT 100
== END 2022-08-19 13:24 | disposition home or self-care (01) ==
LOC: M OPP 09:52
PROVIDERS: ATTEND Internal Medicine Gastroenterology
DX: Z12.11 Encounter for screening for malignant neoplasm of colon (principal); K57.30 Diverticulosis of large intestine without perforation or abscess without bleeding; K64.4 Residual hemorrhoidal skin tags; K64.8 Other hemorrhoids; K31.89 Other diseases of stomach and duodenum; Z98.0 Intestinal bypass and anastomosis status; Z79.01 Long term (current) use of anticoagulants; Z79.52 Long term (current) use of systemic steroids; Z79.811 Long term (current) use of aromatase inhibitors; Z79.891 Long term (current) use of opiate analgesic; Z79.899 Other long term (current) drug therapy; Z88.3 Allergy status to other anti-infective agents; Z91.013 Allergy to seafood
CPT/HCPCS: 43239; 88305; G0121; J3010

== ENCOUNTER 2022-09-29 01:57 | Emergency (ER) | payer MEDICARE ==
[~2022-09-29 01:57] MED LIST changes: -NS 1,000 ML IV ONE
[2022-09-29 03:09] LABS: BASO # 0.1 10^3/uL (0.0-0.2); BASO % 0.8 % (0.0-1.0); EOS # 0.2 10^3/uL (0.0-0.5); EOS % 1.9 % (0.0-3.0); HEMATOCRIT 37.5 % (36.0-47.0); HEMOGLOBIN 12.5 g/dl (12.0-15.5); LYMPH # 1.8 10^3/uL (1.5-5.0); MEAN CORPUSCULAR HEMOGLOBIN 31.2 pg (27.0-33.0); MEAN CORPUSCULAR HGB CONC 33.3 g/dl (32.0-36.5); MEAN CORPUSCULAR VOLUME 93.5 fl (80.0-96.0); MONO # 0.6 10^3/uL (0.0-0.8); MONO % 6.4 % (2.0-8.0); NEUTROPHILS % 69.6 % (36.0-66.0); PLATELET COUNT, AUTOMATED 278 10^3/uL (150-450); RED BLOOD COUNT 4.01 10^6/uL (4.00-5.40); WHITE BLOOD COUNT 8.6 10^3/uL (4.0-10.0)
[2022-09-29 03:25] LABS: BLOOD UREA NITROGEN 12 MG/DL (9-23); CALCIUM LEVEL 8.7 MG/DL (8.3-10.6); CARBON DIOXIDE LEVEL 23 MMOL/L (20-31); CHLORIDE LEVEL 99 MMOL/L (98-107); CREATININE FOR GFR 0.65 MG/DL (0.55-1.30); GLOMERULAR FILTRATION RATE > 60.0 (>45); GLUCOSE, FASTING 89 MG/DL (74-106); POTASSIUM SERUM 4.1 MMOL/L (3.5-5.1); SODIUM LEVEL 131 MMOL/L (136-145)
[2022-09-29 06:38] VITALS: BP 125/72; TEMP 96.9; O2SAT 97
[2022-09-29 07:26] LABS: HEMOGLOBIN A1c 5.3 % (4.0-6.0)
== END 2022-09-29 07:11 | disposition home or self-care (01) ==
LOC: EDBD 01:57 → M ED 01:57
DX: E16.2 Hypoglycemia, unspecified (principal); I10 Essential (primary) hypertension; E03.9 Hypothyroidism, unspecified; I50.20 Unspecified systolic (congestive) heart failure; K21.9 Gastro-esophageal reflux disease without esophagitis; F32.A Depression, unspecified; Z79.01 Long term (current) use of anticoagulants; Z88.8 Allergy status to other drugs, medicaments and biological substances; Z91.013 Allergy to seafood; Z98.84 Bariatric surgery status; Z79.899 Other long term (current) drug therapy

== ENCOUNTER 2023-01-04 15:45 | Observation (INO) | payer MEDICARE ==
[~2023-01-04] VITALS: Ht 157.5 cm; Wt 68.7 kg
[~2023-01-04 15:45] MED LIST changes: -CEFD300C41 PO; +CEFD300C42 PO
[2023-01-04] MEDS ORDERED: METR-265 (16:04)
[2023-01-04] MEDS ORDERED: NS 1,000 ML IV ONE (16:30)
[2023-01-04] MEDS ORDERED: PROMETHAZINE 25MG/ML 1ML VIAL IV ONE (16:30)
[2023-01-04 17:15] LABS: BASO % 0.2 % (0.0-1.0); EOS % 0.2 % (0.0-3.0); HEMATOCRIT 42.6 % (36.0-47.0); HEMOGLOBIN 14.4 g/dl (12.0-15.5); LYMPH # 1.4 10^3/uL (1.5-5.0); LYMPH % 15.5 % (24.0-44.0); MEAN CORPUSCULAR HEMOGLOBIN 31.7 pg (27.0-33.0); MEAN CORPUSCULAR HGB CONC 33.8 g/dl (32.0-36.5); MEAN CORPUSCULAR VOLUME 93.8 fl (80.0-96.0); MONO # 0.5 10^3/uL (0.0-0.8); MONO % 5.3 % (2.0-8.0); NEUTROPHILS % 78.6 % (36.0-66.0); PLATELET COUNT, AUTOMATED 363 10^3/uL (150-450); RED BLOOD COUNT 4.54 10^6/uL (4.00-5.40); WHITE BLOOD COUNT 8.9 10^3/uL (4.0-10.0)
[2023-01-04] MEDS ORDERED: diphenhydrAMINE 50MG/ML VIAL IV ONE (17:25)
[2023-01-04] MEDS ORDERED: methylPREDNISolone 125MG 2ML VIAL IV ONE (17:25)
[2023-01-04 17:34] LABS: LIPASE 22 U/L (12-53)
[2023-01-04 17:36] LABS: ALBUMIN 3.7 G/DL (3.2-5.2); ALKALINE PHOSPHATASE 67 U/L (46-116); ALT/SGPT 11 U/L (7.0-40); AST/SGOT 19 U/L (<34); BILIRUBIN,DIRECT 0.2 MG/DL (<0.4); BILIRUBIN,TOTAL 0.5 MG/DL (0.3-1.2); BLOOD UREA NITROGEN 14 MG/DL (9-23); CALCIUM LEVEL 9.5 MG/DL (8.3-10.6); CARBON DIOXIDE LEVEL 28 MMOL/L (20-31); CHLORIDE LEVEL 91 MMOL/L (98-107); CREATININE FOR GFR 0.66 MG/DL (0.55-1.30); GLOMERULAR FILTRATION RATE > 60.0 (>45); GLUCOSE, FASTING 142 MG/DL (74-106); SODIUM LEVEL 126 MMOL/L (136-145); TOTAL PROTEIN 6.7 G/DL (5.7-8.2)
[2023-01-04] MEDS ORDERED: ISOVUE-370 76% 100ML VIAL As Ordered ONE (18:12)
[2023-01-04] MEDS ORDERED: SOTALOL HCL 80 MG TAB PO ONE (19:00)
[2023-01-04] MEDS ORDERED: NS 1,000 ML IV SCH (19:05)
[2023-01-04 19:14] LABS: MAGNESIUM LEVEL 1.4 MG/DL (1.8-2.4)
[2023-01-04] MEDS ORDERED: ONDANSETRON 4MG 2ML VIAL IV ONE (19:35)
[2023-01-04] MEDS ORDERED: MAG SULF 1GM/100ML (MAG RUN) 1 GM in IV 1 EA IV ONE ×2 (20:10→23:10)
[2023-01-04] MEDS ORDERED: LABETALOL 100MG/20ML VIAL IV STA (20:51)
[2023-01-04 21:05] LABS: CK-MB VALUE MASS 1.6 NG/ML (<3.6)
[2023-01-04 21:06] LABS: CPK CREATINE PHOSPHOKINASE 59 U/L (34-145); MB/CK RELATIVE INDEX 2.71 (< OR =4)
[2023-01-04 21:48] LABS: CK-MB VALUE MASS 1.5 NG/ML (<3.6)
[2023-01-04 22:05] LABS: MB/CK RELATIVE INDEX 2.45 (< OR =4)
[2023-01-04] MEDS ORDERED: PANTOPRAZOLE 40MG VIAL IV ONE (23:10)
[2023-01-04] MEDS: NS 1,000 ML IV SCH (23:34)
[2023-01-04] MEDS ORDERED: METR-265 PO (23:44)
[2023-01-04] MEDS ORDERED: BIMA0.036 OU (23:44)
[2023-01-04] MEDS ORDERED: CETI-24 PO (23:44)
[2023-01-04] MEDS ORDERED: BUSP10TA PO (23:44)
[2023-01-04] MEDS ORDERED: [UNRECOGNIZED DRUG - CODE] PO (23:44)
[2023-01-04] MEDS ORDERED: RISATAB3 PO (23:44)
[2023-01-04] MEDS ORDERED: CLOB0.057 TOP (23:45)
[2023-01-04] MEDS ORDERED: MIRA1POW3 PO (23:45)
[2023-01-04] MEDS ORDERED: KETO2SHA8 TOP (23:45)
[2023-01-04] MEDS ORDERED: OXYC7.5T3 PO (23:49)
[2023-01-04] MEDS ORDERED: MED REC IN PROGRESS XX SCH (23:55)
[2023-01-05] VITALS (8 sets, daily range): BP systolic 144–172; BP diastolic 86–100; TEMP 96.8–98.4; O2SAT 95–98
[2023-01-05] MEDS ORDERED: ENOXAPARIN 80MG/0.8ML SYRINGE (J1650 PER 10MG) SC ONE
[2023-01-05] MEDS: hydrALAZINE 20MG/ML 1ML VIAL IV SCH ×2 (00:05→05:32)
[2023-01-05] MEDS ORDERED: MORPHINE 2 MG/ML 1ML VIAL IV PRN (00:20)
[2023-01-05] MEDS: ONDANSETRON 4MG 2ML VIAL IV PRN ×2 (00:53→15:06)
[2023-01-05] MEDS: ACETAMINOPHEN TAB 650MG DOSE (2X325MG) PO PRN ×3 (00:54→09:37)
[2023-01-05] MEDS: METOCLOPRAMIDE INJ 10MG/2ML VIAL IV PRN ×4 (03:48→23:48)
[2023-01-05 06:31] LABS: HEMATOCRIT 40.2 % (36.0-47.0); HEMOGLOBIN 14.2 g/dl (12.0-15.5); MEAN CORPUSCULAR HEMOGLOBIN 31.9 pg (27.0-33.0); MEAN CORPUSCULAR HGB CONC 35.3 g/dl (32.0-36.5); MEAN CORPUSCULAR VOLUME 90.3 fl (80.0-96.0); PLATELET COUNT, AUTOMATED 386 10^3/uL (150-450); RED BLOOD COUNT 4.45 10^6/uL (4.00-5.40); WHITE BLOOD COUNT 9.1 10^3/uL (4.0-10.0)
[2023-01-05 06:43] LABS: INR 1.25; PROTHROMBIN TIME 15.3 SECONDS (12.5-14.5)
[2023-01-05 06:44] LABS: PARTIAL THROMBOPLASTIN TIME 30.8 SECONDS (24.8-34.2)
[2023-01-05 06:45] LABS: BLOOD UREA NITROGEN 10 MG/DL (9-23); CALCIUM LEVEL 8.7 MG/DL (8.3-10.6); CARBON DIOXIDE LEVEL 25 MMOL/L (20-31); CHLORIDE LEVEL 92 MMOL/L (98-107); CREATININE FOR GFR 0.53 MG/DL (0.55-1.30); GLOMERULAR FILTRATION RATE > 60.0 (>45); GLUCOSE, FASTING 122 MG/DL (74-106); MAGNESIUM LEVEL 1.7 MG/DL (1.8-2.4); POTASSIUM SERUM 3.4 MMOL/L (3.5-5.1); SODIUM LEVEL 127 MMOL/L (136-145)
[2023-01-05] MEDS ORDERED: MAG SULF 1GM/100ML (MAG RUN) 1 GM in IV 1 EA IV ONE (08:00)
[2023-01-05] MEDS ORDERED: traZODone 100 MG TAB PO PRN (08:20)
[2023-01-05] MEDS ORDERED: MIRALAX *UNIT DOSE* 17GM PACKET PO PRN (08:20)
[2023-01-05] MEDS ORDERED: KCL 10MEQ/100ML SWI (KRUN) 10 MEQ in IV 1 EA IV ONE (09:00)
[2023-01-05] MEDS ORDERED: METOPROLOL SUCC (TopROL XL) 50MG **XL** TAB PO SCH (09:00)
[2023-01-05] MEDS ORDERED: LEVOTHYROXINE 100MCG (0.1MG) 5ML SDV PF (SOLUTION FORM) IV SCH (09:00)
[2023-01-05] MEDS ORDERED: PANTOPRAZOLE 40MG VIAL IV SCH (09:00)
[2023-01-05] MEDS: NS 1,000 ML IV SCH ×2 (09:23→23:44)
[2023-01-05] MEDS: LOSARTAN 50MG TABLET PO SCH (09:38)
[2023-01-05] MEDS: CETIRIZINE (ZyrTEC) 10 MG TAB PO SCH (09:38)
[2023-01-05] MEDS: LACTOBACILLUS ACIDOPHILUS CAP (BACID) PO SCH (09:38)
[2023-01-05] MEDS: LEVOTHYROXINE 50MCG TABLET (0.05MG) PO SCH (10:26)
[2023-01-05] MEDS: PANTOPRAZOLE 40MG TAB (PROTONIX) PO SCH (10:26)
[2023-01-05] MEDS: busPIRone 10 MG TAB PO SCH ×3 (10:34→20:47)
[2023-01-05] MEDS: SERTRALINE HCL 50 MG TAB PO SCH (10:34)
[2023-01-05] MEDS: METOPROLOL SUCC (TopROL XL) 100MG *XL* TAB PO SCH (10:46)
[2023-01-05] MEDS: PERCOCET 5MG/325MG TAB PO PRN ×2 (10:47→20:47)
[2023-01-05] MEDS ORDERED: ENOXAPARIN 80MG/0.8ML SYRINGE (J1650 PER 10MG) SC SCH (12:00)
[2023-01-05] MEDS ORDERED: RIVAROXABAN 20MG TAB (XARELTO) PO SCH (18:00)
[2023-01-05] MEDS: amLODIPine 5 MG TAB PO SCH (20:47)
[2023-01-06 03:49] VITALS: BP 138/83; TEMP 97.8; O2SAT 100
[2023-01-06] MEDS: LEVOTHYROXINE 50MCG TABLET (0.05MG) PO SCH (05:38)
[2023-01-06] MEDS ORDERED: METOCLOPRAMIDE 5 MG TAB PO SCH (07:50)
[2023-01-06 08:00] VITALS: BP 146/77
[2023-01-06] MEDS: busPIRone 10 MG TAB PO SCH (08:07)
[2023-01-06] MEDS: METOPROLOL SUCC (TopROL XL) 100MG *XL* TAB PO SCH (08:07)
[2023-01-06 08:08] VITALS: BP 146/77
[2023-01-06] MEDS: LOSARTAN 50MG TABLET PO SCH (08:08)
[2023-01-06] MEDS: amLODIPine 5 MG TAB PO SCH (08:08)
[2023-01-06] MEDS: LACTOBACILLUS ACIDOPHILUS CAP (BACID) PO SCH (08:08)
[2023-01-06] MEDS: PANTOPRAZOLE 40MG TAB (PROTONIX) PO SCH (08:08)
[2023-01-06] MEDS: SERTRALINE HCL 50 MG TAB PO SCH (08:09)
[2023-01-06] MEDS: CETIRIZINE (ZyrTEC) 10 MG TAB PO SCH (08:09)
[2023-01-06 08:31] VITALS: BP 146/77; TEMP 97.6; O2SAT 99
[2023-01-06 08:45] LABS: BLOOD UREA NITROGEN 8 MG/DL (9-23); CALCIUM LEVEL 8.4 MG/DL (8.3-10.6); CARBON DIOXIDE LEVEL 30 MMOL/L (20-31); CHLORIDE LEVEL 93 MMOL/L (98-107); GLOMERULAR FILTRATION RATE > 60.0 (>45); GLUCOSE, FASTING 96 MG/DL (74-106); MAGNESIUM LEVEL 1.7 MG/DL (1.8-2.4); POTASSIUM SERUM 3.5 MMOL/L (3.5-5.1); SODIUM LEVEL 131 MMOL/L (136-145)
[2023-01-06] MEDS ORDERED: MAGNESIUM OXIDE 400MG TAB (MAG-OX) PO ONE (10:00)
[2023-01-06] MEDS: PERCOCET 5MG/325MG TAB PO PRN (10:04)
[2023-01-06] MEDS ORDERED: METO5TAB2 PO ×2 (10:34→11:48)
[2023-01-06] MEDS ORDERED: AMLO1TAB24 PO ×2 (10:34→11:48)
== END 2023-01-06 13:30 | disposition home or self-care (01) ==
LOC: M ED 15:45 → M ED INP 23:07 → M PCU 01-05 00:39
PROVIDERS: ADMIT Internal Medicine; ATTEND Internal Medicine
DX: R11.2 Nausea with vomiting, unspecified (principal); I16.0 Hypertensive urgency; R74.8 Abnormal levels of other serum enzymes; E87.8 Other disorders of electrolyte and fluid balance, not elsewhere classified; E87.1 Hypo-osmolality and hyponatremia; E83.42 Hypomagnesemia; I48.91 Unspecified atrial fibrillation; Z98.890 Other specified postprocedural states; I10 Essential (primary) hypertension; E03.9 Hypothyroidism, unspecified; Z98.84 Bariatric surgery status; R10.30 Lower abdominal pain, unspecified; K21.9 Gastro-esophageal reflux disease without esophagitis; F32.A Depression, unspecified; F41.9 Anxiety disorder, unspecified; Z88.8 Allergy status to other drugs, medicaments and biological substances; Z88.4 Allergy status to anesthetic agent; Z79.899 Other long term (current) drug therapy; Z79.01 Long term (current) use of anticoagulants
CPT/HCPCS: 36415; 71046; 74177; 76705; 80048; 80076; 82550; 82553; 83605; 83690; 83735; 84484; 85025; 85027; 85610; 85730; 87635; 93005; 93041; 94760; 96361; 96365; 96372; 96375; 96376; 99285; C9113; G0378; J0360; J1200; J1650; J1920; J2405; J2550; J2765; J2930; J3475; Q9967

== ENCOUNTER → 2023-01-27 | Outpatient (CLI) | payer MEDICARE ==
[~2023-01-27] MED LIST changes: +AMLO1TAB24 PO; +BIMA0.036 OU; +CETI-24 PO; +CLOB0.057 TOP; +KETO2SHA8 TOP; +METO5TAB2 PO; +METR-265; +MIRA1POW3 PO; +OXYC7.5T3 PO; +RISATAB3 PO; +[UNRECOGNIZED DRUG - CODE] PO
== END ==
LOC: M PLARAD 12:59
PROVIDERS: ATTEND Orthopaedic Surgery
DX: M47.896 Other spondylosis, lumbar region (principal); M48.061 Spinal stenosis, lumbar region without neurogenic claudication; G03.9 Meningitis, unspecified

== ENCOUNTER → 2023-04-06 | Outpatient (CLI) | payer MEDICARE ==
[~2023-04-06] MED LIST changes: +CEFD1CAP9 PO; -CEFD300C42 PO
== END ==
LOC: M WHC 14:04
PROVIDERS: ATTEND Advanced Practice Midwife
DX: Z12.31 Encounter for screening mammogram for malignant neoplasm of breast (principal); Z79.3 Long term (current) use of hormonal contraceptives

== ENCOUNTER → 2023-04-06 | Outpatient (CLI) | payer MEDICARE | LOC: M WHC 15:15 | PROVIDERS: ATTEND Advanced Practice Midwife | DX: Z13.820 Encounter for screening for osteoporosis (principal) ==

== ENCOUNTER → 2023-10-13 | Outpatient (CLI) | payer MEDICARE ==
[~2023-10-13] MED LIST changes: +METO200T15 PO; -METO200T28 PO; -MIRA1POW3 PO; +MIRA33506 PO
== END ==
LOC: M PLARAD 14:23
PROVIDERS: ATTEND Orthopaedic Surgery
DX: M54.2 Cervicalgia (principal); M47.812 Spondylosis without myelopathy or radiculopathy, cervical region; M48.02 Spinal stenosis, cervical region

== ENCOUNTER → 2024-09-06 | Outpatient (CLI) | payer MEDICARE ==
[~2024-09-06] MED LIST changes: -BYST10TA2 PO; +BYST1TAB3 PO; +KETO120S5 TOP; -KETO2SHA8 TOP
== END ==
LOC: M WHC 13:27
PROVIDERS: ATTEND Advanced Practice Midwife
DX: Z12.31 Encounter for screening mammogram for malignant neoplasm of breast (principal); R92.323 Mammographic fibroglandular density, bilateral breasts

== ENCOUNTER → 2024-12-26 | Outpatient (CLI) | payer MEDICARE | LOC: M WUC 12:46 | PROVIDERS: ATTEND Nurse Practitioner Family | DX: M79.642 Pain in left hand (principal); S62.643A Nondisplaced fracture of proximal phalanx of left middle finger, initial encounter for closed fracture; W01.10XA Fall on same level from slipping, tripping and stumbling with subsequent striking against unspecified object, initial encounter; Y92.9 Unspecified place or not applicable; Y93.9 Activity, unspecified; Y99.9 Unspecified external cause status ==